=== PATIENT | female | born 1960 | race Hispanic/Latino ===

== ENCOUNTER 2017-11-16 10:13 | Inpatient (IN) | payer MEDICAID ==
[2017-11-16 10:30] VITALS: BMI 24.2
--- NOTE | 2017-11-16 11:30 | CT ---
PROCEDURE: CT HEAD WITHOUT CONTRAST. HISTORY: head injury COMPARISON: None available. TECHNIQUE: Axial computed tomography images were obtained through the head/brain without intravenous contrast. Radiation dose: Total exam DLP = 877.06 mGy-cm. This CT exam was performed using one or more of the following dose reduction techniques: Automated exposure control, adjustment of the mA and/or kV according to patient size, and/or use of iterative reconstruction technique. FINDINGS: HEMORRHAGE: No intracranial hemorrhage. BRAIN: There is minimal expansion of the ventricular sulcal sternal spaces compatible diffuse cerebral atrophy. Further, trace subcortical white matter lucency is seen occasionally involving the cerebrum including minimal segment of the right external capsule likely reflecting chronic microangiopathy. Posterior fossa contents appear unremarkable the brainstem. There is no mass effect or suspicious extra-axial fluid collection demonstrated. Midline brain and appears unremarkable diffusely. VENTRICLES: Unremarkable. No hydrocephalus. CALVARIUM: No destructive bony lesion or displaced fracture identified including through the skullbase. PARANASAL SINUSES: Unremarkable as visualized. No significant inflammatory changes. MASTOID AIR CELLS: Left mastoid effusions identified. OTHER FINDINGS: None. IMPRESSION: Limited diffuse cerebral atrophy chronic microangiopathy are identified. No intracranial hemorrhage or fracture of the calvarium/ skull base demonstrated. Left mastoid effusions are identified.
--- NOTE | 2017-11-16 12:27 | RAD ---
PROCEDURE: Radiographs of the pelvis and bilateral hips HISTORY: Right hip pain COMPARISON: None. FINDINGS: BONES: There is an acute impacted nondisplaced right femoral subcapital fracture. The pelvic ring is intact. There is diffuse bone demineralization. There is no bone destruction. JOINTS: The hip joint spaces are preserved. There is mild degenerative osteoarthrosis in the sacroiliac joints. SOFT TISSUES: Normal. OTHER FINDINGS: There are multiple phleboliths in the pelvis. IMPRESSION: Acute impacted nondisplaced right femoral subcapital fracture. No dislocation.
--- NOTE | 2017-11-16 12:35 | ED PDOC ---
Arrival/HPI - General Chief Complaint: Trauma Time Seen by Provider: 11/16/17 11:00 Historian: Patient - History of Present Illness Narrative History of Present Illness (Text): 11/16/17 12:36 57yo female with PMh of RA and hypertension bib BLS for right hip pain s/p trauma earlier this morning. Patient states she started having diarrhea, after eating a left over diarrhea last night. States while running to use her bathroom , she didn't use her walker and she fell, injuring her hip and hitting her head on the floor. States she wasn't able to stand s/p the fal land her brother found her on the floor this morning. she denies LOC, focal weakness, nausea, vomiting, dizziness, any other complaint. Past Medical History - Provider Review Nursing Documentation Reviewed: Yes - Infectious Disease Hx of Infectious Diseases: None - Cardiac Hx Cardiac Disorders: Yes Hx Hypertension: Yes - Pulmonary Hx Respiratory Disorders: Yes Hx Chronic Obstructive Pulmonary Disease (COPD): Yes - Neurological Hx Neurological Disorder: No Hx Alzheimer's Disease: No - HEENT Hx HEENT Disorder: No - Renal Hx Renal Disorder: No - Endocrine/Metabolic Hx Endocrine Disorders: No - Hematological/Oncological Hx Blood Disorders: No - Integumentary Hx Dermatological Disorder: No - Musculoskeletal/Rheumatological Hx Musculoskeletal Disorders: Yes - Gastrointestinal Hx Gastrointestinal Disorders: No - Genitourinary/Gynecological Hx Genitourinary Disorders: No - Psychiatric Hx Psychophysiologic Disorder: Yes Hx Anxiety: Yes Hx Depression: Yes Hx Emotional Abuse: No Hx Physical Abuse: No Hx Substance Use: No - Surgical History Hx Orthopedic Surgery: Yes (foot) - Anesthesia Hx Anesthesia Reactions: No - Suicidal Assessment Feels Threatened In Home Enviroment: No Family/Social History - Physician Review Nursing Documentation Reviewed: Yes Family/Social History: Unknown Family HX Smoking Status: Heavy Smoker > 10 Cigarettes Daily Hx Alcohol Use: No Hx Substance Use: No Hx Substance Use Treatment: No Allergies/Home Meds Allergies/Adverse Reactions: Allergies ibuprofen [From Motrin] Allergy (Verified 11/16/17 15:44) ANAPHYLAXIS NSAIDS (Non-Steroidal Anti-Inflamma Allergy (Verified 11/16/17 15:44) SWELLING Home Medications: Home Meds Medication Instructions Recorded Confirmed Quetiapine Fumarate [Seroquel] 200 mg PO HS 05/21/12 11/16/17 Adalimumab [Humira] 40 mg SC Q2W 06/11/15 11/16/17 Benztropine [Benztropine Mesylate] 1 mg PO DAILY 06/11/15 11/16/17 Aspirin [Ecotrin] 1 tab PO DAILY 05/13/16 11/16/17 Clonazepam [Klonopin] 0.5 mg PO TID PRN 05/13/16 11/16/17 Folic Acid [Folic Acid] 1 mg PO DAILY 05/13/16 11/16/17 [place] Carbonate [[place] 300 mg PO BID 05/13/16 11/16/17 Carbonate 300MG] Methotrexate [Methotrexate] 6 tab PO .WEEKLY 05/13/16 11/16/17 Metoprolol Succinate [Toprol XL] 25 mg PO DAILY 05/13/16 11/16/17 Prednisone [Prednisone] 4 mg PO DAILY 05/13/16 11/16/17 Sertraline [Zoloft] 50 mg PO DAILY 05/13/16 11/16/17 Review of Systems - Physician Review All systems were reviewed & negative as marked: Yes - Review of Systems Constitutional: Normal Eyes: Normal ENT: Normal Respiratory: Normal Cardiovascular: Normal Gastrointestinal: Normal Genitourinary Female: Normal Musculoskeletal: Arthralgias (right hip pain) Skin: Normal Neurological: Normal Endocrine: Normal Hemo/Lymphatic: Normal Psychiatric: Normal Physical Exam Vital Signs Reviewed: Yes Vital Signs Temp Pulse Resp BP Pulse Ox 11/16/17 14:20 79 16 140/75 98 11/16/17 12:23 75 18 112/75 100 11/16/17 11:21 79 18 108/71 100 11/16/17 10:30 98.4 F 84 16 110/79 100 Temperature: Afebrile Blood Pressure: Normal Pulse: Regular Respiratory Rate: Normal Appearance: Positive for: Well-Appearing, Non-Toxic, Comfortable Pain Distress: None Mental Status: Positive for: Alert and Oriented X 3 - Systems Exam Head: Present: Atraumatic, Normocephalic Pupils: Present: PERRL Extroacular Muscles: Present: EOMI Conjunctiva: Present: Normal Mouth: Present: Moist Mucous Membranes Neck: Present: Normal Range of Motion Respiratory/Chest: Present: Clear to Auscultation, Good Air Exchange. No: Respiratory Distress, Accessory Muscle Use Cardiovascular: Present: Regular Rate and Rhythm, Normal S1, S2. No: Murmurs Abdomen: Present: Normal Bowel Sounds. No: Tenderness, Distention, Peritoneal Signs Back: Present: Normal Inspection Upper Extremity: Present: Normal Inspection. No: Cyanosis, Edema Lower Extremity: Present: NORMAL PULSES, Tenderness (LAteral and anterior right hip), Neurovascularly Intact. No: Edema, Normal ROM (Limited on external/ internal abduction/aducction), Swelling Neurological: Present: GCS=15, CN II-XII Intact, Speech Normal Skin: Present: Warm, Dry, Normal Color. No: Rashes Psychiatric: Present: Alert, Oriented x 3, Normal Insight, Normal Concentration Medical Decision Making ED Course and Treatment: 11/16/17 19:30 PT in ED for stated history. She was seen as soon as she came to the ED and analgesic ordered Hip xray IMPRESSION: Acute impacted nondisplaced right femoral subcapital fracture. No dislocation. Case was RONEN Sy who pt by the bedside and took pt to the OR CAse was RONEN Alba and pt was admitted EKG NSR @ 85bpm CXR NAD Lab was reviewed with leukocytosis which could be secondary to the fracture or viral infection. - RAD Interpretation Radiology Orders: 11/16/17 11:00 HEAD W/O CONTRAST [CT] Stat Hip Bilateral [HIP MIN 3V W/ PELVIS SUKHDEV] [RAD] Stat 11/16/17 12:34 CHEST PORTABLE [RAD] Stat - Medication Orders Current Medication Orders: Acetaminophen (Tylenol 325mg Tab) 650 mg PO Q4 PRN PRN Reason: Fever >100.4 F Aspirin (Ecotrin) 325 mg PO DAILY [facility] Benztropine Mesylate (Cogentin) 1 mg PO DAILY VU Clonazepam (Klonopin) 0.5 mg PO TID PRN; Protocol PRN Reason: Anxiety Enoxaparin Sodium (Lovenox) 30 mg SC DAILY VU PRN Reason: Protocol Fentanyl (Fentanyl) 25 mcg IV Q5M PRN PRN Reason: Pain, moderate (4-7) Folic Acid (Folic Acid) 1 mg PO DAILY [facility] Dextrose/Sodium Chloride (Dextrose 5%/0.45% Ns 1000 Ml) 1,000 mls @ 75 mls/hr IV .[id number] VU Last Admin: 11/16/17 18:30 Dose: 75 mls/hr eMAR Start Stop Document 11/16/17 18:30 MJO (Rec: 11/16/17 18:31 [facility] [id number]) Intravenous Solution Start Date 11/16/17 Start Time 18:31 Cefazolin Sodium (Ancef 1gm In Ns) 1 gm in 100 mls @ 100 mls/hr IVPB Q8 VU PRN Reason: Protocol [place] Carbonate ([place] Carbonate 300mg) 300 mg PO BID VU Last Admin: 11/16/17 18:39 Dose: Not Given Non-Admin Reason: Patient Lethargic Behavioural Document 11/16/17 18:39 [facility] (Rec: 11/16/17 18:39 [facility] [id number]) Maintenance Maintenance Dose Yes Methotrexate (Methotrexate) 15 mg PO .WEEKLY VU Metoclopramide HCl (Reglan) 10 mg IV ONCE PRN PRN Reason: Nausea/Vomiting Metoprolol Succinate (Toprol Xl) 25 mg PO DAILY VU Morphine Sulfate (Morphine) 2 mg IVP Q4H PRN PRN Reason: Pain, moderate (4-7) Adalimumab [Humira] (40 Mg) 40 mg SC Q2W VU Ondansetron HCl (Zofran Inj) 4 mg IVP ONCE PRN PRN Reason: Nausea/Vomiting Prednisone (Prednisone Tab) 5 mg PO DAILY VU Quetiapine Fumarate (Seroquel) 200 mg PO HS VU Discontinued Medications Hydromorphone HCl (Dilaudid) 0.5 mg SC Q4H PRN PRN Reason: Pain, severe (8-10) Sodium Chloride (Sodium Chloride 0.9%) 1,000 mls @ 999 mls/hr IV .Q1H1M STA Stop: 11/16/17 14:11 Last Admin: 11/16/17 13:22 Dose: 999 mls/hr eMAR Start Stop Document 11/16/17 13:22 [place] (Rec: 11/16/17 13:22 [place] [id number]) Intravenous Solution Start Date 11/16/17 Start Time 13:22 Morphine Sulfate (Morphine) 2 mg IVP STAT STA Stop: 11/16/17 12:37 Last Admin: 11/16/17 13:21 Dose: 2 mg MAR Pain Assessment Document 11/16/17 13:21 HI (Rec: 11/16/17 13:21 [place] [id number]) Pain Reassessment Is this a pain reassessment? No Location Left, Right or Bilateral Right Pain Location Body Site Hip Description Description Constant Intensity of Pain at present 10 Pain Behavior Moaning Withdrawal from Touch Facial Grimacing IVP Administration Document 11/16/17 13:21 HI (Rec: 11/16/17 13:21 [id number] Charges for Administration # of IVP Administrations 1 Tramadol HCl (Ultram) 50 mg PO STAT STA Stop: 11/16/17 11:02 Last Admin: 11/16/17 11:56 Dose: 50 mg MAR Pain Assessment Document 11/16/17 11:56 HI (Rec: 11/16/17 11:59 [id number][facility] Pain Reassessment Is this a pain reassessment? No Disposition/Present on Arrival - Present on Arrival Any Indicators Present on Arrival: No History of DVT/PE: No History of Uncontrolled Diabetes: No Urinary Catheter: No History of Decub. Ulcer: No History Surgical Site Infection Following: None - Disposition Have Diagnosis and Disposition been Completed?: Yes Diagnosis: Femoral fracture, Hip fracture Disposition: HOSPITALIZED Disposition Time: 12:40 Patient Plan: Admission Patient Problems: Current Active Problems Problem Status Onset Femoral fracture Acute Condition: FAIR
[2017-11-16] MEDS ORDERED: Morphine 2 mg/ml ISec IVP STA (12:36)
[2017-11-16] MEDS ORDERED: Sodium Chloride 0.9% 1,000 ML IV STA (13:11)
[2017-11-16 13:42] LABS: BASO # 0.02 K/mm3 (0.0-2.0); BASO % 0.1 % (0.0-3.0); GRAN # 11.51 (1.4-6.5); GRAN % 80.5 % (50.0-68.0); HEMOGLOBIN 11.8 g/dL (12.0-16.0); LYMPH # 1.6 (1.2-3.4); LYMPH % 11.3 % (22.0-35.0); MEAN CELL VOLUME 89.3 fl (80.0-105.0); MEAN CORPUSCULAR HEMOGLOBIN 28.8 pg (25.0-35.0); MEAN CORPUSCULAR HGB CONC 32.2 g/dl (31.0-37.0); MEAN PLATELET VOLUME 10.3 fl (7.0-11.0); MONO # 1.2 (0.1-0.6); MONO % 8.1 % (1.0-6.0); RBC 4.1 10^6/uL (3.5-6.1); RED CELL DISTRIBUTION WIDTH 17.7 % (11.5-14.5); WHITE BLOOD COUNT 14.3 10^3/ul (4.5-11.0)
--- NOTE | 2017-11-16 13:46 | RAD ---
HISTORY: admission COMPARISON: 05/13/2016. FINDINGS: LUNGS: The lungs are clear. There is minimal bibasilar atelectasis. No focal consolidation. PLEURA: No significant pleural effusion identified, no pneumothorax apparent. CARDIOVASCULAR: Normal. OSSEOUS STRUCTURES: There is an S-shaped scoliosis in the thoracolumbar spine. VISUALIZED UPPER ABDOMEN: Normal. OTHER FINDINGS: None. IMPRESSION: No active pulmonary disease.
[2017-11-16 13:52] LABS: ALB/GLOB RATIO 1.2 (1.1-1.8); ALBUMIN 3.5 g/dL (3.0-4.8); ALT/SGPT 45 U/L (7-56); AST/SGOT 46 U/L (14-36); BLOOD UREA NITROGEN 14 mg/dL (7-21); CALCIUM 9.9 mg/dL (8.4-10.5); GFR AFRICAN-AMERICAN > 60; GFR NON-AFRICAN AMERICAN > 60
[2017-11-16 14:05] LABS: INR 1.26 (0.93-1.08); PARTIAL THROMBOPLASTIN TIME 33.3 Seconds (25.1-36.5); PROTHROMBIN TIME 14.5 SECONDS (9.4-12.5)
[2017-11-16 14:23] LABS: URINE BILIRUBIN NEGATIVE (NEGATIVE); URINE BLOOD TRACE-INTACT (NEGATIVE); URINE GLUCOSE (UA) NEGATIVE (NEGATIVE); URINE LEUKOCYTE ESTERASE NEGATIVE Leu/uL (NEGATIVE); URINE NITRATE NEGATIVE (NEGATIVE); URINE PROTEIN NEGATIVE mg/dL (<30 mg/dL); URINE UROBILINOGEN 0.2 E.U./dL (<1 E.U./dL)
[2017-11-16 14:24] LABS: URINE APPEARANCE CLEAR (CLEAR); URINE COLOR YELLOW (YELLOW)
[2017-11-16] MEDS ORDERED: Bupivacaine 0.5% Inj(30mL) ONE (14:27)
[2017-11-16 14:33] LABS: URINE EPITHELIAL CELLS 0 - 2 /hpf (0-5); URINE WBC 0 - 2 /hpf (0-6)
[2017-11-16 14:34] LABS: URINE AMORPHOUS SEDIMENT FEW; URINE BACTERIA MOD (NEG)
[2017-11-16] MEDS ORDERED: Midazolam 2 MG/2 ML VIAL ONE (14:59)
[2017-11-16] MEDS ORDERED: Propofol 10 mg/ml Inj (20 ML) ONE (15:00)
[2017-11-16] MEDS ORDERED: Succinylcholine 200 mg/10 ml Inj IV ONE (15:00)
[2017-11-16] MEDS ORDERED: Rocuronium 10 mg/ml (5 ml) ONE (15:00)
[2017-11-16] MEDS ORDERED: Metoprolol 1 mg/ml Inj IVP ONE (16:12)
[2017-11-16] MEDS ORDERED: Neostigmine Methylsulfate 3mg/3ml Syringe IV ONE (16:26)
[2017-11-16] MEDS ORDERED: HYDROmorphone 0.5 mg/0.5 ml ISec SC PRN (16:58)
[2017-11-16] MEDS: Dextrose 5%/0.45% NS 1,000 ML IV SCH (18:30)
[2017-11-16] MEDS: Morphine 2 mg/ml ISec IVP PRN (20:50)
[2017-11-16] MEDS: ceFAZolin 1 gm in NS 1 GM/100 ML BAG IVPB SCH (21:40)
[2017-11-16] MEDS ORDERED: QUETIAPINE FUMARATE 200 MG PO SCH (22:00)
--- NOTE | 2017-11-16 23:15 | CON ---
DATE: 11/16/2017 CARDIOLOGY CONSULTATION HISTORY OF PRESENT ILLNESS: The patient is a 57-year-old woman who presented with a hip fracture after a fall. The patient suffers from rheumatoid arthritis and uses a cane at home. The patient has no previous cardiac history. No diabetes mellitus. She does suffer from hypertension. There is evidence for COPD in the past, although the patient denies shortness of breath. She denies chest pain. SOCIAL HISTORY: The patient is an active smoker. REVIEW OF SYSTEMS: A 14-point review of systems is reviewed in detail. No cardiac symptomatology noted. No syncope noted. PHYSICAL EXAMINATION VITAL SIGNS: Stable, heart rate is in the 80s. NECK: Negative JVD. LUNGS: Without rales. HEART: Reveals S1 and S2. EXTREMITIES: Without edema. LABORATORY DATA: Laboratories were reviewed without issues. EKG is normal sinus rhythm and is unremarkable. IMPRESSION: 1. Status post hip fracture secondary to a fall. 2. No syncope. 3. History of hypertension. 4. Chronic obstructive pulmonary disease. 5. Rheumatoid arthritis. PLAN: Given these findings, there is no active cardiac issues at this time. The patient is for orthopedic surgery today. Luigi Delgado MD
[2017-11-16] MEDS ORDERED: Pneumococcal 23-Valent Vaccine IM ONE (23:30)
[2017-11-16] MEDS ORDERED: Influenza Vaccine 60 mcg/0.5 mL SYR (4YR UP) IM ONE (23:30)
--- NOTE | 2017-11-17 00:35 | CON ---
DATE: 11/16/2017 ORTHOPEDIC CONSULTATION HISTORY OF PRESENT ILLNESS: The patient slipped and fell yesterday at home and sustained an injury to her right hip. When she came to the ER this morning, she had an impacted subcapital fracture of right hip, amiable to percutaneous pinning or open reduction internal fixation with cannulated screws. She is going to be cleared medically by Dr. Alba and Dr. Luigi Delgado. Blood work looked satisfactory as far as electrolytes and H and H and ProTime and PTT. Chest x-ray was fine. EKG was fine. So, we are going to do a pinning of right hip with 3 cannulated screws. This will help avoid a total hip at this state. Because if she heals with this pins, then she does not need a total hip; but if the pins do not work, she will get avascular necrosis or arthritis, and then she would need a total hip on an elective basis, not an urgent state as she is now. FINAL DIAGNOSES: Impacted subcapital fracture of right hip, for pinning in the OR of right hip - either open or percutaneous. Calvin Sy DO
--- NOTE | 2017-11-17 04:24 | OP ---
PROCEDURE DATE: 11/16/2017 PREOPERATIVE DIAGNOSIS: Impacted subcapital fracture, right hip. POSTOPERATIVE DIAGNOSIS: Impacted subcapital fracture, right hip. PROCEDURE: Open reduction and internal fixation utilizing three cannulated screws, 90, 90, and 85 mm long screws. ANESTHESIA: General endotracheal tube. DESCRIPTION OF PROCEDURE: The patient was taken to the OR, right hips prepped and draped in sterile fashion. With the help of the C-arm, we were able to reduce the fracture with gentle traction and internal rotation. After thorough prepping and draping, antibiotics were given IV, we made a stone setter metal optical frames incision at the hip to template of the hip to tell us which direction to put our guidewire, which was just below the greater trochanteric area and made an inch incision right in line with the femoral head and neck. Deep dissection done to release the fascia, then put it in the first guidewire along the calcar region of the right hip. This looked good on both AP and lateral projections and we replaced that guidewire with a 90-mm long short-threaded screw, 7.3 mm, with 60 mm of screw purchase and with a washer to help improve the size of it. This was done to hold it on the calcar to help it go into valgus and we put two more screws proximal to this, one anterior and one posterior, with the help of the C-arm and the guidewire. All three screws were in good position, just subchondral and we moved the hip under fluoroscopy to see and make sure there is no motion of the fracture, which there was not and to make sure the screws did not penetrate the femoral head, which they did not. The wound was irrigated with normal saline and Kantrex, closed in layers. The other two screws put in were 90 mm long, also one with a washer and one without. Then the wound was closed with 0 Vicryl at deep layer, 2-0 Vicryl for the subcutaneous tissue, and skin with stainless steel vanessa. Patient was taken to recovery room in good condition. Calvin Sy DO
[2017-11-17] MEDS: ceFAZolin 1 gm in NS 1 GM/100 ML BAG IVPB SCH ×3 (05:08→22:16)
[2017-11-17] MEDS: Morphine 2 mg/ml ISec IVP PRN ×2 (05:08→20:47)
--- NOTE | 2017-11-17 06:12 | HP ---
HISTORY OF PRESENT ILLNESS: I was called by the ER to come, take a look at her. She had a trauma and she hurt her right hip, turns out there was a fracture and she is scheduled to go for surgery with Dr. Sy. Discussed the plans with Dr. Sy her situation, went over meds and plans. This is a 57-year-old female who was brought in by ambulance with right hip pain status post trauma earlier that morning. She is also having diarrhea. She was eating leftovers and while running to the bathroom, did not use her walker, she fell injuring her hip, hitting her head in the floor, could not stand up from the fall. Her brother found her on the floor and ended up here in the hospital. PAST MEDICAL HISTORY: She has a past medical history of severe rheumatoid arthritis, hypertension, COPD, musculoskeletal disorders. She has anxiety, depression. She had orthopedic surgery on her foot. FAMILY HISTORY: Unknown family history. SOCIAL HISTORY: She is still smoking cigarettes. No alcohol. No drugs. ALLERGIES: SHE HAS IBUPROFEN, MOTRIN ALLERGY. MEDICATIONS: She is on Seroquel, Humira, benztropine, Ecotrin, Klonopin, folic acid, lithium, methotrexate, Toprol, prednisone and Zoloft. REVIEW OF SYSTEMS: No acute vision or hearing changes. No sore throat. No neck pain. No chest pain or palpitations. No shortness of breath or cough. No abdominal pain, nausea, vomiting, but there is diarrhea. We will check infection also. She has arthralgias, lots of pain in the right hip status post fall. Skin for the most part intact. No apparent rashes or ulcers. Neurologically, she is fairly intact. No anxiety, depression at this time. No sweating. No tremors. PHYSICAL EXAMINATION: VITAL SIGNS: She has 98.4 temperature, 84 pulse, 16 respiratory rate, 110/79 blood pressure, 100% O2 sat on room air. HEENT: Head is traumatic, but no apparent bumps or bruises. She hit her head, but do not see any problems with it. She is well appearing, nontoxic, comfortable, with right hip pain. Alert and oriented x3. Extraocular muscles are intact. Pupils are equal and react to light. Throat is moist. NECK: Supple. HEART: Regular rate. Normal S1, S2. LUNGS: Clear to auscultation bilaterally. No wheezes or rhonchi or rales. ABDOMEN: Soft, nontender. Positive bowel sounds. No guarding, no rebound or CVA tenderness. EXTREMITIES: She has pain on the right hip area, no edema. NEUROLOGIC: GCS is 15. Cranial nerves II through XII grossly intact. Speech is normal. Alert and oriented x3. SKIN: Warm and dry. No apparent rashes or ulcers. Thyroid midline. VASCULAR: No apparent palpable lymphadenopathy at this time. LABORATORY DATA: She had multiple tests done. She had urine, which showed moderate bacteria. She has 136 sodium, potassium 3.6, BUN 14, creatinine 0.7, GFR is greater than 60, sugar is 103, calcium 9.9, total bili is 0.4, AST is 46, ALT is 45, alk phos 54, total protein 6.3. 1.26 INR. She has 14.3 white count, 11.8 hemoglobin, 36.6 hematocrit with a 308 platelets. She has a head CT when she hit her head, which showed limited diffuse cerebral atrophy, no intracranial hemorrhage, some left mastoid effusions are identified. She had a hip and pelvis x-ray, which showed acute impacted nondisplaced right femur. Chest x-ray with no active pulmonary disease. After discussion with Orthopedics, we decided that she was going for open surgery tonight for pinning. We will check her labs tomorrow. She will probably end up going to [facility] on Sunday. Discussed with the patient at length who felt she could be discharged tonight, but she cannot. She is on Zofran, Ultram, Tylenol, metoprolol, IV fluids, Seroquel, Reglan, prednisone, morphine, methotrexate, Lovenox, lithium, Klonopin, folic acid, fentanyl, aspirin, benztropine, cefazolin and Humira. We will check her labs tomorrow. Continue with aggressive treatment and care, antibiotics for the elevated white count and urinary tract infection and she is status post fall with a fractured right hip. We will see how she Marisabel Alba DO [facility] # [id number] MTDEliel
[2017-11-17 07:07] LABS: EOS % 0.1 % (1.5-5.0); GRAN # 7.09 (1.4-6.5); HEMOGLOBIN 9.9 g/dL (12.0-16.0); LYMPH # 1.4 (1.2-3.4); LYMPH % 15.8 % (22.0-35.0); MEAN CELL VOLUME 89.2 fl (80.0-105.0); MEAN CORPUSCULAR HEMOGLOBIN 28.9 pg (25.0-35.0); MEAN CORPUSCULAR HGB CONC 32.4 g/dl (31.0-37.0); MEAN PLATELET VOLUME 10.1 fl (7.0-11.0); MONO # 0.6 (0.1-0.6); MONO % 6.1 % (1.0-6.0); RBC 3.43 10^6/uL (3.5-6.1); RED CELL DISTRIBUTION WIDTH 17.8 % (11.5-14.5); WHITE BLOOD COUNT 9.1 10^3/ul (4.5-11.0)
[2017-11-17 07:28] LABS: ALB/GLOB RATIO 1.1 (1.1-1.8); ALBUMIN 2.6 g/dL (3.0-4.8); ALT/SGPT 37 U/L (7-56); AST/SGOT 32 U/L (14-36); BLOOD UREA NITROGEN 10 mg/dL (7-21); GFR AFRICAN-AMERICAN > 60; GFR NON-AFRICAN AMERICAN > 60
--- NOTE | 2017-11-17 09:57 | CARD ---
APPROVED REPORT EKG Measurement Heart [id number] <Conclusion> Normal sinus rhythm Normal ECG No change
--- NOTE | 2017-11-17 11:13 | CP.PCM.CON ---
History of Present Illness - History of Present Illness History of Present Illness: Podiatry Consult Note - Dr. Alcantara 57 year old female patient PMHx severe rheumatoid arthritis, HTN, COPD, anxiety , depression seen and evaluated at bedside at the request for rheumatoid foot care. Patient hemodynamically stable, NAD. Patient s/p right hip fracture ORIF yesterday afternoon. Patient was admitted yesterday after sustaining a right hip fracture secondary to falling at home. Patient is complaining of right foot pain which began after her injury. Patient states she has a walker and other assistive devices at home, but does not use them and believes she is able to ambulate freely with no assistance. Patient states she was in the bathroom when she hit her right foot on her shower chair and fell. Patient also endorses pain at her surgical site, well-controlled. No other pedal complaints. Denies N/V/F/D /C/SOB. Review of Systems - Review of Systems All systems: reviewed and no additional remarkable complaints except (as per HPI ) Past Patient History - Infectious Disease Hx of Infectious Diseases: None - Past Social History Smoking Status: Former Smoker - CARDIAC Hx Cardiac Disorders: Yes Hx Hypertension: Yes - PULMONARY Hx Respiratory Disorders: Yes Hx Chronic Obstructive Pulmonary Disease (COPD): Yes - NEUROLOGICAL Hx Neurological Disorder: No Hx Alzheimer's Disease: No - HEENT Hx HEENT Problems: No - RENAL Hx Chronic Kidney Disease: No - ENDOCRINE/METABOLIC Hx Endocrine Disorders: No - HEMATOLOGICAL/ONCOLOGICAL Hx Blood Disorders: No - INTEGUMENTARY Hx Dermatological Problems: No - MUSCULOSKELETAL/RHEUMATOLOGICAL Hx Musculoskeletal Disorders: Yes ([place]) Hx Arthritis: Yes Hx Falls: Yes (11-16-17) Other/Comment: BUNIONECTOMY - GASTROINTESTINAL Hx Gastrointestinal Disorders: No - GENITOURINARY/GYNECOLOGICAL Hx Genitourinary Disorders: No - PSYCHIATRIC Hx Psychophysiologic Disorder: Yes Hx Anxiety: Yes Hx Bipolar Disorder: Yes Hx Depression: Yes Hx Emotional Abuse: No Hx Physical Abuse: No Hx Substance Use: No - SURGICAL HISTORY Hx Surgeries: Yes (RIGHT LEG SX -DX OSTEOCHODROMA,BUNIONECTOMY,REMOVED R BREAST CYST.ORAL SX.) Hx Orthopedic Surgery: Yes (foot) - ANESTHESIA Hx Anesthesia Reactions: No Meds Allergies/Adverse Reactions: Allergies Allergy/AdvReac Type Severity Reaction Status Date / Time ibuprofen [From Motrin] Allergy ANAPHYLAXIS Verified 11/16/17 15:44 NSAIDS (Non-Steroidal Allergy SWELLING Verified 11/16/17 15:44 Anti-Inflamma - Medications Medications: Current Medications Acetaminophen (Tylenol 325mg Tab) 650 mg PO Q4 PRN PRN Reason: Fever >100.4 F Aspirin (Ecotrin) 325 mg PO DAILY [facility] Benztropine Mesylate (Cogentin) 1 mg PO DAILY [facility] Clonazepam (Klonopin) 0.5 mg PO TID PRN; Protocol PRN Reason: Anxiety Last Admin: 11/16/17 21:40 Dose: 0.5 mg Enoxaparin Sodium (Lovenox) 30 mg SC DAILY [facility] PRN Reason: Protocol Fentanyl (Fentanyl) 25 mcg IV Q5M PRN PRN Reason: Pain, moderate (4-7) Folic Acid (Folic Acid) 1 mg PO DAILY [facility] Dextrose/Sodium Chloride (Dextrose 5%/0.45% Ns 1000 Ml) 1,000 mls @ 75 mls/hr IV .[id number] [facility] Last Admin: 11/16/17 18:30 Dose: 75 mls/hr Cefazolin Sodium (Ancef 1gm In Ns) 1 gm in 100 mls @ 100 mls/hr IVPB Q8 VU PRN Reason: Protocol Last Admin: 11/17/17 05:08 Dose: 100 mls/hr [place] Carbonate ([place] Carbonate 300mg) 300 mg PO BID [facility] Last Admin: 11/16/17 18:39 Dose: Not Given Methotrexate (Methotrexate) 15 mg PO .WEEKLY [facility] Metoclopramide HCl (Reglan) 10 mg IV ONCE PRN PRN Reason: Nausea/Vomiting Metoprolol Succinate (Toprol Xl) 25 mg PO DAILY [facility] Morphine Sulfate (Morphine) 2 mg IVP Q4H PRN PRN Reason: Pain, moderate (4-7) Last Admin: 11/17/17 05:08 Dose: 2 mg Adalimumab [Humira] (40 Mg) 40 mg SC Q2W [facility] Ondansetron HCl (Zofran Inj) 4 mg IVP ONCE PRN PRN Reason: Nausea/Vomiting Prednisone (Prednisone Tab) 5 mg PO DAILY [facility] Quetiapine Fumarate (Seroquel) 200 mg PO HS [facility] Last Admin: 11/16/17 21:40 Dose: 200 mg Physical Exam - Constitutional Appears: Well, Non-toxic, No Acute Distress - Extremities Exam Additional comments: VASC: DP pulses palpable 2/4 b/l. PT pulses weakly palpable 1/4 b/l. CFT <3 seconds to all digits x10. Temperature gradient warm to warm b/l. No pedal edema noted. No increase in warmth noted. NEURO: Gross sensation intact. DERM: Diffuse xerosis noted. Fissuring noted to plantar heel b/l. Hyperkeratotic lesions sub 1 and 2 left foot. No open lesions noted. ORTHO: Fibular deviation of digits 1-5 b/l. No pain on palpation noted to foot b /l. Muscle strength 5/5 for all dorsiflexors, plantarflexors, inverters, and everters b/l. - Neurological Exam Neurological exam: Alert, Oriented x3 - Psychiatric Exam Psychiatric exam: Normal Affect, Normal Mood Results - Vital Signs Recent Vital Signs: Last Vital Signs Temp 100.2 F H 11/17/17 07:30 Pulse 72 11/17/17 07:30 Resp 18 11/17/17 07:30 BP 121/74 11/17/17 07:30 Pulse Ox 91 L 11/17/17 07:30 - Labs Result Diagrams: 11/17/17 06:30 11/17/17 06:30 Labs: Laboratory Results - last 24 hr 11/16/17 11/16/17 11/16/17 13:20 13:20 13:20 WBC 14.3 H RBC 4.10 Hgb 11.8 L Hct 36.6 MCV 89.3 MCH 28.8 MCHC 32.2 RDW 17.7 H Plt Count 308 MPV 10.3 Gran % 80.5 H Lymph % (Auto) 11.3 L [place] % (Auto) 8.1 H Eos % (Auto) 0.0 L Baso % (Auto) 0.1 Gran # 11.51 H Lymph # (Auto) 1.6 [place] # (Auto) 1.2 H Eos # (Auto) 0.0 Baso # (Auto) 0.02 PT 14.5 H INR 1.26 H APTT 33.3 Sodium 136 Potassium 3.6 Chloride 105 Carbon Dioxide 19 L Anion Gap 16 BUN 14 Creatinine 0.7 Est GFR ( Amer) > 60 Est GFR (Non-Af Amer) > 60 Random Glucose 103 Calcium 9.9 Total Bilirubin 0.4 AST 46 H ALT 45 Alkaline Phosphatase 64 Total Protein 6.3 Albumin 3.5 Globulin 2.9 Albumin/Globulin Ratio 1.2 Urine Color Urine Appearance Urine pH Ur Specific [place] Urine Protein Urine Glucose (UA) Urine Ketones Urine Blood Urine Nitrate Urine Bilirubin Urine Urobilinogen Ur Leukocyte Esterase Urine RBC Urine WBC Ur Epithelial Cells Amorphous Sediment Urine Bacteria Blood Type Antibody Screen BBK History Checked 11/16/17 11/16/17 11/17/17 13:20 14:17 06:30 WBC 9.1 D RBC 3.43 L Hgb 9.9 L Hct 30.6 L MCV 89.2 MCH 28.9 MCHC 32.4 RDW 17.8 H Plt Count 246 MPV 10.1 Gran % 78.0 H Lymph % (Auto) 15.8 L [place] % (Auto) 6.1 H Eos % (Auto) 0.1 L Baso % (Auto) 0.0 Gran # 7.09 H Lymph # (Auto) 1.4 [place] # (Auto) 0.6 Eos # (Auto) 0.0 Baso # (Auto) 0.00 PT INR APTT Sodium Potassium Chloride Carbon Dioxide Anion Gap BUN Creatinine Est GFR ( Amer) Est GFR (Non-Af Amer) Random Glucose Calcium Total Bilirubin AST ALT Alkaline Phosphatase Total Protein Albumin Globulin Albumin/Globulin Ratio Urine Color Yellow Urine Appearance Clear Urine pH 6.0 Ur Specific [place] 1.010 Urine Protein Negative Urine Glucose (UA) Negative Urine Ketones Negative Urine Blood Trace-intact H Urine Nitrate Negative Urine Bilirubin Negative Urine Urobilinogen 0.2 Ur Leukocyte Esterase Negative Urine RBC 1 - 3 Urine WBC 0 - 2 Ur Epithelial Cells 0 - 2 Amorphous Sediment Few Urine Bacteria Mod Blood Type A POSITIVE Antibody Screen Negative BBK History Checked No verified bt 11/17/17 06:30 WBC RBC Hgb Hct MCV MCH MCHC RDW Plt Count MPV Gran % Lymph % (Auto) [place] % (Auto) Eos % (Auto) Baso % (Auto) Gran # Lymph # (Auto) [place] # (Auto) Eos # (Auto) Baso # (Auto) PT INR APTT Sodium 139 Potassium 3.3 L Chloride 111 H Carbon Dioxide 21 Anion Gap 10 BUN 10 Creatinine 0.6 L Est GFR ( Amer) > 60 Est GFR (Non-Af Amer) > 60 Random Glucose 99 Calcium 9.0 Total Bilirubin 0.2 AST 32 ALT 37 Alkaline Phosphatase 45 Total Protein 5.0 L Albumin 2.6 L Globulin 2.4 Albumin/Globulin Ratio 1.1 Urine Color Urine Appearance Urine pH Ur Specific [place] Urine Protein Urine Glucose (UA) Urine Ketones Urine Blood Urine Nitrate Urine Bilirubin Urine Urobilinogen Ur Leukocyte Esterase Urine RBC Urine WBC Ur Epithelial Cells Amorphous Sediment Urine Bacteria Blood Type Antibody Screen BBK History Checked Assessment & Plan - Assessment and Plan (Free Text) Assessment: 57 year old female patient PMHx severe rheumatoid arthritis, HTN, COPD, anxiety , depression with right foot pain, likely sciatic nerve pain vs. RA inflammation Plan: Patient seen and evaluated Discussed with attending, Dr. Alcantara Mildly febrile this AM 100.2, WBC 9.1 Bilateral foot XR ordered, f/u report LacHydrin ordered - BID application to feet Pain control per medicine Podiatry will continue to follow while in house
[2017-11-17] MEDS: Enoxaparin 30 mg Syringe SC SCH (12:23)
[2017-11-17] MEDS: Aspirin 325 mg EC Tablets PO SCH (12:23)
[2017-11-17] MEDS: Metoprolol Succinate 25 mg XL Tab PO SCH (12:23)
[2017-11-17] MEDS: Dextrose 5%/0.45% NS 1,000 ML IV SCH (12:36)
[2017-11-17] MEDS ORDERED: Potassium Chloride 20 mEq ER Tab PO ONE ×3 (13:14→16:52)
--- NOTE | 2017-11-17 14:00 | RAD ---
HISTORY: cough COMPARISON: 11/16/2017 FINDINGS: LUNGS: No active pulmonary disease. PLEURA: No significant pleural effusion identified, no pneumothorax apparent. CARDIOVASCULAR: Normal. OSSEOUS STRUCTURES: No significant abnormalities. VISUALIZED UPPER ABDOMEN: Normal. OTHER FINDINGS: None. IMPRESSION: No active disease.
--- NOTE | 2017-11-17 17:19 | RAD ---
PROCEDURE: Left Foot Radiographs. HISTORY: RA foot pain COMPARISON: 05/17/2012 FINDINGS: BONES: No acute fracture. JOINTS: Severe subluxation PIP 5. Subluxation at MTP 2. Hallux valgus. SOFT TISSUES: Normal. OTHER FINDINGS: None. IMPRESSION: Subluxation at PIP 5 and MTP 2. Hallux valgus.
--- NOTE | 2017-11-17 17:25 | RAD ---
PROCEDURE: Right Foot Radiographs. HISTORY: RA foot pain COMPARISON: 05/17/2012 FINDINGS: BONES: Technically limited examination. No acute fracture. Status post bunionectomy. JOINTS: Hallux valgus. Lateral subluxation at MTP 3 and MTP 4. No articular erosions. SOFT TISSUES: Normal. OTHER FINDINGS: None. IMPRESSION: Lateral subluxation at MTP 3 and 4. Status post bunionectomy. Hallux valgus.
[2017-11-17] MEDS: Ammonium Lactate 12% Lotion (225 g) EXT SCH (18:51)
--- NOTE | 2017-11-17 21:18 | PN ---
DATE: 11/17/2017 LOCATION: Patient is in room 566, bed 1. This progress note is being dictated on behalf of Dr. Delgado whom I am covering. REASON FOR FOLLOWUP: Hypertension, hip fracture, status post surgery, chronic obstructive pulmonary disease. SUBJECTIVE: Patient is lying comfortably in bed without chest pain, shortness of breath, or palpitation. PHYSICAL EXAMINATION: VITAL SIGNS: Blood pressure 121/74, respiration 18, pulse 72, temperature 100.2. HEENT: Head: Normocephalic. Eyes: Pupils normal. Conjunctivae slightly pale. NECK: JVP low. Carotids equal. THORAX: AP diameter normal. LUNGS: No significant rales. CARDIOVASCULAR: S1 and S2. ABDOMEN: Soft. No tenderness. No organomegaly. EXTREMITIES: No clubbing. No cyanosis. LABORATORY DATA: WBC 9.1, hemoglobin 9.9, hematocrit 30.6, platelet 246. Sodium 139, potassium 3.3, BUN 10, creatinine 0.6, total protein 5.0, albumin 2.6. DIAGNOSES: Status post hip fracture, surgery, hip fracture was due to fall, hypertension, chronic obstructive pulmonary disease, rheumatoid arthritis, anemia, hypokalemia. PLAN: Patient received potassium chloride 20 mEq one dose. We will give another 20 mEq today and we will repeat labs in the morning. Patient is getting aspirin 325 mg daily, getting IV fluid D5 and half 75 mL an hour, cefazolin 1 g IV q. 8 hours, Cogentin 1 mg daily, lithium carbonate 300 mg p.o. b.i.d., Lovenox 30 mg subcu daily, prednisone 5 mg daily, Seroquel 200 mg p.o. at bedtime, metoprolol, Toprol-XL 25 mg p.o. daily. We will continue present medication. We will follow. Osmel Garrison MD
[2017-11-18] MEDS: Morphine 2 mg/ml ISec IVP PRN ×3 (03:03→21:23)
[2017-11-18] MEDS: Dextrose 5%/0.45% NS 1,000 ML IV SCH ×2 (04:50→21:25)
[2017-11-18] MEDS: ceFAZolin 1 gm in NS 1 GM/100 ML BAG IVPB SCH ×3 (05:32→21:57)
[2017-11-18 07:44] LABS: EOS % 0.2 % (1.5-5.0); GRAN # 4.25 (1.4-6.5); GRAN % 77.4 % (50.0-68.0); HEMOGLOBIN 9.2 g/dL (12.0-16.0); LYMPH # 0.8 (1.2-3.4); LYMPH % 14.6 % (22.0-35.0); MEAN CELL VOLUME 89.8 fl (80.0-105.0); MEAN CORPUSCULAR HEMOGLOBIN 28.5 pg (25.0-35.0); MEAN CORPUSCULAR HGB CONC 31.7 g/dl (31.0-37.0); MEAN PLATELET VOLUME 10.4 fl (7.0-11.0); MONO # 0.4 (0.1-0.6); MONO % 7.8 % (1.0-6.0); RBC 3.23 10^6/uL (3.5-6.1); RED CELL DISTRIBUTION WIDTH 17.6 % (11.5-14.5); WHITE BLOOD COUNT 5.5 10^3/ul (4.5-11.0)
[2017-11-18 08:24] LABS: ALBUMIN 2.5 g/dL (3.0-4.8); ALT/SGPT 33 U/L (7-56); AST/SGOT 27 U/L (14-36); BLOOD UREA NITROGEN 5 mg/dL (7-21); CALCIUM 9.1 mg/dL (8.4-10.5); GFR AFRICAN-AMERICAN > 60; GFR NON-AFRICAN AMERICAN > 60
--- NOTE | 2017-11-18 09:44 | RAD ---
PROCEDURE: Intraoperative Fluoroscopy. HISTORY: O.R.I.F. RIGHT HIP FX. FINDINGS: Fluoroscopic assistance was provided. 71.0 seconds fluoroscopy time utilized during this procedure. Radiation dose = 8.96 mGy Please refer to the operative report from LELA Rebolledo.
[2017-11-18] MEDS: Aspirin 325 mg EC Tablets PO SCH (10:01)
[2017-11-18] MEDS: Metoprolol Succinate 25 mg XL Tab PO SCH (10:01)
[2017-11-18] MEDS: Enoxaparin 30 mg Syringe SC SCH (10:03)
[2017-11-18] MEDS: Ammonium Lactate 12% Lotion (225 g) EXT SCH ×2 (10:10→18:51)
--- NOTE | 2017-11-18 11:12 | CP.PCM.PN ---
Subjective - Date & Time of Evaluation Date of Evaluation: 11/18/17 Time of Evaluation: 11:12 - Subjective Subjective: Podiatry Progress Note - Dr. Alcantara 57 year old female patient PMHx servere RA, HTN, COPD, anxiety, depression seen and evaluated at bedside regarding right foot pain. Patient hemodynamically stable and NAD. Patient reports minimal pain to right foot today, only endorses increased pain to right hip 2 days s/p right hip fracture ORIF. No other pedal complaints. Denies N/V/F/D/C/SOB. Objective - Vital Signs/Intake and Output Vital Signs (last 24 hours): Temp Pulse Resp BP Pulse Ox 99.5 F 81 20 116/67 94 L 11/18/17 07:30 11/18/17 07:30 11/18/17 07:30 11/18/17 07:30 11/18/17 07:30 Intake and Output: 11/18/17 11/18/17 06:59 18:59 Intake Total 360 Output Total 1700 Balance -1340 - Medications Medications: Current Medications Acetaminophen (Tylenol 325mg Tab) 650 mg PO Q4 PRN PRN Reason: Fever >100.4 F Last Admin: 11/17/17 17:03 Dose: 650 mg Aspirin (Ecotrin) 325 mg PO DAILY [facility] Last Admin: 11/18/17 10:01 Dose: 325 mg Benztropine Mesylate (Cogentin) 1 mg PO DAILY [facility] Last Admin: 11/18/17 10:01 Dose: 1 mg Clonazepam (Klonopin) 0.5 mg PO TID PRN; Protocol PRN Reason: Anxiety Last Admin: 11/18/17 10:01 Dose: 0.5 mg Enoxaparin Sodium (Lovenox) 30 mg SC DAILY [facility] PRN Reason: Protocol Last Admin: 11/18/17 10:03 Dose: 30 mg Fentanyl (Fentanyl) 25 mcg IV Q5M PRN PRN Reason: Pain, moderate (4-7) Folic Acid (Folic Acid) 1 mg PO DAILY [facility] Last Admin: 11/18/17 10:01 Dose: 1 mg Dextrose/Sodium Chloride (Dextrose 5%/0.45% Ns 1000 Ml) 1,000 mls @ 75 mls/hr IV .[id number] [facility] Last Admin: 11/18/17 04:50 Dose: 75 mls/hr Cefazolin Sodium (Ancef 1gm In Ns) 1 gm in 100 mls @ 100 mls/hr IVPB Q8 VU PRN Reason: Protocol Last Admin: 11/18/17 05:32 Dose: 100 mls/hr Potassium Chloride (Potassium Chloride 10 Meq/100 Ml) 10 meq in 100 mls @ 50 mls/hr IVPB ONCE ONE Stop: 11/18/17 12:12 Lactic Acid (Lac-Hydrin 12% Lotion (225 G)) 0 gm EXT BID VU Last Admin: 11/17/17 18:51 Dose: 1 applic [place] Carbonate ([place] Carbonate 300mg) 300 mg PO BID [facility] Last Admin: 11/18/17 10:01 Dose: 300 mg Methotrexate (Methotrexate) 15 mg PO .WEEKLY [facility] Metoclopramide HCl (Reglan) 10 mg IV ONCE PRN PRN Reason: Nausea/Vomiting Metoprolol Succinate (Toprol Xl) 25 mg PO DAILY [facility] Last Admin: 11/18/17 10:01 Dose: 25 mg Morphine Sulfate (Morphine) 2 mg IVP Q4H PRN PRN Reason: Pain, moderate (4-7) Last Admin: 11/18/17 10:03 Dose: 2 mg Adalimumab [Humira] (40 Mg) 40 mg SC Q2W [facility] Ondansetron HCl (Zofran Inj) 4 mg IVP ONCE PRN PRN Reason: Nausea/Vomiting Prednisone (Prednisone Tab) 5 mg PO DAILY [facility] Last Admin: 11/18/17 10:01 Dose: 5 mg Quetiapine Fumarate (Seroquel) 200 mg PO HS [facility] Last Admin: 11/17/17 22:21 Dose: 200 mg - Labs Labs: 11/18/17 05:00 11/18/17 05:00 PT 14.5 SECONDS (9.4-12.5) H 11/16/17 13:20 INR 1.26 (0.93-1.08) H 11/16/17 13:20 APTT 33.3 Seconds (25.1-36.5) 11/16/17 13:20 - Constitutional Appears: Well, Non-toxic, No Acute Distress - Extremities Exam Additional comments: VASC: DP pulses palpable 2/4 b/l. PT pulses weakly palpable 1/4 b/l. CFT <3 seconds to all digits x10. Temperature gradient warm to warm b/l. No pedal edema noted. No increase in warmth noted. NEURO: Gross sensation intact. DERM: Diffuse xerosis noted. Fissuring noted to plantar heel b/l. Hyperkeratotic lesions sub 1st and 2nd metatarsal heads b/l. No open lesions noted. ORTHO: Fibular deviation of digits 1-5 b/l. Mild pain upon ROM right foot, likely secondary to right hip surgical site. Muscle strength 5/5 for all dorsiflexors, plantarflexors, inverters, and everters b/l. - Neurological Exam Neurological Exam: Alert, Awake, Oriented x3 - Psychiatric Exam Psychiatric exam: Depressed Assessment and Plan - Assessment and Plan (Free Text) Assessment: 57 year old female patient PMHx severe rheumatoid arthritis, HTN, COPD, anxiety , depression with right foot pain Plan: Patient seen and evaluated Discussed with attending, Dr. Alcantara Afebrile, WBC WNL 5.5 Left and right foot XR: Negative for acute trauma LacHydrin ordered - BID application to feet Pain control per medicine Podiatry will continue to follow while in house
[2017-11-18] MEDS ORDERED: Potassium Chloride 20 mEq ER Tab PO ONE (13:55)
--- NOTE | 2017-11-18 14:20 | PN ---
DATE: SUBJECTIVE: I saw her resting comfortably in bed. She does not want to get out of bed. I told her she has to get out of bed so she will do well with the physical therapy. Hopefully, she will get out of bed today. She is on Humira, Ancef, Cogentin, dextrose, Ecotrin, fentanyl, folic acid, potassium, Klonopin, ammonium lactate, lithium, Lovenox, methotrexate, morphine, prednisone, Reglan, Seroquel, Toprol, Tylenol and Zofran. She is eating better. She is status post right hip fracture and repair. She has UTI. She has fallen. Leukocytosis and rheumatoid arthritis and she is on steroids. PHYSICAL EXAMINATION: VITAL SIGNS: She has a 99.5 temp, 81 pulse, 116/67 blood pressure, 20 respiratory rate and 94% O2 sat on room air. HEENT: Head is atraumatic, normocephalic. Throat is moist. NECK: Supple. HEART: Regular rate. LUNGS: Decreased breath sounds. No wheezes. No rhonchi. No rales. ABDOMEN: Soft. EXTREMITIES: No edema. Status post hip fracture. LABORATORY DATA: She has a 5.5 white count , 9.2 hemoglobin, 29 hematocrit, 231 platelets. If the hemoglobin goes below 8, I will transfuse her. She has a 137 sodium, potassium 3.2. I will replace the potassium. She has a BUN 5, creatinine 0.5, GFR is greater than 60, sugar is 84, calcium is 9.1, AST is 27, ALT is 33, alk phos 45. ASSESSMENT AND PLAN: She is being seen by Cardiology, Podiatry, Orthopedics, Cardiology. We will get her out of bed to chair and make sure she is eating. I am hoping tomorrow to get her to subacute rehab. Discussed with the nurses. Patrice Alba DO [email or web address]
--- NOTE | 2017-11-18 19:05 | PN ---
DATE: 11/18/2017 LOCATION: Patient in room 566, bed 1. This progress note is being dictated on behalf of Dr. Delgado whom I am covering. REASON FOR CONSULTATION AND FOLLOWUP: Hypertension, hip fracture, status post surgery, chronic obstructive pulmonary disease. SUBJECTIVE: The patient lying comfortably in bed without chest pain, shortness of breath, palpitation. PHYSICAL EXAMINATION: VITAL SIGNS: Blood pressure 116/57, respirations 20, pulse 81, temperature 99.5. HEENT: Head is normocephalic. Eyes: Pupils normal. Conjunctivae slightly pale. NECK: JVP low. Carotids equal. THORAX: AP diameter normal. LUNGS: No significant rales. CARDIOVASCULAR: S1, S2. ABDOMEN: Soft. No tenderness, no organomegaly. Bowel sounds normal. EXTREMITIES: No clubbing, no cyanosis. LABORATORY DATA: WBC 5.5, hemoglobin 9.2, hematocrit 29.0, platelets 231. Sodium 137, potassium 3.2, BUN 5, creatinine 0.5, total protein 4.8, albumin 2.5. DIAGNOSES: Status post hip fracture, status post surgery for hip fracture, status post fall causing hip fracture, hypertension, chronic obstructive pulmonary disease, rheumatoid arthritis, anemia, hypokalemia. PLAN: We will give K-Dur 40 mEq p.o. today, we will also give two 10 mEq and we will repeat labs in the morning. Patient is already getting cefazolin 1 g IV q. 8 hour, getting IV fluids 75 mL an hour, aspirin 325 daily, lithium carbonate 300 mg p.o. b.i.d., Lovenox 30 mg subcu daily, methotrexate 50 mg p.o. every week. Patient already received one potassium chloride [address] Alba. We will give another 10 mEq IV and we will give 40 p.o. and repeat SMA-[address] Delgado will follow the patient starting tomorrow. Osmel Garrison MD
[2017-11-19] MEDS: ceFAZolin 1 gm in NS 1 GM/100 ML BAG IVPB SCH ×3 (06:27→21:59)
[2017-11-19 07:17] LABS: HEMOGLOBIN 8.5 g/dL (12.0-16.0); MEAN CELL VOLUME 89.3 fl (80.0-105.0); MEAN CORPUSCULAR HEMOGLOBIN 28.4 pg (25.0-35.0); MEAN CORPUSCULAR HGB CONC 31.8 g/dl (31.0-37.0); MEAN PLATELET VOLUME 10.7 fl (7.0-11.0); RBC 2.99 10^6/uL (3.5-6.1); RED CELL DISTRIBUTION WIDTH 17.6 % (11.5-14.5); WHITE BLOOD COUNT 3.7 10^3/ul (4.5-11.0)
[2017-11-19 07:47] LABS: ALBUMIN 2.5 g/dL (3.0-4.8); ALT/SGPT 30 U/L (7-56); AST/SGOT 32 U/L (14-36); BLOOD UREA NITROGEN 4 mg/dL (7-21); GFR AFRICAN-AMERICAN > 60; GFR NON-AFRICAN AMERICAN > 60
[2017-11-19 08:51] VITALS: RESP 20
--- NOTE | 2017-11-19 09:06 | PN ---
DATE: 11/17/2017 LOCATION: A 57-year-old female in room 566, bed 1. SUBJECTIVE: The patient is experiencing less pain in the right hip. Wound is dry and clean. We will get the patient up out of bed today. I told her she could only walk with help of the therapist and a walker and to put partial weight on the right hip and this kind of fracture does not do good with stairs so she should minimize the stairs and no squatting and no sitting on low chairs. I will follow while she is in the hospital and then, follow her when she goes to subacute rehab. Calvin yS DO
--- NOTE | 2017-11-19 09:24 | PN ---
DATE: 11/17/2017 SUBJECTIVE: She is doing quite well this morning. I see her resting comfortably in bed. Yesterday, she had a right hip pinning with Dr. Sy from a fall and a fracture; she also has UTI. She had leukocytosis, but she is comfortable. She is getting a very little pain, in good spirits. She came in to the hospital. The plan will be probably go on Sunday to subacute rehab, she wants [facility]. She is on Humira, Ancef, Cogentin, dextrose, Ecotrin, fentanyl, folic acid, Klonopin, lithium, Lovenox, methotrexate, morphine, prednisone, Reglan, Seroquel, Toprol, Tylenol and Zofran. PHYSICAL EXAMINATION VITAL SIGNS: Temperature 100.2, 72 pulse, 121/74 blood pressure, 18 respiratory rate, 91% O2 saturation on room air. HEENT: Head is atraumatic, normocephalic. HEART: Regular rate. LUNGS: Decreased breath sounds, but clear. Occasional cough, in the phlegm goes away, but no rhonchi or wheezing. ABDOMEN: Soft. EXTREMITIES: No edema, status post surgery. DATA: She has a 9.1 white count, it was 14, now it is down to 9.1, 9.9 hemoglobin, 30.6 hematocrit with 246,000 platelets. She has a 139 sodium, potassium 3.3 and I am going to give her some potassium. She has a BUN of 10, creatinine 0.6, GFR is greater than 60, sugar is 99. Calcium is 95, total bilirubin is 0.2, AST is 32, ALT is 37, alkaline phosphatase 45. She is being seen by Cardiology, Orthopedics, Podiatry. Check her labs tomorrow. Physical therapy as per Orthopedics and we will keep an eye on is improving. Status post fall, fracture repair Patrice Alba DO MTDEliel
[2017-11-19] MEDS: Enoxaparin 30 mg Syringe SC SCH (09:51)
[2017-11-19] MEDS: Metoprolol Succinate 25 mg XL Tab PO SCH (09:52)
[2017-11-19] MEDS: Aspirin 325 mg EC Tablets PO SCH (09:52)
--- NOTE | 2017-11-19 10:14 | PN ---
DATE: 11/19/2017 LOCATION: Room #566, bed 1. A 57-year-old female. The patient underwent open reduction and internal fixation of the right hip fracture on 11/16/2017. She is doing well. The original dressing is relatively dry on the right hip. I explained that she should get out of bed and put partial weight on the hip with a walker. When I asked if she get out of bed, she does not remember if she got out of bed yesterday, but the aide said she was out of bed, but we have to go slow because she could fall again with her underlying arthritis and instability and weakness, so she needs to go with a walker, touch-toe pressure, partial weight bearing, and minimized stairs and low chairs and hopefully, we will get her a good subacute rehab facility to go to on discharge and I will follow her in the facility if it is in the [facility]. Calvin Sy DO
--- NOTE | 2017-11-19 10:16 | PN ---
DATE: 11/18/2017 SUBJECTIVE: This patient who underwent surgery on her right subcapital hip fracture on 11/16/2017. She is doing well. The wound is dry on the right hip. She still does not want to get out of bed. Hopefully, we will get her out of bed today with therapy. It is 8 o'clock in the morning; so, we have time to get her up out of bed; so, she could put some weight on that right hip with a walker so as to minimize her chance of falling again and hopefully we will send her to subacute rehab soon; so, I could follow her there. It is going to take at least 2 or 3 months for the fracture to heal and there is still always a chance of avascular necrosis or nonunion of that right hip fracture because of all the medicine she is on and the nature of the fracture. I will follow her closely and hopefully we could avoid a total hip replacement. Calvin Sy DO
[2017-11-19] MEDS ORDERED: Potassium Chloride 20 mEq/15 ml LIQ UD PO STA (14:12)
--- NOTE | 2017-11-19 16:31 | PN ---
DATE: 11/19/2017 SUBJECTIVE: The patient is comfortable without distress. OBJECTIVE: VITAL SIGNS: Blood pressure is 125/72, the heart rate in the 70s. NECK: Negative JVD. LUNGS: Without rales. HEART: S1, S2. EXTREMITIES: Without edema. LABORATORY DATA: Includes hemoglobin of 8.5. Chemistries: BUN and creatinine are normal. Potassium remains at 3.0. IMPRESSION: 1. Status post hip fracture. 2. Status post surgery. 3. Hypokalemia. 4. Hypertension. 5. History of rheumatoid arthritis. 6. Chronic obstructive pulmonary disease. Given these findings, we will order potassium replacement. In addition, we will check her magnesium. Luigi Delgado MD
--- NOTE | 2017-11-19 16:36 | CP.PCM.PN ---
Subjective - Date & Time of Evaluation Date of Evaluation: 11/19/17 Time of Evaluation: 16:33 - Subjective Subjective: Podiatry Progress Note - Dr. Alcantara 57 year old female patient PMHx servere RA, HTN, COPD, anxiety, depression seen and evaluated at bedside regarding right foot pain. Patient hemodynamically stable and NAD. No acute events overnight. No new changes with right foot pain. Denies N/V/F/D/C/SOB. Objective - Vital Signs/Intake and Output Vital Signs (last 24 hours): Temp Pulse Resp BP Pulse Ox 98.6 F 78 20 125/72 94 L 11/19/17 07:30 11/19/17 07:30 11/19/17 07:30 11/19/17 07:30 11/19/17 07:30 Intake and Output: 11/19/17 11/19/17 06:59 18:59 Intake Total 120 1480 Output Total 900 375 Balance -780 1105 - Medications Medications: Current Medications Acetaminophen (Tylenol 325mg Tab) 650 mg PO Q4 PRN PRN Reason: Fever >100.4 F Last Admin: 11/19/17 09:52 Dose: 650 mg Aspirin (Ecotrin) 325 mg PO DAILY [facility] Last Admin: 11/19/17 09:52 Dose: 325 mg Benztropine Mesylate (Cogentin) 1 mg PO DAILY [facility] Last Admin: 11/19/17 09:52 Dose: 1 mg Clonazepam (Klonopin) 0.5 mg PO TID PRN; Protocol PRN Reason: Anxiety Last Admin: 11/18/17 10:01 Dose: 0.5 mg Enoxaparin Sodium (Lovenox) 30 mg SC DAILY [facility] PRN Reason: Protocol Last Admin: 11/19/17 09:51 Dose: 30 mg Ferrous Sulfate (Feosol) 324 mg PO TID [facility] Last Admin: 11/19/17 09:52 Dose: 324 mg Folic Acid (Folic Acid) 1 mg PO DAILY [facility] Last Admin: 11/19/17 09:52 Dose: 1 mg Dextrose/Sodium Chloride (Dextrose 5%/0.45% Ns 1000 Ml) 1,000 mls @ 75 mls/hr IV .[id number] [facility] Last Admin: 11/18/17 21:25 Dose: 75 mls/hr Cefazolin Sodium (Ancef 1gm In Ns) 1 gm in 100 mls @ 100 mls/hr IVPB Q8 VU PRN Reason: Protocol Last Admin: 11/19/17 14:35 Dose: 100 mls/hr Lactic Acid (Lac-Hydrin 12% Lotion (225 G)) 0 gm EXT BID [facility] Last Admin: 11/18/17 18:51 Dose: 1 applic [place] Carbonate ([place] Carbonate 300mg) 300 mg PO BID [facility] Last Admin: 11/19/17 09:52 Dose: 300 mg Methotrexate (Methotrexate) 15 mg PO .WEEKLY [facility] Metoclopramide HCl (Reglan) 10 mg IV ONCE PRN PRN Reason: Nausea/Vomiting Metoprolol Succinate (Toprol Xl) 25 mg PO DAILY [facility] Last Admin: 11/19/17 09:52 Dose: 25 mg Morphine Sulfate (Morphine) 2 mg IVP Q4H PRN PRN Reason: Pain, moderate (4-7) Last Admin: 11/18/17 21:23 Dose: 2 mg Adalimumab [Humira] (40 Mg) 40 mg SC Q2W [facility] Ondansetron HCl (Zofran Inj) 4 mg IVP ONCE PRN PRN Reason: Nausea/Vomiting Prednisone (Prednisone Tab) 5 mg PO DAILY [facility] Last Admin: 11/19/17 09:52 Dose: 5 mg Quetiapine Fumarate (Seroquel) 200 mg PO HS [facility] Last Admin: 11/18/17 21:23 Dose: 200 mg - Labs Labs: 11/19/17 06:30 11/19/17 06:30 PT 14.5 SECONDS (9.4-12.5) H 11/16/17 13:20 INR 1.26 (0.93-1.08) H 11/16/17 13:20 APTT 33.3 Seconds (25.1-36.5) 11/16/17 13:20 - Constitutional Appears: Well, Non-toxic, No Acute Distress - Extremities Exam Additional comments: VASC: DP pulses palpable 2/4 b/l. PT pulses weakly palpable 1/4 b/l. CFT <3 seconds to all digits x10. Temperature gradient warm to warm b/l. No pedal edema noted. No increase in warmth noted. NEURO: Gross sensation intact. DERM: Diffuse xerosis noted. Fissuring noted to plantar heel b/l. Hyperkeratotic lesions sub 1st and 2nd metatarsal heads b/l. No open lesions noted. ORTHO: Fibular deviation of digits 1-5 b/l. Mild pain upon ROM right foot, likely secondary to right hip surgical site. Muscle strength 5/5 for all dorsiflexors, plantarflexors, inverters, and everters b/l. - Neurological Exam Neurological Exam: Alert, Awake, Oriented x3 - Psychiatric Exam Psychiatric exam: Normal Affect, Normal Mood Assessment and Plan - Assessment and Plan (Free Text) Assessment: 57 year old female patient PMHx severe rheumatoid arthritis, HTN, COPD, anxiety , depression with right foot pain Plan: Patient seen and evaluated with attending, Dr. Alcantara Afebrile, WBC 3.7 Left and right foot XR: Negative for acute trauma Continue LacHydrin BID Surgical shoes ordered b/l Pain control per medicine Stable from podiatry standpoint Will sign off at this time; please reconsult if new issues arise
[2017-11-19] MEDS: Ammonium Lactate 12% Lotion (225 g) EXT SCH (18:13)
[2017-11-20] MEDS: ceFAZolin 1 gm in NS 1 GM/100 ML BAG IVPB SCH ×3 (00:25→13:06)
--- NOTE | 2017-11-20 00:29 | DS ---
HISTORY OF PRESENT ILLNESS: She was here for a right hip fracture ORIF, UTI, fall, leukocytosis and rheumatoid arthritis. She is comfortable in bed. She wants to go home. I think she is going to subacute rehab. She cannot walk well. I do not want her to fall again. MEDICATIONS: She is on Humira, Ancef, Cogentin, dextrose, Ecotrin, fentanyl, folic acid, potassium, Klonopin, Lac-Hydrin, lithium, Lovenox, methotrexate, morphine, potassium replacement, prednisone, Reglan, Seroquel, metoprolol, Tylenol and Zofran. PHYSICAL EXAMINATION: VITAL SIGNS: She has a 98.8 temp, 85 pulse, 139/82 blood pressure, 18 respiratory rate, 96% O2 sat on room air. HEENT: Head is atraumatic, normocephalic. Throat is moist. NECK: Supple. HEART: Regular rate. LUNGS: Decreased breath sounds, but clear. ABDOMEN: Soft. EXTREMITIES: No edema. LABORATORY DATA: She has a urine which is moderate on 11/16/2017 which has been treated. She has 137 sodium; potassium 3.2 yesterday, she was replaced, waiting for this morning's; BUN 5; creatinine 0.5; GFR is greater than 60; sugar is 84; calcium is 9.1; AST is 27; ALT is 33; alk phos is 45. She has a 3.7 white count, much better than when she came in; hemoglobin is 8.5, lower than when she came in, status post surgery, I put her on some iron; 26.7 hematocrit with 215 platelets. ASSESSMENT AND PLAN: She is here being seen by Cardiology and Orthopedics. Hopefully, she will do very well. I am hoping to get her to [facility] for subacute rehab before she goes home. Patrice Alba DO
--- NOTE | 2017-11-20 06:56 | DS ---
To [facility] for subacute rehab as the first choice versus [facility]. She just has a right hip fracture with ORIF, she has UTI, she has fallen, she has leukocytosis and rheumatoid arthritis. She is doing better today. She does want to leave. She does not want to go to subacute rehab and she wants to go home. She is all over the place this morning. She is on Humira, cefazolin, Cogentin, IV fluids, Ecotrin, fentanyl, folic acid, potassium, Klonopin, Lac-Hydrin, lithium, Lovenox, methotrexate, morphine, potassium replacement, prednisone, Seroquel, metoprolol, Tylenol and Zofran. PHYSICAL EXAMINATION VITAL SIGNS: She has a 98.8 temp, 85 pulse, 139/82 blood pressure, 18 respiratory rate, 96% O2 sat on room air. HEENT: Head is atraumatic, normocephalic. HEART: Regular rate. LUNGS: Decreased breath sounds, but clear. ABDOMEN: Soft. EXTREMITIES: No edema. She has physical therapy, she has subacute rehab, so she wants to go home before she is well. LABORATORY DATA: She has a 3.7 white count, 8.5 hemoglobin, 26.7 hematocrit with a 215,000 platelets. I am currently concerned about the 8.5 hemoglobin because it was 11.8 before surgery. Sodium 137; potassium is 3.2, we had to replace the potassium; BUN 5; creatinine 0.5; GFR is greater than 60; sugar is 84; calcium is 9.1; total bilirubin is 0.1, AST is 27, ALT is 33, alkaline phosphatase is 45. Total protein is 4.8. ASSESSMENT AND PLAN: She has a urinary tract infection. I am hoping we could sent her to [facility] today for physical therapy, I am going to add some iron to her list of medications because she is a little bit anemic. This patient could be seen by Orthopedics, Dr. Alba so that she is stable before she goes home. Marisabel Alba DO
[2017-11-20 08:06] VITALS: TEMP 97.8; O2SAT 95
[2017-11-20 09:36] LABS: MEAN CELL VOLUME 88.7 fl (80.0-105.0); MEAN CORPUSCULAR HEMOGLOBIN 28.3 pg (25.0-35.0); MEAN CORPUSCULAR HGB CONC 31.9 g/dl (31.0-37.0); MEAN PLATELET VOLUME 10.3 fl (7.0-11.0); RBC 3.18 10^6/uL (3.5-6.1); RED CELL DISTRIBUTION WIDTH 17.4 % (11.5-14.5); WHITE BLOOD COUNT 4.5 10^3/ul (4.5-11.0)
[2017-11-20 09:45] LABS: ALB/GLOB RATIO 1.1 (1.1-1.8); ALBUMIN 2.9 g/dL (3.0-4.8); ALT/SGPT 30 U/L (7-56); AST/SGOT 42 U/L (14-36); BLOOD UREA NITROGEN 3 mg/dL (7-21); CALCIUM 9.6 mg/dL (8.4-10.5); GFR AFRICAN-AMERICAN > 60; GFR NON-AFRICAN AMERICAN > 60
[2017-11-20] MEDS: Ammonium Lactate 12% Lotion (225 g) EXT SCH ×2 (10:31→19:06)
[2017-11-20] MEDS: Dextrose 5%/0.45% NS 1,000 ML IV SCH (10:31)
[2017-11-20] MEDS: Aspirin 325 mg EC Tablets PO SCH (10:31)
[2017-11-20] MEDS: Metoprolol Succinate 25 mg XL Tab PO SCH (10:32)
[2017-11-20] MEDS: Enoxaparin 30 mg Syringe SC SCH (10:32)
[2017-11-20 10:36] VITALS: BP 145/90; PULSE 86
--- NOTE | 2017-11-20 15:30 | PCM.FALL ---
Post Fall Progress Note - Post Fall Fall Date: 11/20/17 Fall Time: 14:59 Description of Fall: 57yo female with PMh of RA and hypertension bib BLS for right hip pain s/p trauma earlier this morning. Patient states she started having diarrhea, after eating a left over diarrhea last night. States while running to use her bathroom , she didn't use her walker and she fell, injuring her hip and hitting her head on the floor. States she wasn't able to stand s/p the fal land her brother found her on the floor this morning. Patient was evaluated by orthopedic surgery and underwent open reductionand internal fixation of the right hip fracture on 11/16/2017. Patient was to be discharged to rehabilitation facility in [facility]. Patient was on fall precautions when code star was called. As per patient, she was getting up to use the restroom then lost her balance and fell. Patient denies injury to the head or any part of the body. Patient also denies lightheadedness, dizziness, loss of consciousness, shortness of breath, chest pain. - Post Fall Exam Vital Sign: Temp Pulse Resp BP Pulse Ox 97.8 F 86 20 145/90 95 11/20/17 07:30 11/20/17 10:32 11/20/17 07:30 11/20/17 10:32 11/20/17 07:30 Skull Exam: Negative for: Scalp wound, Scalp hematoma, Scalp depression, Ridge in skull Eye Exam: Positive for: Pupils equal, Pupils reactive Ear Exam: Negative for: Discharge, Bleeding Nose Exam: Negative for: Discharge, Bleeding Skin Exam: Negative for: Colour, Lacerations, Grazes, Bruising Mouth Exam: Negative for: Tongue bitten, Teeth dislodge Neck Exam: Negative for: Tenderness, Tingling, Weakness Spinal Exam: Negative for: Tenderness, Tingling, Weakness Chest Exam: Negative for: Difficulty breathing, Tenderness in collar bones, Tenderness in ribs Abdomen Exam: Negative for: Tenderness Arm Exam: Negative for: Deformity, Alteration in range of movement Leg Exam: Negative for: Deformity, Alteration in range of movement Impression/Plan: Mechanical Fall -CT head; results pending.
--- NOTE | 2017-11-20 16:43 | CT ---
PROCEDURE: CT HEAD WITHOUT CONTRAST. HISTORY: unwitnessed fall COMPARISON: 11/16/2017 TECHNIQUE: Axial computed tomography images were obtained through the head/brain without intravenous contrast. Radiation dose: Total exam DLP = 983 mGy-cm. This CT exam was performed using one or more of the following dose reduction techniques: Automated exposure control, adjustment of the mA and/or kV according to patient size, and/or use of iterative reconstruction technique. FINDINGS: HEMORRHAGE: No intracranial hemorrhage. BRAIN: No mass effect or edema. No atrophy or chronic microvascular ischemic changes. VENTRICLES: Unremarkable. No hydrocephalus. CALVARIUM: Unremarkable. PARANASAL SINUSES: There is mucosal thickening in the ethmoid sinuses and a small amount of fluid in the maxillary sinuses MASTOID AIR CELLS: Unremarkable as visualized. No inflammatory changes. OTHER FINDINGS: None. IMPRESSION: No acute intracranial findings
--- NOTE | 2017-11-21 05:22 | DS ---
HISTORY OF PRESENT ILLNESS: She is in her bed. She did not go to rehab yesterday, I am not sure why. I will find that from case management this morning. She is comfortably in bed. She is eating. She does not want to go anywhere. She wants to go home. But she needs therapy. She had a hip fracture with ORIF. PHYSICAL EXAMINATION: VITAL SIGNS: She has a 98.4 temperature, 68 pulse, 123/77 blood pressure, 20 respiratory rate, 97% O2 sat on room air. GENERAL: She did not eat the foods, she is not eating that well. HEENT: Head is atraumatic, normocephalic. HEART: Regular rate. LUNGS: Decreased breath sounds, but clear. ABDOMEN: Soft. EXTREMITIES: Have no edema. MEDICATIONS: She is on Humira, cefazolin, Cogentin, dextrose, Ecotrin, Feosol, folic acid, Klonopin, Lac-Hydrin, lithium, Lovenox, methotrexate, morphine, prednisone, Reglan, Seroquel, Toprol, Tylenol and Zofran. LABORATORY DATA: She has a 3.7 white count, 8.5 hemoglobin that was yesterday, 26.7 hematocrit, with 215 platelets. PLAN: Right now, if she was staying, I would have ordered labs for today. I am going to order a stat lab actually and see where she is at. I am still hoping for a discharge to a rehab today. I will discuss with watch case polisher. DISCHARGE DIAGNOSES: Fall, right hip fracture, urinary tract infection, leukocytosis, rheumatoid arthritis. Patrice Alba DO
[2017-11-30] MEDS ORDERED: Adalimumab [Humira] 40 MG SC SCH (10:00)
== END 2017-11-20 21:38 | DRG 210 ==
LOC: ED 10:13 → ERH 12:40 → 5RNO 18:06
PROVIDERS: ADMIT Family Medicine; ATTEND Family Medicine
PROC: 0QS604Z Reposition Right Upper Femur with Internal Fixation Device, Open Approach (ICD-10-PCS; principal; 2017-11-16 14:30)
DX: S72.011A Unspecified intracapsular fracture of right femur, initial encounter for closed fracture (principal); E87.6 Hypokalemia; D64.9 Anemia, unspecified; J44.9 Chronic obstructive pulmonary disease, unspecified; N39.0 Urinary tract infection, site not specified; W01.0XXA Fall on same level from slipping, tripping and stumbling without subsequent striking against object, initial encounter; Y92.009 Unspecified place in unspecified non-institutional (private) residence as the place of occurrence of the external cause; Y93.02 Activity, running; F17.210 Nicotine dependence, cigarettes, uncomplicated; F31.9 Bipolar disorder, unspecified; I10 Essential (primary) hypertension; M06.9 Rheumatoid arthritis, unspecified; M19.90 Unspecified osteoarthritis, unspecified site; Z79.82 Long term (current) use of aspirin; Z88.6 Allergy status to analgesic agent; Z87.892 Personal history of anaphylaxis; R40.2412 Glasgow coma scale score 13-15, at arrival to emergency department

== ENCOUNTER 2018-04-20 20:32 | Inpatient (IN) | payer MEDICAID ==
[2018-04-20 20:43] VITALS: BMI 15.7
--- NOTE | 2018-04-20 20:58 | ED PDOC ---
Arrival/HPI - General Chief Complaint: Rib Injury Time Seen by Provider: 04/20/18 20:40 Historian: Patient - History of Present Illness Narrative History of Present Illness (Text): 04/20/18 21:00 A 57 year old female, whose past medical history includes hypertension, presents to the emergency department complaining of not wanting to be home alone. Patient reports she had a right hip fracture repair [address] weeks [address] Sy. Notes she was admitted into rehab until 2 days ago. Patient was suppose to have home health aide setup at her home, however this was not done for her. Patient has been very concerned about being home alone. States she would like to be admitted into hospital for this reason. She states patient had a friend coming over to clean her house tonight and when her friend arrived the door would not open downstairs. Patient assumed the door was locked and for her to get down the three flights of stairs she would have to go down stair by stair sitting down. This caused her to have a panic attach and thought she was cut off from the outside world so she called 911 due to her panic attack. Also, patient mentions she went to the bathroom yesterday to vomit and resulted instead injuring her left rib from twisting abdomen and currently experiences pain. Patient denies any other complaints at this time. PMD: Dr. Alba Ortho: Dr. Sy Past Medical History - Provider Review Nursing Documentation Reviewed: Yes - Infectious Disease Hx of Infectious Diseases: None - Cardiac Hx Cardiac Disorders: Yes Hx Hypertension: Yes - Pulmonary Hx Chronic Obstructive Pulmonary Disease (COPD): Yes - Neurological Hx Neurological Disorder: No Hx Alzheimer's Disease: No - HEENT Hx HEENT Disorder: No - Renal Hx Renal Disorder: No - Endocrine/Metabolic Hx Endocrine Disorders: No - Hematological/Oncological Hx Blood Disorders: No - Integumentary Hx Dermatological Disorder: No - Musculoskeletal/Rheumatological Hx Rheumatoid Arthritis: Yes - Gastrointestinal Hx Gastrointestinal Disorders: No - Genitourinary/Gynecological Hx Genitourinary Disorders: No - Psychiatric Hx Psychophysiologic Disorder: Yes Hx Anxiety: Yes Hx Bipolar Disorder: Yes Hx Depression: Yes Hx Emotional Abuse: No Hx Physical Abuse: No Hx Substance Use: No - Surgical History Hx Orthopedic Surgery: Yes (foot) - Anesthesia Hx Anesthesia Reactions: No - Suicidal Assessment Feels Threatened In Home Enviroment: No Family/Social History - Physician Review Nursing Documentation Reviewed: Yes Family/Social History: No Known Family HX Smoking Status: Former Smoker Hx Alcohol Use: No Hx Substance Use: No Hx Substance Use Treatment: No Allergies/Home Meds Allergies/Adverse Reactions: Allergies ibuprofen [From Motrin] Allergy (Verified 04/20/18 20:43) ANAPHYLAXIS NSAIDS (Non-Steroidal Anti-Inflamma Allergy (Verified 04/20/18 20:43) SWELLING risperidone [From Risperdal] Adverse Reaction (Verified 04/20/18 20:43) DIZZINESS Home Medications: Home Meds Medication Instructions Recorded Confirmed Quetiapine Fumarate [Seroquel] 200 mg PO HS 05/21/12 04/20/18 Aspirin [Ecotrin] 1 tab PO DAILY 05/13/16 04/20/18 Folic Acid 1 mg PO DAILY 05/13/16 04/20/18 [place] Carbonate [[place] 300 mg PO BID 05/13/16 04/20/18 Carbonate 300MG] Methotrexate 6 tab PO .WEEKLY 05/13/16 04/20/18 Metoprolol Succinate XL [Toprol XL] 25 mg PO DAILY 05/13/16 04/20/18 Review of Systems - Physician Review All systems were reviewed & negative as marked: Yes - Review of Systems Constitutional: absent: Fevers, Night Sweats Respiratory: absent: SOB, Cough Cardiovascular: absent: Chest Pain Gastrointestinal: absent: Abdominal Pain, Nausea, Vomiting Musculoskeletal: Other (left rib pain) Physical Exam Vital Signs Reviewed: Yes Vital Signs Temp Pulse Resp BP Pulse Ox 04/21/18 02:11 97.8 F 91 H 18 118/76 96 04/20/18 23:27 98.6 F 92 H 16 118/76 99 04/20/18 20:43 98.2 F 105 H 19 142/67 100 Temperature: Afebrile Blood Pressure: Normal Pulse: Regular Respiratory Rate: Normal Appearance: Positive for: Well-Appearing, Non-Toxic, Comfortable Pain Distress: None Mental Status: Positive for: Alert and Oriented X 3 - Systems Exam Head: Present: Atraumatic, Normocephalic Pupils: Present: PERRL Extroacular Muscles: Present: EOMI Conjunctiva: Present: Normal Mouth: Present: Moist Mucous Membranes Neck: Present: Normal Range of Motion Respiratory/Chest: Present: Clear to Auscultation, Good Air Exchange. No: Respiratory Distress, Accessory Muscle Use Cardiovascular: Present: Regular Rate and Rhythm, Normal S1, S2. No: Murmurs Abdomen: No: Tenderness, Distention, Peritoneal Signs Back: Present: Normal Inspection Upper Extremity: Present: Normal Inspection. No: Cyanosis, Edema Lower Extremity: Present: Normal Inspection. No: Edema Neurological: Present: GCS=15, CN II-XII Intact, Speech Normal Skin: Present: Warm, Dry, Normal Color. No: Rashes Psychiatric: Present: Alert, Oriented x 3, Normal Insight, Normal Concentration Medical Decision Making ED Course and Treatment: 04/20/18 21:04 Impression: 57 year old female asking to be admitted because she is afraid to be home alone. Plan: -- Chest X-ray -- Ribs X-Ray -- Labs -- Urinalysis -- Reassess and disposition Prior Visits: Notes and results from previous visits were reviewed. Patient was last seen in the emergency department on 11/16/2017 for right hip pain s/p trauma. Patient was admitted. Progress Notes: CXR and Rib X-ray Impression: As read by me, no acute pathology or rib fracture. 04/21/18 00:[address] Alba who is aware and agrees with the plan. Explained how panic patient was. Accepts patient into his service for panic attach with consult Dr. Roberts for Psych. - Lab Interpretations Microbiology Results: Microbiology Results 04/20/18 21:20 Urine,Clean Catch Urine Culture - Final No Growth (<1,000 CFU/ML) Lab Results: 04/22/18 06:20 04/22/18 06:20 Lab Results 04/22/18 06:20: Sodium 138, Potassium 3.7, Chloride 106, Carbon Dioxide 23, Anion Gap 12, BUN 9, Creatinine 0.5 L, Est GFR ( Amer) > 60, Est GFR (Non -Af Amer) > 60, Random Glucose 91, Calcium 10.3, Total Bilirubin 0.4, AST 36 D , ALT 30, Alkaline Phosphatase 78, Total Protein 6.7, Albumin 3.2, Globulin 3.5 , Albumin/Globulin Ratio 0.9 L 04/22/18 06:20: WBC 10.8, RBC 3.37 L, Hgb 8.3 L, Hct 26.1 L, MCV 77.4 L, MCH 24.6 L, MCHC 31.8, RDW 18.2 H, Plt Count 537 H, MPV 9.7 04/20/18 21:45: Sodium 138, Potassium 4.4, Chloride 105, Carbon Dioxide 20 L, Anion Gap 17, BUN 11, Creatinine 0.6 L, Est GFR ( Amer) > 60, Est GFR ( Non-Af Amer) > 60, Random Glucose 104, Calcium 11.3 H, Total Bilirubin 0.6, AST 27, ALT 17, Alkaline Phosphatase 88, Total Protein 7.8, Albumin 3.9, Globulin 4.0, Albumin/Globulin Ratio 1.0 L 04/20/18 21:45: Urine Color Yellow, Urine Appearance Slight-cloudy, Urine pH 6.5 , Ur Specific [place] <= 1.005, Urine Protein Negative, Urine Glucose (UA) Negative, Urine Ketones Negative, Urine Blood Negative, Urine Nitrate Negative, Urine Bilirubin Negative, Urine Urobilinogen 0.2, Ur Leukocyte Esterase Trace H , Urine RBC 0 - 2, Urine WBC 1 - 3, Ur Epithelial Cells 1 - 3 04/20/18 21:45: PT 13.2 H, INR 1.15 H 04/20/18 21:45: WBC 13.1 H D, RBC 3.60, Hgb 8.9 L, Hct 27.6 L, MCV 76.7 L D, MCH 24.7 L, MCHC 32.2, RDW 17.8 H, Plt Count 698 H, MPV 9.6, Gran % 76.8 H, Lymph % (Auto) 15.5 L, [place] % (Auto) 7.1 H, Eos % (Auto) 0.4 L, Baso % (Auto) 0.2, Gran # 10.03 H, Lymph # (Auto) 2.0, [place] # (Auto) 0.9 H, Eos # (Auto) 0.1, Baso # (Auto) 0.03 - RAD Interpretation Radiology Orders: 04/20/18 20:52 CHEST TWO VIEWS (PA/LAT) [RAD] Stat RIBS LEFT [RAD] Stat 04/22/18 23:07 CHEST,ABDOMEN, PELVIS W/O CONT [CT] Routine - Medication Orders Current Medication Orders: Acetaminophen (Tylenol 325mg Tab) 650 mg PO Q4H PRN PRN Reason: Pain, Mild (1-3) Last Admin: 04/21/18 21:29 Dose: 650 mg MAR Pain/Vitals Document 04/21/18 21:29 BN (Rec: 04/21/18 21:29 BN [id number]) Pain Reassessment Is This A Pain ReAssessment? No Presence of Pain Presence of Pain Yes Pain Scale Used Pain Scale Used Numeric Location Pain Location Body Site Hip Description Constant Intensity 8 Pain Behavior Restlessness Re-Assess: [facility] Pain/Vitals Document 04/21/18 22:29 BN (Rec: 04/21/18 22:54 BN [id number]) Pain Reassessment Is This A Pain ReAssessment? Yes Sleep Is patient sleeping during reassessment? Yes Aspirin (Ecotrin) 325 mg PO DAILY [facility] Last Admin: 04/22/18 09:31 Dose: 325 mg Benztropine Mesylate (Cogentin) 1 mg PO DAILY [facility] Last Admin: 04/22/18 10:48 Dose: Not Given Non-Admin Reason: Patient Refused Clonazepam (Klonopin) 0.5 mg PO TID VU PRN Reason: Protocol Last Admin: 04/22/18 09:31 Dose: 0.5 mg Behavioural Document 04/22/18 09:31 MCV (Rec: 04/22/18 09:31 MCV [id number]) Behavior Behavior for Medication: Anxiety Folic Acid (Folic Acid) 1 mg PO DAILY [facility] Last Admin: 04/22/18 09:30 Dose: 1 mg Sodium Chloride (Sodium Chloride 0.45%) 1,000 mls @ 40 mls/hr IV .Q24H [facility] Last Admin: 04/21/18 22:52 Dose: 40 mls/hr Comments: The fluids was started by AM RN eMAR Start Stop Document 04/21/18 22:52 BN (Rec: 04/21/18 22:53 BN [id number]) Intravenous Solution Start Date 04/21/18 Start Time 19:00 Cefepime HCl (Maxipime 1gm) 1 gm in 100 mls @ 100 mls/hr IVPB Q8 VU PRN Reason: Protocol Stop: 04/30/18 22:01 Last Admin: 04/22/18 05:27 Dose: 100 mls/hr eMAR Start Stop Document 04/22/18 05:27 BN (Rec: 04/22/18 05:27 BN [id number]) Intravenous Solution Start Date 04/22/18 Start Time 05:27 [place] Carbonate ([place] Carbonate 300mg) 300 mg PO BID [facility] Last Admin: 04/22/18 09:30 Dose: 300 mg Behavioural Document 04/22/18 09:30 MCV (Rec: 04/22/18 09:30 [employer] [id number]) Behavior Behavior for Medication: Anxiety Methotrexate (Methotrexate) 5 mg PO .WEEKLY [facility] Metoprolol Succinate (Toprol Xl) 25 mg PO DAILY [facility] Last Admin: 04/22/18 09:30 Dose: 25 mg MAR Pulse and Blood Pressure Document 04/22/18 09:30 MCV (Rec: 04/22/18 09:30 [id number]) Pulse Pulse Rate (60-90) 109 Blood Pressure Blood Pressure (100/60-150/90) 125/87 Morphine Sulfate (Morphine) 1 mg IVP Q3H PRN PRN Reason: Pain, moderate (4-7) Last Admin: 04/22/18 09:31 Dose: 1 mg MAR Pain Assessment Document 04/22/18 09:31 [facility] [place] (Rec: 04/22/18 09:31 [id number]) Pain Reassessment Is this a pain reassessment? No Presence of Pain Presence of Pain Yes Pain Scale Used Pain Scale Used Numeric Location Pain Location Body Site Abdomen Description Description Pressure Intensity of Pain at present 7 Pain Behavior Crying Restlessness Facial Grimacing Aggravating Factors Changing Position Alleviating Factors/Management Medication Techniques IVP Administration Document 04/22/18 09:31 [facility] [place] (Rec: 04/22/18 09:31 [id number]) Charges for Administration # of IVP Administrations 1 Polyethylene Glycol (Miralax) 17 gm PO DAILY [facility] Quetiapine Fumarate (Seroquel) 200 mg PO HS [facility] Last Admin: 04/21/18 21:29 Dose: 200 mg Behavioural Document 04/21/18 21:29 BN (Rec: 04/21/18 21:29 [id number]) Maintenance Maintenance Dose Yes Re-Assess: Reassess Psych Meds Document 04/21/18 22:29 BN (Rec: 04/21/18 22:52 [id number]) Reassess Psych Med Effective Sertraline HCl (Zoloft) 100 mg PO DAILY [facility] Last Admin: 04/22/18 10:47 Dose: 100 mg Discontinued Medications Acetaminophen (Tylenol 325mg Tab) 650 mg PO STAT STA Stop: 04/21/18 03:06 Acetaminophen (Tylenol 325mg Tab) 650 mg PO STAT STA Stop: 04/21/18 08:34 Last Admin: 04/21/18 08:41 Dose: 650 mg MAR Pain/Vitals Document 04/21/18 08:41 MCV (Rec: 04/21/18 08:42 MCV [id number]) Presence of Pain Presence of Pain Yes Pain Scale Used Pain Scale Used Numeric Location Left, Right or Bilateral Bilateral Pain Location Body Site Generalized Description Intermittent Intensity 6 Scale Used Numeric Pain Behavior Restlessness Aggravating Factors Changing Position Alleviating Factors Medication Clonazepam (Klonopin) 0.5 mg PO STAT STA PRN Reason: Protocol Stop: 04/22/18 05:12 Last Admin: 04/22/18 05:21 Dose: 0.5 mg Behavioural Document 04/22/18 05:21 BN (Rec: 04/22/18 05:21 BN [id number]) Maintenance Maintenance Dose Yes Behavior Behavior for Medication: Anxiety Re-Assess: Reassess Psych Meds Document 04/22/18 06:21 BN (Rec: 04/22/18 06:32 BN [id number]) Reassess Psych Med Effective Ceftriaxone Sodium (Rocephin 1 Gram Ivpb) 1 gm in 100 mls @ 100 mls/hr IVPB DAILY VU PRN Reason: Protocol Last Admin: 04/21/18 14:31 Dose: 100 mls/hr eMAR Start Stop Document 04/21/18 14:31 MCV (Rec: 04/21/18 14:31 [facility] [facility] [id number][place] Intravenous Solution Start Date 04/21/18 Start Time 12:45 End Date 04/21/18 Methotrexate (Methotrexate) 6 mg PO .WEEKLY VU Non-Formulary Medication (Quetiapine Fumarate [Seroquel]) 200 mg PO HS VU - Scribe Statement The provider has reviewed the documentation as recorded by the Kelly Bojorquez Provider Scribe Attestation: All medical record entries made by the Scribe were at my direction and personally dictated by me. I have reviewed the chart and agree that the record accurately reflects my personal performance of the history, physical exam, medical decision making, and the department course for this patient. I have also personally directed, reviewed, and agree with the discharge instructions and disposition. Disposition/Present on Arrival - Present on Arrival Any Indicators Present on Arrival: No History of DVT/PE: No History of Uncontrolled Diabetes: No Urinary Catheter: No History of Decub. Ulcer: No History Surgical Site Infection Following: None - Disposition Have Diagnosis and Disposition been Completed?: Yes Diagnosis: Weakness generalized, Hip pain, Anxiety Disposition: HOSPITALIZED Disposition Time: 12:39 Condition: GOOD
[2018-04-20 21:56] LABS: PH,URINE 6.5 (4.7-8.0); URINE BILIRUBIN NEGATIVE (NEGATIVE); URINE BLOOD NEGATIVE (NEGATIVE); URINE GLUCOSE (UA) NEGATIVE (NEGATIVE); URINE LEUKOCYTE ESTERASE TRACE Leu/uL (NEGATIVE); URINE PROTEIN NEGATIVE mg/dL (<30 mg/dL); URINE UROBILINOGEN 0.2 E.U./dL (<1 E.U./dL)
[2018-04-20 21:57] LABS: BASO # 0.03 K/mm3 (0.0-2.0); BASO % 0.2 % (0.0-3.0); EOS # 0.1 (0.0-0.7); EOS % 0.4 % (1.5-5.0); GRAN # 10.03 (1.4-6.5); GRAN % 76.8 % (50.0-68.0); HEMOGLOBIN 8.9 g/dL (12.0-16.0); LYMPH % 15.5 % (22.0-35.0); MEAN CELL VOLUME 76.7 fl (80.0-105.0); MEAN CORPUSCULAR HEMOGLOBIN 24.7 pg (25.0-35.0); MEAN CORPUSCULAR HGB CONC 32.2 g/dl (31.0-37.0); MEAN PLATELET VOLUME 9.6 fl (7.0-11.0); MONO # 0.9 (0.1-0.6); MONO % 7.1 % (1.0-6.0); RBC 3.6 10^6/uL (3.5-6.1); RED CELL DISTRIBUTION WIDTH 17.8 % (11.5-14.5); WHITE BLOOD COUNT 13.1 10^3/ul (4.5-11.0)
[2018-04-20 22:02] LABS: URINE APPEARANCE SLIGHT-CLOUDY (CLEAR); URINE COLOR YELLOW (YELLOW)
[2018-04-20 22:06] LABS: ALBUMIN 3.9 g/dL (3.0-4.8); CALCIUM 11.3 mg/dL (8.4-10.5); GFR AFRICAN-AMERICAN > 60; GFR NON-AFRICAN AMERICAN > 60; URINE RBC 0 - 2 /hpf (0-2)
[2018-04-20 22:12] LABS: ALT/SGPT 17 U/L (7-56); AST/SGOT 27 U/L (14-36); BLOOD UREA NITROGEN 11 mg/dL (7-21)
[2018-04-20 22:13] LABS: INR 1.15 (0.93-1.08); PROTHROMBIN TIME 13.2 SECONDS (9.4-12.5)
--- NOTE | 2018-04-21 09:31 | RAD ---
HISTORY: COMPARISON: No prior. TECHNIQUE: Chest PA and lateral FINDINGS: LINES AND TUBES: None. LUNG AND PLEURA: The lungs are well inflated and clear. No pleural effusion or pneumothorax. HEART AND MEDIASTINUM: The heart is not enlarged. The hilar and mediastinal contours are within normal limits. SKELETAL STRUCTURES: There is an S-shaped scoliosis in the thoracolumbar spine. VISUALIZED UPPER ABDOMEN: Normal. OTHER FINDINGS: None. IMPRESSION: No acute findings.
--- NOTE | 2018-04-21 10:29 | RAD ---
Date of service: 04/20/2018 PROCEDURE: Radiographs of the Chest and Left Ribs. HISTORY: Twisted Yesterday and heard pop, ?Broken Rib COMPARISON: None available. TECHNIQUE: Frontal radiograph of the chest and multiple oblique radiographs of the left ribs were obtained. FINDINGS: LEFT RIBS: No acute fracture or focal lesion visualized. There is diffuse bone demineralization. LUNGS: The left lung is clear. PLEURA: No pneumothorax or pleural fluid. CARDIOVASCULAR: Normal sized heart. No pulmonary vascular congestion. OTHER FINDINGS: None. IMPRESSION: No acute rib fracture. Clear lung.
[2018-04-21] MEDS ORDERED: Sodium Chloride 0.45% 1,000 ML IV SCH (11:45)
[2018-04-21] MEDS ORDERED: cefTRIAXone 1 gm 1 GM/100 ML BAG IVPB SCH (11:45)
--- NOTE | 2018-04-21 12:23 | CARD ---
APPROVED REPORT Date of service: 04/21/2018 EKG Measurement Heart [id number] <Conclusion> Normal sinus rhythm Normal ECG
[2018-04-21] MEDS: Cefepime 1gm in NS 100ml 1 GM/100 ML BAG IVPB SCH (21:28)
[2018-04-21] MEDS ORDERED: QUETIAPINE FUMARATE 200 MG PO SCH (22:00)
--- NOTE | 2018-04-21 23:21 | HP ---
DATE: 04/21/2018 HISTORY OF PRESENT ILLNESS: She comes in to the emergency room, not doing well. She had a right hip fracture [address] Sy[address] She went to rehab. She was supposed to have a home health aide set up at home. She was concerned about being home alone, came to the hospital with a panic attack, very anxious, and stressed. There are three flights of stairs she has to walk down and walk up. She feels like she is cut off from the outside world. She also threw up yesterday. She strained her ribs from twisting her abdomen. PAST MEDICAL HISTORY: Hypertension, anxiety, COPD, rheumatoid arthritis, anxiety, depression. PAST SURGICAL HISTORY: She had foot surgery and hip surgery. FAMILY HISTORY: No known family history. SOCIAL HISTORY: Former smoker. No alcohol. No drugs. ALLERGIES: IBUPROFEN, NSAIDS, AND RISPERDAL. MEDICATIONS: She is on Seroquel, Ecotrin, folic acid, lithium, methotrexate, Toprol. REVIEW OF SYSTEMS: Very anxious. No fevers. No sweats. No shortness of breath. No cough. No chest pain. No abdominal pain. No nausea or vomiting. There is left-sided rib pain. She is very nervous. PHYSICAL EXAMINATION: VITAL SIGNS: She has a 98.6 temperature, 92 pulse, 16 respiratory rate, 118/76 blood pressure, 99% O2 sat on room air. GENERAL: She is well-appearing, comfortable in bed. She does not want to be left alone. Alert and oriented x3. HEENT: Head is atraumatic, normocephalic. Extraocular muscles are intact. Pupils are equal and reactive to light and accommodation. Throat is moist. NECK: Supple. HEART: Regular rate. Normal S1, S2. LUNGS: Decreased breath sounds. Clear to auscultation bilaterally. ABDOMEN: Soft, nontender. Positive bowel sounds. No guarding. No rebound. No CVA tenderness. EXTREMITIES: No edema. NEUROLOGIC: GCS is 15. Cranial nerves II through XII are grossly intact. Speech is normal. Alert and oriented x3. SKIN: Warm and dry. No apparent rashes or ulcers. LYMPHS: Thyroid midline. No palpable appreciable lymphadenopathy. LABORATORY DATA: She does have a 13.1 white count, 8.9 hemoglobin, 27.6 hematocrit, with 698 platelets. Concerned about the 13 white count could be stress. She has a 138 sodium, potassium of 4.4, chloride 105, CO2 is 20. Anion gap is 17. BUN 11, creatinine 0.6. GFR is greater than 60. Sugar is 104. Calcium is 11.3. Total bili is 0.6, AST is 27, ALT is 17, alk phos 88, total protein is 7.8. Urine is slightly cloudy. She also had rib x-ray and chest x-ray that were okay. PLAN: She is going to have a consult with Infectious Disease and Psychiatry. She will be on IV fluids, Ecotrin, folic acid, Klonopin for anxiety, lithium, methotrexate, Seroquel, Toprol, Tylenol. Physical therapy. We will put her on a diet. She might need IV antibiotics. Check her labs tomorrow after physical therapy. I will put her on some Rocephin until Infectious Disease could come in and we will watch her closely and she should be in any physical therapy or other care. Urszula Dietz is an extremely nervous, anxious, panic attack, status post hip repair recently. Patrice Alba DO
--- NOTE | 2018-04-22 02:47 | CON ---
DATE: 04/21/2018 LOCATION: The patient is in bed in room 572, bed 2. CHIEF COMPLAINT: Weakness times several days. HISTORY OF PRESENT ILLNESS: This is a 57-year-old female who is chronically ill, cachectic with a BMI of only 15, history of rheumatoid arthritis, history of chronic obstructive lung disease, anxiety, hypertension, continues to smoke two packs per day, who had a right hip surgery 6 weeks ago and was in a rehab, she was supposed to go home. She states that she has been complained of weakness, had low grade fevers, had complained of going home and concerned about being by herself. No abdominal pain. She just has a rib pain. No headaches, no blurred vision. No abdominal pain, diarrhea or constipation. She is complaining of constipation, but no diarrhea. No bright red blood per rectum. No dysuria or frequency. PAST MEDICAL HISTORY: Significant for rheumatoid arthritis, anxiety, hypertension, chronic obstructive lung disease. PAST SURGICAL HISTORY: Significant for right breast cyst surgery and a recent hip surgery 6 weeks ago in the right hip. ALLERGIES: THE PATIENT HAS ALLERGIES TO IBUPROFEN AND NONSTEROIDAL AND RISPERIDONE. SOCIAL HISTORY: She lives by herself. She has six cats. She used to have 13 cats. No travel history. She continues to smoke two packs a day. She used to be an ex alcohol abuser, stopped many years ago. PHYSICAL EXAMINATION: GENERAL: The patient is in bed, appearing chronically ill, cachectic, wasting syndrome. VITAL SIGNS: Temperature of 99, with heart rate of 91, respiratory rate of 20, blood pressure is 130/80 with 94% saturation with a BMI of only 15.8. HEENT: Temporal wasting. NECK: Supple. LUNGS: Have decreased breath sounds. HEART: Normal S1, S2. ABDOMEN: Soft, nontender. No organomegaly. No rebound or guarding. EXTREMITIES: The hip site is clean. No evidence of infection. LABORATORY EXAMINATION: Reveals white count of 13,000, hemoglobin of 8, platelets of 698 and 76% granulocytosis. Coagulation is noted. The chemistries reveals a BUN of 11, creatinine of 0.6 and the urinalysis is noted. Microbiology is pending. The patient had a chest x-ray, which reveals to be clear and rib x-rays are noted to be no acute rib fractures. The lungs are clear. ASSESSMENT AND PLAN: This is a 57-year-old female with chronic obstructive lung disease, rheumatoid arthritis, anxiety, hypertension, long-time smoker, who was admitted with weakness, has anemia with platelets of 698 with MCV of 76, and the patient also with leukocytosis of 13,100 and complaining of constipation. 1. Systemic inflammatory response syndrome, must rule out gastrointestinal pathology. We will order a CT scan of the abdomen and pelvis in a patient who is chronically ill, cachectic, wasting syndrome. Should have a gastrointestinal workup. We will check on the blood cultures, urine cultures. Empirically start the patient on cefepime. Pending panculture results. Discontinue the ceftriaxone. We will also order an human immunodeficiency virus on her because of her age. The cefepime will be given 1 g every 8. We will follow closely with you, make further recommendations upon availability of initial cultures. We will also order blood cultures x2 in addition to the urine culture for this patient who is chronically ill, cachectic and with wasting syndrome. Anton Solo MD
[2018-04-22] MEDS: Cefepime 1gm in NS 100ml 1 GM/100 ML BAG IVPB SCH ×2 (05:27→13:32)
[2018-04-22 06:54] LABS: HEMOGLOBIN 8.3 g/dL (12.0-16.0); MEAN CELL VOLUME 77.4 fl (80.0-105.0); MEAN CORPUSCULAR HEMOGLOBIN 24.6 pg (25.0-35.0); MEAN CORPUSCULAR HGB CONC 31.8 g/dl (31.0-37.0); MEAN PLATELET VOLUME 9.7 fl (7.0-11.0); RBC 3.37 10^6/uL (3.5-6.1); RED CELL DISTRIBUTION WIDTH 18.2 % (11.5-14.5); WHITE BLOOD COUNT 10.8 10^3/ul (4.5-11.0)
[2018-04-22] MEDS ORDERED: Barium Sulfate Susp 2.1% w/v, 2.0% w/w 450 mL Bottle PO ONE (07:04)
[2018-04-22 07:27] LABS: ALB/GLOB RATIO 0.9 (1.1-1.8); ALBUMIN 3.2 g/dL (3.0-4.8); ALT/SGPT 30 U/L (7-56); AST/SGOT 36 U/L (14-36); BLOOD UREA NITROGEN 9 mg/dL (7-21); CALCIUM 10.3 mg/dL (8.4-10.5); GFR AFRICAN-AMERICAN > 60; GFR NON-AFRICAN AMERICAN > 60
[2018-04-22] MEDS ORDERED: Morphine 2 mg/ml ISec IVP PRN (08:26)
[2018-04-22] MEDS: Metoprolol Succinate 25 mg XL Tab PO SCH (09:30)
[2018-04-22] MEDS: Aspirin 325 mg EC Tablets PO SCH (09:31)
[2018-04-22] MEDS ORDERED: Aspirin 325 mg EC Tablets PO SCH (10:00)
--- NOTE | 2018-04-22 11:17 | CP.PCM.CON ---
<Jono Mast - Last Filed: 04/22/18 11:25> History of Present Illness - History of Present Illness History of Present Illness: PGY-4 GI Fellow Consult Note Mrs. Dietz is a 57 yo WF with h/o anxiety, depression, HTN, RA (on Mtx) who was admitted for reported panic attack. She recently had hip fracture surgery with subsequent stay in rehab facility but shortly after release home patient suffered panic attack after fear of mobility while being alone. After presentation, w/u revealed WBC 13.1, Hgb 8.3 (bl 8.5-9, MCV 76). Given her low BMI and report of constipation, GI was consulted for further evaluation. Pt states that she has not moved her bowels in over week. States BMs are usually formed brown, but does have smaller loose BMs as well at times. She denies any abd pain, N/V, fevers, chills. She has not been very ambulatory as of late; furthermore, she is requiring some opioid administration for pain control. She states that she hasn't had a colonoscopy before because it makes her nervous. 12 point ROS negative other than stated above MHx Anxiety, Depression Rheumatoid Arthritis (on methotrexate) HTN, COPD SurgHx Hip and Foot surgeries Meds Seroquel, ASA, Folic Acid, Fillmore, Methotrexate, Metoprolol FamHx: Unknown family history SocHx: Denies EtOH, Ill. Former tob abuser All: Risperidone, Ibuprofen, NSAIDs Past Patient History - Infectious Disease Hx of Infectious Diseases: None - Past Social History Smoking Status: Heavy Smoker > 10 Cigarettes Daily - CARDIAC Hx Cardiac Disorders: Yes Hx Hypertension: Yes - PULMONARY Hx Chronic Obstructive Pulmonary Disease (COPD): Yes - NEUROLOGICAL Hx Neurological Disorder: No Hx Alzheimer's Disease: No - HEENT Hx HEENT Problems: No - RENAL Hx Chronic Kidney Disease: No - ENDOCRINE/METABOLIC Hx Endocrine Disorders: No - HEMATOLOGICAL/ONCOLOGICAL Hx Blood Disorders: No - INTEGUMENTARY Hx Dermatological Problems: No - MUSCULOSKELETAL/RHEUMATOLOGICAL Hx Musculoskeletal Disorders: Yes (PAUL) Hx Arthritis: Yes Hx Falls: Yes Other/Comment: BUNIONECTOMY - GASTROINTESTINAL Hx Gastrointestinal Disorders: No - GENITOURINARY/GYNECOLOGICAL Hx Genitourinary Disorders: No - PSYCHIATRIC Hx Psychophysiologic Disorder: Yes Hx Anxiety: Yes Hx Bipolar Disorder: Yes Hx Depression: Yes Hx Emotional Abuse: No Hx Physical Abuse: No - SURGICAL HISTORY Hx Orthopedic Surgery: Yes (foot) - ANESTHESIA Hx Anesthesia Reactions: No Meds Allergies/Adverse Reactions: Allergies Allergy/AdvReac Type Severity Reaction Status Date / Time ibuprofen [From Motrin] Allergy ANAPHYLAXIS Verified 04/20/18 20:43 NSAIDS (Non-Steroidal Allergy SWELLING Verified 04/20/18 20:43 Anti-Inflamma risperidone [From Risperdal] AdvReac DIZZINESS Verified 04/20/18 20:43 - Medications Medications: Current Medications Acetaminophen (Tylenol 325mg Tab) 650 mg PO Q4H PRN PRN Reason: Pain, Mild (1-3) Last Admin: 04/21/18 21:29 Dose: 650 mg Aspirin (Ecotrin) 325 mg PO DAILY [facility] Last Admin: 04/22/18 09:31 Dose: 325 mg Benztropine Mesylate (Cogentin) 1 mg PO DAILY [facility] Last Admin: 04/22/18 10:48 Dose: Not Given Clonazepam (Klonopin) 0.5 mg PO TID [facility] PRN Reason: Protocol Last Admin: 04/22/18 09:31 Dose: 0.5 mg Folic Acid (Folic Acid) 1 mg PO DAILY [facility] Last Admin: 04/22/18 09:30 Dose: 1 mg Sodium Chloride (Sodium Chloride 0.45%) 1,000 mls @ 40 mls/hr IV .Q24H [facility] Last Admin: 04/21/18 22:52 Dose: 40 mls/hr Cefepime HCl (Maxipime 1gm) 1 gm in 100 mls @ 100 mls/hr IVPB Q8 [facility] PRN Reason: Protocol Stop: 04/30/18 22:01 Last Admin: 04/22/18 05:27 Dose: 100 mls/hr [place]more Carbonate (Fillmore Carbonate 300mg) 300 mg PO BID [facility] Last Admin: 04/22/18 09:30 Dose: 300 mg Methotrexate (Methotrexate) 5 mg PO .WEEKLY [facility] Metoprolol Succinate (Toprol Xl) 25 mg PO DAILY [facility] Last Admin: 04/22/18 09:30 Dose: 25 mg Morphine Sulfate (Morphine) 1 mg IVP Q3H PRN PRN Reason: Pain, moderate (4-7) Last Admin: 04/22/18 09:31 Dose: 1 mg Quetiapine Fumarate (Seroquel) 200 mg PO HS [facility] Last Admin: 04/21/18 21:29 Dose: 200 mg Sertraline HCl (Zoloft) 100 mg PO DAILY [facility] Last Admin: 04/22/18 10:47 Dose: 100 mg Physical Exam - Constitutional Appears: Non-toxic, No Acute Distress, Older Than Stated Age, Chronically Ill - Head Exam Head Exam: ATRAUMATIC, NORMAL INSPECTION - Eye Exam Eye Exam: EOMI. absent: Conjunctival injection, Scleral icterus - ENT Exam ENT Exam: Mucous Membranes Dry, Normal External Ear Exam - Respiratory Exam Respiratory Exam: Clear to Auscultation Bilateral, NORMAL BREATHING PATTERN. absent: Accessory Muscle Use - Cardiovascular Exam Cardiovascular Exam: REGULAR RHYTHM, RRR. absent: JVD - GI/Abdominal Exam GI & Abdominal Exam: Distended (mildly), Normal Bowel Sounds, Soft. absent: Bruit, Diminished Bowel Sounds, Firm, Guarding, Hernia, Hyperactive Bowel Sounds , Hypoactive Bowel Sounds, Pulsatile Mass, Rigid, Tenderness - Neurological Exam Neurological exam: Alert, CN II-XII Intact, Oriented x3 - Psychiatric Exam Psychiatric exam: Anxious, Normal Affect - Skin Skin Exam: Normal Color, Warm Results - Vital Signs Recent Vital Signs: Last Vital Signs Temp 98.3 F 04/22/18 06:00 Pulse 109 H 04/22/18 09:30 Resp 22 04/22/18 06:00 BP 125/87 04/22/18 09:30 Pulse Ox 96 04/22/18 06:00 - Labs Result Diagrams: 04/22/18 06:20 04/22/18 06:20 Assessment & Plan - Assessment and Plan (Free Text) Assessment: 57 yo WF with recent hip surgery, presenting from home with panic attack found to have constipation and microcytic anemia. # Constipation: Intermittently chronic issue for patient with recent worsening exacerbated by decreased mobility and narcotic use. Contrast for CT scan will assist with bowel movement, but will also place on Miralax to assist with BMs. Can hold if loose stools. # Acute on Chronic Microcytic Anemia: Hgb 8.3 from baseline ~ 8.5-9. No signs of GI Bleeding at this time. Suspect some component of blood loss related to recent hip surgery. Nonetheless, patient would benefit from outpatient screening colonoscopy given age. Plan: - Starting Miralax daily while on narcotics - F/u Abd/Pelvis CT - Checking Iron studies - Recommend outpatient Colonoscopy - Trend Hgb - Limit Narcotics as able Thank you for the consult, will cont to follow. Pt seen and examined with Dr. Luna <Roney Luna - Last Filed: 04/22/18 12:33> Meds - Medications Medications: Current Medications Acetaminophen (Tylenol 325mg Tab) 650 mg PO Q4H PRN PRN Reason: Pain, Mild (1-3) Last Admin: 04/21/18 21:29 Dose: 650 mg Aspirin (Ecotrin) 325 mg PO DAILY [facility] Last Admin: 04/22/18 09:31 Dose: 325 mg Benztropine Mesylate (Cogentin) 1 mg PO DAILY [facility] Last Admin: 04/22/18 10:48 Dose: Not Given Clonazepam (Klonopin) 0.5 mg PO TID [facility] PRN Reason: Protocol Last Admin: 04/22/18 09:31 Dose: 0.5 mg Folic Acid (Folic Acid) 1 mg PO DAILY [facility] Last Admin: 04/22/18 09:30 Dose: 1 mg Sodium Chloride (Sodium Chloride 0.45%) 1,000 mls @ 40 mls/hr IV .Q24H [facility] Last Admin: 04/21/18 22:52 Dose: 40 mls/hr Cefepime HCl (Maxipime 1gm) 1 gm in 100 mls @ 100 mls/hr IVPB Q8 [facility] PRN Reason: Protocol Stop: 04/30/18 22:01 Last Admin: 04/22/18 05:27 Dose: 100 mls/hr Fillmore Carbonate (Fillmore Carbonate 300mg) 300 mg PO BID [facility] Last Admin: 04/22/18 09:30 Dose: 300 mg Methotrexate (Methotrexate) 5 mg PO .WEEKLY [facility] Metoprolol Succinate (Toprol Xl) 25 mg PO DAILY [facility] Last Admin: 04/22/18 09:30 Dose: 25 mg Morphine Sulfate (Morphine) 1 mg IVP Q3H PRN PRN Reason: Pain, moderate (4-7) Last Admin: 04/22/18 09:31 Dose: 1 mg Polyethylene Glycol (Miralax) 17 gm PO DAILY [facility] Quetiapine Fumarate (Seroquel) 200 mg PO HS [facility] Last Admin: 04/21/18 21:29 Dose: 200 mg Sertraline HCl (Zoloft) 100 mg PO DAILY [facility] Last Admin: 04/22/18 10:47 Dose: 100 mg Results - Vital Signs Recent Vital Signs: Last Vital Signs Temp 98.3 F 04/22/18 06:00 Pulse 109 H 04/22/18 09:30 Resp 22 04/22/18 06:00 BP 125/87 04/22/18 09:30 Pulse Ox 96 04/22/18 06:00 - Labs Result Diagrams: 04/22/18 06:20 04/22/18 06:20 Attending/Attestation - Attestation I have personally seen and examined this patient.: Yes I have fully participated in the care of the patient.: Yes I have reviewed all pertinent clinical information: Yes Notes (Text): 04/22/18 12:31 Patient seen at bedside with GI fellow. This is a 57 yo WF with recent hip surgery, presenting from home with panic attack found to have constipation and microcytic anemia. Chronic constipation for which she was offered outpatient colonoscopy which she refused. Acute on chronic anemia with no overt s/s of bleeding. May have been a recent surgical / francture contribution. Start laxatives/ stool softeners for chronci constipation. Check iron studies. Outpatient colonoscopy after francture heals. Will follow as outpatient. Thank you for letting us participate in the care of your patient
--- NOTE | 2018-04-22 12:17 | CT ---
Date of service: 04/22/2018 PROCEDURE: CT Chest, Abdomen and Pelvis without intravenous contrast HISTORY: r/o lung cancer COMPARISON: None. TECHNIQUE: Radiation dose: Total exam DLP = mGy-cm. This CT exam was performed using one or more of the following dose reduction techniques: Automated exposure control, adjustment of the mA and/or kV according to patient size, and/or use of iterative reconstruction technique. FINDINGS: CT CHEST WITHOUT CONTRAST: LUNGS: Bibasilar infiltrates compatible with discoid atelectasis. 7 millimeter nodule in the right lower lobe. MEDIASTINUM: Unremarkable. Normal caliber aorta and pulmonary arterial trunk. Normal size heart. LYMPH NODES: Unremarkable. PLEURA: 3.5 centimeter pleural-based mass along the left major fissure posteriorly and medially. BONES: Unremarkable. OTHER FINDINGS: 2 centimeter nonspecific nodule in the right lobe. CT ABDOMEN AND PELVIS: LIVER: Unremarkable. No gross lesion or ductal dilatation. GALLBLADDER AND BILE DUCTS: Unremarkable. PANCREAS: Unremarkable. No gross lesion or ductal dilatation. SPLEEN: Unremarkable. ADRENALS: Unremarkable. No mass. KIDNEYS AND URETERS: Unremarkable. No hydronephrosis. No solid mass. VASCULATURE: Unremarkable. No aortic aneurysm. BOWEL: Unremarkable. No obstruction. No gross mural thickening. APPENDIX: Normal appendix. PERITONEUM: Unremarkable. No free fluid. No free air. LYMPH NODES: Unremarkable. No enlarged lymph nodes. BLADDER: Unremarkable. REPRODUCTIVE: 4.7 centimeter right ovarian cyst. . BONES: No acute fracture. OTHER FINDINGS: None. IMPRESSION: Bibasilar infiltrates compatible with discoid atelectasis. 7 millimeter nonspecific nodule in the right lower lobe. 3.5 centimeter nonspecific pleural-based mass along the left major fissure posteriorly and medially.
[2018-04-22] MEDS: POLYETHYLENE GLYCOL 3350 17 GM/Dose PACKET PO SCH (12:35)
--- NOTE | 2018-04-22 12:38 | CP.PCM.PCO ---
Addendum Addendum: Attempted to see patient but she was out of room for testing (SV/MV). Confirmed patients medications with pharmacy, [facility], (last filled in late March) and resumed. Sertraline 100 mg daily Benztropine 1 mg daily [place] 300 mg bid Seroquel 200 mg qhs Klonopin 0.5 mg tid 04/22/18 12:36
--- NOTE | 2018-04-22 13:04 | CP.PCM.CON ---
History of Present Illness - History of Present Illness History of Present Illness: 57 yo female with right hip, left rib pain, neck, and hand joint pain. PMH includes rheumatoid arthritis, anxiety, depression, HTN, COPD, and recent surgery for right hip fracture 6 weeks ago. Patient come into the hospital yesterday after twisting her abdomen in the the bathroom resulting in muscle strain around her left ribs. She did not fall or break any ribs. Patient states that her pain is improved after receiving morphine 1 mg IVP several hours ago. Her pain is currently 3-4/10 at rest, and she is able to comfortably eat her lunch. However, when she tries sitting up or moving more, her pain increases to 8.5/10. She says that she has an allergy to NSAIDs, which cause shortness of breath. Review of Systems - Review of Systems All systems: reviewed and no additional remarkable complaints except - Respiratory Respiratory: absent: Dyspnea - Gastrointestinal Gastrointestinal: Constipation Past Patient History - Infectious Disease Hx of Infectious Diseases: None - Past Social History Smoking Status: Former Smoker - CARDIAC Hx Cardiac Disorders: Yes Hx Hypertension: Yes - PULMONARY Hx Chronic Obstructive Pulmonary Disease (COPD): Yes - NEUROLOGICAL Hx Neurological Disorder: No Hx Alzheimer's Disease: No - HEENT Hx HEENT Problems: No - RENAL Hx Chronic Kidney Disease: No - ENDOCRINE/METABOLIC Hx Endocrine Disorders: No - HEMATOLOGICAL/ONCOLOGICAL Hx Blood Disorders: No - INTEGUMENTARY Hx Dermatological Problems: No - MUSCULOSKELETAL/RHEUMATOLOGICAL Hx Rheumatoid Arthritis: Yes - GASTROINTESTINAL Hx Gastrointestinal Disorders: No - GENITOURINARY/GYNECOLOGICAL Hx Genitourinary Disorders: No - PSYCHIATRIC Hx Psychophysiologic Disorder: Yes Hx Anxiety: Yes Hx Bipolar Disorder: Yes Hx Depression: Yes Hx Emotional Abuse: No Hx Physical Abuse: No Hx Substance Use: No - SURGICAL HISTORY Hx Orthopedic Surgery: Yes (foot) - ANESTHESIA Hx Anesthesia Reactions: No Meds Allergies/Adverse Reactions: Allergies Allergy/AdvReac Type Severity Reaction Status Date / Time ibuprofen [From Motrin] Allergy ANAPHYLAXIS Verified 04/20/18 20:43 NSAIDS (Non-Steroidal Allergy SWELLING Verified 04/20/18 20:43 Anti-Inflamma risperidone [From Risperdal] AdvReac DIZZINESS Verified 04/20/18 20:43 - Medications Medications: Current Medications Acetaminophen (Tylenol 325mg Tab) 650 mg PO Q4H PRN PRN Reason: Pain, Mild (1-3) Last Admin: 04/21/18 21:29 Dose: 650 mg Aspirin (Ecotrin) 325 mg PO DAILY [facility] Last Admin: 04/22/18 09:31 Dose: 325 mg Benztropine Mesylate (Cogentin) 1 mg PO DAILY [facility] Last Admin: 04/22/18 10:48 Dose: Not Given Clonazepam (Klonopin) 0.5 mg PO TID [facility] PRN Reason: Protocol Last Admin: 04/22/18 09:31 Dose: 0.5 mg Folic Acid (Folic Acid) 1 mg PO DAILY [facility] Last Admin: 04/22/18 09:30 Dose: 1 mg Sodium Chloride (Sodium Chloride 0.45%) 1,000 mls @ 40 mls/hr IV .Q24H [facility] Last Admin: 04/21/18 22:52 Dose: 40 mls/hr Cefepime HCl (Maxipime 1gm) 1 gm in 100 mls @ 100 mls/hr IVPB Q8 [facility] PRN Reason: Protocol Stop: 04/30/18 22:01 Last Admin: 04/22/18 05:27 Dose: 100 mls/hr [place] Carbonate ([place] Carbonate 300mg) 300 mg PO BID [facility] Last Admin: 04/22/18 09:30 Dose: 300 mg Methotrexate (Methotrexate) 5 mg PO .WEEKLY [facility] Metoprolol Succinate (Toprol Xl) 25 mg PO DAILY [facility] Last Admin: 04/22/18 09:30 Dose: 25 mg Morphine Sulfate (Morphine) 1 mg IVP Q3H PRN PRN Reason: Pain, moderate (4-7) Last Admin: 04/22/18 09:31 Dose: 1 mg Polyethylene Glycol (Miralax) 17 gm PO DAILY [facility] Last Admin: 04/22/18 12:35 Dose: 17 gm Quetiapine Fumarate (Seroquel) 200 mg PO HS [facility] Last Admin: 04/21/18 21:29 Dose: 200 mg Sertraline HCl (Zoloft) 100 mg PO DAILY [facility] Last Admin: 04/22/18 10:47 Dose: 100 mg Physical Exam - Constitutional Appears: No Acute Distress - Head Exam Head Exam: ATRAUMATIC, NORMOCEPHALIC - Respiratory Exam Respiratory Exam: NORMAL BREATHING PATTERN - Cardiovascular Exam Cardiovascular Exam: +S1, +S2 Results - Vital Signs Recent Vital Signs: Last Vital Signs Temp 98.3 F 04/22/18 06:00 Pulse 109 H 04/22/18 09:30 Resp 22 04/22/18 06:00 BP 125/87 04/22/18 09:30 Pulse Ox 96 04/22/18 06:00 - Labs Result Diagrams: 04/22/18 06:20 04/22/18 06:20 Assessment & Plan - Assessment and Plan (Free Text) Assessment: 57 yo female with right hip, left rib, neck, and hand joint pain. - add robaxin 500 mg PO q.i.d. for muscle spasm - continue tylenol 650 mg PO q4h - continue morphine 1 mg IVP q3h, can change to oxycodone as patient tolerating PO - follow-up with reimbursement coordinator as outpatient for long-standing neck and hand joint pain
[2018-04-22] MEDS: Methocarbamol 500 MG Tab PO SCH ×3 (13:32→22:14)
--- NOTE | 2018-04-22 14:10 | PN ---
DATE: 04/22/2018 SUBJECTIVE: She is in tremendous amount of pain this morning. She has got methotrexate. We have added morphine to her pain, the Tylenol is not covering it. She has severe rheumatoid arthritis, also she cannot walk, waiting for Physical Therapy to give me their opinion. I think she is going to need to have [facility]. I am making her inpatient for 3 overnights. She came in with a high white count and anemia. She has also very little appetite. PHYSICAL EXAMINATION: VITAL SIGNS: She has 98.3 temperature, 100 pulse, 136/93 blood pressure, 22 respiratory rate, 96% O2 sat on room air. HEENT: Head is atraumatic, normocephalic. HEART: Regular rate. LUNGS: Decreased breath sounds, but clear. ABDOMEN: Soft, nontender. Positive bowel sounds. EXTREMITIES: Tenderness to palpitation with rheumatoid arthritis. No edema. At this time, she tells me she cannot walk. MEDICATIONS: Ecotrin, folic acid, Klonopin, lithium, Maxipime by Infectious Disease, methotrexate, morphine, Seroquel, IV fluids, Toprol, and Tylenol. LABORATORY DATA: She has a white count, which came down to 10.8; hemoglobin 8.3; hematocrit 26.1; platelets of 537. Sodium 138, potassium 3.7, BUN 9, creatinine 0.5, GFR is greater than 60, sugar is 91, calcium is 10.3. Total bilirubin is 0.4, AST is 36, ALT is 30, alkaline phosphatase 78, total protein 6.7. Urine is trace. She is being seen by Infectious Disease. I consulted Pain Management, Psychiatry for anxiety, and Infectious Disease as per GI workup. We will continue with IV antibiotics. Make her an inpatient for 3 overnights. I think she will need to have [facility] versus TCU before she can go home and see what recommendations are from Physical Therapy, I will continue with aggressive treatment and care. Patrice Alba DO
--- NOTE | 2018-04-22 14:42 | CP.PCM.PN ---
Subjective - Date & Time of Evaluation Date of Evaluation: 04/22/18 Time of Evaluation: 13:05 - Subjective Subjective: Afebrile, not in distress. Objective - Vital Signs/Intake and Output Vital Signs (last 24 hours): Temp Pulse Resp BP Pulse Ox 98.4 F 89 20 120/86 95 04/21/18 21:49 04/21/18 21:49 04/21/18 21:49 04/21/18 21:49 04/21/18 21:49 Intake and Output: 04/21/18 04/22/18 18:59 06:59 Intake Total 900 720 Output Total 0 Balance 900 720 - Medications Medications: Current Medications Acetaminophen (Tylenol 325mg Tab) 650 mg PO Q4H PRN PRN Reason: Pain, Mild (1-3) Last Admin: 04/21/18 21:29 Dose: 650 mg Aspirin (Ecotrin) 325 mg PO DAILY [facility] Clonazepam (Klonopin) 0.5 mg PO TID [facility] PRN Reason: Protocol Last Admin: 04/21/18 22:52 Dose: Not Given Folic Acid (Folic Acid) 1 mg PO DAILY [facility] Sodium Chloride (Sodium Chloride 0.45%) 1,000 mls @ 40 mls/hr IV .Q24H [facility] Last Admin: 04/21/18 22:52 Dose: 40 mls/hr Cefepime HCl (Maxipime 1gm) 1 gm in 100 mls @ 100 mls/hr IVPB Q8 [facility] PRN Reason: Protocol Stop: 04/30/18 22:01 Last Admin: 04/22/18 05:27 Dose: 100 mls/hr [place] Carbonate ([place] Carbonate 300mg) 300 mg PO BID [facility] Last Admin: 04/21/18 17:12 Dose: 300 mg Methotrexate (Methotrexate) 5 mg PO .WEEKLY [facility] Metoprolol Succinate (Toprol Xl) 25 mg PO DAILY [facility] Quetiapine Fumarate (Seroquel) 200 mg PO HS [facility] Last Admin: 04/21/18 21:29 Dose: 200 mg - Labs Labs: PT 13.2 SECONDS (9.4-12.5) H 04/20/18 21:45 INR 1.15 (0.93-1.08) H 04/20/18 21:45 - Constitutional Appears: Chronically Ill - Head Exam Head Exam: NORMAL INSPECTION - Respiratory Exam Respiratory Exam: Decreased Breath Sounds - Cardiovascular Exam Cardiovascular Exam: +S1, +S2 - GI/Abdominal Exam GI & Abdominal Exam: Soft. absent: Tenderness Assessment and Plan - Assessment and Plan (Free Text) Plan: Assessment Systemic Inflammatory Response syndrome, with no evidence of GI tract pathology on CT C/A/P, but note of left sided pleural based mass R/O malignancy COPD rheumatoid arthritis anxiety HTN S/P right breast cyst surgery S/P right hip surgery Plan will d/c Cefepime; cultures are negative will recommend Pulmonary and Heme/Onc evaluation will monitor clinically
[2018-04-23 07:21] LABS: HEMOGLOBIN 8.2 g/dL (12.0-16.0); MEAN CELL VOLUME 77.6 fl (80.0-105.0); MEAN CORPUSCULAR HEMOGLOBIN 23.8 pg (25.0-35.0); MEAN CORPUSCULAR HGB CONC 30.7 g/dl (31.0-37.0); MEAN PLATELET VOLUME 9.2 fl (7.0-11.0); RBC 3.44 10^6/uL (3.5-6.1); RED CELL DISTRIBUTION WIDTH 18.3 % (11.5-14.5); WHITE BLOOD COUNT 5.7 10^3/ul (4.5-11.0)
[2018-04-23 07:35] LABS: ALB/GLOB RATIO 0.9 (1.1-1.8); ALBUMIN 3.3 g/dL (3.0-4.8); ALT/SGPT 25 U/L (7-56); AST/SGOT 25 U/L (14-36); BLOOD UREA NITROGEN 7 mg/dL (7-21); CALCIUM 10.8 mg/dL (8.4-10.5); GFR AFRICAN-AMERICAN > 60; GFR NON-AFRICAN AMERICAN > 60
--- NOTE | 2018-04-23 07:54 | CON ---
DATE: 04/23/2018 PULMONARY CONSULTATION REASON FOR CONSULTATION: Abnormal CAT scan. REFERRING PHYSICIAN: Dr. Patrice Alba. HISTORY OF PRESENT ILLNESS: The patient is a 57-year-old female, with past medical history significant for chronic obstructive pulmonary disease, rheumatoid arthritis, hypertension, anxiety, depression who presents to [facility] with probable panic attack. Apparently, the patient felt nauseous at home and was retching in the bathroom. While she was retching, she twisted her torso and felt pain in her left rib area. She then became very anxious, feeling that she did not want to be alone. She then called [facility] and was transferred to [facility] for additional evaluation and treatment. The patient denies shortness of breath at rest, dyspnea on exertion, cough and/or sputum production. The patient also denies chest pain,coughing up of blood or chest pain - made worse with deep respirations. There is no history of temperatures, chills or infectious exposure. There is no history of night sweats, weight loss or appetite change prior to the above events. No history of calf pains. No history of syncope or diaphoresis. No history of recent travel or trauma. REVIEW OF SYSTEMS: As above, the patient did feel nauseated and was retching yesterday. She denies abdominal pain or diarrhea. There are no urinary symptoms. There are no new neurologic complaints. Rest of the review of systems is negative. ALLERGIES: NONSTEROIDALS AND RISPERIDONE. SOCIAL HISTORY: Positive for extensive tobacco usage - still smokes, no alcohol. FAMILY HISTORY: No inheritable diseases. HOME MEDICATIONS: Include Seroquel, Toprol, methotrexate, lithium, folate and Ecotrin. PHYSICAL EXAMINATION: GENERAL: The patient appears comfortable this morning. She is not short of breath at rest. VITAL SIGNS: Temperature is 99, pulse 84, respirations 18, blood pressure 133/86. Oxygen saturation on room air is 98%. HEENT: Normocephalic, atraumatic. No JVD. CARDIOVASCULAR: Positive S1, S2. No S3 gallop. LUNGS: Clear bilaterally. EXTREMITIES: No clubbing, cyanosis or edema. Calves are nontender to palpation. GI: Abdomen is soft, nontender and nondistended. Bowel sounds are positive. SKIN: No acute rash. NEUROLOGIC: Exam limited at the present time. PERTINENT LABORATORY DATA: CAT scan of the chest was done and reviewed. There are multiple band-like (scar-like) opacities noted at both lower lobes. The most prominent opacity is adjacent to the left fissure.. There is also a small 7-mm nodule noted in the right lower lobe. There is no lymphadenopathy. CBC: White count 10.8K, hemoglobin 8.3, hematocrit 26.1, platelets of 537,000K. Complete metabolic profile: Creatinine 0.5. Rest of the metabolic profile is within normal limits. IMPRESSION: 1. Probable chronic obstructive pulmonary disease. 2. Abnormal CAT scan. 3. Rheumatoid arthritis. 4. Anemia. 5. Anxiety, depression. PLAN: The patient presents to [facility] with probable panic attack. Again, as above, the patient was nauseated and retching last night. When she twisted her trunk to vomit in the toilet, she felt a pain in her left rib area. At that point, she became very,very anxious and did not want to be alone. She then called 911 for transfer to [facility]. I did review the CAT scan of the chest - noted above. The CAT scan does reveal multiple band-like (scar-like) opacities at both lower lobes. Again, the most prominent opacity is next to the left fissure. As above, there is also a small right lower lobe nodule present. Significant to note, there is no lymphadenopathy. Given the CAT scan appearance noted above, I would certainly proceed with PET scanning - to rule out underlying malignancy. Again, the CAT scan is most consistent with bilateral lower lobe scarring. However, in an active smoker, scarring sometimes will undergo transformation into a malignancy ("scar carcinoma"). On physical exam, the patient's lungs are clear. In addition, the oxygen saturation on room air is 98%. The patient should also receive a pulmonary function test in the near future. Inputs by Infectious Disease, Psychiatry and Internal Medicine are noted. Additional pulmonary intervention would be based on the clinical status of the patient, as well as the above results(PET SCAN). I will discuss the above with Dr. Alba this morning. Thank you very much for this pulmonary consultation. Brayan Beck MD JESUS
[2018-04-23] MEDS: POLYETHYLENE GLYCOL 3350 17 GM/Dose PACKET PO SCH (09:17)
[2018-04-23] MEDS: Aspirin 325 mg EC Tablets PO SCH (09:22)
[2018-04-23] MEDS: Metoprolol Succinate 25 mg XL Tab PO SCH ×2 (09:22→09:27)
[2018-04-23 09:55] LABS: IRON 23 ug/dL (45-180)
[2018-04-23 10:03] LABS: % IRON SATURATION 8 % (20-55); TOTAL IRON BINDING CAPACITY 298 ug/dL (265-497)
--- NOTE | 2018-04-23 10:30 | CON ---
DATE: 04/23/2018 REASON FOR CONSULTATION: Lung mass. REQUESTED BY: Patrice Alba DO. HISTORY OF PRESENT ILLNESS: Ms. Dietz is a 57-year-old female, admitted to the hospital because of the right hip pain. She had right hip fracture and repair 6 weeks ago. She was admitted to the rehab and was discharged home. She has been heavy smoker in the past. History of bipolar disorder. History of COPD. CT chest, abdomen and pelvis showed 3.5 cm left pleural base mass. A 2 cm nonspecific nodule in the right lobe. A 4.7 cm right ovarian cyst. Denies any chest pain. No shortness of breath. PAST MEDICAL HISTORY: Bipolar, COPD, right hip fracture, status post fall, rheumatoid arthritis. PAST SURGICAL HISTORY: Foot surgery, right hip surgery. PERSONAL HISTORY: Former smoker. No history of alcohol abuse. FAMILY HISTORY: Noncontributory. ALLERGIES: IBUPROFEN CAUSES ANAPHYLAXIS, NSAIDS, RISPERDAL CAUSES DIZZINESS. HOME MEDICATIONS: Seroquel, Ecotrin, folic acid, lithium, methotrexate, metoprolol XL 25 daily. REVIEW OF SYSTEMS: As per HPI. Rest of 12-point review of systems reviewed negative. PHYSICAL EXAMINATION: GENERAL: Comfortable in bed, in no acute distress. VITAL SIGNS: Temperature 98.5, heart rate is 91 per minute, respiratory rate 18 per minute, blood pressure 118/76, pulse ox is 96% on oxygen by nasal cannula. HEENT: Pallor positive. NECK: No lymphadenopathy. CHEST: Air entry present and equal bilateral, decreased in the bases. ABDOMEN: Soft, nontender. No hepatosplenomegaly. EXTREMITIES: No edema. SPINE: Nontender. SKIN: No petechiae. No rash. LABORATORY DATA: White count 5.7, hemoglobin 8.2, hematocrit 26.7, platelet 541. Sodium 141, potassium 3.8, creatinine 0.6, iron 23, iron saturation 8%. UA: Leukocyte esterase trace, coags. INR 1.15. ASSESSMENT: 1. Left pleural base mass, 3.5 cm, suspicious for lung malignancy. 2. Bipolar disorder. 3. Severe iron-deficiency anemia. 4. History of right hip fracture, recent. PLAN: Discussed with Dr. Luigi Vides for CT-guided lung biopsy. Discussed with the patient. She agreed for lung biopsy. She has severe iron-deficiency anemia. We will give 1 dose of IV iron, today 200 mg. We will also do CEA with a.m. labs. B12, folate levels are pending. Renal functions are stable with normal creatinine. Electrolytes are normal. LFTs, no abnormalities. CT of the abdomen did not show any suspicious metastatic lesion. CT PET scan will be scheduled as an outpatient upon discharge from the hospital if left lung mass's pathology is positive for malignancy. She might have pathological fracture on the right side related to metastatic disease. Thank you, Dr. Alba for allowing us to participate in Ms. Dietz's care. I discussed with the staff nurse. Annie Mckee MD 3pm . Dr. Vides informed that patient refused lung biopsy. She communicated to staff Nurse also that 'she want to be left alone ". MTDD
--- NOTE | 2018-04-23 10:43 | PN ---
DATE: 04/23/2018 SUBJECTIVE: She is finally getting some relief from her pain with the morphine. She is also on IV fluids, Cogentin, Ecotrin, folic acid, Klonopin, lithium, methotrexate, MiraLax, Robaxin, Seroquel, Toprol, Tylenol and Zoloft. PHYSICAL EXAMINATION: VITAL SIGNS: She has a 97.9 temperature, 88 pulse, 114/68 blood pressure, 20 respiratory rate, 97% O2 sat on room air. HEENT: Head is atraumatic, normocephalic. HEART: Regular rate. LUNGS: Decreased breath sounds, but clear. ABDOMEN: Soft, nontender. Positive bowel sounds. EXTREMITIES: No edema. She is thin and frail. LABORATORY DATA: She has a 5.7 white count, 8.2 hemoglobin, 26.7 hematocrit with 541 platelets. Sodium 141, potassium 3.8, BUN 7, creatinine 0.6, GFR is greater than 60, sugar is 95, calcium is 10.8, total bili is 0.2, AST is 25, ALT is 25, alk phos 75, total protein 6.7. She is being seen by Pulmonary, Infectious Disease, Psychiatry. She had a CAT scan of the chest, abdomen and pelvis, bibasilar infiltrates compatible with discoid atelectasis, 3.5-cm pleural-based mass. I am not sure I believe it. She was seen by Infectious Disease. We will continue with aggressive treatment and care. We are hoping to get her to physical therapy at [facility] in the next 2 days, that was recommended by physical therapy. She has intractable pain, panic attacks, high white count, anemia, lung mass. We will check her labs tomorrow. Patrice Alba DO
[2018-04-23] MEDS: Methocarbamol 500 MG Tab PO SCH ×5 (10:55→21:11)
[2018-04-23] MEDS: Morphine 2 mg/2 mL syringe IVP PRN ×2 (11:07→21:45)
--- NOTE | 2018-04-23 14:14 | CP.PCM.PCO ---
Addendum Addendum: 04/23/18 14:11 Attempted to see patient today but had already been discharged. Agree with SUHAS dispo. Patient did not exhibit agitation or confusion during this hospitalization. Confirmed patients medications with her pharmacy and resumed. Recommend patient see psychiatrist within 48-72 hours of discharge for management of anxiety symptoms. 04/23/18 14:14
[2018-04-23 17:09] LABS: FERRITIN 45.7 ng/mL
[2018-04-23 17:39] LABS: FOLATE > 20.0 ng/mL
[2018-04-24 07:25] LABS: HEMOGLOBIN 8.4 g/dL (12.0-16.0); MEAN CELL VOLUME 78.6 fl (80.0-105.0); MEAN CORPUSCULAR HEMOGLOBIN 24.3 pg (25.0-35.0); MEAN CORPUSCULAR HGB CONC 30.9 g/dl (31.0-37.0); MEAN PLATELET VOLUME 9.5 fl (7.0-11.0); RBC 3.46 10^6/uL (3.5-6.1); RED CELL DISTRIBUTION WIDTH 18.1 % (11.5-14.5); WHITE BLOOD COUNT 5.8 10^3/ul (4.5-11.0)
[2018-04-24] MEDS: Morphine 2 mg/2 mL syringe IVP PRN ×2 (07:27→15:49)
[2018-04-24 07:32] LABS: ALB/GLOB RATIO 0.9 (1.1-1.8); ALBUMIN 3.3 g/dL (3.0-4.8); ALT/SGPT 23 U/L (7-56); AST/SGOT 24 U/L (14-36); BLOOD UREA NITROGEN 9 mg/dL (7-21); CALCIUM 10.5 mg/dL (8.4-10.5); GFR AFRICAN-AMERICAN > 60; GFR NON-AFRICAN AMERICAN > 60
--- NOTE | 2018-04-24 07:35 | PN ---
DATE: 04/24/2018 PULMONARY NOTE SUBJECTIVE: The patient appears comfortable this morning. She is not short of breath at rest. PHYSICAL EXAMINATION VITAL SIGNS: (Last noted in the computer): Temperature is 98.3, pulse 81, respirations 18, blood pressure 120/70. Oxygen saturation on room air is 94%-98%. HEENT: Normocephalic, atraumatic. No JVD. CARDIOVASCULAR: Positive S1, S2. No S3 gallop. LUNGS: Clear bilaterally. EXTREMITIES: No clubbing, cyanosis or edema. Calves are nontender to palpation. GI: Abdomen is soft, nontender and nondistended. Bowel sounds are positive. SKIN: No acute rash. NEUROLOGIC: Limited at the present time. IMPRESSION: 1. Probable chronic obstructive pulmonary disease. 2. Abnormal CAT scan. 3. Rheumatoid arthritis. 4. Anemia. 5. Anxiety, depression. PLAN: The patient appears comfortable this morning. She is not short of breath at rest. She does state to feeling much better overall. On physical exam, her lungs remain clear. In addition, there is no significant alveolar-arterial gradient. I will order pulmonary function testing to be done. I did discuss the case with Dr. Alba at length yesterday. I have also reviewed the note by Dr. Mckee (Oncology) at length. The patient is tentatively scheduled for lung biopsy later today. In addition, I agree that the patient should also have a PET scan (soon after discharge). The clinical status of this patient is certainly improved - compared to the initial presentation. However, it does appear that the future status/prognosis for this patient does remain guarded. I will re-discuss the case with Dr. Alba this morning. Brayan Beck MD MTDD
--- NOTE | 2018-04-24 09:38 | DS ---
HISTORY OF PRESENT ILLNESS: She came in not feeling well with a panic attack, high white count, anemia and a questionable lung mass, which was read on CAT scan, although the ward clerk disagrees and thinks it is scarring. There is a questionable biopsy which is done, but the patient refused it, so I agree with the outpatient PET scan, but she also needs physical therapy as per Physical Therapy, so she is going to go to [facility] once we get the authorization from her insurance company. So the plan is to rest her. I am hoping we could discharge her today. She had a panic attack with a high white count with anemia. PHYSICAL EXAMINATION: VITAL SIGNS: 98.7 temp, 78 pulse, 129/79 blood pressure, 20 respiratory rate. HEENT: Head is atraumatic, normocephalic. She has a 93 O2 sat and 94 O2 sat on room air. HEART: Regular rate. LUNGS: Clear to auscultation with decreased breath sounds. ABDOMEN: Soft. EXTREMITIES: No edema. She only weighs about 104 pounds, very thin and frail. LABORATORY DATA: She has a 141 sodium, potassium 3.8, BUN is 9, creatinine 0.5, GFR is greater than 60, sugar is 92, calcium is 10.5, total bili is 0.3, AST is 24, ALT is 23, alk phos 73, total protein 6.8, folate was greater than 20, vitamin B12 is 300. White count is 5.8, hemoglobin 8.4, hematocrit 27.2, platelets of 488. I will put her on some iron. Micro was negative. ASSESSMENT AND PLAN: My plan is to get her to subacute rehabilitation at [facility] or [facility] and for physical therapy before she goes home and an outpatient PET scan to make sure the stuff in her lungs is clean. Patrice Alba DO
[2018-04-24] MEDS: Metoprolol Succinate 25 mg XL Tab PO SCH (10:10)
[2018-04-24] MEDS: POLYETHYLENE GLYCOL 3350 17 GM/Dose PACKET PO SCH (10:10)
[2018-04-24] MEDS: Aspirin 325 mg EC Tablets PO SCH (10:11)
[2018-04-24] MEDS: Methocarbamol 500 MG Tab PO SCH ×3 (10:11→17:03)
--- NOTE | 2018-04-24 14:00 | PN ---
DATE: 04/24/2018 SUBJECTIVE: The patient is in bed, in no acute distress, was seen early this morning. PHYSICAL EXAMINATION: VITAL SIGNS: Temperature is 98, blood pressure is 129/70, and respiratory rate of 20. HEENT: Unremarkable. NECK: Supple. LUNGS: Decreased breath sounds. HEART: Normal S1 and S2. ABDOMEN: Soft. LABORATORY EXAMINATION: Reveals the patient's white count is down to 5.8, hemoglobin of 8, platelets of 488. Coagulation is noted. Chemistries noted. Urinalysis is noted. Serology of the HIV is negative. Microbiology reveals the blood cultures are negative. Urine cultures are negative. ASSESSMENT AND PLAN: This is a 57-year-old female with systemic inflammatory response syndrome, rheumatoid arthritis, chronic obstructive lung disease, long time smoker. Concerned about gastrointestinal malignancy. Should have a colonoscopy and gastrointestinal workup in addition to malignancy workup as per Dr. Mckee. Anton Solo MD
[2018-04-24 14:57] VITALS: BP 121/82; PULSE 71; RESP 18; TEMP 99.4; O2SAT 99
--- NOTE | 2018-04-25 00:47 | PN ---
DATE: 04/23/2018 This is a progress note from yesterday which was lost. SUBJECTIVE: The patient was seen yesterday. No fevers and no chills. PHYSICAL EXAMINATION: VITAL SIGNS: Temperature 98, blood pressure is 120/70, respiratory rate 16. HEENT: Unremarkable. NECK: Supple. LUNGS: Decreased breath sounds. HEART: Normal S1, S2. ABDOMEN: Soft, nontender. LABORATORY DATA: Laboratory examination is noted. ASSESSMENT AND PLAN: This is a 57-year-old female with systemic inflammatory response syndrome, rheumatic arthritis, chronic obstructive lung disease, long-time smoker, concerned about gastrointestinal malignancy and colonoscopy. Anton Solo MD
== END 2018-04-24 21:55 | DRG 425 ==
LOC: ED 20:32 → ERH 04-21 00:24 → 5RSO 04-21 02:33 → OBSVTOIN 04-22 08:24 → 5RSO 04-23 08:07
PROVIDERS: ADMIT Family Medicine; ATTEND Family Medicine
DX: F41.0 Panic disorder [episodic paroxysmal anxiety] (principal); J44.9 Chronic obstructive pulmonary disease, unspecified; R64 Cachexia; D50.9 Iron deficiency anemia, unspecified; M06.9 Rheumatoid arthritis, unspecified; D72.829 Elevated white blood cell count, unspecified; I10 Essential (primary) hypertension; F31.9 Bipolar disorder, unspecified; K59.09 Other constipation; R91.8 Other nonspecific abnormal finding of lung field; F17.200 Nicotine dependence, unspecified, uncomplicated; Z68.1 Body mass index [BMI] 19.9 or less, adult; S72.001D Fracture of unspecified part of neck of right femur, subsequent encounter for closed fracture with routine healing; Z79.899 Other long term (current) drug therapy; Z79.82 Long term (current) use of aspirin

== ENCOUNTER 2018-05-17 19:02 | Inpatient (IN) | payer MEDICAID ==
--- NOTE | 2018-05-17 19:58 | ED PDOC ---
Arrival/HPI - General Chief Complaint: Abnormal Labs Time Seen by Provider: 05/17/18 19:19 Historian: Patient - History of Present Illness Narrative History of Present Illness (Text): 57 y/o F w/ h/o anxiety and lung mass presents to the ED for abnormal labs. She reports being told by staff at [facility] of her abnormal lab results after being told by her PCP multiple times to present to the hospital. The patient reports intermittent dyspnea, but denies any fevers, chills, headache, nausea, emesis, back pain, weakness, numbness or tingling, chest pain or syncopal episodes. She reports chronic generalized abdominal pain and constipation, but denies taking any medications at this time. Of note, patient was recently admitted on for similar presentation where a lung mass was discovered on imaging, biopsied and she was treated for PNA. PCP: Dr. Alba 05/19/18 14:43 Time/Duration: > week Symptom Course: Unchanged Quality: Unable to Describe Severity Level: Moderate Activities at Onset: Rest Past Medical History - Provider Review Nursing Documentation Reviewed: Yes - Travel History Have you recently traveled outside [place] w/in the past 3 mons?: No - Infectious Disease Hx of Infectious Diseases: None - Cardiac Hx Cardiac Disorders: Yes Hx Hypertension: Yes - Pulmonary Hx Chronic Obstructive Pulmonary Disease (COPD): Yes - Neurological Hx Neurological Disorder: No Hx Alzheimer's Disease: No - HEENT Hx HEENT Disorder: No - Renal Hx Renal Disorder: No - Endocrine/Metabolic Hx Endocrine Disorders: No - Hematological/Oncological Hx Blood Disorders: No - Integumentary Hx Dermatological Disorder: No - Musculoskeletal/Rheumatological Hx Fractures: Yes Hx Rheumatoid Arthritis: Yes Other/Comment: R hip fx ; hip replacement - Gastrointestinal Hx Gastrointestinal Disorders: No - Genitourinary/Gynecological Hx Genitourinary Disorders: No - Psychiatric Hx Psychophysiologic Disorder: Yes Hx Anxiety: Yes Hx Bipolar Disorder: Yes Hx Depression: Yes Hx Emotional Abuse: No Hx Physical Abuse: No Hx Substance Use: No - Surgical History Hx Orthopedic Surgery: Yes (foot) Other/Comment: R HIP THR - Anesthesia Hx Anesthesia: Yes Hx Anesthesia Reactions: No - Suicidal Assessment Feels Threatened In Home Enviroment: No Family/Social History - Physician Review Nursing Documentation Reviewed: Yes Family/Social History: No Known Family HX Smoking Status: Former Smoker Hx Alcohol Use: No Hx Substance Use: No Hx Substance Use Treatment: No Allergies/Home Meds Allergies/Adverse Reactions: Allergies ibuprofen [From Motrin] Allergy (Verified 04/20/18 20:43) ANAPHYLAXIS NSAIDS (Non-Steroidal Anti-Inflamma Allergy (Verified 04/20/18 20:43) SWELLING risperidone [From Risperdal] Adverse Reaction (Verified 04/20/18 20:43) DIZZINESS Home Medications: Home Meds Medication Instructions Recorded Confirmed Acetaminophen [Non-Aspirin Pain 650 mg PO Q4H PRN 05/17/18 05/17/18 Relief] Acetaminophen [Tylenol 325mg tab] 650 mg PO Q4H PRN 05/17/18 05/17/18 Albuterol/Ipratropium [Duoneb 3 1 vial IH Q6H 05/17/18 05/17/18 mg/0.5 mg (3 ml) UD] Azithromycin [Zithromax] 1 tab PO DAILY 05/17/18 05/17/18 Ferrous Sulfate [Feosol] 1 tab PO BID 05/17/18 05/17/18 Folic Acid [Folic Acid] 1 tab PO DAILY 05/17/18 05/17/18 Linezolid [Zyvox] 1 tab PO Q12H 05/17/18 05/17/18 Mayo Carbonate [Mayo 1 tab PO BID 05/17/18 05/17/18 Carbonate 300MG] Methocarbamol [Robaxin] 1 tab PO QID 05/17/18 05/17/18 Methotrexate Sodium [Trexall] 1 tab PO Q7D 05/17/18 05/17/18 Metoprolol Succinate XL [Toprol XL] 1 tab PO DAILY 05/17/18 05/17/18 Oxandrolone [Oxandrin] 2 tab PO DAILY 05/17/18 05/17/18 Polyethylene Glycol 3350 [Miralax] 1 packet PO DAILY 05/17/18 05/17/18 Potassium Chloride [K-Dur 20 mEq 1 tab PO DAILY 05/17/18 05/17/18 ER Tab] QUEtiapine [SEROquel] 1 tab PO HS 05/17/18 05/17/18 amLODIPine [Norvasc] 1 tab PO DAILY 05/17/18 05/17/18 cefTRIAXone 1 gm [Rocephin 1 gram 1 g IV DAILY 05/17/18 05/17/18 IVPB] clonazePAM [Klonopin] 1 tab PO TID 05/17/18 05/17/18 Review of Systems - Physician Review All systems were reviewed & negative as marked: Yes - Review of Systems Constitutional: Weight Change. absent: Fevers, Night Sweats Respiratory: SOB. absent: Cough, Sputum Cardiovascular: absent: Chest Pain, Palpitations, Edema, LUCERO Gastrointestinal: Abdominal Pain, Constipation. absent: Vomiting, Food Intolerance Genitourinary Female: absent: Dysuria, Frequency, Hematuria Musculoskeletal: absent: Back Pain, Myalgias Skin: absent: Rash, Skin Lesions Neurological: absent: Headache, Dizziness, Focal Weakness Physical Exam Vital Signs Reviewed: Yes Vital Signs Temp Pulse Resp BP Pulse Ox 05/17/18 23:53 98.5 F 86 16 122/62 98 05/17/18 22:54 82 16 125/70 100 05/17/18 19:06 98.5 F 69 18 119/65 97 Temperature: Afebrile Blood Pressure: Normal Pulse: Regular Respiratory Rate: Normal Appearance: Positive for: Non-Toxic, Comfortable, Cachectic Mental Status: Positive for: Alert and Oriented X 3 - Systems Exam Head: Present: Atraumatic, Normocephalic Pupils: Present: PERRL Extroacular Muscles: Present: EOMI Conjunctiva: Present: Normal Mouth: Present: Dry Neck: Present: Normal Range of Motion. No: Meningeal Signs, MIDLINE TENDERNESS Respiratory/Chest: Present: Decreased Breath Sounds. No: Respiratory Distress, Wheezes Cardiovascular: Present: Regular Rate and Rhythm, Normal S1, S2 Abdomen: Present: Tenderness, Normal Bowel Sounds. No: Distention, Peritoneal Signs Back: No: CVA Tenderness Lower Extremity: Present: Normal Inspection. No: Edema Neurological: Present: GCS=15, CN II-XII Intact, Speech Normal Skin: Present: Warm, Dry, Normal Color. No: Rashes Psychiatric: Present: Alert, Oriented x 3, Normal Insight, Normal Concentration Medical Decision Making ED Course and Treatment: 05/17/18 19:20 Impression: 57 year old female [facility] for abnormal labs (elevated WBC's) Differential Diagnosis included but are not limited to: PNA Leukemia Myelodysplastic Syndrome Sepsis Plan: -- Labs -- EKG -- X-Ray of chest -- Blood culture -- Urine culture -- Urinalysis -- Reassess and disposition Prior Visits: Notes and results from previous visits were reviewed. Patient was last seen in the emergency department on 04/20/18 for complaining of not wanting to be home alone s/p right hip fracture repair 6 weeks prior to arrival to the Emergency department. Patient was very concerned about being home alone. Patient was hospitalized for generalized weakness, hip pain, anxiety. Progress Notes: EKG: Ordered, reviewed, and independently interpreted the EKG. Interpretation : Sinus tachycardia at [address] elevations. CXR Ordered, reviewed, and independently interpreted the CXR. Interpretation: Pulmonary congestion noted. No infiltrates seen. 05/18/182049 Leukocytosis of 31.8 noted w/ no definitive infiltrates noted on CXR. Zosyn ordered. Call placed to Dr. Alba. [id number] Patient's clinical condition discussed with Dr. Alba who agrees with plan to admit. Requests consults to pulmonary and infectious disease. Patient updated on plan for admission and agrees. - Lab Interpretations Microbiology Results: Microbiology Results 05/17/18 21:17 Blood Blood Culture - Preliminary NO GROWTH AFTER 24 HOURS 05/17/18 20:50 Blood Blood Culture - Preliminary NO GROWTH AFTER 24 HOURS Lab Results: 05/17/18 20:50 05/17/18 20:50 Lab Results 05/17/18 20:50: pO2 37, VBG pH 7.37, VBG pCO2 41.0, VBG HCO3 23.7, VBG O2 Sat ( Calc) 59.8, VBG Base Excess -1.5 L 05/17/18 20:50: PT 13.4 H, INR 1.17, APTT 23.2 L 05/17/18 20:50: WBC 31.8 H* D, RBC 2.98 L, Hgb 7.4 L, Hct 23.6 L, MCV 79.2 L, MCH 24.8 L, MCHC 31.4, RDW 18.8 H, Plt Count 669 H, MPV 9.9, Gran % 85.7 H, Lymph % (Auto) 9.3 L, [place] % (Auto) 4.2, Eos % (Auto) 0.7 L, Baso % (Auto) 0.1, Gran # 27.26 H, Lymph # (Auto) 3.0, [place] # (Auto) 1.3 H, Eos # (Auto) 0.2, Baso # (Auto) 0.03, Neutrophils % (Manual) 82 H, Band Neutrophils % 4 H, Lymphocytes % (Manual) 5 L, Monocytes % (Manual) 5, Eosinophils % (Manual) 4 H, Platelet Evaluation High, Hypochromasia 2+, Poikilocytosis (manual Slight, Anisocytosis ( manual) 1+, Target Cells 1+, Tear Drop Cells Slight, Rouleaux 1+, Schistocytes Slight 05/17/18 20:50: Sodium 136, Potassium 3.8, Chloride 106, Carbon Dioxide 22, Anion Gap 13, BUN 10, Creatinine 0.6 L, Est GFR ( Amer) > 60, Est GFR ( Non-Af Amer) > 60, Random Glucose 96, Calcium 10.7 H, Phosphorus 2.9, Magnesium 2.2, Total Bilirubin 0.3, AST 72 H D, ALT 53, Alkaline Phosphatase 372 H D, Troponin I < 0.01, NT-Pro-B Natriuret Pep 486 H, Total Protein 6.7, Albumin 3.1 , Globulin 3.6, Albumin/Globulin Ratio 0.9 L - RAD Interpretation Radiology Orders: 05/17/18 19:50 CHEST TWO VIEWS (PA/LAT) [RAD] Stat - EKG Interpretation Interpreted by ED Physician: Yes Type: 12 lead EKG - Medication Orders Current Medication Orders: Acetaminophen (Tylenol 325mg Tab) 650 mg PO Q4H PRN PRN Reason: Pain, Mild (1-3) Albuterol/Ipratropium (Duoneb 3 Mg/0.5 Mg (3 Ml) Ud) 3 ml IH [id number] [facility] Last Admin: 05/19/18 13:29 Dose: Not Given Non-Admin Reason: Patient Refused Clonazepam (Klonopin) 0.5 mg PO TID VU PRN Reason: Protocol Last Admin: 05/19/18 14:07 Dose: 0.5 mg Behavioural Document 05/19/18 14:07 LM (Rec: 05/19/18 14:07 LM [id number]) Maintenance Maintenance Dose Yes Folic Acid (Folic Acid) 1 mg PO DAILY [facility] Last Admin: 05/19/18 10:53 Dose: 1 mg Cefepime HCl (Maxipime 1gm) 1 gm in 100 mls @ 100 mls/hr IVPB Q8 VU PRN Reason: Protocol Stop: 05/27/18 14:01 Last Admin: 05/19/18 14:07 Dose: 100 mls/hr eMAR Start Stop Document 05/19/18 14:07 LM (Rec: 05/19/18 14:08 LM [id number]) Intravenous Solution Start Date 05/19/18 Start Time 14:08 Mayo Carbonate (Mayo Carbonate 300mg) 300 mg PO BID [facility] Last Admin: 05/19/18 10:53 Dose: 300 mg Behavioural Document 05/19/18 10:53 SUDOJ (Rec: 05/19/18 10:54 SUDOJ [id number]) Maintenance Maintenance Dose Yes Re-Assess: Reassess Psych Meds Document 05/19/18 11:53 LM (Rec: 05/19/18 13:55 [id number] Reassess Psych Med Effective Metoprolol Succinate (Toprol Xl) 25 mg PO BRK [facility] Last Admin: 05/19/18 08:35 Dose: 25 mg MAR Pulse and Blood Pressure Document 05/19/18 08:35 SUDOJ (Rec: 05/19/18 08:35 SUDOJ [id number]) Pulse Pulse Rate (60-90) 85 Blood Pressure Blood Pressure (100/60-150/90) 120/77 Metronidazole (Flagyl) 500 mg PO Q8 [facility] PRN Reason: Protocol Last Admin: 05/19/18 14:07 Dose: 500 mg Oxycodone/Acetaminophen (Percocet 5/325 Mg Tab) 1 tab PO BID PRN PRN Reason: Pain, moderate (4-7) Stop: 05/21/18 12:22 Last Admin: 05/19/18 14:18 Dose: 1 tab MAR Pain Assessment Document 05/19/18 14:18 LM (Rec: 05/19/18 14:19 LM [id number]) Pain Reassessment Is this a pain reassessment? No Presence of Pain Presence of Pain Yes Location Left, Right or Bilateral Bilateral Pain Location Body Site Hip Foot Description Description Chronic Pain Behavior Moaning Facial Grimacing Polyethylene Glycol (Miralax) 17 gm PO DAILY [facility] Last Admin: 05/19/18 10:53 Dose: 17 gm Potassium Chloride (K-Dur 20 Meq Er Tab) 20 meq PO BRK [facility] Last Admin: 05/19/18 08:35 Dose: 20 meq Quetiapine Fumarate (Seroquel) 200 mg PO HS VU PRN Reason: Protocol Last Admin: 05/18/18 22:08 Dose: 200 mg Re-Assess: Reassess Psych Meds Document 05/18/18 23:08 ST (Rec: 05/18/18 23:14 ST [id number]) Reassess Psych Med Effective Discontinued Medications Albuterol Sulfate (Albuterol 0.083% Inhal Parvin (2.5 Mg/3 Ml) Ud) 2.5 mg INH STAT STA Stop: 05/17/18 22:09 Last Admin: 05/17/18 22:53 Dose: Not Given Non-Admin Reason: Patient Refused Furosemide (Lasix) 40 mg IVP ONCE ONE Stop: 05/18/18 00:48 Last Admin: 05/18/18 06:33 Dose: 40 mg MAR Blood Pressure Document 05/18/18 06:33 SBO (Rec: 05/18/18 06:33 SBO [id number]) Blood Pressure Blood Pressure (100/60-150/90) 128/78 IVP Administration Document 05/18/18 06:33 SBO (Rec: 05/18/18 06:33 SBO [id number]) Charges for Administration # of IVP Administrations 1 Piperacillin Sod/Tazobactam Sod (Zosyn 4.5 Gm In Ns 100ml) 4.5 gm in 100 mls @ 200 mls/hr IVPB STAT STA PRN Reason: Protocol Stop: 05/17/18 22:37 Last Admin: 05/17/18 22:54 Dose: 200 mls/hr eMAR Start Stop Document 05/17/18 22:54 IT (Rec: 05/17/18 22:54 IT [id number]) Intravenous Solution Start Date 05/17/18 Start Time 22:54 Piperacillin Sod/Tazobactam Sod (Zosyn 3.375 In Ns 100ml) 100 mls @ 200 mls/hr IVPB Q8 VU PRN Reason: Protocol Stop: 05/18/18 14:29 Last Admin: 05/18/18 06:32 Dose: 200 mls/hr eMAR Start Stop Document 05/18/18 06:32 SBO (Rec: 05/18/18 06:32 SBO [id number]) Intravenous Solution Start Date 05/18/18 Start Time 06:32 End Date 05/18/18 End time 07:00 Total Infusion Time 28 Ipratropium [place] (Atrovent) 0.5 mg IH STAT STA Stop: 05/17/18 22:09 Last Admin: 05/17/18 22:54 Dose: Not Given Non-Admin Reason: Patient Refused - Scribe Statement The provider has reviewed the documentation as recorded by the Scribe Taylor Hahn All medical record entries made by the Jesicaibleeanne were at my direction and personally dictated by me. I have reviewed the chart and agree that the record accurately reflects my personal performance of the history, physical exam, medical decision making, and the department course for this patient. I have also personally directed, reviewed, and agree with the discharge instructions and disposition. Disposition/Present on Arrival - Present on Arrival Any Indicators Present on Arrival: No History of DVT/PE: No History of Uncontrolled Diabetes: No Urinary Catheter: No History of Decub. Ulcer: No History Surgical Site Infection Following: None - Disposition Have Diagnosis and Disposition been Completed?: Yes Diagnosis: Leukocytosis Disposition: HOSPITALIZED Disposition Time: 21:45 Patient Plan: Admission Condition: STABLE
[2018-05-17 21:03] LABS: VENOUS BLOOD GAS BASE EXCESS -1.5 mmol/L (0.0-2.0); VENOUS BLOOD GAS PO2 37 mm/Hg (30-55); VENOUS BLOOD PH 7.37 (7.32-7.43)
[2018-05-17 21:14] LABS: ALB/GLOB RATIO 0.9 (1.1-1.8); ALBUMIN 3.1 g/dL (3.0-4.8); ALT/SGPT 53 U/L (7-56); AST/SGOT 72 U/L (14-36); BLOOD UREA NITROGEN 10 mg/dL (7-21); CALCIUM 10.7 mg/dL (8.4-10.5); GFR AFRICAN-AMERICAN > 60; GFR NON-AFRICAN AMERICAN > 60
[2018-05-17 21:20] LABS: INR 1.17; PARTIAL THROMBOPLASTIN TIME 23.2 Seconds (25.1-36.5); PROTHROMBIN TIME 13.4 SECONDS (9.4-12.5)
[2018-05-17 21:23] LABS: B-TYPE NATRIURETIC PEPTIDE 486 pg/mL (0-450); BASO # 0.03 K/mm3 (0.0-2.0); BASO % 0.1 % (0.0-3.0); EOS # 0.2 (0.0-0.7); EOS % 0.7 % (1.5-5.0); GRAN # 27.26 (1.4-6.5); GRAN % 85.7 % (50.0-68.0); HEMOGLOBIN 7.4 g/dL (12.0-16.0); LYMPH % 9.3 % (22.0-35.0); MEAN CELL VOLUME 79.2 fl (80.0-105.0); MEAN CORPUSCULAR HEMOGLOBIN 24.8 pg (25.0-35.0); MEAN CORPUSCULAR HGB CONC 31.4 g/dl (31.0-37.0); MEAN PLATELET VOLUME 9.9 fl (7.0-11.0); MONO # 1.3 (0.1-0.6); MONO % 4.2 % (1.0-6.0); PLATELET COUNT 669 10^3/uL (120.0-450.0); RBC 2.98 10^6/uL (3.5-6.1); RED CELL DISTRIBUTION WIDTH 18.8 % (11.5-14.5); TROPONIN I < 0.01 ng/mL
[2018-05-17 21:27] LABS: WHITE BLOOD COUNT 31.8 10^3/ul (4.5-11.0)
[2018-05-17] MEDS ORDERED: Piperacill/Tazo 4.5gm in NS 4.5 GM/100 ML BAG IVPB STA (22:08)
[2018-05-17] MEDS ORDERED: Albuterol 0.083% Inhal Sol (2.5 mg/3 mL) UD INH STA (22:08)
[2018-05-17] MEDS ORDERED: Ipratropium 0.02% Inhal Soln (0.5 mg/2.5 ml) UD IH STA (22:08)
[2018-05-17 22:17] LABS: BAND 4 % (0-2); EOSINOPHIL 4 % (0.0-3.0); LYMPHOCYTE 5 % (22.0-35.0); MONOCYTE 5 % (1.0-6.0); NEUTROPHIL 82 % (50.0-70.0)
[2018-05-17 22:19] LABS: ANISOCYTOSIS 1+; HYPOCHROMIA 2+; PLATELET ESTIMATE HIGH (NORMAL); POIKILOCYTOSIS SLIGHT; SCHISTOCYTES SLIGHT; TARGET CELLS 1+
[2018-05-17 22:20] LABS: ROULEAU 1+; TEAR DROP CELLS SLIGHT
[2018-05-18] MEDS ORDERED: Piperacill/Tazo 4.5gm in NS 4.5 GM/100 ML BAG IVPB SCH
[2018-05-18 01:27] VITALS: BMI 13.6
[2018-05-18] MEDS: Albuterol-Ipratrop 3 mg / 0.5 (3 ml) UD IH SCH ×4 (02:22→19:50)
[2018-05-18] MEDS ORDERED: Piperacillin/Tazobact 3.375 gm 100 ML IVPB SCH (06:00)
[2018-05-18 09:03] LABS: HEMOGLOBIN 11.2 g/dL (12.0-16.0); MEAN CELL VOLUME 80.6 fl (80.0-105.0); MEAN CORPUSCULAR HEMOGLOBIN 26.2 pg (25.0-35.0); MEAN CORPUSCULAR HGB CONC 32.6 g/dl (31.0-37.0); MEAN PLATELET VOLUME 9.1 fl (7.0-11.0); RBC 4.27 10^6/uL (3.5-6.1); RED CELL DISTRIBUTION WIDTH 17.7 % (11.5-14.5)
[2018-05-18 09:15] LABS: WHITE BLOOD COUNT 30.3 10^3/ul (4.5-11.0)
[2018-05-18 09:28] LABS: ALB/GLOB RATIO 0.9 (1.1-1.8); ALBUMIN 3.4 g/dL (3.0-4.8); ALT/SGPT 45 U/L (7-56); AST/SGOT 36 U/L (14-36); BLOOD UREA NITROGEN 8 mg/dL (7-21); CALCIUM 10.9 mg/dL (8.4-10.5); GFR AFRICAN-AMERICAN > 60; GFR NON-AFRICAN AMERICAN > 60
[2018-05-18 10:14] LABS: PH,URINE 6.5 (4.7-8.0); URINE BILIRUBIN NEGATIVE (NEGATIVE); URINE BLOOD TRACE-INTACT (NEGATIVE); URINE GLUCOSE (UA) NEGATIVE (NEGATIVE); URINE LEUKOCYTE ESTERASE SMALL Leu/uL (NEGATIVE); URINE PROTEIN NEGATIVE mg/dL (<30 mg/dL); URINE UROBILINOGEN 0.2 E.U./dL (<1 E.U./dL)
[2018-05-18 10:15] LABS: URINE APPEARANCE CLEAR (CLEAR); URINE COLOR YELLOW (YELLOW)
--- NOTE | 2018-05-18 10:31 | CARD ---
APPROVED REPORT Date of service: 05/17/2018 EKG Measurement Heart [id number] <Conclusion> Normal sinus rhythm Normal ECG
[2018-05-18] MEDS: Potassium Chloride 20 mEq ER Tab PO SCH (10:33)
[2018-05-18] MEDS: Metoprolol Succinate 25 mg XL Tab PO SCH (10:34)
[2018-05-18] MEDS: POLYETHYLENE GLYCOL 3350 17 GM/Dose PACKET PO SCH (10:34)
[2018-05-18 10:35] LABS: URINE BACTERIA MOD (NEG)
--- NOTE | 2018-05-18 12:48 | CON ---
Copied To: Ramesh Marcum MD Attending MD: Ramesh Marcum MD DATE: 05/18/2018 PULMONARY CONSULTATION HISTORY OF PRESENT ILLNESS: The patient was seen and examined at bedside. She is a poor historian, so part of the history was obtained from medical records and emergency room recommendation. The patient was transferred from [facility] for abnormal laboratory values and shortness of breath. She has a history of chronic obstructive pulmonary disease, history of rheumatoid arthritis, history of hip replacement and history of psychiatric disorder. HABITS: She is a former smoker, nondrinker. Does not use illicit drugs. FAMILY HISTORY: No history of inherited diseases. ALLERGIES: SHE IS ALLERGIC TO NONSTEROIDAL ANTIINFLAMMATORIES AND RISPERDAL. HOME MEDICATIONS: Included DuoNeb inhalations, Tylenol, Azithromycin, lithium, methotrexate, Toprol. REVIEW OF SYSTEMS: Minimal shortness of breath. No cough, sputum. No chest pains, hemoptysis or pleurisy. All other systems negative. PHYSICAL EXAMINATION: VITAL SIGNS: Her temperature is 98.5, pulse 86, respirations 18, blood pressure is 122/62, pulse oximetry is 98 on room air. HEENT: Examination of head, ears, nose and throat is within normal limits. NECK: Supple with no jugular vein distentions. CARDIOVASCULAR: S1, S2. No S3. Regular. PULMONARY: The lungs are essentially clear with no rhonchi, rales or wheezing. GASTROINTESTINAL: Soft, nontender. No organomegaly. EXTREMITIES: No pedal edema. No cyanosis. SKIN: No acute skin rash. NEUROLOGIC: Limited at the present time. LABORATORY DATA: Reviewed. Her WBC is markedly elevated 31,000, hemoglobin is reduced to 7.4 and platelet count is elevated 669,000. Her venous blood gas shows pH of 7.37, pCO2 of 41 and venous pO2 of 37, which is adequate blood gas. The differential on the CBC shows 85% granulocytes and 9% lymphocytes. Her chemistries are relatively unremarkable. BNP is normal. I reviewed the patient's chest x-ray, which does not show any acute infiltrates. No cardiomegaly. No signs of congestive heart failure and no infiltrates. ASSESSMENT: 1. Chronic obstructive pulmonary disease that does not seem to be exacerbated. 2. Abnormal laboratory values with high WBC count. 3. History of rheumatoid arthritis. 4. History of psychiatric disorder. PLAN: We will initiate nebulizer treatment for her baseline chronic obstructive pulmonary disease. There does not seem to be a pulmonary infection that would be responsible for this elevated white count. The infectious disease consultation and workup are in progress. We will follow closely. Ramesh Marcum MD MTDEliel
[2018-05-18] MEDS: Oxycodone/Acetaminophen 5/325 mg Tab PO PRN ×2 (13:24→18:50)
[2018-05-18] MEDS: Cefepime 1gm in NS 100ml 1 GM/100 ML BAG IVPB SCH ×2 (14:16→22:08)
--- NOTE | 2018-05-18 16:13 | HP ---
Copied To: Patrice Alba DO Attending MD: Patrice Alba DO HISTORY OF PRESENT ILLNESS: I have been seeing her at [facility]. We have been dealing with bilateral pneumonia. White count has been between 20,000 and 25,000. She has been on Levaquin, Rocephin, Zithromax. She has refused to go to the hospital until the other day when the white count at 25 and I said I cannot do any more in the prison, she has to come to the hospital. She is a 57-year-old female, who is noncompliant, history of anxiety, lung mass, pneumonia, hypertension, COPD. She has had hip fractures, right hip fracture with hip replacement, arthritis, anxiety, depression, chronic pain, right hip total hip replacement, surgery in the foot. FAMILY HISTORY: She has hypertension in the family. SOCIAL HISTORY: She is still smoking. She has not quit smoking and she smokes a lot. No alcohol. No drugs. ALLERGIES: SHE IS ALLERGIC TO IBUPROFEN, NSAIDS AND RISPERDAL. MEDICATIONS: She is on Tylenol, DuoNeb, Zithromax, Feosol, folic acid, Zyvox, lithium, Robaxin, Trexall, Toprol, Oxandrin, MiraLax, potassium, Seroquel, Norvasc, Rocephin, Klonopin, all at the prison. She is also taking Vicodin at the prison from the pain management doctor. I will put her on Percocet here. We do not carry Vicodin. REVIEW OF SYSTEMS: No acute vision or hearing changes. No chest pain. There was a shortness of breath. There is a cough. No chest pain or palpitations. No nausea, vomiting, constipation, diarrhea. She is in a lot of pain. She is very thin and frail. She is more alert today than the other day. PHYSICAL EXAMINATION: VITAL SIGNS: She has a 98.5 temp, 86 pulse, 16 respiratory rate, 122/62 blood pressure, 98% O2 sat on oxygen. GENERAL: She is thin and frail. Alert and oriented x3, very alert today more than the other day, maybe because she has been off the pain meds for a day. HEENT: Extraocular muscles intact. Throat is moist. Head is atraumatic, normocephalic. NECK: Supple. HEART: Regular rate. Normal S1 and S2. LUNGS: Decreased breath sounds bilaterally, poor inspiration, definitely COPD, smoker. Some congestion, changes with cough. ABDOMEN: Soft, nontender. Positive bowel sounds, scaphoid. No guarding. No rebound. No CVA tenderness. EXTREMITIES: Have no edema. She is thin and frail. She is 92 pounds. LABORATORY DATA: She has a urine, which showed a moderate bacteria. She has 141 sodium, potassium 3.8, BUN 8, creatinine 0.6, GFR is greater than 60, sugar is 134, calcium is 10.9, total bili is 1.1, AST is 36, ALT is 45, alk phos 359. BNP is 46. Troponin I is less than 0.01. Total protein 7. She has a 1.17 INR. A white count when she came in of 31.8, it is down to 30.3; 11.2 hemoglobin after transfusion; 34.4 hematocrit with 779 platelets. IMPRESSION: I called in pulmonary evaluation for the lungs. Chest x-ray is pending. pneumonia in the prison. She also has a consult with Infectious Disease and I called in Hematology for the elevated platelets. We will put her on albuterol/Atrovent nebulizers, Flagyl p.o., folic acid, potassium, Klonopin, lithium, Maxipime IV, MiraLax, Percocet, Seroquel, Toprol, Tylenol, Zosyn and Percocet. We will follow. She is here for sepsis, pneumonia, urinary tract infection, thrombocytosis, weak and frail. Patrice Alba DO MTDEliel
--- NOTE | 2018-05-18 17:17 | CON ---
Copied To: Anton Solo MD Attending MD: Anton Solo MD DATE: 05/18/2018 CHIEF COMPLAINT: Weakness times several days. HISTORY OF PRESENT ILLNESS: This is a 57-year-old female known to me from previous admission with past medical history significant for rheumatoid arthritis, chronic obstructive lung disease, anxiety, hypertension, continues to be a smoker. She was chronically ill, cachectic with wasting syndrome. Continues to lose weight. The patient was recently hospitalized in 03/2018, had a CT scan of the abdomen and pelvis and chest, which revealed a bibasilar infiltrate with discoid atelectasis. CAT scan of the abdomen was unremarkable though no contrast was given. 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 The patient had been scheduled for a CAT scan guided biopsy of the mass, but was not done. As per the patient, in the Emergency Room the patient was admitted with weakness. No fevers, no chills. She continues to have weight loss and she is from now [facility] where she was and was found to have an elevated white count. She continues to deteriorate. PAST MEDICAL HISTORY: Significant for hypertension, rheumatoid arthritis, chronic obstructive lung disease, anxiety, chronically ill, debilitated. PAST SURGICAL HISTORY: Significant for right breast cyst and a right hip surgery. ALLERGIES: THE PATIENT IS ALLERGIC TO IBUPROFEN, NONSTEROIDALS, AND RISPERIDONE. MEDICATIONS AT HOME: Included , methotrexate, [place], Seroquel. PHYSICAL EXAMINATION: GENERAL: She is in bed, appearing chronically ill, debilitated, cachectic, wasting syndrome. VITAL SIGNS: Temperature of 98, blood pressure is 120/80, respiratory rate 20, heart rate of 74. The patient's BMI is 14. HEENT: Examination reveals temporal wasting. NECK: Supple. LUNGS: Have decreased breath sounds. HEART: Normal S1, S2. ABDOMEN: Soft, nontender. No rebound, no guarding, no masses. DATA: Laboratory examination reveals a white count of 31,000, hemoglobin of 7, platelets of 669, and the patient has 85% granulocytosis and coagulation is noted. Blood gases are reviewed. Chemistries reveals a BUN of 8, creatinine of 0.6, alk phos is 372 and calcium is 10.9. Microbiology is pending. Microbiology from 03/2018, no growth in the blood, no growth in the urine and the patient had a chest x-ray and an EKG, the results are pending, only information available is the Emergency Room chart. ASSESSMENT AND PLAN: This is a 57-year-old female with rheumatoid arthritis, chronic obstructive pulmonary disease, anxiety, hypertension, chronically ill, cachectic with wasting syndrome, hypercalcemia, leukocytosis, must rule out underlying malignancy, GI versus lung. Recommend a colonoscopy and GI evaluation and pulmonary evaluation, Dr. Luigi Vides for possible lung biopsy from the pleural base mass. We will empirically start Maxipime and Flagyl. Pending blood cultures, urinalysis, urine culture and GI and pulmonary input and x-ray findings and imaging. We will make further recommendations. Overall prognosis is quite poor for this patient who continues to smoke and continues to lose weight. We will check on a blood and urine cultures, urinalysis and chest x-ray. The patient did have an HIV test in 03/2018, which was negative. Long-term prognosis is quite poor. Anton Solo MD
[2018-05-19] MEDS: Albuterol-Ipratrop 3 mg / 0.5 (3 ml) UD IH SCH ×4 (01:12→19:38)
[2018-05-19] MEDS: Oxycodone/Acetaminophen 5/325 mg Tab PO PRN ×2 (05:06→14:18)
[2018-05-19] MEDS: Cefepime 1gm in NS 100ml 1 GM/100 ML BAG IVPB SCH ×3 (05:07→21:13)
[2018-05-19 07:33] LABS: HEMOGLOBIN 9.1 g/dL (12.0-16.0); MEAN CELL VOLUME 79.5 fl (80.0-105.0); MEAN CORPUSCULAR HEMOGLOBIN 25.2 pg (25.0-35.0); MEAN CORPUSCULAR HGB CONC 31.7 g/dl (31.0-37.0); MEAN PLATELET VOLUME 9.2 fl (7.0-11.0); RBC 3.61 10^6/uL (3.5-6.1); RED CELL DISTRIBUTION WIDTH 17.8 % (11.5-14.5); WHITE BLOOD COUNT 18.1 10^3/ul (4.5-11.0)
[2018-05-19 08:32] LABS: ALB/GLOB RATIO 0.9 (1.1-1.8); ALBUMIN 2.7 g/dL (3.0-4.8); ALT/SGPT 38 U/L (7-56); AST/SGOT 22 U/L (14-36); BLOOD UREA NITROGEN 12 mg/dL (7-21); GFR AFRICAN-AMERICAN > 60; GFR NON-AFRICAN AMERICAN > 60
[2018-05-19] MEDS: Potassium Chloride 20 mEq ER Tab PO SCH (08:35)
[2018-05-19] MEDS: Metoprolol Succinate 25 mg XL Tab PO SCH (08:35)
--- NOTE | 2018-05-19 09:30 | PN ---
Copied To: Anton Solo MD Attending MD: Anton Solo MD DATE: 05/19/2018 SUBJECTIVE: The patient is in bed, in no acute distress, nontoxic; however, chronically ill and debilitated. PHYSICAL EXAMINATION: VITAL SIGNS: On exam, temperature is 98, blood pressure is 104/60, respiratory rate of 20, heart rate of 81. HEENT: Examination of HEENT is unremarkable. NECK: Supple. LUNGS: Have decreased breath sounds. HEART: Normal S1, S2. ABDOMEN: Soft, nontender. LABORATORY DATA: Laboratory examination reveals a white count of 18,000, hemoglobin of 9, platelets of 569. Coagulation is noted. Chemistries reveals a BUN of 12, creatinine of 0.5. Urinalysis is noted. Microbiology reveals the blood cultures are negative. The patient's calcium has normalized. Review of orders reveals the patient to be on cefepime. Dr. Patrice Alba's progress note is reviewed. History and physical examination is reviewed. ASSESSMENT AND PLAN: A 57-year-old female, known to me from previous admission with past medical history is significant for rheumatoid arthritis, chronic obstructive lung disease, anxiety, hypertension, continues to be a smoker, chronically ill, cachectic with wasting syndrome, hypercalcemia, leukocytosis. Rule out underlying malignancy, GI versus lung. Currently, on day #2 of cefepime and Flagyl. Must rule out GI malignancy versus lung malignancy in this patient who is chronically ill, cachectic, end-stage. Dr. Ramesh Marcum's consultation is reviewed. He states that the chest x-ray is negative and feels the patient has chronic obstructive exacerbation. The patient did have a CAT scan of the chest in March. We will follow closely with you. Anton Solo MD
[2018-05-19] MEDS: POLYETHYLENE GLYCOL 3350 17 GM/Dose PACKET PO SCH (10:53)
--- NOTE | 2018-05-19 12:19 | PN ---
Copied To: Patrice Alba DO Attending MD: Patrice Alba DO DATE: 05/19/2018 SUBJECTIVE: I saw Urszula sitting up in bed. She slept well. She is breathing a bit better. Overall, better spirits. Her face looks good. She is comfortable. MEDICATIONS: She is on DuoNebs, Flagyl p.o., folic acid, potassium, Klonopin, lithium, Maxipime IV, MiraLax, Percocet, Seroquel, Toprol, and Tylenol. PHYSICAL EXAMINATION: VITAL SIGNS: 98.3 temp, 82 pulse, 104/66 blood pressure, 20 respiratory rate, and 98% O2 sat on room air. HEENT: Head is atraumatic, normocephalic. HEART: Regular rate. LUNGS: Decreased breath sounds, but clear. ABDOMEN: Soft. EXTREMITIES: No edema. LABORATORY DATA: She has an 18.1 white count, it is down from 31.8, so finally the antibiotics are working; her hemoglobin is 9.1, if it drops again, I will transfuse her. She has a 28.7 hematocrit with a 569 platelets, it is coming down. INR is 1.17. She has a 140 sodium, potassium 3.8, BUN 12, creatinine 0.5, GFR is greater than 60, sugar is 92, calcium is 10, total bili is 0.3, AST is 22, ALT is 38, alk phos 255, coming down; total protein is 5.7. Urine had a moderate ASSESSMENT AND PLAN: I do think she is improving. She was seen by the Infectious Disease doctor and the Disc Ruler Operator. I am hoping that by tomorrow or the next day, the white count will be under 10 and we could transfer her back to [facility] for further physical therapy. Physical therapy should be seeing her here, which is important. She is here for pneumonia, sepsis, urinary tract infection, thrombocytosis. I will continue aggressive treatment and care on Urszula Dietz. Check her labs tomorrow. Physical therapy. Watching her white count. Patrice Alba DO [facility] # [id number] MTDEliel
--- NOTE | 2018-05-19 13:28 | PN ---
Copied To: Ramesh Marcum MD Attending MD: Ramesh Marcum MD DATE: 05/19/2018 PULMONARY PROGRESS NOTE SUBJECTIVE: The patient was seen and examined at bedside. She reports no shortness of breath and she is on empiric therapy with Levaquin, Rocephin, and Zithromax in the past. PHYSICAL EXAMINATION: VITAL SIGNS: Her temperature is 98.5, pulse 88, respirations 18, blood pressure is 110/70, and oxygen saturation is 98% on nasal cannula. HEENT: Head normocephalic and atraumatic. NECK: Supple with no jugular vein distention. CARDIOVASCULAR: S1, S2. No S3. Regular. PULMONARY: Diminished breath sounds bilaterally, but no rhonchi, rales, or wheezing. GI: Soft and nontender. No organomegaly. EXTREMITIES: No pedal edema. SKIN: No cyanosis, no skin rashes. NEUROLOGIC: Limited at the present time. ASSESSMENT AND PLAN: The patient with history of chronic obstructive pulmonary disease, clear chest x-ray on admission. No evidence of pneumonia. The white count should not be related to her pulmonary condition. We will continue with administration of nebulizer treatment and antibiotics per Infectious Disease and Dr. Alba. Ramesh Marcum MD
[2018-05-20] MEDS: Albuterol-Ipratrop 3 mg / 0.5 (3 ml) UD IH SCH ×4 (02:00→20:13)
[2018-05-20] MEDS: Oxycodone/Acetaminophen 5/325 mg Tab PO PRN ×2 (05:11→17:14)
[2018-05-20] MEDS: Cefepime 1gm in NS 100ml 1 GM/100 ML BAG IVPB SCH ×2 (05:11→13:53)
[2018-05-20 06:24] LABS: HEMOGLOBIN 8.9 g/dL (12.0-16.0); MEAN CELL VOLUME 80.5 fl (80.0-105.0); MEAN CORPUSCULAR HEMOGLOBIN 25.6 pg (25.0-35.0); MEAN CORPUSCULAR HGB CONC 31.8 g/dl (31.0-37.0); MEAN PLATELET VOLUME 9.2 fl (7.0-11.0); RBC 3.48 10^6/uL (3.5-6.1); RED CELL DISTRIBUTION WIDTH 18.4 % (11.5-14.5); WHITE BLOOD COUNT 17.9 10^3/ul (4.5-11.0)
[2018-05-20 06:39] LABS: ALB/GLOB RATIO 0.9 (1.1-1.8); ALBUMIN 2.8 g/dL (3.0-4.8); ALT/SGPT 26 U/L (7-56); AST/SGOT 27 U/L (14-36); BLOOD UREA NITROGEN 11 mg/dL (7-21); CALCIUM 10.2 mg/dL (8.4-10.5); GFR AFRICAN-AMERICAN > 60; GFR NON-AFRICAN AMERICAN > 60
--- NOTE | 2018-05-20 08:11 | PN ---
Copied To: Patrice Alba DO Attending MD: Patrice Alba DO DATE: 05/20/2018 SUBJECTIVE: I saw Urszula resting comfortably in bed. She slept fairly well. She tells me she is feeling better each day. She is on DuoNebs, Flagyl, folic acid, potassium, Klonopin, lithium, Maxipime, MiraLax, Percocet, Seroquel, Toprol and Tylenol. She has pneumonia, sepsis, UTI, thrombocytosis. OBJECTIVE: VITAL SIGNS: She has a 98.5 temperature, 76 pulse, 105/63 blood pressure, 20 respiratory rate, 97% O2 saturation on room air. HEENT: Head is atraumatic, normocephalic. She is eating better. Throat is moist. NECK: Supple. HEART: Regular rate. LUNGS: Decreased breath sounds, but clear. Less congestion, less wheeze, less rhonchi overall. ABDOMEN: Soft, nontender. Positive bowel sounds. EXTREMITIES: No edema. She is thin and frail and just under 90 pounds. DATA: She had blood tests done. She has a 17.9 white count, still elevated, it was as high as 31, it was 18 yesterday, now it is 17.9, still improving. Hemoglobin is 8.9, hematocrit 28, platelets of 555, all getting better. Sodium 140, potassium 3.9, BUN 11, creatinine 0.5. GFR is greater than 60. Sugar is 101, calcium is 10.2, total bili is 0.2, AST is 27, ALT is 26, alk phos 181 and improving. Total protein is 5.7. She is being seen by Pulmonary, Infectious Disease. When I can, I will discharge her back to [facility], possibly tomorrow. There is some worry about cancer with her. We will continue with aggressive treatment and care. I am glad that she has not been smoking. She has been in the hospital, that is a good start. We will check her labs tomorrow. Continue with IV antibiotics, physical therapy, out of bed to chair, but she tells me she is improving which is great. white count down. Patrice Alba DO [facility] # [id number] MTDD
--- NOTE | 2018-05-20 08:51 | PN ---
Copied To: Paul Blanton MD Attending MD: Paul Blanton MD DATE: 05/20/2018 PULMONARY PROGRESS NOTE SUBJECTIVE: The patient remains comfortable with no acute respiratory distress. She is being treated with multiple antibiotics. She states that she is comfortable at this time. She offers no complaints. She has a past history of chronic obstructive pulmonary disease with acute bronchitis. PHYSICAL EXAMINATION: GENERAL: She is resting comfortably without complaints. VITAL SIGNS: Stable, afebrile. Blood pressure is 110/70, O2 sat 98% on nasal cannula. HEENT: Normocephalic, atraumatic. NECK: Supple. No JVD. CARDIOVASCULAR: Regular rhythm. S1, S2 without murmur, gallop or rub. CHEST: Decreased breath sounds throughout, but no rales, rhonchi or wheezes are appreciated. ABDOMEN: Soft. Bowel sounds normoactive without mass, guarding, rebound or organomegaly. EXTREMITIES: Reveal no clubbing, cyanosis or edema. NEUROLOGIC: Reveals no focal findings. SKIN: Warm and moist. LYMPHATICS: Lymph nodes are not present in the supraclavicular notch nor in the cervical, inguinal or axillary areas. ASSESSMENT: 1. Chronic obstructive pulmonary disease. 2. Acute bronchitis. 3. Status post respiratory insufficiency. PLAN: Continue antibiotic therapy. Change to p.o. as appropriate. Continue inhalation therapy. We will need to discuss the patient's outpatient medical therapy and decide on the need for further intervention at this time. From the chart, it is being gleaned that the patient takes DuoNeb if only such additional medications will be required. We will discuss at length with Dr. Alba. Dr. Alba's progress note today states that the patient remains comfortable, feeling better each day, on DuoNeb. She will go back to [facility] in the morning where continued medication can be administered without problems. We will discuss with Dr. Alba and decide on further intervention at that time. Current orders show that the patient continues to get an DuoNeb around the clock. This seems to be stable at this time and there is probably no reason to add an inhaled corticosteroid. Pulmonary functions are not possible at this time to look for signs of air trapping. We will discuss at length with Dr. Alba in the morning. Paul Blanton MD [facility] # [id number]
[2018-05-20] MEDS: Potassium Chloride 20 mEq ER Tab PO SCH (09:10)
[2018-05-20] MEDS: POLYETHYLENE GLYCOL 3350 17 GM/Dose PACKET PO SCH ×2 (09:10→09:15)
[2018-05-20] MEDS: Metoprolol Succinate 25 mg XL Tab PO SCH (09:10)
--- NOTE | 2018-05-20 18:28 | CP.PCM.PN ---
Subjective - Date & Time of Evaluation Date of Evaluation: 05/20/18 Time of Evaluation: 10:30 - Subjective Subjective: No fevers, abdominal pain is not worsened, no nausea, no diarrhea, cough and breathing is improving/ Objective - Vital Signs/Intake and Output Vital Signs (last 24 hours): Temp Pulse Resp BP Pulse Ox 98.5 F 93 H 20 127/76 97 05/20/18 06:00 05/20/18 09:10 05/20/18 06:00 05/20/18 09:10 05/20/18 06:00 Intake and Output: 05/20/18 05/20/18 06:59 18:59 Intake Total 660 Output Total 0 Balance 660 - Medications Medications: Current Medications Acetaminophen (Tylenol 325mg Tab) 650 mg PO Q4H PRN PRN Reason: Pain, Mild (1-3) Last Admin: 05/20/18 09:11 Dose: 650 mg Albuterol/Ipratropium (Duoneb 3 Mg/0.5 Mg (3 Ml) Ud) 3 ml [facility] [id number] Last Admin: 05/20/18 07:24 Dose: Not Given Clonazepam (Klonopin) 0.5 mg PO TID VU PRN Reason: Protocol Last Admin: 05/20/18 09:10 Dose: 0.5 mg Folic Acid (Folic Acid) 1 mg PO DAILY [facility] Last Admin: 05/20/18 09:10 Dose: 1 mg Cefepime HCl (Maxipime 1gm) 1 gm in 100 mls @ 100 mls/hr IVPB Q8 VU PRN Reason: Protocol Stop: 05/27/18 14:01 Last Admin: 05/20/18 05:11 Dose: 100 mls/hr [place] Carbonate ([place] Carbonate 300mg) 300 mg PO BID [facility] Last Admin: 05/20/18 09:10 Dose: 300 mg Metoprolol Succinate (Toprol Xl) 25 mg PO BRK [facility] Last Admin: 05/20/18 09:10 Dose: 25 mg Metronidazole (Flagyl) 500 mg PO Q8 VU PRN Reason: Protocol Last Admin: 05/20/18 05:11 Dose: 500 mg Oxycodone/Acetaminophen (Percocet 5/325 Mg Tab) 1 tab PO BID PRN PRN Reason: Pain, moderate (4-7) Stop: 05/21/18 12:22 Last Admin: 05/20/18 05:11 Dose: 1 tab Polyethylene Glycol (Miralax) 17 gm PO DAILY VU Last Admin: 05/20/18 09:15 Dose: Not Given Potassium Chloride (K-Dur 20 Meq Er Tab) 20 meq PO BRK VU Last Admin: 05/20/18 09:10 Dose: 20 meq Quetiapine Fumarate (Seroquel) 200 mg PO HS VU PRN Reason: Protocol Last Admin: 05/19/18 21:12 Dose: 200 mg - Labs Labs: 05/20/18 05:40 05/20/18 05:40 PT 13.4 SECONDS (9.4-12.5) H 05/17/18 20:50 INR 1.17 05/17/18 20:50 APTT 23.2 Seconds (25.1-36.5) L 05/17/18 20:50 - Constitutional Appears: Cachectic, Chronically Ill - Head Exam Head Exam: NORMAL INSPECTION - Neck Exam Neck Exam: absent: Meningismus - Respiratory Exam Respiratory Exam: Decreased Breath Sounds - Cardiovascular Exam Cardiovascular Exam: +S1, +S2 - GI/Abdominal Exam GI & Abdominal Exam: Soft. absent: Tenderness Assessment and Plan - Assessment and Plan (Free Text) Plan: Assessment leukocytosis, R/O due to possible malignancy in this patient with left sided pleural based mass as seen on CT in March 2018, less likely abdominal infection COPD with currently acute bronchitis rheumatoid arthritis anxiety HTN S/P right breast cyst surgery S/P right hip surgery Plan on Cefepime and Flagyl (Day 3) - will d/c and observe will start PO Doxycycline for acute bronchitis patient may need biopsy of the pleural based mass but will defer to Pulmonary for this cultures have been negative will continue to monitor clinically will trend WBC count overall prognosis is poor
[2018-05-21] MEDS: Albuterol-Ipratrop 3 mg / 0.5 (3 ml) UD IH SCH ×3 (02:08→13:47)
[2018-05-21 06:07] VITALS: RESP 18; O2SAT 93
[2018-05-21 06:36] LABS: IRON 17 ug/dL (45-180)
[2018-05-21 06:38] LABS: HEMOGLOBIN 8.9 g/dL (12.0-16.0); MEAN CORPUSCULAR HEMOGLOBIN 25.2 pg (25.0-35.0); MEAN CORPUSCULAR HGB CONC 31.1 g/dl (31.0-37.0); MEAN PLATELET VOLUME 9.2 fl (7.0-11.0); RBC 3.53 10^6/uL (3.5-6.1); RED CELL DISTRIBUTION WIDTH 18.7 % (11.5-14.5)
[2018-05-21 06:47] LABS: ALB/GLOB RATIO 0.9 (1.1-1.8); ALBUMIN 2.8 g/dL (3.0-4.8); ALT/SGPT 21 U/L (7-56); AST/SGOT 21 U/L (14-36); BLOOD UREA NITROGEN 12 mg/dL (7-21); CALCIUM 10.3 mg/dL (8.4-10.5); GFR AFRICAN-AMERICAN > 60; GFR NON-AFRICAN AMERICAN > 60
[2018-05-21 06:50] LABS: % IRON SATURATION 7 % (20-55); TOTAL IRON BINDING CAPACITY 257 ug/dL (265-497)
--- NOTE | 2018-05-21 08:12 | CON ---
Copied To: Raf Manjarrez MD Attending MD: Raf Manjarrez MD PROCEDURE DATE: 05/20/2018 ONCOLOGY EVALUATION She was admitted for elevated white count, elevated platelet count, and bilateral infiltrates with a lung mass. On the antibiotics, she seems to be improving. She did have a CAT scan done 3 to 4 weeks ago. CAT scan showed a 3.5 cm pleural based mass with a left major fissure and a 2 cm non-specific nodule on the right lobe. Liver was clean. Adrenals were clean. Lymph nodes were basically negative and so the issue here was a possible tumor in the left lung. This was not biopsied. In the meantime, the patient was admitted for the pneumonia. Her white count went from 31,000 out to 18,000. Hemoglobin has been stable at 9 with a platelet count of 780 going down to 555. There is a possibility that she could have an iron deficiency causing elevated platelet count and so I will order the iron levels. If they are low, she will need iron supplement and that may have beneficial effect of lowering the platelet count. In terms of the possible tumor, that is being worked up by the pulmonary people, so at this point I will just recheck the iron levels. Raf Manjarrez MD
--- NOTE | 2018-05-21 08:51 | PN ---
Copied To: Patrice Alba DO Attending MD: Patrice Alba DO DATE: 05/21/2018 PROGRESS NOTE SUBJECTIVE: She is resting comfortably in bed. She is telling me she is going to leave the hospital she has to do. She is on Doryx, DuoNebs, folic acid, potassium, Klonopin, lithium, MiraLax, Percocet, Seroquel, Toprol and Tylenol. OBJECTIVE: VITAL SIGNS: Temperature 99.4, 83 pulse, 104/60 blood pressure, 18 respiratory rate, 93% O2 sat on room air. HEENT: Head is atraumatic, normocephalic. HEART: Regular rate. LUNGS: Decreased breath sounds, but clear. ABDOMEN: Soft. EXTREMITIES: No edema. DATA: She has 18,000 white count, it is still elevated; 8.9 hemoglobin;, 28.6 hematocrit with 617 platelets. She has 142 sodium, potassium is 4, BUN is 12, creatinine 0.5. GFR is greater than 60. Sugar is 114, calcium is 10.3. Total bili is 0.2, AST is 21, ALT is 21, alk phos 157, total protein 6.1. She is being seen by Pulmonary and by Infectious Disease. Infectious Disease stopped the cefepime and the Flagyl and wants to watch. She is on doxycycline for the bronchitis, very possibly it is malignancy going on in the left base pleural mass. She wants to go back to [facility]. Pulmonary is on the case and I called it COPD, acute bronchitis, status post respiratory insufficiency. They did not comment on the left base mass. I will have him come back and comment. Also, repeated CT scan of the chest and I am hoping to get her back to [facility]. Patrice Alba DO MTDD
[2018-05-21] MEDS: POLYETHYLENE GLYCOL 3350 17 GM/Dose PACKET PO SCH (09:57)
--- NOTE | 2018-05-21 09:57 | PN ---
Copied To: Paul Blanton MD Attending MD: Paul Blanton MD DATE: 05/21/2018 PULMONARY PROGRESS NOTE SUBJECTIVE: The patient is doing remarkably well, remains on antibiotics, feels stronger and is anxious to continue with current medical therapy. However, she has a window of 24 hours to go to get a housing and she is asking permission to leave the hospital on a temporary pass. I have suggested that she discuss this with health and social care teacher as well as with her primary medical physician, Dr. Alba. OBJECTIVE: GENERAL: On physical exam, she is comfortable sitting on bed, in no respiratory distress. VITAL SIGNS: Stable. She is afebrile. Blood pressure 112/72, O2 sat 98% on nasal cannula. HEENT: Normocephalic, atraumatic. NECK: Supple. No JVD. No bruit. CARDIOVASCULAR: Regular rhythm. S1, S2 without murmur, gallop or rub. CHEST: Global decrease in breath sounds, but no rales, rhonchi or wheezes appreciated. ABDOMEN: Soft. Bowel sounds normoactive without mass, guarding, rebound or organomegaly. LYMPHADENOPATHY: No lymph nodes are found on examination. EXTREMITIES: Reveal no clubbing, cyanosis or edema. There is no Homans' sign. NEUROLOGIC: No focal findings. SKIN: Warm and moist. ASSESSMENT: 1. Chronic obstructive pulmonary disease, stable. 2. Acute bronchitis. 3. Status post respiratory insufficiency. PLAN: Continue antibiotic therapy. Continue inhaled bronchodilators. Discuss outpatient therapy with the patient for the future. She is on DuoNeb now and seems to be doing well on this alone. There is probably no need for any change in medication if she has a hand nebulizer at home. She is going back to [facility] unless she gets additional housing which she is trying to do today. We will discuss with social work and Dr. Alba and see if we can help her to get the appropriate housing for herself. She will need outpatient followup with us. We will follow closely. Paul Blanton MD
[2018-05-21] MEDS: Oxycodone/Acetaminophen 5/325 mg Tab PO PRN (09:58)
[2018-05-21] MEDS: Metoprolol Succinate 25 mg XL Tab PO SCH (09:59)
[2018-05-21] MEDS: Potassium Chloride 20 mEq ER Tab PO SCH (10:00)
--- NOTE | 2018-05-21 12:04 | CP.PCM.PN ---
Subjective - Date & Time of Evaluation Date of Evaluation: 05/21/18 Time of Evaluation: 09:45 - Subjective Subjective: Patient is breathing better, cough improved, abdominal pain is unchanged, not worsening, no diarrhea, no vomiting. Objective - Vital Signs/Intake and Output Vital Signs (last 24 hours): Temp Pulse Resp BP Pulse Ox 99.4 F 89 18 104/60 93 L 05/21/18 06:00 05/21/18 06:00 05/21/18 06:00 05/21/18 06:00 05/21/18 06:00 Intake and Output: 05/21/18 05/21/18 06:59 18:59 Intake Total 820 Output Total 2500 Balance -1680 - Medications Medications: Current Medications Acetaminophen (Tylenol 325mg Tab) 650 mg PO Q4H PRN PRN Reason: Pain, Mild (1-3) Last Admin: 05/20/18 09:11 Dose: 650 mg Albuterol/Ipratropium (Duoneb 3 Mg/0.5 Mg (3 Ml) Ud) 3 ml IH [id number] [facility] Last Admin: 05/21/18 02:08 Dose: Not Given Clonazepam (Klonopin) 0.5 mg PO TID VU PRN Reason: Protocol Last Admin: 05/20/18 17:14 Dose: 0.5 mg Doxycycline Hyclate (Doryx) 100 mg PO Q12 VU PRN Reason: Protocol Last Admin: 05/20/18 21:36 Dose: 100 mg Folic Acid (Folic Acid) 1 mg PO DAILY [facility] Last Admin: 05/20/18 09:10 Dose: 1 mg [place] Carbonate ([place] Carbonate 300mg) 300 mg PO BID [facility] Last Admin: 05/20/18 17:15 Dose: 300 mg Metoprolol Succinate (Toprol Xl) 25 mg PO BRK [facility] Last Admin: 05/20/18 09:10 Dose: 25 mg Oxycodone/Acetaminophen (Percocet 5/325 Mg Tab) 1 tab PO BID PRN PRN Reason: Pain, moderate (4-7) Stop: 05/21/18 12:22 Last Admin: 05/20/18 17:14 Dose: 1 tab Polyethylene Glycol (Miralax) 17 gm PO DAILY [facility] Last Admin: 05/20/18 09:15 Dose: Not Given Potassium Chloride (K-Dur 20 Meq Er Tab) 20 meq PO BRK [facility] Last Admin: 05/20/18 09:10 Dose: 20 meq Quetiapine Fumarate (Seroquel) 200 mg PO HS UV PRN Reason: Protocol Last Admin: 05/20/18 21:36 Dose: 200 mg - Labs Labs: 05/21/18 05:50 05/21/18 05:50 PT 13.4 SECONDS (9.4-12.5) H 05/17/18 20:50 INR 1.17 05/17/18 20:50 APTT 23.2 Seconds (25.1-36.5) L 05/17/18 20:50 - Constitutional Appears: Cachectic, Chronically Ill - Head Exam Head Exam: NORMAL INSPECTION - Neck Exam Neck Exam: absent: Meningismus - Respiratory Exam Respiratory Exam: Decreased Breath Sounds - Cardiovascular Exam Cardiovascular Exam: +S1, +S2 - GI/Abdominal Exam GI & Abdominal Exam: Soft. absent: Tenderness Assessment and Plan - Assessment and Plan (Free Text) Plan: Assessment leukocytosis, R/O due to possible malignancy in this patient with left sided pleural based mass as seen on CT in March 2018, less likely abdominal infection COPD with currently acute bronchitis rheumatoid arthritis anxiety HTN S/P right breast cyst surgery S/P right hip surgery Plan continue PO Doxycycline for acute bronchitis (Day 2) patient may need biopsy of the pleural based mass but will defer to Pulmonary for this cultures have been negative will continue to monitor clinically will continue to trend WBC count overall prognosis is poor
[2018-05-21 12:05] VITALS: BP 103/63; TEMP 98
[2018-05-21 13:03] LABS: FERRITIN 85.7 ng/mL
[2018-05-21 15:22] VITALS: PULSE 84
== END 2018-05-21 17:15 | disposition home health service (06) | DRG 584 ==
LOC: ED 19:02 → ERH 22:05 → 2RNO 23:46
PROVIDERS: ADMIT Family Medicine; ATTEND Family Medicine
PROC: 30233N1 Transfusion of Nonautologous Red Blood Cells into Peripheral Vein, Percutaneous Approach (ICD-10-PCS; principal; 2018-05-18)
DX: A41.9 Sepsis, unspecified organism (principal); J18.9 Pneumonia, unspecified organism; J44.0 Chronic obstructive pulmonary disease with (acute) lower respiratory infection; N39.0 Urinary tract infection, site not specified; R64 Cachexia; J20.9 Acute bronchitis, unspecified; I10 Essential (primary) hypertension; M06.9 Rheumatoid arthritis, unspecified; E83.52 Hypercalcemia; D47.3 Essential (hemorrhagic) thrombocythemia; F31.9 Bipolar disorder, unspecified; F41.9 Anxiety disorder, unspecified; K59.00 Constipation, unspecified; F17.200 Nicotine dependence, unspecified, uncomplicated; G89.29 Other chronic pain; R54 Age-related physical debility; R91.8 Other nonspecific abnormal finding of lung field; Z96.641 Presence of right artificial hip joint; Z91.19 Patient's noncompliance with other medical treatment and regimen; Z68.1 Body mass index [BMI] 19.9 or less, adult; Z88.6 Allergy status to analgesic agent; Z82.49 Family history of ischemic heart disease and other diseases of the circulatory system

== ENCOUNTER 2018-05-22 09:24 | Observation (INO) | payer MEDICAID ==
--- NOTE | 2018-05-22 10:21 | ED PDOC ---
Arrival/HPI - General Chief Complaint: Weakness/Neurological Deficit Time Seen by Provider: 05/22/18 10:10 Historian: Patient - History of Present Illness Narrative History of Present Illness (Text): 05/22/18 10:21 57 year old female, whose past medical history includes anxiety, depression, Lung mass, COPD, RA, hypertension, anemia, and right hip fracture s/p hip replacement, presents to the emergency department complaining of weakness and dizziness. Patient was recently discharged yesterday after being diagnosed and treated for pneumonia. She is currently taking Doxycycline 100 mg PO twice a day for one day. Patient states she is not able to walk even with her walker. She reports she felt dizzy which caused her to bang her right hip on a counter. Patient denies any fever, chills, chest pain, shortness of breath, nausea, vomiting, diarrhea, urinary symptoms, back pain, neck pain, headache, or any other complaints. PMD: Dr. Patrice Alba Time/Duration: 24 hours Symptom Onset: Gradual Symptom Course: Unchanged Activities at Onset: Light Context: Walking, Home Past Medical History - Provider Review Nursing Documentation Reviewed: Yes - Infectious Disease Hx of Infectious Diseases: None - Cardiac Hx Cardiac Disorders: Yes Hx Hypertension: Yes - Pulmonary Hx Respiratory Disorders: Yes Hx Chronic Obstructive Pulmonary Disease (COPD): Yes Hx Pneumonia: Yes - Neurological Hx Neurological Disorder: No - HEENT Hx HEENT Disorder: No - Renal Hx Renal Disorder: No - Endocrine/Metabolic Hx Endocrine Disorders: No - Hematological/Oncological Hx Blood Disorders: No - Integumentary Hx Dermatological Disorder: No - Musculoskeletal/Rheumatological Hx Musculoskeletal Disorders: Yes Hx Arthritis: Yes Hx Fractures: Yes Hx Rheumatoid Arthritis: Yes Other/Comment: R hip fx ; hip replacement - Gastrointestinal Hx Gastrointestinal Disorders: No - Genitourinary/Gynecological Hx Genitourinary Disorders: No - Psychiatric Hx Psychophysiologic Disorder: Yes Hx Anxiety: Yes Hx Bipolar Disorder: Yes Hx Depression: Yes Hx Substance Use: No - Surgical History Hx Orthopedic Surgery: Yes Other/Comment: R HIP THR - Anesthesia Hx Anesthesia: Yes Hx Anesthesia Reactions: No - Suicidal Assessment Feels Threatened In Home Enviroment: No Family/Social History - Physician Review Nursing Documentation Reviewed: Yes Family/Social History: No Known Family HX Smoking Status: Former Smoker Hx Alcohol Use: No Hx Substance Use: No Hx Substance Use Treatment: No Allergies/Home Meds Allergies/Adverse Reactions: Allergies ibuprofen [From Motrin] Allergy (Verified 05/22/18 09:42) ANAPHYLAXIS NSAIDS (Non-Steroidal Anti-Inflamma Allergy (Verified 05/22/18 09:42) SWELLING risperidone [From Risperdal] Adverse Reaction (Verified 05/22/18 09:42) DIZZINESS Home Medications: Home Meds Medication Instructions Recorded Confirmed Acetaminophen [Tylenol 325mg tab] 650 mg PO Q4H PRN 05/17/18 05/22/18 Albuterol/Ipratropium [Duoneb 3 1 vial IH Q6H 05/17/18 05/22/18 mg/0.5 mg (3 ml) UD] Ferrous Sulfate [Feosol] 1 tab PO BID 05/17/18 05/22/18 Folic Acid [Folic Acid] 1 tab PO DAILY 05/17/18 05/22/18 Cricket Carbonate [Cricket 1 tab PO BID 05/17/18 05/22/18 Carbonate 300MG] Methocarbamol [Robaxin] 1 tab PO QID 05/17/18 05/22/18 Methotrexate Sodium [Trexall] 1 tab PO Q7D 05/17/18 05/22/18 Metoprolol Succinate XL [Toprol XL] 1 tab PO DAILY 05/17/18 05/22/18 Polyethylene Glycol 3350 [Miralax] 1 packet PO DAILY 05/17/18 05/22/18 Potassium Chloride [K-Dur 20 mEq 1 tab PO DAILY 05/17/18 05/22/18 ER Tab] QUEtiapine [SEROquel] 1 tab PO HS 05/17/18 05/22/18 amLODIPine [Norvasc] 1 tab PO DAILY 05/17/18 05/22/18 clonazePAM [Klonopin] 1 tab PO TID 05/17/18 05/22/18 Doxycycline Hyclate [Doryx] 100 mg PO Q12H 05/21/18 05/22/18 Review of Systems - Physician Review All systems were reviewed & negative as marked: Yes - Review of Systems Constitutional: absent: Fevers, Other (Chills) Respiratory: absent: SOB Cardiovascular: absent: Chest Pain Gastrointestinal: absent: Diarrhea, Nausea, Vomiting Genitourinary Female: absent: Dysuria, Frequency, Hematuria Musculoskeletal: Other (right hip pain). absent: Back Pain, Neck Pain Neurological: Dizziness, Other (Weakness). absent: Headache Physical Exam Vital Signs Reviewed: Yes Vital Signs Temp Pulse Resp BP Pulse Ox 05/22/18 11:06 93 H 18 132/75 100 05/22/18 09:53 98.9 F 101 H 17 111/76 100 Temperature: Afebrile Blood Pressure: Normal Pulse: Tachycardic Respiratory Rate: Normal Appearance: Positive for: Well-Appearing, Non-Toxic, Comfortable Pain Distress: None Mental Status: Positive for: Alert and Oriented X 3 - Systems Exam Head: Present: Atraumatic, Normocephalic Pupils: Present: PERRL Extroacular Muscles: Present: EOMI Conjunctiva: Present: Normal (Gilles[place]) Mouth: Present: Moist Mucous Membranes Neck: Present: Normal Range of Motion Respiratory/Chest: Present: Clear to Auscultation, Good Air Exchange. No: Respiratory Distress, Accessory Muscle Use Cardiovascular: Present: Regular Rate and Rhythm, Normal S1, S2. No: Murmurs Abdomen: Present: Tenderness (Epigastric tenderness). No: Distention, Peritoneal Signs, Guarding Back: Present: Normal Inspection Upper Extremity: Present: Normal Inspection. No: Cyanosis, Edema Lower Extremity: Present: Normal ROM, Other (Right hip tenderness). No: Edema Neurological: Present: GCS=15, CN II-XII Intact, Speech Normal, Motor Func Grossly Intact, Normal Sensory Function Skin: Present: Warm, Dry, Normal Color. No: Rashes Psychiatric: Present: Alert, Oriented x 3, Normal Insight, Normal Concentration Medical Decision Making ED Course and Treatment: 05/22/18 10:21 Impression: 57 year old female presents complaining of weakness and dizziness. Patient was recently discharged yesterday after being diagnosed and treated for pneumonia. Patient also reports right hip pain s/p injuring hip on counter. Differential Diagnosis included but are not limited to: Worsening pneumonia VS Dehydration VS Electrolytes abnormalities. Plan: -- VBG -- Labs -- EKG -- Chest X-ray 2V -- Tylenol, DOuneb, IV Fluids -- Blood Culture, Urine Culture -- Right Hip X-ray -- Urinalysis -- Reassess and disposition Prior Visits: Notes and results from previous visits were reviewed. Progress Notes: 05/22/18 11:17 EKG shows NSR at 93 BPM. Interpreted by me. PROCEDURE: Pelvis and right hip Dictator : Calvin Pan MD Report Date : 05/22/2018 11:48:44 IMPRESSION: No acute findings PROCEDURE: Chest X-ray Dictator : Calvin Pan MD Report Date : 05/22/2018 11:46:42 IMPRESSION: No active disease. 05/22/18 13:20 Patient's WBC stable since last visit, mild increase. No fever. Case discussed with Dr. Alba who came to evaluate patient and will place her on hospital observation for Weakness and fall and consult Dr. Solo. Already on doxycycline as per Dr. Alba. No additional abx at this time. - Lab Interpretations Lab Results: 05/22/18 11:15 05/22/18 11:15 Lab Results 05/22/18 11:15: Sodium 138, Chloride 104, Potassium 3.9, Carbon Dioxide 25, Anion Gap 13, BUN 11, Creatinine 0.4 L, Est GFR ( Amer) > 60, Est GFR ( Non-Af Amer) > 60, Random Glucose 97, Calcium 11.0 H, Phosphorus 3.1, Magnesium 2.0, Total Bilirubin 0.3, AST 30, ALT 19, Alkaline Phosphatase 169 H, Troponin I < 0.01, NT-Pro-B Natriuret Pep 361, Total Protein 7.0, Albumin 3.4, Globulin 3.6, Albumin/Globulin Ratio 0.9 L, Lipase 56 05/22/18 11:15: pO2 39, VBG pH 7.40, VBG pCO2 43.0, VBG HCO3 26.6, VBG Total CO2 27.9, VBG O2 Sat (Calc) 77.4 H, VBG Base Excess 1.5, VBG Potassium 3.8, Sodium 137.0, Chloride 105.0, Glucose 99, Lactate 1.1, FiO2 21.0, Venous Blood Potassium 3.8 05/22/18 11:15: WBC 20.0 H, RBC 3.46 L, Hgb 8.9 L, Hct 28.2 L, MCV 81.5, MCH 25.7, MCHC 31.6, RDW 19.1 H, Plt Count 642 H, MPV 9.1, Gran % 84.2 H, Lymph % ( Auto) 9.6 L, [place] % (Auto) 6.0, Eos % (Auto) 0.1 L, Baso % (Auto) 0.1, Gran # 16.86 H, Lymph # (Auto) 1.9, [place] # (Auto) 1.2 H, Eos # (Auto) 0.0, Baso # (Auto ) 0.03 I have reviewed the lab results: Yes - RAD Interpretation Radiology Orders: 05/22/18 10:22 CHEST TWO VIEWS (PA/LAT) [RAD] Stat Hip Right [HIP MIN 2V W/ PELVIS RT] [RAD] Stat - EKG Interpretation Interpreted by ED Physician: Yes Type: 12 lead EKG - Medication Orders Current Medication Orders: Acetaminophen (Tylenol 325mg Tab) 975 mg PO ONCE PRN PRN Reason: Fever >100.4 F Sodium Chloride (Sodium Chloride 0.9%) 1,000 mls @ 150 mls/hr IV .Q6H40M VU Last Admin: 05/22/18 10:59 Dose: 150 mls/hr eMAR Start Stop Document 05/22/18 10:59 ANNA (Rec: 05/22/18 10:59 ANNA [id number]) Intravenous Solution Start Date 05/22/18 Start Time 10:59 Discontinued Medications Albuterol/Ipratropium (Duoneb 3 Mg/0.5 Mg (3 Ml) Ud) 3 ml IH STAT STA Stop: 05/22/18 10:35 Last Admin: 05/22/18 11:05 Dose: Not Given Non-Admin Reason: Patient Refused - Scribe Statement The provider has reviewed the documentation as recorded by the Kelly Gomez Provider Scribe Attestation: All medical record entries made by the Kelly were at my direction and personally dictated by me. I have reviewed the chart and agree that the record accurately reflects my personal performance of the history, physical exam, medical decision making, and the department course for this patient. I have also personally directed, reviewed, and agree with the discharge instructions and disposition. Disposition/Present on Arrival - Present on Arrival Any Indicators Present on Arrival: No History of DVT/PE: No History of Uncontrolled Diabetes: No Urinary Catheter: No History of Decub. Ulcer: No History Surgical Site Infection Following: None - Disposition Have Diagnosis and Disposition been Completed?: Yes Diagnosis: Hip pain, Weakness generalized Disposition: HOSPITALIZED Disposition Time: 13:24 Patient Plan: Observation Condition: FAIR Discharge Instructions (ExitCare): Weakness (ED) Referrals: Patrice Alba DO [Primary Care Provider] - Follow up with primary Forms: [employer] (Jordanian)
[2018-05-22] MEDS ORDERED: Sodium Chloride 0.9% 1,000 ML IV SCH (10:30)
[2018-05-22] MEDS: Albuterol-Ipratrop 3 mg / 0.5 (3 ml) UD IH STA ×2 (11:01→11:05)
[2018-05-22 11:32] LABS: BASO # 0.03 K/mm3 (0.0-2.0); BASO % 0.1 % (0.0-3.0); EOS % 0.1 % (1.5-5.0); GRAN # 16.86 (1.4-6.5); GRAN % 84.2 % (50.0-68.0); HEMOGLOBIN 8.9 g/dL (12.0-16.0); LYMPH # 1.9 (1.2-3.4); LYMPH % 9.6 % (22.0-35.0); MEAN CELL VOLUME 81.5 fl (80.0-105.0); MEAN CORPUSCULAR HEMOGLOBIN 25.7 pg (25.0-35.0); MEAN CORPUSCULAR HGB CONC 31.6 g/dl (31.0-37.0); MEAN PLATELET VOLUME 9.1 fl (7.0-11.0); MONO # 1.2 (0.1-0.6); RBC 3.46 10^6/uL (3.5-6.1); RED CELL DISTRIBUTION WIDTH 19.1 % (11.5-14.5); VENOUS BLOOD GAS BASE EXCESS 1.5 mmol/L (0.0-2.0); VENOUS BLOOD GAS PO2 39 mm/Hg (30-55)
[2018-05-22 11:46] LABS: B-TYPE NATRIURETIC PEPTIDE 361 pg/mL (0-450); TROPONIN I < 0.01 ng/mL
[2018-05-22 11:48] LABS: ALB/GLOB RATIO 0.9 (1.1-1.8); ALBUMIN 3.4 g/dL (3.0-4.8); ALT/SGPT 19 U/L (7-56); AST/SGOT 30 U/L (14-36); BLOOD UREA NITROGEN 11 mg/dL (7-21); GFR NON-AFRICAN AMERICAN > 60; LIPASE 56 U/L (23-300)
--- NOTE | 2018-05-22 11:48 | RAD ---
Date of service: 05/22/2018 HISTORY: cough r/o pna COMPARISON: 05/17/2018 TECHNIQUE: Chest PA and lateral FINDINGS: LUNGS: There is linear atelectasis in the left lung. The lungs are otherwise clear PLEURA: No significant pleural effusion identified. No pneumothorax apparent. CARDIOVASCULAR: Normal. OSSEOUS STRUCTURES: No significant abnormalities. VISUALIZED UPPER ABDOMEN: Normal. OTHER FINDINGS: None. IMPRESSION: No active disease.
--- NOTE | 2018-05-22 11:51 | RAD ---
Date of service: 05/22/2018 PROCEDURE: Pelvis and right hip HISTORY: pain r/o fx COMPARISON: TECHNIQUE: Three views FINDINGS: Orthopedic screws are seen in the right hip. There are no acute fractures. No significant degenerative changes IMPRESSION: No acute findings
--- NOTE | 2018-05-22 14:47 | HP ---
Copied To: Patrice Alba DO Attending MD: Patrice Alba DO HISTORY OF PRESENT ILLNESS: I know her very well. She was discharged from [facility] after having a pneumonia. She also was very weak, but did not want to go back to [facility] at this time and she is now on the [facility] who fell. She is on doxycycline twice a day and she banged her right hip. PAST MEDICAL HISTORY: She has a past medical history of anxiety, depression, lung mass, COPD, rheumatoid arthritis, hypertension, anemia, right hip fracture, status post hip replacement. She is complaining of weakness and dizziness. She was discharged for pneumonia. She is very noncompliant, COPD, still smoking cigarettes. She has arthritis with fractures, right hip replacement, anxiety, depression. ALLERGIES: TO IBUPROFEN, NSAIDS AND RISPERDAL. MEDICATIONS: She takes Tylenol, DuoNeb, Feosol, folic acid, lithium, Robaxin, Flexeril, Toprol, MiraLax, potassium, Seroquel, Norvasc, Klonopin and Doryx. REVIEW OF SYSTEMS: No acute chills or fevers. No shortness of breath or cough. No chest pain or palpitations. No diarrhea, nausea, vomiting. No problems urinating. She had fallen. She got weak. She had right hip pain, little bit dizzy. PHYSICAL EXAMINATION VITAL SIGNS: She has 98.9 temperature, 101 pulse, 17 respiratory rate, 111/76 blood pressure, 100% O2 sat on room air. GENERAL: She is very weak, thin, frail, nontoxic, comfortable, resting in the gurney, alert and oriented x3. She needs more physical therapy. HEENT: Head is atraumatic, normocephalic. Extraocular muscles are intact. Pupils equal and reactive to light. Throat is moist. NECK: Supple. HEART: Regular rate. Normal S1, S2. LUNGS: Decreased breath sounds bilaterally, but clear. ABDOMEN: Soft, nontender. Positive bowel sounds. No guarding, no rebound, no CVA tenderness. EXTREMITIES: Have no edema. NEURO: GCS is 15. Cranial nerves II-XII grossly intact. Normal speech. SKIN: Warm and dry. No apparent rashes. Alert and oriented x3. She is weak, thin, frail, cannot walk. She was recently discharged from the hospital. LABORATORY DATA: She was discharged with 18,000 white count. She has 20,000 white count now, 8.9 hemoglobin, 28.2 hematocrit with 642 platelets. Lactate is 1.1. She has a 138 sodium, potassium 3.9, BUN 11, creatinine 0.4, GFR is greater than 60, sugar is 97. Calcium is 11. I believe she has cancer, phosphorous 3.1, magnesium 2, total bili is 0.3, AST is 30, ALT is 19, alkaline phosphatase 169. Troponin I is less than 0.01. BNP is 361, total protein 7, albumin is 3.4. Lipase is 56. There is a hip x-ray and chest x-ray negative. I think she needs to go to subacute rehab to receive physical therapy. Infectious Disease to evaluate her elevated white count. She has been on doxycycline and the white count went up from 18-20. She is here for debility, leukocytosis, recent pneumonia and she needs subacute rehab, Patrice Alba DO
[2018-05-22 16:41] LABS: PH,URINE 6.5 (4.7-8.0); URINE BILIRUBIN NEGATIVE (NEGATIVE); URINE BLOOD NEGATIVE (NEGATIVE); URINE GLUCOSE (UA) NEGATIVE (NEGATIVE); URINE LEUKOCYTE ESTERASE NEGATIVE Leu/uL (NEGATIVE); URINE PROTEIN NEGATIVE mg/dL (<30 mg/dL); URINE UROBILINOGEN 0.2 E.U./dL (<1 E.U./dL)
[2018-05-22 16:46] LABS: URINE APPEARANCE CLEAR (CLEAR); URINE COLOR YELLOW (YELLOW)
[2018-05-22] MEDS ORDERED: METHOTREXATE SODIUM PO SCH (19:00)
[2018-05-22] MEDS ORDERED: Sodium Chloride 0.45% 1,000 ML IV SCH (19:00)
[2018-05-22] MEDS: Albuterol-Ipratrop 3 mg / 0.5 (3 ml) UD IH SCH (19:32)
[2018-05-22 19:54] VITALS: BMI 14.4
[2018-05-22] MEDS ORDERED: Pneumococcal 23-Valent Vaccine IM ONE (19:54)
[2018-05-22] MEDS: Methocarbamol 500 MG Tab PO SCH (21:00)
[2018-05-22] MEDS ORDERED: QUETIAPINE PO SCH (22:00)
--- NOTE | 2018-05-22 23:24 | CARD ---
APPROVED REPORT Date of service: 05/22/2018 EKG Measurement Heart [id number] <Conclusion> Normal sinus rhythm Normal ECG
[2018-05-23] MEDS: Albuterol-Ipratrop 3 mg / 0.5 (3 ml) UD IH SCH ×4 (01:39→21:57)
[2018-05-23 06:44] LABS: HEMOGLOBIN 8.5 g/dL (12.0-16.0); MEAN CELL VOLUME 81.8 fl (80.0-105.0); MEAN CORPUSCULAR HEMOGLOBIN 25.8 pg (25.0-35.0); MEAN CORPUSCULAR HGB CONC 31.5 g/dl (31.0-37.0); MEAN PLATELET VOLUME 9.6 fl (7.0-11.0); RBC 3.3 10^6/uL (3.5-6.1); RED CELL DISTRIBUTION WIDTH 19.7 % (11.5-14.5); WHITE BLOOD COUNT 11.5 10^3/ul (4.5-11.0)
[2018-05-23 07:20] LABS: ALB/GLOB RATIO 0.9 (1.1-1.8); ALBUMIN 2.8 g/dL (3.0-4.8); ALT/SGPT 22 U/L (7-56); AST/SGOT 19 U/L (14-36); BLOOD UREA NITROGEN 9 mg/dL (7-21); CALCIUM 10.6 mg/dL (8.4-10.5); GFR NON-AFRICAN AMERICAN > 60
--- NOTE | 2018-05-23 08:09 | DS ---
Copied To: Patrice Alba DO Attending MD: Patrice Alba DO HOSPITAL COURSE: I saw her resting comfortably in her bed. She tells me she is very weak and that was right, she should have gone to subacute rehab. She is on doxycycline. She is on IV fluids, DuoNebs, Feosol, folic acid, potassium, Klonopin, lithium, Flexeril, MiraLax, Norvasc, Robaxin, Seroquel, Toprol and Tylenol. PHYSICAL EXAMINATION: VITAL SIGNS: Temperature 98.4, 88 pulse, 123/84 blood pressure, 18 respiratory rate, 100% O2 sat on room air. HEENT: Head is atraumatic, normocephalic. HEART: Regular rate. LUNGS: Clear to auscultation with decreased breath sounds. She is a smoker. She has got a lung mass. ABDOMEN: Soft. EXTREMITIES: No edema. Weak and frail and thin. DATA: She has a white count of 20, it was 18 when she was discharged from the hospital with Infectious Disease saying with just doxycycline p.o., she is back to 20,000 now, waiting for this morning's to come back. A 8.9 hemoglobin, 20.2 hematocrit with 642 platelets. She has a 138 sodium, potassium 3.9, BUN 11, creatinine 0.4, GFR is greater than 60, sugar is 97. Calcium is 11, phosphorus 3.1, magnesium 2, total bili is 0.3, AST is 30, ALT is 19, alk phos 169. Troponin I is less than 0.01. BNP is 361. Total protein is 7. Urine is clean. I am waiting for Infectious Disease to let me know if she on antibiotics tonight. X-rays were normal. I am hoping to get it to subacute rehab for [facility]. That will be great if we can do that today and we can continue the treatment at [facility]. She needs IV antibiotics, we can do it there also. She is weak and frail and she fell. Patrice Alba DO [facility]
[2018-05-23] MEDS ORDERED: Non Formulary Medication (Ferrous Sulfate [Feosol] 1 TAB) PO SCH (10:00)
[2018-05-23] MEDS: Metoprolol Succinate 25 mg XL Tab PO SCH (10:30)
[2018-05-23] MEDS: Potassium Chloride 20 mEq ER Tab PO SCH (10:31)
[2018-05-23] MEDS: Methocarbamol 500 MG Tab PO SCH ×4 (10:31→22:11)
[2018-05-23] MEDS: POLYETHYLENE GLYCOL 3350 17 GM/Dose PACKET PO SCH (10:32)
--- NOTE | 2018-05-23 16:33 | CP.PCM.CON ---
History of Present Illness - History of Present Illness History of Present Illness: 57 year old female with PMH of COPD, rheumatoid arthritis, anxiety, HTN, S/P right breast cyst surgery, S/P right hip surgery, history of lung mass was [place] [facility] of generalized weakness. She is back for still having generalized weakness, difficulty in ambulating because of the weakness. She denies cough, no rhinorrhea, no increase in her chronic abdominal pain, no fever or chills, no nausea or vomiting, no headache or dizziness, no dysuria, no diarrhea. Patient continues to have leukocytosis. Infectious Diseases consult is requested to further evaluate and manage. Review of Systems - Review of Systems All systems: reviewed and no additional remarkable complaints except (as per HPI ) Past Patient History - Infectious Disease Hx of Infectious Diseases: None - Past Social History Smoking Status: Current Some Days Smoker - CARDIAC Hx Cardiac Disorders: Yes Hx Hypertension: Yes - PULMONARY Hx Respiratory Disorders: Yes (5 CIG A DAY.USED TO SMOKE 2 PPD.) Hx Chronic Obstructive Pulmonary Disease (COPD): Yes Hx Pneumonia: Yes - NEUROLOGICAL Hx Neurological Disorder: Yes Hx Dizziness: Yes - HEENT Hx HEENT Problems: No - RENAL Hx Chronic Kidney Disease: No - ENDOCRINE/METABOLIC Hx Endocrine Disorders: No - HEMATOLOGICAL/ONCOLOGICAL Hx Blood Disorders: No - INTEGUMENTARY Hx Dermatological Problems: No - MUSCULOSKELETAL/RHEUMATOLOGICAL Hx Musculoskeletal Disorders: Yes Hx Arthritis: Yes Hx Falls: Yes (FELL THIS MORNING 05-22-18) Hx Fractures: Yes Other/Comment: R hip fx ; hip replacement - GASTROINTESTINAL Hx Gastrointestinal Disorders: No - GENITOURINARY/GYNECOLOGICAL Hx Genitourinary Disorders: No - PSYCHIATRIC Hx Psychophysiologic Disorder: Yes Hx Anxiety: Yes Hx Bipolar Disorder: Yes Hx Depression: Yes Hx Substance Use: No - SURGICAL HISTORY Hx Surgeries: Yes (HIP SX-HIP FX,FEMORAL FX RIGHT HIP FX) Hx Orthopedic Surgery: Yes Other/Comment: R HIP THR - ANESTHESIA Hx Anesthesia: Yes Hx Anesthesia Reactions: No Meds Allergies/Adverse Reactions: Allergies Allergy/AdvReac Type Severity Reaction Status Date / Time ibuprofen [From Motrin] Allergy ANAPHYLAXIS Verified 05/22/18 17:05 NSAIDS (Non-Steroidal Allergy SWELLING Verified 05/22/18 17:05 Anti-Inflamma risperidone [From Risperdal] AdvReac DIZZINESS Verified 05/22/18 17:05 - Medications Medications: Current Medications Acetaminophen (Tylenol 325mg Tab) 975 mg PO ONCE PRN PRN Reason: Fever >100.4 F Acetaminophen (Tylenol 325mg Tab) 650 mg PO Q4H PRN PRN Reason: Pain, Mild (1-3) Albuterol/Ipratropium (Duoneb 3 Mg/0.5 Mg (3 Ml) Ud) 3 ml IH Q6H REPLACED BY [facility] Last Admin: 05/23/18 01:39 Dose: Not Given Amlodipine Besylate (Norvasc) 2.5 mg PO DAILY REPLACED BY [facility] Clonazepam (Klonopin) 0.5 mg PO TID REPLACED BY [facility] PRN Reason: Protocol Last Admin: 05/22/18 20:31 Dose: 0.5 mg Doxycycline Hyclate (Doryx) 100 mg PO Q12H REPLACED BY [facility] PRN Reason: Protocol Last Admin: 05/22/18 20:30 Dose: 100 mg Ferrous Sulfate (Feosol) 324 mg PO BID REPLACED BY [facility] Folic Acid (Folic Acid) 1 mg PO DAILY REPLACED BY [facility] Sodium Chloride (Sodium Chloride 0.45%) 1,000 mls @ 40 mls/hr IV .Q24H REPLACED BY [facility] Last Admin: 05/22/18 19:15 Dose: 40 mls/hr [place] Carbonate ([place] Carbonate 300mg) 300 mg PO BID REPLACED BY [facility] Methocarbamol (Robaxin) 500 mg PO QID REPLACED BY [facility] Last Admin: 05/22/18 21:00 Dose: 500 mg Metoprolol Succinate (Toprol Xl) 25 mg PO DAILY REPLACED BY [facility] Non-Formulary Medication (Methotrexate Sodium [Trexall]) 1 tab PO Q7D REPLACED BY [facility] Polyethylene Glycol (Miralax) 17 gm PO DAILY REPLACED BY [facility] Potassium Chloride (K-Dur 20 Meq Er Tab) 20 meq PO DAILY REPLACED BY [facility] Quetiapine Fumarate (Seroquel) 200 mg PO HS REPLACED BY [facility] Last Admin: 05/22/18 21:00 Dose: 200 mg Physical Exam - Constitutional Appears: Cachectic, Chronically Ill - Head Exam Head Exam: NORMAL INSPECTION - ENT Exam ENT Exam: Mucous Membranes Moist - Neck Exam Neck exam: Negative for: Meningismus - Respiratory Exam Respiratory Exam: Decreased Breath Sounds - Cardiovascular Exam Cardiovascular Exam: +S1, +S2 - GI/Abdominal Exam GI & Abdominal Exam: Soft. absent: Tenderness Results - Vital Signs Recent Vital Signs: Last Vital Signs Temp 98.4 F 05/22/18 22:51 Pulse 88 05/22/18 22:51 Resp 18 05/22/18 22:51 BP 123/84 05/22/18 22:51 Pulse Ox 100 05/22/18 22:51 - Labs Result Diagrams: 05/23/18 06:00 05/23/18 06:00 Labs: Laboratory Results - last 24 hr 05/22/18 05/23/18 16:25 06:00 WBC 11.5 H D RBC 3.30 L Hgb 8.5 L Hct 27.0 L MCV 81.8 MCH 25.8 MCHC 31.5 RDW 19.7 H Plt Count 583 H MPV 9.6 Urine Color Yellow Urine Appearance Clear Urine pH 6.5 Ur Specific [place] <= 1.005 Urine Protein Negative Urine Glucose (UA) Negative Urine Ketones Negative Urine Blood Negative Urine Nitrate Negative Urine Bilirubin Negative Urine Urobilinogen 0.2 Ur Leukocyte Esterase Negative Assessment & Plan - Assessment and Plan (Free Text) Plan: Assessment leukocytosis, consider due to possible malignancy in this patient with left sided pleural based mass as seen on CT in March 2018 COPD with acute bronchitis rheumatoid arthritis anxiety HTN S/P right breast cyst surgery S/P right hip surgery Plan on PO Doxycycline for acute bronchitis (Day 5) - will d/c in the next 1-2 days patient may need biopsy of the pleural based mass but will defer to Pulmonary for this will repeat blood and urine cultures will monitor clinically will trend WBC count overall prognosis is poor
[2018-05-24] MEDS: Albuterol-Ipratrop 3 mg / 0.5 (3 ml) UD IH SCH ×3 (02:03→13:27)
[2018-05-24 07:32] VITALS: RESP 20
[2018-05-24] MEDS: Metoprolol Succinate 25 mg XL Tab PO SCH (09:06)
[2018-05-24] MEDS: Methocarbamol 500 MG Tab PO SCH (09:07)
[2018-05-24] MEDS: Potassium Chloride 20 mEq ER Tab PO SCH (09:07)
[2018-05-24] MEDS: POLYETHYLENE GLYCOL 3350 17 GM/Dose PACKET PO SCH (09:07)
--- NOTE | 2018-05-24 12:33 | PN ---
Copied To: Luigi Vides MD Attending MD: Luigi Vides MD DATE: 05/24/2018 TIME: 11:41 a.m. SUBJECTIVE: I reviewed the patient's chest CT and a prior study in March. There is a well circumscribed low-attenuation pleural/extrapleural oblong mass measuring 1.4 x 3.6 cm in the left upper ches posterior and medially. It has a benign appearance. Differential includes pleural-based pathology or possibly neurogenic masses. Further evaluation with an MRI maybe useful. I do not think biopsy is necessary at this point and it can be followed. Luigi Vides MD MTDD
--- NOTE | 2018-05-24 13:23 | DS ---
Copied To: Patrice Alba DO Attending MD: Patrice Alba DO I am hoping she can get to [facility] for subacute rehab, which is recommended by Physical Therapy. She went home and did not want to go to subacute last time and now she is very weak and now she is recommend to go to subacute. She also has this lung mass which she is refusing to have a biopsy of. I discussed with her that it could be cancer. She understands that, she does not want it. She wants to live alone. She is still smoking. She also refuses to quit smoking. She is now quite debilitated and needs physical therapy. She is on IV fluids, doxycycline, DuoNebs, Feosol, folic acid, potassium, Klonopin, lithium, methotrexate, MiraLax, Norvasc, Robaxin, Seroquel, Toprol, Tylenol. OBJECTIVE: VITAL SIGNS: Temperature 98.4, 89 pulse, 113/75 blood pressure, 20 respiratory rate, 96% O2 sat on room air. HEENT: Head is atraumatic, normocephalic. GENERAL: She is much more alert today than yesterday. HEART: Regular rate. LUNGS: Decreased breath sounds bilaterally, occasional wheeze and she coughs. ABDOMEN: Soft, scaphoid, nontender. Positive bowel sounds. She has a little bit of an appetite today. EXTREMITIES: Have no edema. DATA: She has a 11.5 white count, came down from 20; 8.5 hemoglobin, 27 hematocrit with a 583 platelets. She has 141 sodium, potassium is 4, BUN 9, creatinine 0.4. GFR is greater than 60. Sugar is 90, calcium is 10.6, total bili is 0.2, AST is 19, ALT is 22, alkaline phosphatase 129. Troponin I is less than 0.01. BNP is 361. Total protein is 6, I am trying to get her to [facility] for subacute rehab. She was there before. Waiting for authorization from her insurance company as per [employer] and discharge her today there. I will be following her there at [facility]. Patrice Alba DO MTDD
[2018-05-24 14:40] VITALS: BP 116/79; PULSE 94; TEMP 98.7; O2SAT 100
--- NOTE | 2018-05-24 17:31 | CP.PCM.PN ---
Subjective - Date & Time of Evaluation Date of Evaluation: 05/24/18 Time of Evaluation: 12:10 - Subjective Subjective: No fevers, not in distress, no abdominal pain, eating her lunch well, no fevers. Objective - Vital Signs/Intake and Output Vital Signs (last 24 hours): Temp Pulse Resp BP Pulse Ox 98.2 F 95 H 18 112/76 99 05/23/18 14:00 05/23/18 14:00 05/23/18 14:00 05/23/18 14:00 05/23/18 14:00 Intake and Output: 05/23/18 05/23/18 06:59 18:59 Intake Total 720 Output Total 350 Balance 370 - Medications Medications: Current Medications Acetaminophen (Tylenol 325mg Tab) 975 mg PO ONCE PRN PRN Reason: Fever >100.4 F Acetaminophen (Tylenol 325mg Tab) 650 mg PO Q4H PRN PRN Reason: Pain, Mild (1-3) Albuterol/Ipratropium (Duoneb 3 Mg/0.5 Mg (3 Ml) Ud) 3 ml IH Q6H [facility] Last Admin: 05/23/18 13:07 Dose: Not Given Amlodipine Besylate (Norvasc) 2.5 mg PO DAILY [facility] Last Admin: 05/23/18 10:31 Dose: 2.5 mg Clonazepam (Klonopin) 0.5 mg PO TID [facility] PRN Reason: Protocol Last Admin: 05/23/18 14:32 Dose: 0.5 mg Doxycycline Hyclate (Doryx) 100 mg PO Q12H VU PRN Reason: Protocol Last Admin: 05/23/18 07:30 Dose: 100 mg Ferrous Sulfate (Feosol) 324 mg PO BID [facility] Last Admin: 05/23/18 10:32 Dose: 324 mg Folic Acid (Folic Acid) 1 mg PO DAILY [facility] Last Admin: 05/23/18 10:31 Dose: 1 mg Sodium Chloride (Sodium Chloride 0.45%) 1,000 mls @ 40 mls/hr IV .Q24H [facility] Last Admin: 05/22/18 19:15 Dose: 40 mls/hr [place] Carbonate ([place] Carbonate 300mg) 300 mg PO BID [facility] Last Admin: 05/23/18 10:32 Dose: 300 mg Methocarbamol (Robaxin) 500 mg PO QID [facility] Last Admin: 05/23/18 14:33 Dose: 500 mg Metoprolol Succinate (Toprol Xl) 25 mg PO DAILY [facility] Last Admin: 05/23/18 10:30 Dose: 25 mg Non-Formulary Medication (Methotrexate Sodium [Trexall]) 1 tab PO Q7D [facility] Polyethylene Glycol (Miralax) 17 gm PO DAILY [facility] Last Admin: 05/23/18 10:32 Dose: Not Given Potassium Chloride (K-Dur 20 Meq Er Tab) 20 meq PO DAILY [facility] Last Admin: 05/23/18 10:31 Dose: 20 meq Quetiapine Fumarate (Seroquel) 200 mg PO HS [facility] Last Admin: 05/22/18 21:00 Dose: 200 mg - Labs Labs: 05/23/18 06:00 05/23/18 06:00 - Constitutional Appears: Cachectic, Chronically Ill - Head Exam Head Exam: NORMAL INSPECTION - Respiratory Exam Respiratory Exam: Decreased Breath Sounds - Cardiovascular Exam Cardiovascular Exam: +S1, +S2 - GI/Abdominal Exam GI & Abdominal Exam: Soft. absent: Tenderness Assessment and Plan - Assessment and Plan (Free Text) Plan: Assessment leukocytosis, consider due to possible malignancy in this patient with left sided pleural based mass as seen on CT in March 2018, no evidence of infection COPD with acute bronchitis rheumatoid arthritis anxiety HTN S/P right breast cyst surgery S/P right hip surgery Plan on PO Doxycycline for acute bronchitis (Day 6) - can d/c today patient may need biopsy of the pleural based mass but will defer to Pulmonary for this repeat blood and urine cultures are negative overall prognosis is poor
[2018-05-28] MEDS ORDERED: METHOTREXATE SODIUM PO SCH (09:00)
== END 2018-05-24 15:35 ==
LOC: ED 09:24 → ERH 13:16 → 5RNO 15:30
PROVIDERS: ADMIT Family Medicine; ATTEND Family Medicine
DX: R53.1 Weakness (principal); J20.9 Acute bronchitis, unspecified; J44.0 Chronic obstructive pulmonary disease with (acute) lower respiratory infection; R91.8 Other nonspecific abnormal finding of lung field; R42 Dizziness and giddiness; I10 Essential (primary) hypertension; M06.9 Rheumatoid arthritis, unspecified; F17.210 Nicotine dependence, cigarettes, uncomplicated; F41.9 Anxiety disorder, unspecified; F31.9 Bipolar disorder, unspecified; Z87.01 Personal history of pneumonia (recurrent); Z96.641 Presence of right artificial hip joint; Z91.19 Patient's noncompliance with other medical treatment and regimen
CPT/HCPCS: 36415; 71046; 73502; 80053; 81003; 82803; 83690; 83735; 83880; 84100; 84145; 84484; 85025; 85027; 87040; 87086; 93005; 94640; 97116; 97162; 97530; 99285; G0378; G8978; G8979; J7030

== ENCOUNTER 2018-06-06 19:50 | Inpatient (IN) | payer MEDICAID ==
[2018-06-06 19:51] VITALS: BMI 14.4
[2018-06-06] MEDS ORDERED: Sodium Chloride 0.9% 1,000 ML IV STA (20:24)
[2018-06-06] MEDS ORDERED: Iohexol 240 (50 ml) ONE (20:43)
[2018-06-06 20:54] LABS: VENOUS BLOOD GAS BASE EXCESS 0.3 mmol/L (0.0-2.0); VENOUS BLOOD GAS PO2 47 mm/Hg (30-55); VENOUS BLOOD PH 7.47 (7.32-7.43)
[2018-06-06 20:59] LABS: BASO # 0.02 K/mm3 (0.0-2.0); BASO % 0.1 % (0.0-3.0); EOS # 0.1 (0.0-0.7); EOS % 0.7 % (1.5-5.0); GRAN # 13.48 (1.4-6.5); GRAN % 78.1 % (50.0-68.0); HEMOGLOBIN 8.8 g/dL (12.0-16.0); LYMPH # 2.4 (1.2-3.4); LYMPH % 14.1 % (22.0-35.0); MEAN CORPUSCULAR HEMOGLOBIN 25.9 pg (25.0-35.0); MEAN CORPUSCULAR HGB CONC 32.4 g/dl (31.0-37.0); MONO # 1.2 (0.1-0.6); RBC 3.4 10^6/uL (3.5-6.1); RED CELL DISTRIBUTION WIDTH 17.6 % (11.5-14.5); WHITE BLOOD COUNT 17.3 10^3/ul (4.5-11.0)
[2018-06-06 21:07] LABS: ALB/GLOB RATIO 0.9 (1.1-1.8); ALBUMIN 3.1 g/dL (3.0-4.8); ALT/SGPT 17 U/L (7-56); AST/SGOT 25 U/L (14-36); BLOOD UREA NITROGEN 9 mg/dL (7-21); GFR NON-AFRICAN AMERICAN > 60; LIPASE 46 U/L (23-300)
[2018-06-06] MEDS ORDERED: Potassium Chloride 20 mEq ER Tab PO STA (21:08)
[2018-06-06 22:50] LABS: URINE BILIRUBIN NEGATIVE (NEGATIVE); URINE BLOOD MODERATE (NEGATIVE); URINE GLUCOSE (UA) NEGATIVE (NEGATIVE); URINE LEUKOCYTE ESTERASE LARGE Leu/uL (NEGATIVE); URINE PROTEIN TRACE mg/dL (<30 mg/dL); URINE UROBILINOGEN 0.2 E.U./dL (<1 E.U./dL)
[2018-06-06 22:54] LABS: URINE APPEARANCE SL CLOUDY (CLEAR); URINE COLOR LIGHT YELLOW (YELLOW)
[2018-06-06 22:57] LABS: URINE BACTERIA MOD (NEG)
[2018-06-06] MEDS ORDERED: Iohexol 350 MG/100 ML VIAL ONE (23:06)
[2018-06-06] MEDS ORDERED: cefTRIAXone 1 gm 1 GM/100 ML BAG IVPB STA (23:54)
[2018-06-07] MEDS ORDERED: Morphine 2 mg/ml ISec IVP STA (00:57)
--- NOTE | 2018-06-07 01:21 | ED PDOC ---
Arrival/HPI - General Chief Complaint: Abdominal Pain Time Seen by Provider: 06/06/18 20:00 Historian: Patient - History of Present Illness Narrative History of Present Illness (Text): 06/07/18 20:24 57 year old female, whose past medical history includes anxiety, depression, Lung mass, COPD, RA, hypertension, and anemia, presents to the emergency department with abdominal pain. Patient informs of diffuse abdominal pain since several days, with associated nausea. Patient also informs of decreased PO intake. Patient states she has had similar symptoms for several months but no follow as per patient. Patient denies any fever, chills, headache, dizziness , chest pain, shortness of breath, cough, vomiting, diarrhea, dysuria, hematuria , hematochezia, back pain, neck pain, urinary/bowel changes, or any other complaint. Time/Duration: < week Symptom Onset: Gradual Symptom Course: Unchanged Past Medical History - Provider Review Nursing Documentation Reviewed: Yes - Infectious Disease Hx of Infectious Diseases: None - Cardiac Hx Cardiac Disorders: Yes Hx Hypertension: Yes - Pulmonary Hx Respiratory Disorders: Yes (5 CIG A DAY.USED TO SMOKE 2 PPD.) Hx Chronic Obstructive Pulmonary Disease (COPD): Yes Hx Pneumonia: Yes - Neurological Hx Neurological Disorder: Yes Hx Dizziness: Yes - HEENT Hx HEENT Disorder: No - Renal Hx Renal Disorder: No - Endocrine/Metabolic Hx Endocrine Disorders: No - Hematological/Oncological Hx Blood Disorders: No - Integumentary Hx Dermatological Disorder: No - Musculoskeletal/Rheumatological Hx Musculoskeletal Disorders: Yes (Rheumatoid arthritis) - Gastrointestinal Hx Gastrointestinal Disorders: No - Genitourinary/Gynecological Hx Genitourinary Disorders: No - Psychiatric Hx Psychophysiologic Disorder: Yes Hx Anxiety: Yes Hx Bipolar Disorder: Yes Hx Depression: Yes Hx Substance Use: No - Surgical History Hx Orthopedic Surgery: Yes Other/Comment: R HIP THR - Anesthesia Hx Anesthesia: Yes Hx Anesthesia Reactions: No - Suicidal Assessment Feels Threatened In Home Enviroment: No Family/Social History - Physician Review Nursing Documentation Reviewed: Yes Family/Social History: No Known Family HX Smoking Status: Current Some Days Smoker Hx Alcohol Use: Yes Hx Substance Use: No Hx Substance Use Treatment: No Allergies/Home Meds Allergies/Adverse Reactions: Allergies ibuprofen [From Motrin] Allergy (Verified 05/22/18 17:05) ANAPHYLAXIS NSAIDS (Non-Steroidal Anti-Inflamma Allergy (Verified 05/22/18 17:05) SWELLING risperidone [From Risperdal] Adverse Reaction (Verified 05/22/18 17:05) DIZZINESS Home Medications: Home Meds Medication Instructions Recorded Confirmed Acetaminophen [Tylenol 325mg tab] 650 mg PO Q4H PRN 05/17/18 06/07/18 Albuterol/Ipratropium [Duoneb 3 1 vial IH Q6H 05/17/18 06/07/18 mg/0.5 mg (3 ml) UD] Ferrous Sulfate [Feosol] 1 tab PO BID 05/17/18 06/07/18 Folic Acid [Folic Acid] 1 tab PO DAILY 05/17/18 06/07/18 [place] Carbonate [Reedy 1 tab PO BID 05/17/18 06/07/18 Carbonate 300MG] Methocarbamol [Robaxin] 1 tab PO QID 05/17/18 06/07/18 Methotrexate Sodium [Trexall] 1 tab PO Q7D 05/17/18 06/07/18 Metoprolol Succinate XL [Toprol XL] 1 tab PO DAILY 05/17/18 06/07/18 Polyethylene Glycol 3350 [Miralax] 1 packet PO DAILY 05/17/18 06/07/18 Potassium Chloride [K-Dur 20 mEq 1 tab PO DAILY 05/17/18 06/07/18 ER Tab] QUEtiapine [SEROquel] 1 tab PO HS 05/17/18 06/07/18 amLODIPine [Norvasc] 1 tab PO DAILY 05/17/18 06/07/18 clonazePAM [Klonopin] 1 tab PO TID 05/17/18 06/07/18 Doxycycline Hyclate [Doryx] 100 mg PO Q12H 05/21/18 06/07/18 Review of Systems - Physician Review All systems were reviewed & negative as marked: Yes - Review of Systems Constitutional: Normal. absent: Fevers, Night Sweats Eyes: Normal ENT: Normal Respiratory: Normal. absent: SOB, Cough Cardiovascular: Normal. absent: Chest Pain Gastrointestinal: Normal, Abdominal Pain, Nausea. absent: Diarrhea, Vomiting, Hematochezia Genitourinary Female: Normal. absent: Dysuria, Hematuria Musculoskeletal: Normal. absent: Back Pain, Neck Pain Skin: Normal Neurological: Normal. absent: Headache, Dizziness Endocrine: Normal Hemo/Lymphatic: Normal Psychiatric: Normal Physical Exam Vital Signs Reviewed: Yes Vital Signs Temp Pulse Resp BP Pulse Ox 06/07/18 01:00 81 18 126/86 98 06/06/18 20:52 100.6 F H 06/06/18 20:20 100.6 F H 06/06/18 19:50 106 H 18 125/88 97 Temperature: Afebrile Blood Pressure: Normal Pulse: Regular Respiratory Rate: Normal Appearance: Positive for: Well-Appearing, Non-Toxic, Comfortable Pain Distress: None Mental Status: Positive for: Alert and Oriented X 3 - Systems Exam Head: Present: Atraumatic, Normocephalic Pupils: Present: PERRL Extroacular Muscles: Present: EOMI Conjunctiva: Present: Normal Mouth: Present: Moist Mucous Membranes. No: Normal Teeth (poor dentition) Neck: Present: Normal Range of Motion Respiratory/Chest: Present: Clear to Auscultation, Good Air Exchange. No: Respiratory Distress, Accessory Muscle Use Cardiovascular: Present: Regular Rate and Rhythm, Normal S1, S2. No: Murmurs Abdomen: Present: Tenderness (diffusely tender and soft), Distention (mildly distended ), Normal Bowel Sounds Back: Present: Normal Inspection Upper Extremity: Present: Normal Inspection. No: Cyanosis, Edema Lower Extremity: Present: Normal Inspection. No: Edema Neurological: Present: GCS=15, CN II-XII Intact, Speech Normal Skin: Present: Warm, Dry, Normal Color. No: Rashes Psychiatric: Present: Alert, Oriented x 3, Normal Insight, Normal Concentration Medical Decision Making ED Course and Treatment: 06/07/18 20:30 Impression: 57 year old female presents with abdominal pain. Plan: -- Reassess and disposition Prior Visits: Notes and results from previous visits were reviewed. Progress Notes: 06/07/18 20:32 EKG Reviewed, shows: Normal sinus rhythm @ 86bpm Normal axis and intervals 06/07/18 01:29 As per nursing patient cannot be admitted to remote telemetry for hypokalemia. Patient needs to be admitted to telemetry unit. - Lab Interpretations Lab Results: 06/06/18 20:28 06/06/18 20:28 Lab Results 06/06/18 22:30: Urine Color Light yellow, Urine Appearance Sl cloudy, Urine pH 7.0, Ur Specific [place] <= 1.005, Urine Protein Trace H, Urine Glucose (UA) Negative, Urine Ketones Negative, Urine Blood Moderate H, Urine Nitrate Negative , Urine Bilirubin Negative, Urine Urobilinogen 0.2, Ur Leukocyte Esterase Large H, Urine RBC 1 - 3, Urine WBC 2 - 5, Ur Epithelial Cells 1 - 3, Urine Bacteria Mod 06/06/18 20:28: Sodium 139, Chloride 106, Potassium 2.4 L* D, Carbon Dioxide 23 , Anion Gap 12, BUN 9, Creatinine 0.5 L, Est GFR ( Amer) > 60, Est GFR ( Non-Af Amer) > 60, Random Glucose 116 H, Calcium 10.0, Magnesium 1.7, Total Bilirubin 0.1 L, AST 25, ALT 17, Alkaline Phosphatase 89, Total Protein 6.4, Albumin 3.1, Globulin 3.3, Albumin/Globulin Ratio 0.9 L, Lipase 46 06/06/18 20:28: pO2 47, VBG pH 7.47 H, VBG pCO2 32.0 L, VBG HCO3 23.3, VBG Total CO2 24.3, VBG O2 Sat (Calc) 88.5 H, VBG Base Excess 0.3, VBG Potassium 2.4 L*, Sodium 136.0, Chloride 107.0, Glucose 115 H, Lactate 0.9, FiO2 21.0, Venous Blood Potassium 2.4 L* 06/06/18 20:28: WBC 17.3 H D, RBC 3.40 L, Hgb 8.8 L, Hct 27.2 L, MCV 80.0, MCH 25.9, MCHC 32.4, RDW 17.6 H, Plt Count 820 H* D, MPV 10.0, Gran % 78.1 H, Lymph % (Auto) 14.1 L, [place] % (Auto) 7.0 H, Eos % (Auto) 0.7 L, Baso % (Auto) 0.1, Gran # 13.48 H, Lymph # (Auto) 2.4, Saunders # (Auto) 1.2 H, Eos # (Auto) 0.1, Baso # (Auto) 0.02 - RAD Interpretation Radiology Orders: 06/06/18 20:24 ABD PELVIS PO & IV CONTRAST [CT] Stat CHEST PORTABLE [RAD] Stat - Medication Orders Current Medication Orders: Sodium Chloride (Sodium Chloride 0.9%) 1,000 mls @ 100 mls/hr IV .Q10H STA Stop: 06/07/18 06:23 Last Admin: 06/06/18 20:52 Dose: 100 mls/hr eMAR Start Stop Document 06/06/18 20:52 SS (Rec: 06/06/18 20:52 SS [id number]) Intravenous Solution Start Date 06/06/18 Start Time 20:52 Discontinued Medications Acetaminophen (Tylenol 325mg Tab) 975 mg PO STAT STA Stop: 06/06/18 20:25 Last Admin: 06/06/18 20:52 Dose: 975 mg MAR Pain/Vitals Document 06/06/18 20:52 SS (Rec: 06/06/18 20:52 SS [id number]) Vitals Temperature (97.6 F-99.6 F) 100.6 F Temperature Source Rectal Potassium Chloride (Potassium Chloride 10 Meq/100 Ml) 10 meq in 100 mls @ 50 mls/hr IVPB Q2H VU Stop: 06/07/18 01:14 Last Admin: 06/07/18 00:09 Dose: 50 mls/hr eMAR Start Stop Document 06/07/18 00:09 SS (Rec: 06/07/18 00:09 SS [id number]) Intravenous Solution Start Date 06/07/18 Start Time 00:09 Ceftriaxone Sodium (Rocephin 1 Gram Ivpb) 1 gm in 100 mls @ 100 mls/hr IVPB STAT STA PRN Reason: Protocol Stop: 06/07/18 00:53 Last Admin: 06/07/18 01:26 Dose: 100 mls/hr eMAR Start Stop Document 06/07/18 01:26 SS (Rec: 06/07/18 01:26 SS [id number]) Intravenous Solution Start Date 06/07/18 Start Time 01:26 End Date 06/07/18 End time 02:26 Total Infusion Time 60 Morphine Sulfate (Morphine) 2 mg IVP STAT STA Stop: 06/07/18 00:58 Last Admin: 06/07/18 01:23 Dose: 2 mg MAR Pain Assessment Document 06/07/18 01:23 SS (Rec: 06/07/18 01:25 SS [id number]) Pain Reassessment Is this a pain reassessment? No Sleep Is patient sleeping during reassessment? No Presence of Pain Presence of Pain Yes Location Pain Location Body Site Abdomen Description Description Constant Pain Behavior Restlessness IVP Administration Document 06/07/18 01:23 SS (Rec: 06/07/18 01:25 SS [id number]) Charges for Administration # of IVP Administrations 1 Potassium Chloride (K-Dur 20 Meq Er Tab) 40 meq PO STAT STA Stop: 06/06/18 21:09 Last Admin: 06/06/18 21:21 Dose: 40 meq - Scribe Statement The provider has reviewed the documentation as recorded by the Kelly Jorgensen Provider Scribe Attestation: All medical record entries made by the Kelly were at my direction and personally dictated by me. I have reviewed the chart and agree that the record accurately reflects my personal performance of the history, physical exam, medical decision making, and the department course for this patient. I have also personally directed, reviewed, and agree with the discharge instructions and disposition. Disposition/Present on Arrival - Present on Arrival Any Indicators Present on Arrival: No History of DVT/PE: No History of Uncontrolled Diabetes: No Urinary Catheter: No History of Decub. Ulcer: No History Surgical Site Infection Following: None - Disposition Have Diagnosis and Disposition been Completed?: Yes Diagnosis: Weakness generalized, UTI (urinary tract infection), Hypokalemia Disposition: HOSPITALIZED Disposition Time: 23:30 Condition: FAIR
[2018-06-07] MEDS ORDERED: Simethicone 80 mg Chewtab PO PRN (06:23)
[2018-06-07] MEDS: Meropenem IV 1 gm in NS 50 ML IVPB SCH ×3 (06:44→22:12)
[2018-06-07 08:40] LABS: HEMOGLOBIN 9.5 g/dL (12.0-16.0); MEAN CORPUSCULAR HEMOGLOBIN 25.7 pg (25.0-35.0); MEAN CORPUSCULAR HGB CONC 31.8 g/dl (31.0-37.0); MEAN PLATELET VOLUME 9.4 fl (7.0-11.0); RBC 3.69 10^6/uL (3.5-6.1); RED CELL DISTRIBUTION WIDTH 17.6 % (11.5-14.5); WHITE BLOOD COUNT 22.6 10^3/ul (4.5-11.0)
[2018-06-07] MEDS ORDERED: METHOTREXATE SODIUM PO SCH (08:45)
[2018-06-07] MEDS ORDERED: Sodium Chloride 0.45% 1,000 ML IV SCH (08:45)
[2018-06-07 08:51] LABS: ALB/GLOB RATIO 0.9 (1.1-1.8); ALBUMIN 2.8 g/dL (3.0-4.8); ALT/SGPT 18 U/L (7-56); AST/SGOT 10 U/L (14-36); BLOOD UREA NITROGEN 5 mg/dL (7-21); CALCIUM 10.1 mg/dL (8.4-10.5); GFR NON-AFRICAN AMERICAN > 60
[2018-06-07] MEDS: Metoprolol Succinate 25 mg XL Tab PO SCH (09:36)
[2018-06-07] MEDS ORDERED: Mineral Oil Enema 135 ml RC ONE (09:51)
--- NOTE | 2018-06-07 09:51 | CP.PCM.CON ---
<EfrenrajilazaraChad - Last Filed: 06/07/18 11:50> History of Present Illness - History of Present Illness History of Present Illness: Urszula Dietz is a 57yo F with history of COPD, lung mass concerning for malignancy, constipation, chronic anemia, RA presenting with fever and abdominal pain. Patient has had progressive abdominal distension. She complains of severe pain in the suprapubic area. work up shows +UA for likely UTI. CT abd/pelv shows very large amount of stool with signs impaction. She has not had follow up for lung mass. She states she does not want biopsy until she gets pain medication. She is very frail and has significant weight loss in the last year. She did not follow up with GI for EGD, CSPY. PMHx - see above PSHx - ORIF FMHx - Unknown SocHx - Heavy smoker, currently 0.5 ppd. Denies Etoh. Lives in apartment. 12pt ROS neg except for above. Past Patient History - Infectious Disease Hx of Infectious Diseases: None - Past Social History Smoking Status: Current Some Days Smoker - CARDIAC Hx Cardiac Disorders: Yes Hx Hypertension: Yes - PULMONARY Hx Respiratory Disorders: Yes (5 CIG A DAY.USED TO SMOKE 2 PPD.) Hx Chronic Obstructive Pulmonary Disease (COPD): Yes Hx Pneumonia: Yes - NEUROLOGICAL Hx Neurological Disorder: Yes Hx Dizziness: Yes - HEENT Hx HEENT Problems: No - RENAL Hx Chronic Kidney Disease: No - ENDOCRINE/METABOLIC Hx Endocrine Disorders: No - HEMATOLOGICAL/ONCOLOGICAL Hx Blood Disorders: No - INTEGUMENTARY Hx Dermatological Problems: No - MUSCULOSKELETAL/RHEUMATOLOGICAL Hx Musculoskeletal Disorders: Yes (Rheumatoid arthritis) - GASTROINTESTINAL Hx Gastrointestinal Disorders: No - GENITOURINARY/GYNECOLOGICAL Hx Genitourinary Disorders: No - PSYCHIATRIC Hx Psychophysiologic Disorder: Yes Hx Anxiety: Yes Hx Bipolar Disorder: Yes Hx Depression: Yes Hx Substance Use: No - SURGICAL HISTORY Hx Orthopedic Surgery: Yes Other/Comment: R HIP THR - ANESTHESIA Hx Anesthesia: Yes Hx Anesthesia Reactions: No Meds Allergies/Adverse Reactions: Allergies Allergy/AdvReac Type Severity Reaction Status Date / Time ibuprofen [From Motrin] Allergy ANAPHYLAXIS Verified 05/22/18 17:05 NSAIDS (Non-Steroidal Allergy SWELLING Verified 05/22/18 17:05 Anti-Inflamma risperidone [From Risperdal] AdvReac DIZZINESS Verified 05/22/18 17:05 - Medications Medications: Current Medications Albuterol/Ipratropium (Duoneb 3 Mg/0.5 Mg (3 Ml) Ud) 3 ml [facility]H Q6H [facility] Amlodipine Besylate (Norvasc) 2.5 mg PO DAILY [facility] Last Admin: 06/07/18 09:36 Dose: 2.5 mg Clonazepam (Klonopin) 1 mg PO TID [facility] PRN Reason: Protocol Last Admin: 06/07/18 09:35 Dose: 1 mg Meropenem (Merrem Iv 1 Gm Premix) 50 mls @ 100 mls/hr IVPB Q8 [facility] PRN Reason: Protocol Last Admin: 06/07/18 06:44 Dose: 100 mls/hr Sodium Chloride (Sodium Chloride 0.45%) 1,000 mls @ 30 mls/hr IV .Q24H [facility] Last Admin: 06/07/18 09:25 Dose: 30 mls/hr [place] Carbonate ([place] Carbonate 300mg) 300 mg PO BID [facility] Last Admin: 06/07/18 09:36 Dose: 300 mg Metoprolol Succinate (Toprol Xl) 25 mg PO DAILY [facility] Last Admin: 06/07/18 09:36 Dose: 25 mg Non-Formulary Medication (Methotrexate Sodium [Trexall]) 1 tab PO Q7D [facility] Polyethylene Glycol (Miralax) 17 gm PO DAILY [facility] Last Admin: 06/07/18 09:35 Dose: 17 gm Quetiapine Fumarate (Seroquel) 200 mg PO HS [facility] Simethicone (Mylicon Chew Tab) [address] [facility] PRN PRN Reason: GI distress Last Admin: 06/07/18 06:32 Dose: 80 mg Physical Exam - Constitutional Appears: Non-toxic, No Acute Distress, Cachectic, Chronically Ill - Head Exam Head Exam: NORMAL INSPECTION - Eye Exam Eye Exam: Normal appearance - ENT Exam ENT Exam: Mucous Membranes Moist - Respiratory Exam Respiratory Exam: Clear to Auscultation Bilateral, Prolonged Expiratory Phase, NORMAL BREATHING PATTERN - Cardiovascular Exam Cardiovascular Exam: REGULAR RHYTHM, +S1, +S2 - GI/Abdominal Exam GI & Abdominal Exam: Distended, Normal Bowel Sounds, Soft, Tenderness. absent: Guarding, Organomegaly - Rectal Exam Additional comments: Anterior hard mass, obstruction, ulcerated, bleeding, blood clots. - Extremities Exam Extremities exam: Positive for: pedal edema - Neurological Exam Neurological exam: Alert, CN II-XII Intact, Oriented x3 - Psychiatric Exam Psychiatric exam: Normal Affect, Normal Mood - Skin Skin Exam: Dry, Normal Color Results - Vital Signs Recent Vital Signs: Last Vital Signs Temp 99.1 F 06/07/18 05:55 Pulse 88 06/07/18 09:36 Resp 16 06/07/18 05:55 BP 144/95 H 06/07/18 09:36 Pulse Ox 94 L 06/07/18 05:55 - Labs Result Diagrams: 06/07/18 08:30 06/07/18 08:30 Labs: Laboratory Results - last 24 hr 06/07/18 06/07/18 08:30 08:30 WBC 22.6 H D RBC 3.69 Hgb 9.5 L Hct 29.9 L MCV 81.0 MCH 25.7 MCHC 31.8 RDW 17.6 H Plt Count 781 H* MPV 9.4 Sodium 139 Potassium 3.1 L Chloride 110 H Carbon Dioxide 20 L Anion Gap 12 BUN 5 L Creatinine 0.4 L Est GFR ( Amer) > 60 Est GFR (Non-Af Amer) > 60 Random Glucose 101 Calcium 10.1 Phosphorus 2.8 Magnesium 1.8 Total Bilirubin 0.2 AST 10 L D ALT 18 Alkaline Phosphatase 90 Total Protein 5.9 Albumin 2.8 L Globulin 3.1 Albumin/Globulin Ratio 0.9 L Assessment & Plan - Assessment and Plan (Free Text) Assessment: 57F with chronic constipation presenting with abdominal pain, distension, fever and evidence of fecal impaction and UTI. #Fecal impaction #Rectal mass #Liver mass #Chronic constipation #UTI #COPD #Lung mass concerning for malignancy #Thrombocytosis #Hypokalemia #Chronic iron def anemia #Depression #HTN #RA PLAN: -CT reviewed, liver mass, colonic stool impaction. I discussed my findings with radiologist, he does see thickening of the rectal wall, anteriorly. -Rectal exam with mass, bleeding, blood clots. -Order CEA, AFP -Dedicated liver CT -Rectal mass, obstruction -Recommend surgical evaluation -NPO -I discussed findings with Dr. Alba, and requesting surgical evaluation, Dr. Valadez. -Plan for Flex/Sig for further evaluation and biopsy - Date & Time Date: 06/07/18 Time: 10:52 <Haresh Norman Y - Last Filed: 06/07/18 13:13> Meds - Medications Medications: Current Medications Albuterol/Ipratropium (Duoneb 3 Mg/0.5 Mg (3 Ml) Ud) 3 ml IH Q6H [facility] Last Admin: 06/07/18 09:56 Dose: Not Given Amlodipine Besylate (Norvasc) 2.5 mg PO DAILY [facility] Last Admin: 06/07/18 09:36 Dose: 2.5 mg Clonazepam (Klonopin) 1 mg PO TID VU PRN Reason: Protocol Last Admin: 06/07/18 09:35 Dose: 1 mg Docusate Sodium (Colace) 100 mg PO BID [facility] Last Admin: 06/07/18 10:33 Dose: 100 mg Meropenem (Merrem Iv 1 Gm Premix) 50 mls @ 100 mls/hr IVPB Q8 VU PRN Reason: Protocol Last Admin: 06/07/18 06:44 Dose: 100 mls/hr Sodium Chloride (Sodium Chloride 0.45%) 1,000 mls @ 30 mls/hr IV .Q24H [facility] Last Admin: 06/07/18 09:25 Dose: 30 mls/hr Potassium Chloride (Potassium Chloride 10 Meq/100 Ml) 10 meq in 100 mls @ 50 mls/hr IVPB Q2H VU Stop: 06/07/18 15:[address] [place] Carbonate ([place] Carbonate 300mg) 300 mg PO BID [facility] Last Admin: 06/07/18 09:36 Dose: 300 mg Metoprolol Succinate (Toprol Xl) 25 mg PO DAILY [facility] Last Admin: 06/07/18 09:36 Dose: 25 mg Non-Formulary Medication (Methotrexate Sodium [Trexall]) 1 tab PO Q7D [facility] Quetiapine Fumarate (Seroquel) 200 mg PO HS [facility] Simethicone (Mylicon Chew Tab) 80 mg PO [facility] PRN PRN Reason: GI distress Last Admin: 06/07/18 06:32 Dose: 80 mg Results - Vital Signs Recent Vital Signs: Last Vital Signs Temp 97.9 F 06/07/18 12:00 Pulse 75 06/07/18 12:00 Resp 18 06/07/18 12:00 BP 134/74 06/07/18 12:00 Pulse Ox 94 L 06/07/18 05:55 - Labs Result Diagrams: 06/07/18 08:30 06/07/18 08:30 Labs: Laboratory Results - last 24 hr 06/07/18 06/07/18 06/07/18 08:30 08:30 08:30 WBC 22.6 H D RBC 3.69 Hgb 9.5 L Hct 29.9 L MCV 81.0 MCH 25.7 MCHC 31.8 RDW 17.6 H Plt Count 781 H* MPV 9.4 Sodium 139 Potassium 3.1 L Chloride 110 H Carbon Dioxide 20 L Anion Gap 12 BUN 5 L Creatinine 0.4 L Est GFR ( Amer) > 60 Est GFR (Non-Af Amer) > 60 Random Glucose 101 Calcium 10.1 Phosphorus 2.8 Magnesium 1.8 Total Bilirubin 0.2 AST 10 L D ALT 18 Alkaline Phosphatase 90 Total Protein 5.9 Albumin 2.8 L Globulin 3.1 Albumin/Globulin Ratio 0.9 L Carcinoembryonic Ag 12.2 H Attending/Attestation - Attestation I have personally seen and examined this patient.: Yes I have fully participated in the care of the patient.: Yes I have reviewed all pertinent clinical information: Yes Notes (Text): 06/07/18 13:08 I have seen and examined patient with GI fellow. Agree with above documentation with the following additions. In brief, this is a 57 year old female with history of pulmonary lesion (patient refused workup previously), COPD, chronic constipation, anemia who presents to hospital with complaint of progressive abdominal pain for the past one week. She typically has a bowel movement every 2-3 days, however claims that recently has not had any bowel movement for the past 10 days. She describes sharp diffuse abdominal pain, 10/ 10 intensity, worse in bilateral lower quadrants. She also reports a significant weight loss over the past one year but is not able to quantify amount. Recently she also reports onset of rectal bleeding. No prior endoscopic evaluation. Family history: reviewed, patient denies history of GI malignancy Pulmonary lesion COPD Chronic constipation Weight loss Rectal bleeding Anemia Abdominal pain CT imaging reviewed by me showing hemorrhagic cystic lesion in liver, significant fecal retention in colon - Liquid diet as tolerated - H/H stable, continue to monitor - Given abnormality on digital rectal exam today, suggest sigmoidoscopy for further evaluation to rule out underlying neoplasm - Further management pending results of endoscopic examination
[2018-06-07] MEDS: Albuterol-Ipratrop 3 mg / 0.5 (3 ml) UD IH SCH ×3 (09:56→20:40)
[2018-06-07] MEDS ORDERED: POLYETHYLENE GLYCOL 3350 17 GM/Dose PACKET PO SCH ×2 (10:00→18:00)
--- NOTE | 2018-06-07 10:06 | CT ---
Date of service: 06/06/2018 PROCEDURE: CT Abdomen and Pelvis with contrast HISTORY: diffuse abdominal pain COMPARISON: None. TECHNIQUE: Contrast dose: 100 cc of Omni 350 Radiation dose: Total exam DLP = 212 mGy-cm. This CT exam was performed using one or more of the following dose reduction techniques: Automated exposure control, adjustment of the mA and/or kV according to patient size, and/or use of iterative reconstruction technique. FINDINGS: LOWER THORAX: Unremarkable. LIVER: Unremarkable. No gross lesion or ductal dilatation. There is a 26 mm hypodense lesion in the anterior segment of the right lobe of the liver which measures 60 Hounsfield units in density. There is no enhancement. There are no prior studies for comparison. Follow-up may be indicated GALLBLADDER AND BILE DUCTS: Unremarkable. PANCREAS: Unremarkable. No gross lesion or ductal dilatation. SPLEEN: Unremarkable. ADRENALS: Unremarkable. No mass. KIDNEYS AND URETERS: Unremarkable. No hydronephrosis. No solid mass. VASCULATURE: Unremarkable. No aortic aneurysm. BOWEL: Unremarkable. No obstruction. No gross mural thickening. There is severe constipation. There is large amount of fecal retention and distention of the colon. APPENDIX: Normal appendix. PERITONEUM: Unremarkable. No free fluid. No free air. LYMPH NODES: Unremarkable. No enlarged lymph nodes. BLADDER: Unremarkable. REPRODUCTIVE: There is a 38 x 23 mm right-sided adnexal cyst an a 56 x 41 mm septated left adnexal cyst. BONES: No acute fracture. OTHER FINDINGS: The report concurs with the preliminary [facility] report IMPRESSION: Bilateral adnexal cysts. Severe constipation Hypodense lesion in the liver
[2018-06-07] MEDS ORDERED: Iohexol 350 MG/100 ML VIAL ONE (10:26)
--- NOTE | 2018-06-07 11:48 | RAD ---
Date of service: 06/06/2018 HISTORY: r/o infiltrate COMPARISON: No prior. FINDINGS: LUNGS: No active pulmonary disease. PLEURA: No significant pleural effusion identified, no pneumothorax apparent. CARDIOVASCULAR: No radiographic findings to suggest acute or significant cardiovascular disease. OSSEOUS STRUCTURES: No significant abnormalities. VISUALIZED UPPER ABDOMEN: Normal. OTHER FINDINGS: None. IMPRESSION: No active disease.
[2018-06-07] MEDS ORDERED: Lidocaine 2% Jelly (30 ml) ONE (12:12)
--- NOTE | 2018-06-07 12:52 | CT ---
Date of service: 06/07/2018 PROCEDURE: CT Abdomen with and without intravenous contrast HISTORY: liver lesion COMPARISON: CT 06/06/2018 TECHNIQUE: Axial images of the abdomen from lung bases to iliac crest with and without intravenous contrast enhancement. Coronal and sagittal reformats generated. Oral contrast also administered. Intravenous contrast Dose: 100 cc of Omni 350 Radiation dose: Total exam DLP = 543 mGy-cm. This CT exam was performed using one or more of the following dose reduction techniques: Automated exposure control, adjustment of the mA and/or kV according to patient size, and/or use of iterative reconstruction technique. FINDINGS: LOWER THORAX: There is atelectasis at the left lung base LIVER: There is an 11 x 21 mm hypodense lesion in the anterior segment of the right lobe. This lesion measures between 65 and 70 Hounsfield units on the postcontrast images and 60 Hounsfield units precontrast. The lesion is isodense with the liver parenchyma precontrast. This most likely represents some type of hemorrhagic or proteinaceous cyst. There is no significant enhancement. There are no other lesions identified GALLBLADDER AND BILE DUCTS: Unremarkable. PANCREAS: Unremarkable. No gross lesion or ductal dilatation. SPLEEN: Unremarkable. ADRENALS: Unremarkable. No mass. KIDNEYS AND URETERS: Unremarkable. No hydronephrosis. No solid mass. VASCULATURE: Unremarkable. No aortic aneurysm. BOWEL: Dilated colon. PERITONEUM: Unremarkable. No free fluid. No free air. LYMPH NODES: Unremarkable. No enlarged lymph nodes. BONES: No acute fracture. OTHER FINDINGS: None. IMPRESSION: Probable hemorrhagic cyst in the anterior segment right lobe of the liver. No enhancement
--- NOTE | 2018-06-07 13:00 | CP.PCM.CON ---
History of Present Illness - History of Present Illness History of Present Illness: 57 year old female with PMH of COPD, rheumatoid arthritis, anxiety, HTN, S/P right breast cyst surgery, S/P right hip surgery, history of lung mass was recently admitted in [facility] for weakness and acute bronchitis. She has been complaining of chronic abdominal pain which has worsened in the past few days as well as some suprapubic pain. She has some nausea but no vomiting, has decreased appetite, no headache or dizziness, no chest pain, no SOB, no cough currently, no diarrhea. Infectious diseases consult is requested to further evaluate and manage. Review of Systems - Review of Systems All systems: reviewed and no additional remarkable complaints except (as per HPI ) Past Patient History - Infectious Disease Hx of Infectious Diseases: None - Past Social History Smoking Status: Current Some Days Smoker - CARDIAC Hx Cardiac Disorders: Yes Hx Hypertension: Yes - PULMONARY Hx Respiratory Disorders: Yes (5 CIG A DAY.USED TO SMOKE 2 PPD.) Hx Chronic Obstructive Pulmonary Disease (COPD): Yes Hx Pneumonia: Yes - NEUROLOGICAL Hx Neurological Disorder: Yes Hx Dizziness: Yes - HEENT Hx HEENT Problems: No - RENAL Hx Chronic Kidney Disease: No - ENDOCRINE/METABOLIC Hx Endocrine Disorders: No - HEMATOLOGICAL/ONCOLOGICAL Hx Blood Disorders: No - INTEGUMENTARY Hx Dermatological Problems: No - MUSCULOSKELETAL/RHEUMATOLOGICAL Hx Musculoskeletal Disorders: Yes (Rheumatoid arthritis) - GASTROINTESTINAL Hx Gastrointestinal Disorders: No - GENITOURINARY/GYNECOLOGICAL Hx Genitourinary Disorders: No - PSYCHIATRIC Hx Psychophysiologic Disorder: Yes Hx Anxiety: Yes Hx Bipolar Disorder: Yes Hx Depression: Yes Hx Substance Use: No - SURGICAL HISTORY Hx Orthopedic Surgery: Yes Other/Comment: R HIP THR - ANESTHESIA Hx Anesthesia: Yes Hx Anesthesia Reactions: No Meds Allergies/Adverse Reactions: Allergies Allergy/AdvReac Type Severity Reaction Status Date / Time ibuprofen [From Motrin] Allergy ANAPHYLAXIS Verified 05/22/18 17:05 NSAIDS (Non-Steroidal Allergy SWELLING Verified 05/22/18 17:05 Anti-Inflamma risperidone [From Risperdal] AdvReac DIZZINESS Verified 05/22/18 17:05 - Medications Medications: Current Medications Albuterol/Ipratropium (Duoneb 3 Mg/0.5 Mg (3 Ml) Ud) 3 ml IH Q6H [facility]U Last Admin: 06/07/18 09:56 Dose: Not Given Amlodipine Besylate (Norvasc) 2.5 mg PO DAILY [facility] Last Admin: 06/07/18 09:36 Dose: 2.5 mg Clonazepam (Klonopin) 1 mg PO TID [facility] PRN Reason: Protocol Last Admin: 06/07/18 09:35 Dose: 1 mg Docusate Sodium (Colace) 100 mg PO BID [facility] Meropenem (Merrem Iv 1 Gm Premix) 50 mls @ 100 mls/hr IVPB Q8 VU PRN Reason: Protocol Last Admin: 06/07/18 06:44 Dose: 100 mls/hr Sodium Chloride (Sodium Chloride 0.45%) 1,000 mls @ 30 mls/hr IV .Q24H [facility] Last Admin: 06/07/18 09:25 Dose: 30 mls/hr [place] Carbonate ([place]ara Carbonate 300mg) 300 mg PO BID [facility] Last Admin: 06/07/18 09:36 Dose: 300 mg Metoprolol Succinate (Toprol Xl) 25 mg PO DAILY [facility] Last Admin: 06/07/18 09:36 Dose: 25 mg Non-Formulary Medication (Methotrexate Sodium [Trexall]) 1 tab PO Q7D [facility] Polyethylene Glycol (Miralax) 17 gm PO BID [facility] Quetiapine Fumarate (Seroquel) 200 mg PO HS [facility] Simethicone (Mylicon Chew Tab) 80 mg PO [facility] PRN PRN Reason: GI distress Last Admin: 06/07/18 06:32 Dose: 80 mg Physical Exam - Constitutional Appears: Cachectic, Chronically Ill - Head Exam Head Exam: NORMAL INSPECTION - Neck Exam Neck exam: Negative for: Meningismus - Respiratory Exam Respiratory Exam: Decreased Breath Sounds - Cardiovascular Exam Cardiovascular Exam: +S1, +S2 - GI/Abdominal Exam GI & Abdominal Exam: Soft. absent: Tenderness Results - Vital Signs Recent Vital Signs: Last Vital Signs Temp 99.1 F 06/07/18 05:55 Pulse 88 06/07/18 09:36 Resp 16 06/07/18 05:55 BP 144/95 H 06/07/18 09:36 Pulse Ox 94 L 06/07/18 05:55 - Labs Result Diagrams: 06/07/18 08:30 06/07/18 08:30 Labs: Laboratory Results - last 24 hr 06/07/18 06/07/18 08:30 08:30 WBC 22.6 H D RBC 3.69 Hgb 9.5 L Hct 29.9 L MCV 81.0 MCH 25.7 MCHC 31.8 RDW 17.6 H Plt Count 781 H* MPV 9.4 Sodium 139 Potassium 3.1 L Chloride 110 H Carbon Dioxide 20 L Anion Gap 12 BUN 5 L Creatinine 0.4 L Est GFR ( Amer) > 60 Est GFR (Non-Af Amer) > 60 Random Glucose 101 Calcium 10.1 Phosphorus 2.8 Magnesium 1.8 Total Bilirubin 0.2 AST 10 L D ALT 18 Alkaline Phosphatase 90 Total Protein 5.9 Albumin 2.8 L Globulin 3.1 Albumin/Globulin Ratio 0.9 L Assessment & Plan - Assessment and Plan (Free Text) Plan: Assessment systemic inflammatory response syndrome, consider sepsis due to UTI on top of fecal impaction consider possible malignancy in this patient with left sided pleural based mass as seen on CT in March 2018 COPD with significant smoking history rheumatoid arthritis anxiety HTN S/P right breast cyst surgery S/P right hip surgery Plan started Merrem pending blood and urine cx overall prognosis is poor will monitor clinically reviewed CT A/P follow up plans for the pleural based mass
[2018-06-07] MEDS: Morphine 2 mg/ml ISec IVP PRN ×3 (13:35→23:45)
--- NOTE | 2018-06-07 13:36 | CP.PCM.CON ---
History of Present Illness - History of Present Illness History of Present Illness: Iván Gold DO, PGY-1 General Surgery Consult Note for Dr. Valadez Patient is a 57 year old female with PMH of newly diagnosed rectal mass, chronic constipation, COPD, lung mass (has previously refused biopsy), HTN, RA, and chronic anemia who presented to ED yesterday with worsening abdominal pain and distention. She states that the pain has been going on intermittently for the past 3 days and is worsening. She describes the pain as a sharp, stabbing type pain that is 10/10 in severity. She also states she has had worsening fevers over the past 3 days. She also admits to unintentional weight loss for the past two months. She states that the pain makes her feel short of breath but denies chills, night sweats, CP, cough, wheezing, nausea/vomiting/diarrhea, or peripheral swelling. PMD: Dr. Alba PMH: COPD, lung mass, HTN, chronic anemia, chronic constipation, recently diagnosed rectal mass PSH: ORIF R hip Fam Hx: denies any relevant family history Soc Hx: current everyday smoker > 50 pack year history. Denies alcohol or drug use. Allergies: ibuprofen and other NSAIDs, risperidone Review of Systems - Constitutional Constitutional: As Per HPI - EENT Eyes: absent: Blurred Vision, Change in Vision Ears: absent: Dizziness Nose/Mouth/Throat: absent: Nasal Congestion, Sore Throat - Cardiovascular Cardiovascular: absent: Chest Pain, Rapid Heart Rate - Respiratory Respiratory: absent: Cough, Hemoptysis, Wheezing - Gastrointestinal Gastrointestinal: Abdominal Pain, Constipation. absent: Diarrhea, Nausea - Genitourinary Genitourinary: absent: Difficulty Urinating, Dysuria, Urinary Frequency - Musculoskeletal Musculoskeletal: absent: Joint Swelling, Muscle Cramps - Neurological Neurological: absent: Headaches, Weakness - Psychiatric Psychiatric: Anxiety Past Patient History - Infectious Disease Hx of Infectious Diseases: None - Past Social History Smoking Status: Current Some Days Smoker - CARDIAC Hx Cardiac Disorders: Yes Hx Hypertension: Yes - PULMONARY Hx Respiratory Disorders: Yes (5 CIG A DAY.USED TO SMOKE 2 PPD.) Hx Chronic Obstructive Pulmonary Disease (COPD): Yes Hx Pneumonia: Yes - NEUROLOGICAL Hx Neurological Disorder: Yes Hx Dizziness: Yes - HEENT Hx HEENT Problems: No - RENAL Hx Chronic Kidney Disease: No - ENDOCRINE/METABOLIC Hx Endocrine Disorders: No - HEMATOLOGICAL/ONCOLOGICAL Hx Blood Disorders: No - INTEGUMENTARY Hx Dermatological Problems: No - MUSCULOSKELETAL/RHEUMATOLOGICAL Hx Musculoskeletal Disorders: Yes (Rheumatoid arthritis) - GASTROINTESTINAL Hx Gastrointestinal Disorders: No - GENITOURINARY/GYNECOLOGICAL Hx Genitourinary Disorders: No - PSYCHIATRIC Hx Psychophysiologic Disorder: Yes Hx Anxiety: Yes Hx Bipolar Disorder: Yes Hx Depression: Yes Hx Substance Use: No - SURGICAL HISTORY Hx Orthopedic Surgery: Yes Other/Comment: R HIP THR - ANESTHESIA Hx Anesthesia: Yes Hx Anesthesia Reactions: No Meds Allergies/Adverse Reactions: Allergies Allergy/AdvReac Type Severity Reaction Status Date / Time ibuprofen [From Motrin] Allergy ANAPHYLAXIS Verified 05/22/18 17:05 NSAIDS (Non-Steroidal Allergy SWELLING Verified 05/22/18 17:05 Anti-Inflamma risperidone [From Risperdal] AdvReac DIZZINESS Verified 05/22/18 17:05 - Medications Medications: Current Medications Albuterol/Ipratropium (Duoneb 3 Mg/0.5 Mg (3 Ml) Ud) 3 ml IH Q6H [facility] Last Admin: 06/07/18 09:56 Dose: Not Given Amlodipine Besylate (Norvasc) 2.5 mg PO DAILY [facility] Last Admin: 06/07/18 09:36 Dose: 2.5 mg Clonazepam (Klonopin) 1 mg PO TID [facility]U PRN Reason: Protocol Last Admin: 06/07/18 09:35 Dose: 1 mg Docusate Sodium (Colace) 100 mg PO BID [facility] Last Admin: 06/07/18 10:33 Dose: 100 mg Meropenem (Merrem Iv 1 Gm Premix) 50 mls @ 100 mls/hr IVPB Q8 VU PRN Reason: Protocol Last Admin: 06/07/18 06:44 Dose: 100 mls/hr Sodium Chloride (Sodium Chloride 0.45%) 1,000 mls @ 30 mls/hr IV .Q24H [facility] Last Admin: 06/07/18 09:25 Dose: 30 mls/hr Potassium Chloride (Potassium Chloride 10 Meq/100 Ml) 10 meq in 100 mls @ 50 mls/hr IVPB Q2H [facility]U Stop: 06/07/18 15:44 [place] Carbonate ([place]oco Carbonate 300mg) 300 mg PO BID [facility] Last Admin: 06/07/18 09:36 Dose: 300 mg Metoprolol Succinate (Toprol Xl) 25 mg PO DAILY [facility] Last Admin: 06/07/18 09:36 Dose: 25 mg Morphine Sulfate (Morphine) 2 mg IVP Q3H PRN PRN Reason: Pain, moderate (4-7) Non-Formulary Medication (Methotrexate Sodium [Trexall]) 1 tab PO Q7D [facility] Quetiapine Fumarate (Seroquel) 200 mg PO HS [facility] Simethicone (Mylicon Chew Tab) 80 mg PO PCHS PRN PRN Reason: GI distress Last Admin: 06/07/18 06:32 Dose: 80 mg Physical Exam - Constitutional Appears: Unkempt, Agitated - Head Exam Head Exam: ATRAUMATIC - Eye Exam Eye Exam: EOMI, Normal appearance, PERRL - ENT Exam ENT Exam: Mucous Membranes Dry Additional comments: many teeth missing - Neck Exam Neck exam: Positive for: Full Rom - Respiratory Exam Respiratory Exam: Wheezes (faint expiratory wheezes auscultated bilaterally), NORMAL BREATHING PATTERN. absent: Accessory Muscle Use, Chest Wall Tenderness, Rales, Rhonchi, Respiratory Distress, Stridor - Cardiovascular Exam Cardiovascular Exam: REGULAR RHYTHM, RRR, +S1, +S2. absent: Gallop, Rubs, Systolic Murmur - GI/Abdominal Exam GI & Abdominal Exam: Distended, Firm, Tenderness (tenderness to palpation diffusely but worst in mid-epigastric region). absent: Guarding, Rebound - Rectal Exam Additional comments: firm rectal mass palpated close to anal verge - Extremities Exam Extremities exam: Positive for: full ROM, pedal pulses present - Neurological Exam Neurological exam: Alert, Normal Gait, Oriented x3 - Psychiatric Exam Psychiatric exam: Anxious - Skin Skin Exam: Dry, Intact, Warm Results - Vital Signs Recent Vital Signs: Last Vital Signs Temp 98.4 F 06/07/18 12:20 Pulse 76 06/07/18 12:20 Resp 18 06/07/18 12:20 BP 123/70 06/07/18 12:20 Pulse Ox 100 06/07/18 12:20 - Labs Result Diagrams: 06/07/18 08:30 06/07/18 08:30 Labs: Laboratory Results - last 24 hr 06/07/18 06/07/18 06/07/18 08:30 08:30 08:30 WBC 22.6 H D RBC 3.69 Hgb 9.5 L Hct 29.9 L MCV 81.0 MCH 25.7 MCHC 31.8 RDW 17.6 H Plt Count 781 H* MPV 9.4 Sodium 139 Potassium 3.1 L Chloride 110 H Carbon Dioxide 20 L Anion Gap 12 BUN 5 L Creatinine 0.4 L Est GFR ( Amer) > 60 Est GFR (Non-Af Amer) > 60 Random Glucose 101 Calcium 10.1 Phosphorus 2.8 Magnesium 1.8 Total Bilirubin 0.2 AST 10 L D ALT 18 Alkaline Phosphatase 90 Total Protein 5.9 Albumin 2.8 L Globulin 3.1 Albumin/Globulin Ratio 0.9 L Carcinoembryonic Ag 12.2 H Assessment & Plan - Assessment and Plan (Free Text) Assessment: 57 year old female with abdominal pain, distention, and newly diagnosed rectal mass. Plan: -CT abdomen/pelvis with significant lower bowel obstruction -New rectal mass palpated on exam and subsequently biopsied on flexible sigmoidoscopy per GI -Surgical plan is for diverting loop colostomy -At this time, patient states that she would prefer not to have this surgery because "they always leave me in pain here" -Morphine 2 mg Q3h for pain control -Liquid diet only as patient is obstructed -Will follow up with patient regarding her preferences Case and plan discussed with Dr. Rory Gold, DO IM Resident PGY-1
--- NOTE | 2018-06-07 14:01 | CARD ---
APPROVED REPORT Date of service: 06/07/2018 EKG Measurement Heart [id number] <Conclusion> Normal sinus rhythm Normal ECG
[2018-06-07] MEDS: Dextrose 5%/0.45% NS 1,000 ML IV SCH (17:54)
--- NOTE | 2018-06-07 18:10 | HP ---
HISTORY OF PRESENT ILLNESS: Urszula came to the hospital with abdominal pain. She recently was in [facility] and she AMA'd. She is a 57-year-old female with very intensive medical history of anxiety, depression, a lung mass that she refuses to have a biopsy or treatment for and we think it is a cancer, COPD, rheumatoid arthritis, hypertension, anemia. Now, she presents with a diffuse abdominal pain, associated nauseousness, has not gone to the bathroom in a few days, very uncomfortable. She tells me she is taking the MiraLax, but is not working. She has hypertension. She still smokes cigarettes despite being told to quit over and over again. She has bad COPD, pneumonia, a lung mass which she refuses to get biopsy and we think it is a cancer. She has dizziness, rheumatoid arthritis, anxiety, and depression. She had a right hip total hip replacement in the past. FAMILY HISTORY: No known family history. SOCIAL HISTORY: She still smokes. She still drinks. No drugs. ALLERGIES: SHE IS ALLERGIC TO IBUPROFEN, NSAIDS, AND RISPERIDONE. MEDICATIONS: She takes Tylenol, DuoNeb, Feosol, folic acid, lithium, Robaxin, Flexeril, Toprol, MiraLax, potassium, Seroquel, Norvasc, and Klonopin. She was on Doryx for a period of time. REVIEW OF SYSTEMS: No acute vision or hearing changes. No sore throat. No shortness of breath. There is a little bit of a cough. No chest pain or palpitations. There is abdominal pain. There is nauseousness. No diarrhea. She feels very constipated, very bloated. No problems urinating. No neck pain, back pain. She does get dizzy from time to time. No headache. No skin issues, but she is very thin and frail with poor turgor. PHYSICAL EXAMINATION VITAL SIGNS: She has a temperature of 100.6, pulse 106, respiratory rate 18, blood pressure 125/88, 97% O2 sat. She will get some oxygen. GENERAL: She is uncomfortable in bed, well appearing, talking to me, understands the situation. Alert and oriented x3. HEENT: Head is atraumatic, normocephalic. Extraocular muscles are intact. Pupils are equal and reactive to light. Throat is dry. She has poor dentition in her teeth. NECK: Supple. Neck is okay range of motion. LUNGS: Decreased breath sounds bilaterally, poor inspiration. HEART: Regular rate. Normal S1 and S2. ABDOMEN: Diffusely tender, soft, mildly distended, decreased bowel sounds, no guarding, no rebound, but tender everywhere. EXTREMITIES: Have no edema. She is very thin and frail. NEUROLOGIC: GCS is 15. Cranial nerves II through XII grossly intact. Alert and oriented x3. Normal insight. SKIN: Warm and dry. Very poor turgor. LYMPHATICS: No palpable lymphadenopathy. Thyroid is midline. LABORATORY DATA: She had multiple tests done. She has a urine which has moderate blood, large leukocytes, and moderate bacteria. She has sodium 139, potassium is quite low at 2.4, it was replaced, will be rechecking the potassium, she might need more. BUN is 9, creatinine 0.5. GFR is greater than 60. Sugar is 116. Calcium is 10, magnesium 1.7. Total bilirubin is 0.1, AST is 25, ALT is 17, alkaline phosphatase is 89. Total protein 6.4, albumin is 3.1. Blood gas showed a 2.4 potassium, 7.47 pH. White count is high at 17.3, hemoglobin 8.8, hematocrit 27.2, and platelets very high at 820. There were some other tests done and we are awaiting for reports. She has a chest x-ray and abdominopelvic CAT scan which is pending. She will have a consult with Infectious Disease. We put her on Merrem IV for the infection and has also GI consult, they put her back on her MiraLax on regular meds. We will check her labs tomorrow. We will order physical therapy and out of bed to chair. Hopefully, she will improve. She had severe abdominal pain, constipation, elevated white count, possible sepsis, thrombocytosis, a very bad urine and minimal UTI versus urosepsis as per Infectious Disease. Patrice Alba DO
[2018-06-08] MEDS: Albuterol-Ipratrop 3 mg / 0.5 (3 ml) UD IH SCH ×4 (02:36→19:51)
[2018-06-08] MEDS: Dextrose 5%/0.45% NS 1,000 ML IV SCH ×2 (03:09→17:31)
[2018-06-08] MEDS: Morphine 2 mg/ml ISec IVP PRN ×5 (03:23→22:17)
[2018-06-08] MEDS: Meropenem IV 1 gm in NS 50 ML IVPB SCH ×3 (05:12→22:16)
[2018-06-08 07:57] LABS: HEMOGLOBIN 8.2 g/dL (12.0-16.0); MEAN CELL VOLUME 81.7 fl (80.0-105.0); MEAN CORPUSCULAR HEMOGLOBIN 25.5 pg (25.0-35.0); MEAN CORPUSCULAR HGB CONC 31.2 g/dl (31.0-37.0); RBC 3.22 10^6/uL (3.5-6.1); RED CELL DISTRIBUTION WIDTH 17.5 % (11.5-14.5); WHITE BLOOD COUNT 15.2 10^3/ul (4.5-11.0)
[2018-06-08 08:32] LABS: ALB/GLOB RATIO 0.9 (1.1-1.8); ALBUMIN 2.5 g/dL (3.0-4.8); ALT/SGPT 13 U/L (7-56); AST/SGOT 15 U/L (14-36); BLOOD UREA NITROGEN 4 mg/dL (7-21); CALCIUM 9.8 mg/dL (8.4-10.5); GFR NON-AFRICAN AMERICAN > 60
--- NOTE | 2018-06-08 09:03 | CP.PCM.PN ---
Subjective - Date & Time of Evaluation Date of Evaluation: 06/08/18 Time of Evaluation: 09:00 - Subjective Subjective: General Surgery - Dr. Valadez Pt Sebastian*Zainab EDWARDS. Pt is tolerating full liquid diet. She has persistent abdominal pain/distension unchanged. She denies any nausea/vomiting. She is passing flatus and small mucoid BMs. No Fevers/Chills, SOb/Chest pain. Objective - Vital Signs/Intake and Output Vital Signs (last 24 hours): Temp Pulse Resp BP Pulse Ox 98.5 F 83 18 130/80 98 06/08/18 06:00 06/08/18 06:00 06/08/18 06:00 06/08/18 06:00 06/08/18 06:00 Intake and Output: 06/08/18 06/08/18 06:59 18:59 Intake Total 1440 Output Total 900 Balance 540 - Medications Medications: Current Medications Albuterol/Ipratropium (Duoneb 3 Mg/0.5 Mg (3 Ml) Ud) 3 ml IH Q6H [facility] Last Admin: 06/08/18 02:36 Dose: Not Given Amlodipine Besylate (Norvasc) 2.5 mg PO DAILY [facility] Last Admin: 06/07/18 09:36 Dose: 2.5 mg Clonazepam (Klonopin) 1 mg PO TID [facility] PRN Reason: Protocol Last Admin: 06/07/18 17:08 Dose: 1 mg Docusate Sodium (Colace) 100 mg PO BID [facility] Last Admin: 06/07/18 17:07 Dose: 100 mg Meropenem (Merrem Iv 1 Gm Premix) 50 mls @ 100 mls/hr IVPB Q8 [facility]U PRN Reason: Protocol Last Admin: 06/08/18 05:12 Dose: 100 mls/hr Dextrose/Sodium Chloride (Dextrose 5%/0.45% Ns 1000 Ml) 1,000 mls @ 100 mls/hr IV .Q10H [facility] Last Admin: 06/08/18 03:09 Dose: 100 mls/hr [place] Carbonate ([place] Carbonate 300mg) 300 mg PO BID [facility] Last Admin: 06/07/18 17:06 Dose: 300 mg Metoprolol Succinate (Toprol Xl) 25 mg PO DAILY [facility] Last Admin: 06/07/18 09:36 Dose: 25 mg Morphine Sulfate (Morphine) 2 mg IVP Q3H PRN PRN Reason: Pain, moderate (4-7) Last Admin: 06/08/18 03:23 Dose: 2 mg Quetiapine Fumarate (Seroquel) 200 mg PO HS [facility] Last Admin: 06/07/18 22:10 Dose: 200 mg Simethicone (Mylicon Chew Tab) 80 mg PO PCHS PRN PRN Reason: GI distress Last Admin: 06/07/18 06:32 Dose: 80 mg - Labs Labs: 06/08/18 06:45 06/08/18 06:45 - Constitutional Appears: No Acute Distress - Head Exam Head Exam: ATRAUMATIC, NORMAL INSPECTION, NORMOCEPHALIC - Respiratory Exam Respiratory Exam: NORMAL BREATHING PATTERN. absent: Respiratory Distress - Cardiovascular Exam Cardiovascular Exam: REGULAR RHYTHM - GI/Abdominal Exam GI & Abdominal Exam: Distended, Soft, Tenderness. absent: Guarding, Rigid, Rebound - Neurological Exam Neurological Exam: Alert, Oriented x3 - Psychiatric Exam Psychiatric exam: Normal Affect, Normal Mood - Skin Skin Exam: Dry, Intact Assessment and Plan - Assessment and Plan (Free Text) Assessment: 57F w/ colonic obstruction d/t rectal mass Plan: -Surgical plan is for diverting loop colostomy, pt currently refusing surgery -Continue full liquid diet -Pain control PRN -Will continue to follow -Surgery tentatively planned for Sunday if pt. agreeable DW DR. Rory Lancaster PGY4
--- NOTE | 2018-06-08 09:20 | CP.PCM.PN ---
<Alejandro Wiseman - Last Filed: 06/08/18 09:24> Subjective - Date & Time of Evaluation Date of Evaluation: 06/08/18 Time of Evaluation: 09:17 - Subjective Subjective: PGY6 GI Fellow Progress Note Patient seen and examined bedside this morning. The patient states that she continues to feel weak and has been having chills. Little to no appetite and minimal bowel movement in last 24H. No nausea, vomiting. Generalized malaise, weakness. 12 system ROS performed and negative except were stated Objective - Vital Signs/Intake and Output Vital Signs (last 24 hours): Temp Pulse Resp BP Pulse Ox 98.5 F 83 18 130/80 98 06/08/18 06:00 06/08/18 06:00 06/08/18 06:00 06/08/18 06:00 06/08/18 06:00 Intake and Output: 06/08/18 06/08/18 06:59 18:59 Intake Total 1440 Output Total 900 Balance 540 - Medications Medications: Current Medications Albuterol/Ipratropium (Duoneb 3 Mg/0.5 Mg (3 Ml) Ud) 3 ml IH Q6H VU Last Admin: 06/08/18 02:36 Dose: Not Given Amlodipine Besylate (Norvasc) 2.5 mg PO DAILY VU Last Admin: 06/07/18 09:36 Dose: 2.5 mg Clonazepam (Klonopin) 1 mg PO TID VU PRN Reason: Protocol Last Admin: 06/07/18 17:08 Dose: 1 mg Docusate Sodium (Colace) 100 mg PO BID VU Last Admin: 06/07/18 17:07 Dose: 100 mg Meropenem (Merrem Iv 1 Gm Premix) 50 mls @ 100 mls/hr IVPB Q8 VU PRN Reason: Protocol Last Admin: 06/08/18 05:12 Dose: 100 mls/hr Dextrose/Sodium Chloride (Dextrose 5%/0.45% Ns 1000 Ml) 1,000 mls @ 100 mls/hr IV .Q10H VU Last Admin: 06/08/18 03:09 Dose: 100 mls/hr [place] Carbonate ([place] Carbonate 300mg) 300 mg PO BID VU Last Admin: 06/07/18 17:06 Dose: 300 mg Metoprolol Succinate (Toprol Xl) 25 mg PO DAILY VU Last Admin: 06/07/18 09:36 Dose: 25 mg Morphine Sulfate (Morphine) 2 mg IVP Q3H PRN PRN Reason: Pain, moderate (4-7) Last Admin: 06/08/18 03:23 Dose: 2 mg Quetiapine Fumarate (Seroquel) 200 mg PO HS [facility] Last Admin: 06/07/18 22:10 Dose: 200 mg Simethicone (Mylicon Chew Tab) 80 mg PO PCHS PRN PRN Reason: GI distress Last Admin: 06/07/18 06:32 Dose: 80 mg - Labs Labs: 06/08/18 06:45 06/08/18 06:45 - Constitutional Appears: No Acute Distress, Cachectic - Eye Exam Eye Exam: EOMI, PERRL - ENT Exam ENT Exam: Mucous Membranes Moist - Respiratory Exam Respiratory Exam: Clear to Ausculation Bilateral. absent: Rales, Rhonchi, Wheezes - Cardiovascular Exam Cardiovascular Exam: RRR, +S1, +S2 - GI/Abdominal Exam GI & Abdominal Exam: Distended, Firm, Tenderness, Diminished Bowel Sounds. absent: Rigid, Organomegaly - Extremities Exam Additional comments: 1+ LE pedal edema - Neurological Exam Neurological Exam: Alert, Awake, Oriented x3 - Psychiatric Exam Psychiatric exam: Depressed - Skin Skin Exam: Dry, Warm Assessment and Plan - Assessment and Plan (Free Text) Assessment: Patient is a 57yo female with PMHx signfiicant for pulmonary lesion (patient refused workup previously), COPD, chronic constipation, anemia who presented to the hospital with complaint of progressive abdominal pain for the past one week. -Rectal mass -Pulmonary lesion -COPD -Chronic constipation, concern for large bowel obstruction -Rectal bleeding 2/2 rectal lesion -Cystic lesion of liver Plan: -Patient in difficult socioeconomic situation as she states she cannot afford her apartment and has 20 days left in her apartment, no money for food -Concerned with having surgery because she does not feel she will be able to recover and deal with her ongoing social issues or afford medical supplies following discharge -Appears depressed with above issues, diagnosis, expressed hopelessness - consider psychiatric evaluation -Recommend social work evaluation for any potential assistance -Given findings and high suspicion for malignancy, agree and recommend surgical intervention - await biopsy -Triple phase CT liver appears to be hemorrhagic cyst -No prior work up for pulmonary lesion - pt refused -No further work up from GI standpoint Case discussed with Dr Norman <Haresh Norman Y - Last Filed: 06/08/18 09:31> Objective - Vital Signs/Intake and Output Vital Signs (last 24 hours): Temp Pulse Resp BP Pulse Ox 98.5 F 83 18 130/80 98 06/08/18 06:00 06/08/18 06:00 06/08/18 06:00 06/08/18 06:00 06/08/18 06:00 Intake and Output: 06/08/18 06/08/18 06:59 18:59 Intake Total 1440 Output Total 900 Balance 540 - Medications Medications: Current Medications Albuterol/Ipratropium (Duoneb 3 Mg/0.5 Mg (3 Ml) Ud) 3 ml IH Q6H [facility] Last Admin: 06/08/18 02:36 Dose: Not Given Amlodipine Besylate (Norvasc) 2.5 mg PO DAILY [facility] Last Admin: 06/07/18 09:36 Dose: 2.5 mg Clonazepam (Klonopin) 1 mg PO TID VU PRN Reason: Protocol Last Admin: 06/07/18 17:08 Dose: 1 mg Docusate Sodium (Colace) 100 mg PO BID VU Last Admin: 06/07/18 17:07 Dose: 100 mg Meropenem (Merrem Iv 1 Gm Premix) 50 mls @ 100 mls/hr IVPB Q8 VU PRN Reason: Protocol Last Admin: 06/08/18 05:12 Dose: 100 mls/hr Dextrose/Sodium Chloride (Dextrose 5%/0.45% Ns 1000 Ml) 1,000 mls @ 100 mls/hr IV .Q10H VU Last Admin: 06/08/18 03:09 Dose: 100 mls/hr [place] Carbonate ([place] Carbonate 300mg) 300 mg PO BID VU Last Admin: 06/07/18 17:06 Dose: 300 mg Metoprolol Succinate (Toprol Xl) 25 mg PO DAILY [facility] Last Admin: 06/07/18 09:36 Dose: 25 mg Morphine Sulfate (Morphine) 2 mg IVP Q3H PRN PRN Reason: Pain, moderate (4-7) Last Admin: 06/08/18 03:23 Dose: 2 mg Quetiapine Fumarate (Seroquel) 200 mg PO HS [facility] Last Admin: 06/07/18 22:10 Dose: 200 mg Simethicone (Mylicon Chew Tab) 80 mg PO HS PRN PRN Reason: GI distress Last Admin: 06/07/18 06:32 Dose: 80 mg - Labs Labs: 06/08/18 06:45 06/08/18 06:45 Attending/Attestation - Attestation I have fully participated in the care of the patient.: Yes I have reviewed all pertinent clinical information, including history, physical exam and plan: Yes Notes (Text): 06/08/18 09:29 Agree with above documentation. Patient s/p sigmoidoscopy yesterday showing completely obstructing rectal lesion 1 cm from anal verge. Surgical note reviewed, further management as per surgical team. Patient will require outpatient follow up post operatively. No further GI interventions, will sign off case. Please reconsult as necessary, thank you.
[2018-06-08] MEDS: Metoprolol Succinate 25 mg XL Tab PO SCH (10:14)
[2018-06-09] MEDS: Albuterol-Ipratrop 3 mg / 0.5 (3 ml) UD IH SCH ×4 (02:00→20:21)
[2018-06-09] MEDS: Dextrose 5%/0.45% NS 1,000 ML IV SCH ×2 (03:00→12:00)
[2018-06-09] MEDS: Meropenem IV 1 gm in NS 50 ML IVPB SCH ×3 (06:00→21:25)
[2018-06-09 08:01] LABS: HEMOGLOBIN 8.3 g/dL (12.0-16.0); MEAN CELL VOLUME 81.5 fl (80.0-105.0); MEAN CORPUSCULAR HEMOGLOBIN 25.5 pg (25.0-35.0); MEAN CORPUSCULAR HGB CONC 31.3 g/dl (31.0-37.0); MEAN PLATELET VOLUME 9.6 fl (7.0-11.0); RBC 3.25 10^6/uL (3.5-6.1); RED CELL DISTRIBUTION WIDTH 17.6 % (11.5-14.5); WHITE BLOOD COUNT 16.1 10^3/ul (4.5-11.0)
[2018-06-09 08:29] LABS: ALB/GLOB RATIO 0.8 (1.1-1.8); ALBUMIN 2.4 g/dL (3.0-4.8); ALT/SGPT 17 U/L (7-56); AST/SGOT 15 U/L (14-36); BLOOD UREA NITROGEN 3 mg/dL (7-21); CALCIUM 9.4 mg/dL (8.4-10.5); GFR NON-AFRICAN AMERICAN > 60
--- NOTE | 2018-06-09 08:52 | CP.PCM.PN ---
Subjective - Date & Time of Evaluation Date of Evaluation: 06/09/18 Time of Evaluation: 06:50 - Subjective Subjective: General Surgery consult note for Dr. Valadez Patient seen and examined this AM at bedside. Patient reports persistent abdominal pain but denies any nausea, vomiting, and reports tolerating diet and very small bowel movement yesterday. Spoke at length with patient regarding option of diverting colostomy and danger of delaying the procedure, including possible , but patient insists that her social responsibilities are unavoidable at this time and she refuses surgery, acknowledging serious risk of Objective - Vital Signs/Intake and Output Vital Signs (last 24 hours): Temp Pulse Resp BP Pulse Ox 99 F 83 19 108/66 98 06/09/18 06:00 06/09/18 06:00 06/09/18 06:00 06/09/18 06:00 06/09/18 06:00 Intake and Output: 06/09/18 06/09/18 06:59 18:59 Intake Total 1560 Balance 1560 - Medications Medications: Current Medications Albuterol/Ipratropium (Duoneb 3 Mg/0.5 Mg (3 Ml) Ud) 3 ml IH Q6H [facility] Last Admin: 06/09/18 07:46 Dose: Not Given Amlodipine Besylate (Norvasc) 2.5 mg PO DAILY [facility] Last Admin: 06/08/18 10:13 Dose: 2.5 mg Clonazepam (Klonopin) 1 mg PO TID VU PRN Reason: Protocol Last Admin: 06/08/18 17:31 Dose: 1 mg Docusate Sodium (Colace) 100 mg PO BID [facility] Last Admin: 06/08/18 17:31 Dose: 100 mg Meropenem (Merrem Iv 1 Gm Premix) 50 mls @ 100 mls/hr IVPB Q8 VU PRN Reason: Protocol Last Admin: 06/08/18 22:16 Dose: 100 mls/hr Dextrose/Sodium Chloride (Dextrose 5%/0.45% Ns 1000 Ml) 1,000 mls @ 100 mls/hr IV .Q10H [facility] Last Admin: 06/09/18 03:00 Dose: 100 mls/hr [place] Carbonate ([place] Carbonate 300mg) 300 mg PO BID [facility] Last Admin: 06/08/18 17:31 Dose: 300 mg Metoprolol Succinate (Toprol Xl) 25 mg PO DAILY [facility] Last Admin: 06/08/18 10:14 Dose: 25 mg Morphine Sulfate (Morphine) 2 mg IVP Q3H PRN PRN Reason: Pain, moderate (4-7) Last Admin: 06/08/18 22:17 Dose: 2 mg Quetiapine Fumarate (Seroquel) 200 mg PO HS [facility] Last Admin: 06/08/18 22:17 Dose: 200 mg Simethicone (Mylicon Chew Tab) 80 mg PO PCHS PRN PRN Reason: GI distress Last Admin: 06/07/18 06:32 Dose: 80 mg - Labs Labs: 06/09/18 07:15 06/09/18 07:15 - Constitutional Appears: Well, Non-toxic, No Acute Distress - Head Exam Head Exam: ATRAUMATIC, NORMOCEPHALIC - Eye Exam Eye Exam: Normal appearance. absent: Conjunctival injection, Scleral icterus - ENT Exam ENT Exam: Mucous Membranes Moist, Normal Oropharynx - Respiratory Exam Respiratory Exam: NORMAL BREATHING PATTERN. absent: Accessory Muscle Use, Respiratory Distress - Cardiovascular Exam Cardiovascular Exam: RRR - GI/Abdominal Exam GI & Abdominal Exam: Distended, Soft, Tenderness (LLQ, LUQ, epigastrium), Mass ( palpable mass on left abdomen) - Extremities Exam Extremities Exam: absent: Calf Tenderness, Pedal Edema, Tenderness - Neurological Exam Neurological Exam: Alert, Awake, Oriented x3 - Psychiatric Exam Psychiatric exam: Flat Affect, Normal Mood - Skin Skin Exam: Dry, Normal Color, Warm Assessment and Plan - Assessment and Plan (Free Text) Assessment: 57F with severe large bowel obstruction d/t mass in the rectum Plan: Patient refusing surgery at this time d/t complex social and financial issues. Will continue to discuss further with patient, but no surgical plan at this time --will have casemanagement/social work come speak with patient Continue FLD at this time, will make NPO if patient agrees to surgery Continue current medical management per primary Encourage ambulation Monitor bowel function Continue IVF and IV antibiotics per ID Discussed with Dr. Rory Duckworth, PGY2
[2018-06-09] MEDS: Metoprolol Succinate 25 mg XL Tab PO SCH (09:53)
[2018-06-09] MEDS: Morphine 2 mg/ml ISec IVP PRN ×4 (09:53→23:18)
--- NOTE | 2018-06-09 10:17 | CP.PCM.PN ---
Subjective - Date & Time of Evaluation Date of Evaluation: 06/08/18 Time of Evaluation: 09:50 - Subjective Subjective: Patient continues to have abdominal pain, no fevers, feels weak, no dysuria currently. Objective - Vital Signs/Intake and Output Vital Signs (last 24 hours): Temp Pulse Resp BP Pulse Ox 97.9 F 75 18 134/74 94 L 06/07/18 12:00 06/07/18 12:00 06/07/18 12:00 06/07/18 12:00 06/07/18 05:55 Intake and Output: 06/07/18 06/07/18 06:59 18:59 Intake Total 840 Output Total 900 Balance -60 - Medications Medications: Current Medications Albuterol/Ipratropium (Duoneb 3 Mg/0.5 Mg (3 Ml) Ud) 3 ml IH Q6H [facility] Last Admin: 06/07/18 09:56 Dose: Not Given Amlodipine Besylate (Norvasc) 2.5 mg PO DAILY [facility] Last Admin: 06/07/18 09:36 Dose: 2.5 mg Clonazepam (Klonopin) 1 mg PO TID [facility] PRN Reason: Protocol Last Admin: 06/07/18 09:35 Dose: 1 mg Docusate Sodium (Colace) 100 mg PO BID [facility] Last Admin: 06/07/18 10:33 Dose: 100 mg Meropenem (Merrem Iv 1 Gm Premix) 50 mls @ 100 mls/hr IVPB Q8 VU PRN Reason: Protocol Last Admin: 06/07/18 06:44 Dose: 100 mls/hr Sodium Chloride (Sodium Chloride 0.45%) 1,000 mls @ 30 mls/hr IV .Q24H [facility] Last Admin: 06/07/18 09:25 Dose: 30 mls/hr Potassium Chloride (Potassium Chloride 10 Meq/100 Ml) 10 meq in 100 mls @ 50 mls/hr IVPB Q2H [facility] Stop: 06/07/18 15:44 [place] Carbonate ([place] Carbonate 300mg) 300 mg PO BID [facility] Last Admin: 06/07/18 09:36 Dose: 300 mg Metoprolol Succinate (Toprol Xl) 25 mg PO DAILY [facility] Last Admin: 06/07/18 09:36 Dose: 25 mg Non-Formulary Medication (Methotrexate Sodium [Trexall]) 1 tab PO Q7D VU Quetiapine Fumarate (Seroquel) 200 mg PO HS VU Simethicone (Mylicon Chew Tab) 80 mg PO PCHS PRN PRN Reason: GI distress Last Admin: 06/07/18 06:32 Dose: 80 mg - Labs Labs: 06/07/18 08:30 06/07/18 08:30 - Constitutional Appears: Cachectic, Chronically Ill - Head Exam Head Exam: NORMAL INSPECTION - Respiratory Exam Respiratory Exam: Decreased Breath Sounds - Cardiovascular Exam Cardiovascular Exam: +S1, +S2 - GI/Abdominal Exam GI & Abdominal Exam: Soft. absent: Tenderness Assessment and Plan - Assessment and Plan (Free Text) Plan: Assessment systemic inflammatory response syndrome, R/O sepsis due to UTI on top of fecal impaction probably due to rectal mass suspicious for malignancy consider possible malignancy in this patient with left sided pleural based mass as seen on CT in March 2018 COPD with significant smoking history rheumatoid arthritis anxiety HTN S/P right breast cyst surgery S/P right hip surgery Plan continue Merrem day 3; blood cx are negative and urine cx are showing 2 organisms - will repeat urine cx overall prognosis is poor will monitor clinically reviewed CT A/P discussed with Dr. Alba - patient to undergo surgery for the rectal mass
--- NOTE | 2018-06-09 10:48 | PN ---
DATE: 06/09/2018 SUBJECTIVE: There were a couple of issues this morning. #1 she was smoking in the bathroom. I discussed it at length with her. Discussed with the nurse. We took away the cigarettes. She is not to smoke anymore. We discussed the oxygen and explosions. She understands this now. We also discussed at length hospice because she has this rectal mass and the lung cancer and probably a rectal cancer and she finally agrees the only thing that she can do is to have a diverting colostomy. I discussed that with Surgery, Dr. Valadez, who will set her up for tomorrow morning at 7:30. I consulted Cardiology for cardiac optimization, although she has no choice, she needs the surgery. PHYSICAL EXAMINATION: VITAL SIGNS: She has a 99 temp, 83 pulse, 108/66 blood pressure, 19 respiratory rate, 98% O2 sat on oxygen. HEENT: Head is atraumatic, normocephalic. HEART: Regular rate. LUNGS: Decreased breath sounds, but clear. ABDOMEN: Mildly tender. Decreased bowel sounds. EXTREMITIES: Have no edema. MEDICATIONS: She is currently on Colace, dextrose, DuoNebs, Klonopin, lithium, Merrem IV, morphine, Mylicon, Norvasc, Seroquel, Toprol. LABORATORY DATA: She has a 16.1 white count, 8.3 hemoglobin, 26.5 hematocrit with 666 platelets. She has a 139 sodium; potassium 3, I replaced the potassium; BUN 3; creatinine 0.4; GFR is greater than 60; sugar is 90; calcium is 9.4; total bili is 0.1; AST is 15; ALT is 17; alk phos 74; total protein is 5.4. ASSESSMENT AND PLAN: She is here also for urinary tract infection. She is being seen by Infectious Disease, Surgery, GI. I called in Cardiology. She has systemic inflammatory response syndrome due to urinary tract infection; fecal impaction due to rectal mass. Very suspicious for malignancy. She also has a mass in the lung, which is also suspicious for malignancy. She has hypertension, anxiety, rheumatoid arthritis, chronic obstructive pulmonary disease from smoking. She does not want to be on hospice at this time, so the only thing that she can do is a surgery and she agrees to it. She wants to have it done. We will check her labs tomorrow as per Surgery. I discussed with them and hopefully she will do well. Patrice Alba DO
[2018-06-09 10:59] LABS: INR 1.26; PARTIAL THROMBOPLASTIN TIME 27.9 Seconds (25.1-36.5); PROTHROMBIN TIME 14.5 SECONDS (9.4-12.5)
[2018-06-09] MEDS ORDERED: Potassium Chloride 40 mEq/30 ml LIQ UD PO ONE (16:42)
--- NOTE | 2018-06-09 21:57 | PN ---
DATE: 06/09/2018 SUBJECTIVE: Urszula Dietz was seen this morning and she refused an operation adamantly and completely. After discussion with Dr. Alba, she has changed her mind and would accept a colostomy, which will be performed tomorrow morning. The surgery today was delayed by having a diet this morning. PHYSICAL EXAMINATION: VITAL SIGNS: Stable. ABDOMEN: Distended, but soft. There is no pain per se. ASSESSMENT AND PLAN: Clearly, this is not a curative operation, it will be a quick transverse colostomy and she will go for definitive surgery. I spoke with her at length. completely limited. John Valadez MD
[2018-06-10] MEDS: Albuterol-Ipratrop 3 mg / 0.5 (3 ml) UD IH SCH ×4 (05:33→19:55)
[2018-06-10 06:24] LABS: HEMOGLOBIN 8.4 g/dL (12.0-16.0); MEAN CELL VOLUME 81.6 fl (80.0-105.0); MEAN CORPUSCULAR HEMOGLOBIN 25.3 pg (25.0-35.0); MEAN PLATELET VOLUME 10.5 fl (7.0-11.0); RBC 3.32 10^6/uL (3.5-6.1); RED CELL DISTRIBUTION WIDTH 17.5 % (11.5-14.5); WHITE BLOOD COUNT 15.2 10^3/ul (4.5-11.0)
[2018-06-10] MEDS: Dextrose 5%/0.45% NS 1,000 ML IV SCH (06:29)
[2018-06-10] MEDS: Meropenem IV 1 gm in NS 50 ML IVPB SCH ×3 (06:30→21:22)
[2018-06-10 06:41] LABS: ALB/GLOB RATIO 0.9 (1.1-1.8); ALBUMIN 2.5 g/dL (3.0-4.8); ALT/SGPT 18 U/L (7-56); AST/SGOT 15 U/L (14-36); BLOOD UREA NITROGEN 3 mg/dL (7-21); CALCIUM 9.8 mg/dL (8.4-10.5); GFR NON-AFRICAN AMERICAN > 60
[2018-06-10] MEDS: Morphine 2 mg/ml ISec IVP PRN (08:16)
--- NOTE | 2018-06-10 08:27 | PN ---
DATE: 06/08/2018 SUBJECTIVE: Urszula is in a lot of trouble, besides having a lung mass, which she refused to have any biopsies or evaluation, now she has a rectal mass and cannot move her bowels. We called in GI to do a colonoscopy or flex sig, and may get some biopsies, it is very much, most probably cancer that we feel about the lung also. I discussed with her at length about this. We called in Surgery and they want to do a diverting loop colostomy to help her, but she is refusing all these surgeries. It is very a sad situation, she does not want any surgery to be done, and I do not know how she is going to leave the hospital if she cannot move her bowels, and she is definitely not eating well. I want to call Sandhya Canas to see if she might help us a little bit. I do not know how she is going to continue with refusing all these things that need to be done. PHYSICAL EXAMINATION: VITAL SIGNS: She has a 98.5 temp, 83 pulse, 130/80 blood pressure, 18 respiratory rate, 98% O2 saturation on room air. HEENT: Head is atraumatic, normocephalic. HEART: Regular rate. LUNGS: Decreased breath sounds, but clear. ABDOMEN: Soft, distended. No bowel sounds. Mild discomfort. She needs pain medications. I ordered the pain medications, morphine sulfate 2 mg every hours [id number]. EXTREMITIES: No edema. She is in trouble. MEDICATIONS: She is on Colace, dextrose, DuoNeb, Klonopin, lithium, Merrem IV, morphine, Mylicon, Norvasc, Seroquel, Toprol. LABORATORY DATA: She has 15.5 white count, 8.2 hemoglobin, 26.3 hematocrit with 690 platelets. Sodium 139, potassium is 3, I will replace the potassium. BUN is 4, creatinine is 0.4, GFR is greater than 60, sugar is 87, calcium is 9.8. Total bili is less than 0.1. AST is 15, ALT is 13, alk phos 77, CEA is 12.2. ASSESSMENT AND PLAN: She has a urinary tract infection. She is being seen by GI, Surgery, and Infectious Disease. I will call Sandhya Canas for possible hospice since she is refusing all treatment for cancers and replace potassium, and I think she is too weak to leave the hospital at this time. She might need to be inpatient hospice. She has got lung cancer and rectal cancer, and an infection. Patrice Alba DO [email or web address]
--- NOTE | 2018-06-10 08:51 | PN ---
DATE: 06/09/2018 SUBJECTIVE: I thought she was going to go for surgery this morning and then she decided at the last minute this morning not to have the surgery. We are back at the point of where she might need to go to the hospice, but I do not know if she is going to do that either at home. Waiting for Sandhya Canas, the palliative care nurse to help us with that. She was called in a couple of days ago. On Colace, dextrose, DuoNebs, Klonopin as needed, lithium, Merrem, morphine, simethicone, Norvasc, potassium, Seroquel and metoprolol. PHYSICAL EXAMINATION: VITAL SIGNS: She has a 100.6 temp, 94 pulse, 110/73 blood pressure, 18 respiratory rate, 95% O2 sat on room air. HEENT: Head is atraumatic, normocephalic. HEART: Regular rate with decreased breath sounds. She was "smoking" the other day. She got yelled at cigarettes were taken away. ABDOMEN: Decreased bowel sounds. EXTREMITIES: No edema. She has to make up her mind and give us a plan. LABORATORY DATA: She has a 15.2 white count, she is on antibiotics; 8.4 hemoglobin; 27.1 hematocrit with 643 platelets. She has 137 sodium, potassium 3.7, BUN 3, creatinine 0.4, GFR is greater than 60, sugar is 93, calcium is 9.8, total bili is 0.2, AST is 15, ALT is 18, alk phos 81, albumin is 5.4. CEA was 12.2. ASSESSMENT AND PLAN: She is dealing with a colon cancer, lung cancer. She has a rectal tumor that is blocking her intestine. She has been refusing care for very long time now and here was the opportunity to get her to a situation where at least she could eat and have a colostomy and she refuses it. I will get Sandhya Canas in to see what she could do for at home with palliative care. Long discussion with Urszula. Patrice Alba DO
[2018-06-10] MEDS: Metoprolol Succinate 25 mg XL Tab PO SCH (10:33)
[2018-06-10] MEDS ORDERED: Dextrose 5%/0.45% NS 1,000 ML IV SCH (10:45)
[2018-06-10 11:46] LABS: PH,URINE 6.5 (4.7-8.0); URINE BILIRUBIN NEGATIVE (NEGATIVE); URINE BLOOD NEGATIVE (NEGATIVE); URINE GLUCOSE (UA) NEGATIVE (NEGATIVE); URINE LEUKOCYTE ESTERASE TRACE Leu/uL (NEGATIVE); URINE PROTEIN NEGATIVE mg/dL (<30 mg/dL); URINE UROBILINOGEN 0.2 E.U./dL (<1 E.U./dL)
[2018-06-10 11:47] LABS: URINE APPEARANCE CLEAR (CLEAR); URINE COLOR STRAW (YELLOW)
[2018-06-10 11:50] LABS: URINE BACTERIA FEW (NEG); URINE RBC 0 - 2 /hpf (0-2)
[2018-06-10] MEDS ORDERED: Lactated Ringer's 1,000 ML IV SCH (14:00)
[2018-06-10] MEDS ORDERED: Midazolam 2 MG/2 ML VIAL ONE (14:12)
[2018-06-10] MEDS ORDERED: Propofol 10 mg/ml Inj (20 ML) ONE (14:12)
[2018-06-10] MEDS ORDERED: Rocuronium 10 mg/ml (5 ml) ONE (14:24)
[2018-06-10] MEDS ORDERED: Glycopyrrolate 0.2 mg/ml (2ml vial) ONE (14:50)
--- NOTE | 2018-06-10 14:58 | RAD ---
Date of service: 06/10/2018 HISTORY: rule out pneumonia COMPARISON: 06/06/2018 FINDINGS: LUNGS: No active pulmonary disease. PLEURA: Small pleural effusions CARDIOVASCULAR: Normal. OSSEOUS STRUCTURES: No significant abnormalities. VISUALIZED UPPER ABDOMEN: Normal. OTHER FINDINGS: None. IMPRESSION: Small pleural effusions
[2018-06-10] MEDS ORDERED: HYDROmorphone 0.5 mg/0.5 ml ISec IVP PRN (15:00)
[2018-06-10] MEDS ORDERED: oxyCODONE 5 mg Immediate Release Tab PO PRN (15:27)
[2018-06-10] MEDS ORDERED: HYDROmorphone 0.5 mg/0.5 ml ISec IVP ONE ×3 (15:30→16:30)
--- NOTE | 2018-06-10 15:31 | PCM.SURG1 ---
Surgeon's Initial Post Op Note - Surgeon's Notes Surgeon: Dr. Valadez Commutator Inspector: Dr. Ladd PGY3 Type of Anesthesia: General Endo Pre-Operative Diagnosis: obstructing colon mass Operative Findings: see dictation Post-Operative Diagnosis: same Operation Performed: loop sigmoid colostomy Specimen/Specimens Removed: none Estimated Blood Loss: EBL {In ML}: 10 Blood Products Given: N/A Drains Used: Ostomy Device Post-Op Condition: Fair Date of Surgery/Procedure: 06/10/18 Time of Surgery/Procedure: 15:30
[2018-06-10] MEDS ORDERED: HYDROmorphone 0.5 mg/0.5 ml ISec ONE ×2 (16:00→16:28)
[2018-06-10] MEDS ORDERED: Vancomycin 1gm in NS 250ml 1 GM/250 ML BAG IVPB STA (17:04)
--- NOTE | 2018-06-10 17:07 | CP.PCM.PN ---
Subjective - Date & Time of Evaluation Date of Evaluation: 06/10/18 Time of Evaluation: 10:00 - Subjective Subjective: Developed low grade fevers overnight, for surgery today. Objective - Vital Signs/Intake and Output Vital Signs (last 24 hours): Temp Pulse Resp BP Pulse Ox 99 F 97 H 19 135/82 98 06/09/18 06:00 06/09/18 09:53 06/09/18 06:00 06/09/18 09:53 06/09/18 06:00 Intake and Output: 06/09/18 06/09/18 06:59 18:59 Intake Total 1560 Balance 1560 - Medications Medications: Current Medications Albuterol/Ipratropium (Duoneb 3 Mg/0.5 Mg (3 Ml) Ud) 3 ml IH Q6H [facility] Last Admin: 06/09/18 07:46 Dose: Not Given Amlodipine Besylate (Norvasc) 2.5 mg PO DAILY [facility] Last Admin: 06/09/18 09:53 Dose: 2.5 mg Clonazepam (Klonopin) 1 mg PO TID VU PRN Reason: Protocol Last Admin: 06/09/18 09:52 Dose: 1 mg Docusate Sodium (Colace) 100 mg PO BID [facility] Last Admin: 06/09/18 09:52 Dose: 100 mg Meropenem (Merrem Iv 1 Gm Premix) 50 mls @ 100 mls/hr IVPB Q8 VU PRN Reason: Protocol Last Admin: 06/08/18 22:16 Dose: 100 mls/hr Dextrose/Sodium Chloride (Dextrose 5%/0.45% Ns 1000 Ml) 1,000 mls @ 100 mls/hr IV .Q10H [facility] Last Admin: 06/09/18 03:00 Dose: 100 mls/hr [place] Carbonate ([place] Carbonate 300mg) 300 mg PO BID [facility] Last Admin: 06/09/18 09:52 Dose: 300 mg Metoprolol Succinate (Toprol Xl) 25 mg PO DAILY [facility] Last Admin: 06/09/18 09:53 Dose: 25 mg Morphine Sulfate (Morphine) 2 mg IVP Q3H PRN PRN Reason: Pain, moderate (4-7) Last Admin: 06/09/18 09:53 Dose: 2 mg Quetiapine Fumarate (Seroquel) 200 mg PO HS [facility] Last Admin: 06/08/18 22:17 Dose: 200 mg Simethicone (Mylicon Chew Tab) 80 mg PO [facility]S PRN PRN Reason: GI distress Last Admin: 06/07/18 06:32 Dose: 80 mg - Labs Labs: 06/09/18 07:15 06/09/18 07:15 - Constitutional Appears: Cachectic, Chronically Ill - Head Exam Head Exam: NORMAL INSPECTION - Respiratory Exam Respiratory Exam: Decreased Breath Sounds - Cardiovascular Exam Cardiovascular Exam: +S1, +S2 - GI/Abdominal Exam GI & Abdominal Exam: Soft. absent: Tenderness Assessment and Plan - Assessment and Plan (Free Text) Plan: Assessment systemic inflammatory response syndrome, R/O new onset sepsis on top of fecal impaction probably due to rectal mass suspicious for malignancy, for surgery today consider possible malignancy in this patient with left sided pleural based mass as seen on CT in March 2018 COPD with significant smoking history rheumatoid arthritis anxiety HTN S/P right breast cyst surgery S/P right hip surgery Plan will give a dose of IV Vancomycin and continue Merrem pending blood and urine cx , CXR, PCT for surgery today and follow up results overall prognosis is poor will continue to monitor clinically
[2018-06-10] MEDS: Lactated Ringer's 1,000 ML IV SCH (17:25)
[2018-06-10] MEDS: HYDROmorphone 1 mg/ml ISec IVP PRN ×2 (18:08→21:21)
[2018-06-11] MEDS: Albuterol-Ipratrop 3 mg / 0.5 (3 ml) UD IH SCH ×4 (02:00→19:55)
[2018-06-11] MEDS: Lactated Ringer's 1,000 ML IV SCH ×2 (03:30→06:41)
[2018-06-11] MEDS: HYDROmorphone 1 mg/ml ISec IVP PRN ×4 (03:38→20:10)
[2018-06-11] MEDS: Meropenem IV 1 gm in NS 50 ML IVPB SCH ×3 (05:58→21:17)
[2018-06-11 06:36] LABS: MEAN CELL VOLUME 81.7 fl (80.0-105.0); MEAN CORPUSCULAR HGB CONC 30.6 g/dl (31.0-37.0); MEAN PLATELET VOLUME 10.3 fl (7.0-11.0); RBC 3.6 10^6/uL (3.5-6.1); WHITE BLOOD COUNT 17.7 10^3/ul (4.5-11.0)
[2018-06-11 07:09] LABS: ALB/GLOB RATIO 0.8 (1.1-1.8); ALBUMIN 2.4 g/dL (3.0-4.8); ALT/SGPT 15 U/L (7-56); AST/SGOT 12 U/L (14-36); BLOOD UREA NITROGEN 6 mg/dL (7-21); CALCIUM 10.4 mg/dL (8.4-10.5); GFR NON-AFRICAN AMERICAN > 60
--- NOTE | 2018-06-11 09:03 | PN ---
DATE: 06/11/2018 SUBJECTIVE: She is feeling well in bed this morning. Not too much pain. She is getting medicated. She is being seen by Surgery and Infectious Disease. She did have fevers overnight, status post surgery for diverting colostomy. ID put her on vancomycin and Merrem. She is alert, feeling better overall she tells me. PHYSICAL EXAMINATION: VITAL SIGNS: She has a 98.4 temp, 90 pulse 136/82 blood pressure, 17 respiratory rate, 95% O2 sat on room air. The temperature I believe went up to about a 100.7. HEENT: Head is atraumatic, normocephalic. HEART: Regular rate. LUNGS: Decreased breath sounds. ABDOMEN: Decreased bowel sounds. Colostomy. EXTREMITIES: No edema. MEDICATIONS: She is currently on Colace, Dilaudid, DuoNebs, Klonopin, lactated Ringer's, lithium, Merrem IV, Mylicon, Norvasc, oxycodone, Seroquel, Toprol, Tylenol, Zofran. LABORATORY DATA: She has a 136 sodium, potassium 4.4, BUN is 6, creatinine 0.4, GFR is greater than 60, sugar is 94, calcium is 10.4, total bili is 0.3, AST is 12, ALT is 15, alk phos 84, total protein is 5.4. White count 17.7, she is on antibiotics; hemoglobin is 9; hematocrit of 29.4; platelets of 597. ASSESSMENT AND PLAN: We will continue with the aggressive treatment and care, IV antibiotics. She is probably need to go to a subacute rehabilitation like [facility]. I discussed that with the social work case manager already. Check her labs tomorrow. Physical therapy. Continue aggressive treatment and care on Urszula Dietz who has the colon and lung cancer, most probably. Patrice Alba DO
--- NOTE | 2018-06-11 10:06 | CP.PCM.PN ---
Subjective - Date & Time of Evaluation Date of Evaluation: 06/11/18 Time of Evaluation: 07:00 - Subjective Subjective: General Surgery Dr. Valadez Pt seen and examined @bedside. pt went to OR yesterday for loop sigmoid colostomy. Pt tolerated the procedure well w/ no complications. Pt febrile overnight, Tmax 101.9. Otherwise no issues overnight. Pt reports pain this AM, controlled w/ meds. Pt denies F/C, N/V. (+)stoma output. Objective - Vital Signs/Intake and Output Vital Signs (last 24 hours): Temp Pulse Resp BP Pulse Ox 100.7 F H 97 H 17 136/82 95 06/11/18 06:56 06/11/18 06:00 06/10/18 16:40 06/10/18 16:40 06/10/18 16:40 Intake and Output: 06/11/18 06/11/18 06:59 18:59 Intake Total 1630 600 Output Total 1200 700 Balance 430 -100 - Medications Medications: Current Medications Acetaminophen (Tylenol 325mg Tab) 650 mg PO Q4H PRN PRN Reason: Pain, Mild (1-3) Last Admin: 06/11/18 06:56 Dose: 650 mg Acetaminophen (Tylenol 325mg Tab) 650 mg PO Q4H PRN PRN Reason: Fever >100.4 F Albuterol/Ipratropium (Duoneb 3 Mg/0.5 Mg (3 Ml) Ud) 3 ml IH Q6H [facility] Last Admin: 06/11/18 08:12 Dose: Not Given Amlodipine Besylate (Norvasc) 2.5 mg PO DAILY [facility] Last Admin: 06/10/18 10:33 Dose: Not Given Clonazepam (Klonopin) 1 mg PO TID [facility] PRN Reason: Protocol Last Admin: 06/10/18 17:26 Dose: 1 mg Docusate Sodium (Colace) 100 mg PO BID [facility] Last Admin: 06/10/18 17:26 Dose: 100 mg Hydromorphone HCl (Dilaudid) 1 mg IVP Q3 PRN PRN Reason: Pain, severe (8-10) Last Admin: 06/11/18 07:03 Dose: 1 mg Hydromorphone HCl (Dilaudid) 0.5 mg IVP Q3 PRN PRN Reason: breakthrough pain Meropenem (Merrem Iv 1 Gm Premix) 50 mls @ 100 mls/hr IVPB Q8 [facility] PRN Reason: Protocol Last Admin: 06/11/18 05:58 Dose: 100 mls/hr Lactated Ringer's (Lactated Ringer's) 1,000 mls @ 83 mls/hr IV .Q12H3M [facility] Last Admin: 06/11/18 06:41 Dose: 83 mls/hr [place] Carbonate ([place] Carbonate 300mg) 300 mg PO BID [facility] Last Admin: 06/10/18 17:26 Dose: 300 mg Metoprolol Succinate (Toprol Xl) 25 mg PO DAILY [facility] Last Admin: 06/10/18 10:33 Dose: Not Given Ondansetron HCl (Zofran Inj) 4 mg IVP ONCE PRN PRN Reason: Nausea/Vomiting Oxycodone HCl (Oxycodone Immediate Release Tab) 5 mg PO Q4 PRN PRN Reason: Pain, moderate (4-7) Quetiapine Fumarate (Seroquel) 200 mg PO [facility] Last Admin: 06/10/18 21:23 Dose: 200 mg Simethicone (Mylicon Chew Tab) 80 mg PO [facility] PRN PRN Reason: GI distress Last Admin: 06/07/18 06:32 Dose: 80 mg - Labs Labs: 06/11/18 05:45 06/11/18 05:45 PT 14.5 SECONDS (9.4-12.5) H 06/09/18 10:30 INR 1.26 06/09/18 10:30 APTT 27.9 Seconds (25.1-36.5) 06/09/18 10:30 - Constitutional Appears: Non-toxic, Older Than Stated Age, Cachectic - Head Exam Head Exam: NORMAL INSPECTION - Eye Exam Eye Exam: Normal appearance - ENT Exam ENT Exam: Mucous Membranes Moist - Respiratory Exam Respiratory Exam: NORMAL BREATHING PATTERN. absent: Accessory Muscle Use, Respiratory Distress - Cardiovascular Exam Cardiovascular Exam: REGULAR RHYTHM. absent: Bradycardia, Tachycardia - GI/Abdominal Exam GI & Abdominal Exam: Soft, Tenderness (appropriate TTP). absent: Distended, Firm, Guarding, Rigid, Rebound Additional comments: ostomy appliance leaking (+) stool/flatus stoma pink, patent - Extremities Exam Extremities Exam: Normal Inspection - Neurological Exam Neurological Exam: Alert, Awake, Oriented x3 - Psychiatric Exam Psychiatric exam: Normal Affect, Normal Mood - Skin Skin Exam: Dry, Intact, Normal Color, Warm Assessment and Plan - Assessment and Plan (Free Text) Assessment: 57 y/o F POD#1 s/p loop sigmoid colostomy 2/2 obstructing rectal mass - ADAT - monitor ostomy output - cont pain management - encourage OOb to chair/Amb/IS use - cont medical management Pt discussed w/ Dr. Rory Ladd DO PGY3
[2018-06-11] MEDS: Metoprolol Succinate 25 mg XL Tab PO SCH (10:21)
--- NOTE | 2018-06-11 12:44 | PN ---
DATE: 06/11/2018 Urszula Dietz is seen on the floor, status post sigmoid colostomy. I placed the sigmoid colostomy in a hope that eventually she would be a candidate for abdominoperineal and can use this as the sigmoid colostomy. Notably, her white count is up to 17. Her abdomen is relatively soft. I do not think there was a cecal issue at this time although I did not surgically evaluate it. The ostomy is working. In general, she looks better. John Valadez MD
[2018-06-11] MEDS: HYDROmorphone 0.5 mg/0.5 ml ISec IVP PRN (15:37)
--- NOTE | 2018-06-11 19:54 | PN ---
DATE: 06/11/2018 SUBJECTIVE: The patient is in bed, in no acute distress. She was seen early this morning in 264, bed 2. She had low-grade fevers. PHYSICAL EXAMINATION: VITAL SIGNS: Temperature of 100.7, blood pressure is 128/70, respiratory rate of 18, heart rate of 92. HEENT: Unremarkable. NECK: Supple. LUNGS: Have decreased breath sounds. HEART: Normal S1, S2. ABDOMINAL: Soft, nontender. LABORATORY EXAMINATION: Reveals a white count of 17,700, hemoglobin 9, platelets of 597. Coagulation is noted. Chemistries reveals a BUN of 6, creatinine of 0.4, procalcitonin is 0.05. Urinalysis is noted. Microbiology reveals the blood cultures are no growth. Urine cultures are no growth. Repeat blood cultures are no growth. The patient's operative note from yesterday is reviewed. The patient had a GI laparotomy and diverting transverse loop colostomy was planned. PREOPERATIVE DIAGNOSIS: Large bowel obstruction. POSTOPERATIVE DIAGNOSIS: Large bowel obstruction. Dr. Patrice Alba's note is reviewed. ASSESSMENT AND PLAN: A 57-year-old with systemic inflammatory response syndrome with a rectal mass. Large bowel obstruction status post surgery. The patient with chronic obstructive lung disease, long-time smoker, rheumatoid arthritis, anxiety, hypertension, possible malignancy and the patient with a left-sided pleural base mass and CAT scan this past March on meropenem. She has been on vancomycin. We will follow with you. Dr. John Valadez's note from today is reviewed. Dr. Georgiana Ladd's note is also reviewed and the patient is status post sigmoid colostomy. Postop day #1, loop sigmoid colostomy secondary to obstructing rectal mass. The pathology report from the rectum shows adenocarcinoma moderately differentiated rectal mass biopsy. We will follow the white count, which is at 17,000 at this point. We will make further recommendations. Anton Solo MD
--- NOTE | 2018-06-11 23:11 | CON ---
DATE: 06/11/2018 CARDIOLOGY CONSULTATION HISTORY: The patient is a 57-year-old woman, who presents to the hospital with abdominal pain. She underwent abdominal surgery and is doing well. She is able to eat. The patient denies previous cardiac history. Her past medical history includes COPD secondary to longstanding smoking. She suffers from hypertension. She denies chest pain. Denies shortness of breath at rest. SOCIAL HISTORY: She is an active smoker including smoking in the hospital in the bathrooms. REVIEW OF SYSTEMS: Fourteen-point review of systems is reviewed in detail. No cardiac symptomatology noted. PHYSICAL EXAMINATION: VITAL SIGNS: Blood pressure is 115/76, the heart rate is in the 80s. NECK: Negative JVD. LUNGS: Without rales. HEART: Reveals S1, S2. EXTREMITIES: Without edema. LABORATORY DATA: Hemoglobin is 9. Chemistries: BUN and creatinine are unremarkable. EKG is unremarkable. IMPRESSION: 1. Status post abdominal surgery. 2. Severe chronic obstructive pulmonary disease. 3. Anemia. 4. History of hypertension. PLAN: Given these findings, the patient is currently hemodynamically stable. She is beginning to recover from her surgery and is able to take p.o. We will obtain an echocardiogram to evaluate her LV function. There appears to be no active cardiac issues at this time. Luigi Delgado MD
[2018-06-12] MEDS: Albuterol-Ipratrop 3 mg / 0.5 (3 ml) UD IH SCH ×4 (01:58→21:45)
[2018-06-12] MEDS: Meropenem IV 1 gm in NS 50 ML IVPB SCH ×3 (05:02→21:25)
[2018-06-12] MEDS: HYDROmorphone 0.5 mg/0.5 ml ISec IVP PRN ×3 (05:02→21:24)
[2018-06-12 07:16] LABS: MEAN CELL VOLUME 80.8 fl (80.0-105.0); MEAN CORPUSCULAR HEMOGLOBIN 25.1 pg (25.0-35.0); MEAN PLATELET VOLUME 10.7 fl (7.0-11.0); RBC 3.59 10^6/uL (3.5-6.1); RED CELL DISTRIBUTION WIDTH 17.1 % (11.5-14.5); WHITE BLOOD COUNT 16.6 10^3/ul (4.5-11.0)
[2018-06-12 07:37] LABS: ALB/GLOB RATIO 0.8 (1.1-1.8); ALBUMIN 2.5 g/dL (3.0-4.8); ALT/SGPT 16 U/L (7-56); AST/SGOT 12 U/L (14-36); BLOOD UREA NITROGEN 8 mg/dL (7-21); CALCIUM 10.8 mg/dL (8.4-10.5); GFR NON-AFRICAN AMERICAN > 60
[2018-06-12] MEDS: HYDROmorphone 1 mg/ml ISec IVP PRN ×3 (07:45→15:08)
--- NOTE | 2018-06-12 08:47 | PN ---
DATE: 06/12/2018 SUBJECTIVE: She is 25 hours postop of a diverting colostomy. She is concerned about how to change and how to use it and I said she will be taught this. She is in very little pain. She is comfortable. She is worried about her apartment. I discussed with Design Engineering Specialist that she will need to go to [facility] for physical therapy first before she can leave the hospital or this institution. She is trying to get that. She is on Colace, Dilaudid, DuoNebs, Klonopin, lithium, Merrem IV, Mylicon, Norvasc, oxycodone, Seroquel, Toprol, Tylenol, Zofran. She has rectal cancer, lung cancer. She little bit. PHYSICAL EXAMINATION: VITAL SIGNS: She has a 99.5 temp, 95 pulse, 127/84 blood pressure, 20 respiratory rate. She is also 95 O2 sat on room air. HEENT: Head is atraumatic, normocephalic. HEART: Regular rate. LUNGS: Decreased breath sounds, but clear. ABDOMEN: Has a colostomy. EXTREMITIES: No edema. She is weak. MEDICATIONS: She is currently taking the Colace, Dilaudid, DuoNebs, Klonopin, lithium, Merrem IV, Mylicon, Norvasc, oxycodone, Seroquel, Tylenol and Zofran. LABORATORY DATA: She has a 16.6 white count, 9 hemoglobin, 29 hematocrit with a 631 platelets. She has a 139 sodium, potassium 3.6, BUN 8, creatinine 0.4, GFR is greater than 60, sugar is 74, calcium is 10.8, total bili is 0.1, AST is 12, ALT is 16, alk phos 91, total protein is 5.5. ASSESSMENT AND PLAN: She is being seen by Infectious Disease, Cardiology, Surgery. My goal is to get her to [facility] for physical therapy, also colostomy teaching to be continued there. She had systemic inflammatory response syndrome, rectal mass, most probably cancer, adenocarcinoma. She has a large bowel obstruction. She also has a lung mass, which is most probably cancer from smoking, which she refused the biopsy. When we can, we will get her to [facility] for rehabilitation. Patrice Alba DO [facility] # [id number] JESUS
[2018-06-12] MEDS: Metoprolol Succinate 25 mg XL Tab PO SCH (10:34)
--- NOTE | 2018-06-12 12:47 | CP.PCM.PN ---
Subjective - Date & Time of Evaluation Date of Evaluation: 06/12/18 Time of Evaluation: 12:39 - Subjective Subjective: Surgery Note for Dr Valadez Pt seen and examined at bedside. Pt has no complaints of leakage today from the stoma. Pt has been well controlled with current IV pain control. When asked about possible PO options pt became distressed and preferred to remain on her current regimen, citing nausea as her reason for aversion. T max 98.8 overnight. Pt denies n/v, f/c, cp, sob. Objective - Vital Signs/Intake and Output Vital Signs (last 24 hours): Temp Pulse Resp BP Pulse Ox 98.8 F 81 18 114/71 95 06/12/18 12:16 06/12/18 12:16 06/12/18 12:16 06/12/18 12:16 06/10/18 16:40 Intake and Output: 06/12/18 06/12/18 06:59 18:59 Intake Total 700 Output Total 1300 Balance -600 - Medications Medications: Current Medications Acetaminophen (Tylenol 325mg Tab) 650 mg PO Q4H PRN PRN Reason: Pain, Mild (1-3) Last Admin: 06/11/18 06:56 Dose: 650 mg Acetaminophen (Tylenol 325mg Tab) 650 mg PO Q4H PRN PRN Reason: Fever >100.4 F Albuterol/Ipratropium (Duoneb 3 Mg/0.5 Mg (3 Ml) Ud) 3 ml IH Q6H [facility] Last Admin: 06/12/18 08:33 Dose: Not Given Amlodipine Besylate (Norvasc) 2.5 mg PO DAILY [facility] Last Admin: 06/12/18 10:34 Dose: 2.5 mg Clonazepam (Klonopin) 1 mg PO TID [facility] PRN Reason: Protocol Last Admin: 06/12/18 10:34 Dose: 1 mg Docusate Sodium (Colace) 100 mg PO BID [facility] Last Admin: 06/12/18 11:06 Dose: 100 mg Hydromorphone HCl (Dilaudid) 1 mg IVP Q3 PRN PRN Reason: Pain, severe (8-10) Last Admin: 06/12/18 11:15 Dose: 1 mg Hydromorphone HCl (Dilaudid) 0.5 mg IVP Q3 PRN PRN Reason: breakthrough pain Last Admin: 06/12/18 05:02 Dose: 0.5 mg Meropenem (Merrem Iv 1 Gm Premix) 50 mls @ 100 mls/hr IVPB Q8 [facility] PRN Reason: Protocol Last Admin: 06/12/18 05:02 Dose: 100 mls/hr [place] Carbonate ([place] Carbonate 300mg) 300 mg PO BID [facility] Last Admin: 06/12/18 10:35 Dose: 300 mg Metoprolol Succinate (Toprol Xl) 25 mg PO DAILY [facility] Last Admin: 06/12/18 10:34 Dose: 25 mg Ondansetron HCl (Zofran Inj) 4 mg IVP ONCE PRN PRN Reason: Nausea/Vomiting Oxycodone HCl (Oxycodone Immediate Release Tab) 5 mg PO Q4 PRN PRN Reason: Pain, moderate (4-7) Quetiapine Fumarate (Seroquel) 200 mg PO [facility] Last Admin: 06/11/18 21:17 Dose: 200 mg Simethicone (Mylicon Chew Tab) 80 mg PO [facility] PRN PRN Reason: GI distress Last Admin: 06/07/18 06:32 Dose: 80 mg - Labs Labs: 06/12/18 06:30 06/12/18 06:30 PT 14.5 SECONDS (9.4-12.5) H 06/09/18 10:30 INR 1.26 06/09/18 10:30 APTT 27.9 Seconds (25.1-36.5) 06/09/18 10:30 - Additional Findings Additional findings: - Constitutional Appears: Non-toxic, Older Than Stated Age, Cachectic - Head Exam Head Exam: NORMAL INSPECTION - Eye Exam Eye Exam: Normal appearance - ENT Exam ENT Exam: Mucous Membranes Moist - Respiratory Exam Respiratory Exam: NORMAL BREATHING PATTERN. absent: Accessory Muscle Use, Respiratory Distress - Cardiovascular Exam Cardiovascular Exam: REGULAR RHYTHM. absent: Bradycardia, Tachycardia - GI/Abdominal Exam GI & Abdominal Exam: Soft, Tenderness (appropriate TTP). absent: Distended, Firm, Guarding, Rigid, Rebound Additional comments: ostomy appliance no longer leaking (+) stool/flatus stoma pink, patent - Extremities Exam Extremities Exam: Normal Inspection - Neurological Exam Neurological Exam: Alert, Awake, Oriented x3 - Psychiatric Exam Psychiatric exam: Normal Affect, Normal Mood - Skin Skin Exam: Dry, Intact, Normal Color, Warm Assessment and Plan - Assessment and Plan (Free Text) Assessment: 57 y/o F POD#1 s/p loop sigmoid colostomy 2/2 obstructing rectal mass Plan: - Social work consulted for living situation - monitor ostomy output - cont pain management, consider appropriate PO options for optimized outpt control - encourage OOb to chair/Amb/IS use - cont medical management Pt discussed w/ Dr. Rory Patterson DO
--- NOTE | 2018-06-12 15:47 | CP.PCM.PN ---
Subjective - Date & Time of Evaluation Date of Evaluation: 06/12/18 Time of Evaluation: 10:05 - Subjective Subjective: Still feels weak, still with abdominal pain, no fevers, has colostomy. Objective - Vital Signs/Intake and Output Vital Signs (last 24 hours): Temp Pulse Resp BP Pulse Ox 99.5 F 103 H 20 127/84 95 06/11/18 17:50 06/12/18 06:00 06/11/18 17:50 06/11/18 17:50 06/10/18 16:40 Intake and Output: 06/12/18 06/12/18 06:59 18:59 Intake Total 700 Output Total 1300 Balance -600 - Medications Medications: Current Medications Acetaminophen (Tylenol 325mg Tab) 650 mg PO Q4H PRN PRN Reason: Pain, Mild (1-3) Last Admin: 06/11/18 06:56 Dose: 650 mg Acetaminophen (Tylenol 325mg Tab) 650 mg PO Q4H PRN PRN Reason: Fever >100.4 F Albuterol/Ipratropium (Duoneb 3 Mg/0.5 Mg (3 Ml) Ud) 3 ml IH Q6H [facility] Last Admin: 06/12/18 01:58 Dose: Not Given Amlodipine Besylate (Norvasc) 2.5 mg PO DAILY [facility] Last Admin: 06/11/18 10:28 Dose: 2.5 mg Clonazepam (Klonopin) 1 mg PO TID [facility] PRN Reason: Protocol Last Admin: 06/11/18 17:51 Dose: 1 mg Docusate Sodium (Colace) 100 mg PO BID [facility] Last Admin: 06/11/18 17:49 Dose: Not Given Hydromorphone HCl (Dilaudid) 1 mg IVP Q3 PRN PRN Reason: Pain, severe (8-10) Last Admin: 06/11/18 20:10 Dose: 1 mg Hydromorphone HCl (Dilaudid) 0.5 mg IVP Q3 PRN PRN Reason: breakthrough pain Last Admin: 06/12/18 05:02 Dose: 0.5 mg Meropenem (Merrem Iv 1 Gm Premix) 50 mls @ 100 mls/hr IVPB Q8 [facility] PRN Reason: Protocol Last Admin: 06/12/18 05:02 Dose: 100 mls/hr [place] Carbonate ([place] Carbonate 300mg) 300 mg PO BID [facility] Last Admin: 06/11/18 17:52 Dose: 300 mg Metoprolol Succinate (Toprol Xl) 25 mg PO DAILY [facility] Last Admin: 06/11/18 10:21 Dose: 25 mg Ondansetron HCl (Zofran Inj) 4 mg IVP ONCE PRN PRN Reason: Nausea/Vomiting Oxycodone HCl (Oxycodone Immediate Release Tab) 5 mg PO Q4 PRN PRN Reason: Pain, moderate (4-7) Quetiapine Fumarate (Seroquel) 200 mg PO [facility] Last Admin: 06/11/18 21:17 Dose: 200 mg Simethicone (Mylicon Chew Tab) 80 mg PO [facility] PRN PRN Reason: GI distress Last Admin: 06/07/18 06:32 Dose: 80 mg - Labs Labs: 06/12/18 06:30 06/11/18 05:45 PT 14.5 SECONDS (9.4-12.5) H 06/09/18 10:30 INR 1.26 06/09/18 10:30 APTT 27.9 Seconds (25.1-36.5) 06/09/18 10:30 - Constitutional Appears: Cachectic, Chronically Ill - Head Exam Head Exam: NORMAL INSPECTION - Neck Exam Neck Exam: absent: Meningismus - Respiratory Exam Respiratory Exam: Decreased Breath Sounds - Cardiovascular Exam Cardiovascular Exam: +S1, +S2 - GI/Abdominal Exam GI & Abdominal Exam: Soft. absent: Tenderness Additional comments: colostomy in place Assessment and Plan - Assessment and Plan (Free Text) Plan: Assessment systemic inflammatory response syndrome, R/O new onset sepsis on top of fecal impaction probably due to rectal mass suspicious for malignancy, S/P diverting colostomy consider possible malignancy in this patient with left sided pleural based mass as seen on CT in March 2018 COPD with significant smoking history rheumatoid arthritis anxiety HTN S/P right breast cyst surgery S/P right hip surgery Plan continue Merrem day 3 pending final culture results - if negative will d/c antibiotics overall prognosis is poor will continue to monitor clinically
--- NOTE | 2018-06-12 19:22 | PN ---
DATE: 06/12/2018 SUBJECTIVE: The patient is eating. No shortness of breath. No chest pain. PHYSICAL EXAMINATION: VITAL SIGNS: Stable. Blood pressure is 114/71, heart rate is in the 80s. NECK: Negative JVD. LUNGS: Without rales. HEART: S1, S2. EXTREMITIES: Without edema. LABORATORY DATA: BUN and creatinine are unremarkable. Hemoglobin is 9. IMPRESSION: 1. Status post abdominal surgery with good recovery. 2. Severe chronic obstructive pulmonary disease. 3. Anemia. 4. History of hypertension. PLAN: Given these findings, the patient is doing well from a cardiac perspective. We will DC telemetry today. No further cardiac workup is necessary. Luigi Delgado MD
[2018-06-13] MEDS: HYDROmorphone 0.5 mg/0.5 ml ISec IVP PRN ×6 (00:23→16:52)
[2018-06-13] MEDS: Albuterol-Ipratrop 3 mg / 0.5 (3 ml) UD IH SCH ×3 (02:30→13:52)
[2018-06-13] MEDS: Meropenem IV 1 gm in NS 50 ML IVPB SCH ×2 (05:29→14:54)
[2018-06-13 06:48] LABS: HEMOGLOBIN 8.1 g/dL (12.0-16.0); MEAN CELL VOLUME 80.9 fl (80.0-105.0); MEAN CORPUSCULAR HEMOGLOBIN 25.4 pg (25.0-35.0); MEAN CORPUSCULAR HGB CONC 31.4 g/dl (31.0-37.0); MEAN PLATELET VOLUME 10.4 fl (7.0-11.0); RBC 3.19 10^6/uL (3.5-6.1); RED CELL DISTRIBUTION WIDTH 17.1 % (11.5-14.5); WHITE BLOOD COUNT 12.8 10^3/ul (4.5-11.0)
[2018-06-13 07:15] LABS: ALB/GLOB RATIO 0.8 (1.1-1.8); ALBUMIN 2.5 g/dL (3.0-4.8); ALT/SGPT 19 U/L (7-56); AST/SGOT 16 U/L (14-36); BLOOD UREA NITROGEN 8 mg/dL (7-21); CALCIUM 10.2 mg/dL (8.4-10.5); GFR NON-AFRICAN AMERICAN > 60
[2018-06-13] MEDS ORDERED: Potassium Chloride 20 mEq ER Tab PO STA (08:13)
--- NOTE | 2018-06-13 08:30 | CP.PCM.PN ---
Subjective - Date & Time of Evaluation Date of Evaluation: 06/13/18 Time of Evaluation: 08:26 - Subjective Subjective: Surgery Note for Dr Valadez Pt seen and examined at bedside. Pt reports remaining pains at the stoma site but controlled well with her current analgesics. Pt denies and leakage from site or malodorous products. pt denies cp, sob, f/c, n/v. Objective - Vital Signs/Intake and Output Vital Signs (last 24 hours): Temp Pulse Resp BP Pulse Ox 98.2 F 77 97 H 98/60 L 95 06/13/18 06:00 06/13/18 06:00 06/13/18 06:00 06/13/18 06:00 06/10/18 16:40 Intake and Output: 06/13/18 06/13/18 06:59 18:59 Intake Total 480 Balance 480 - Medications Medications: Current Medications Acetaminophen (Tylenol 325mg Tab) 650 mg PO Q4H PRN PRN Reason: Pain, Mild (1-3) Last Admin: 06/11/18 06:56 Dose: 650 mg Acetaminophen (Tylenol 325mg Tab) 650 mg PO Q4H PRN PRN Reason: Fever >100.4 F Albuterol/Ipratropium (Duoneb 3 Mg/0.5 Mg (3 Ml) Ud) 3 ml IH Q6H [facility] Last Admin: 06/13/18 02:30 Dose: Not Given Amlodipine Besylate (Norvasc) 2.5 mg PO DAILY [facility] Last Admin: 06/12/18 10:34 Dose: 2.5 mg Clonazepam (Klonopin) 1 mg PO TID [facility] PRN Reason: Protocol Last Admin: 06/12/18 18:52 Dose: 1 mg Docusate Sodium (Colace) 100 mg PO BID [facility] Last Admin: 06/12/18 18:51 Dose: 100 mg Enoxaparin Sodium (Lovenox) 40 mg SC DAILY [facility] PRN Reason: Protocol Hydromorphone HCl (Dilaudid) 0.5 mg IVP Q3 PRN PRN Reason: Pain, severe (8-10) Last Admin: 06/13/18 06:26 Dose: 0.5 mg Meropenem (Merrem Iv 1 Gm Premix) 50 mls @ 100 mls/hr IVPB Q8 [facility] PRN Reason: Protocol Last Admin: 06/13/18 05:29 Dose: 100 mls/hr [place] Carbonate ([place] Carbonate 300mg) 300 mg PO BID [facility] Last Admin: 06/12/18 18:51 Dose: 300 mg Metoprolol Succinate (Toprol Xl) 25 mg PO DAILY [facility] Last Admin: 06/12/18 10:34 Dose: 25 mg Ondansetron HCl (Zofran Inj) 4 mg IVP ONCE PRN PRN Reason: Nausea/Vomiting Oxycodone HCl (Oxycodone Immediate Release Tab) 5 mg PO Q4 PRN PRN Reason: Pain, moderate (4-7) Quetiapine Fumarate (Seroquel) 200 mg PO HS [facility] Last Admin: 06/12/18 21:37 Dose: Not Given Simethicone (Mylicon Chew Tab) 80 mg PO [facility] PRN PRN Reason: GI distress Last Admin: 06/07/18 06:32 Dose: 80 mg - Labs Labs: 06/13/18 06:15 06/13/18 06:15 PT 14.5 SECONDS (9.4-12.5) H 06/09/18 10:30 INR 1.26 06/09/18 10:30 APTT 27.9 Seconds (25.1-36.5) 06/09/18 10:30 - Additional Findings Additional findings: - Constitutional Appears: Non-toxic, Older Than Stated Age, Cachectic - Head Exam Head Exam: NORMAL INSPECTION - Eye Exam Eye Exam: Normal appearance - ENT Exam ENT Exam: Mucous Membranes Moist - Respiratory Exam Respiratory Exam: NORMAL BREATHING PATTERN. absent: Accessory Muscle Use, Respiratory Distress - Cardiovascular Exam Cardiovascular Exam: REGULAR RHYTHM. absent: Bradycardia, Tachycardia - GI/Abdominal Exam GI & Abdominal Exam: Soft, Tenderness (appropriate TTP). absent: Distended, Firm, Guarding, Rigid, Rebound Additional comments: ostomy appliance no longer leaking (+) stool/flatus stoma pink, patent - Extremities Exam Extremities Exam: Normal Inspection - Neurological Exam Neurological Exam: Alert, Awake, Oriented x3 - Psychiatric Exam Psychiatric exam: Normal Affect, Normal Mood - Skin Skin Exam: Dry, Intact, Normal Color, Warm Assessment and Plan - Assessment and Plan (Free Text) Assessment: 57 y/o F POD#3 s/p loop sigmoid colostomy 2/2 obstructing rectal mass Plan: - Social work consulted for living situation - monitor ostomy output - recommending nursing use original seal for stoma site, not paper - cont pain management, consider appropriate PO options for optimized outpt control - encourage OOb to chair/Amb/IS use - cont medical management Pt discussed w/ Dr. Rory Patterson DO
[2018-06-13] MEDS: Metoprolol Succinate 25 mg XL Tab PO SCH (09:21)
[2018-06-13] MEDS ORDERED: Enoxaparin 40 mg Syringe SC SCH (10:00)
--- NOTE | 2018-06-13 11:40 | PN ---
DATE: 06/13/2018 SUBJECTIVE: I saw Urszula in bed. She is very upset. She is scared about going back to [facility], but she needs to go there for physical therapy, also more colostomy training and treatment and pain medications. She has lot of pain. I put on the fentanyl patch. I am hoping this will help her. She is very nervous. She is on Colace, Dilaudid, DuoNeb, I had the Duragesic patch, Klonopin, lithium, Lovenox, Merrem IV, Mylicon, Norvasc, oxycodone, Seroquel, Toprol, Tylenol and Zofran. She has rectal cancer with rectal obstruction, needed a diverting colostomy and also has lung cancer. PHYSICAL EXAMINATION: VITAL SIGNS: She has a 98.2 temp, 77 pulse, 100/60 blood pressure, 97% O2 sat. GENERAL: She is nervous in bed, I am trying to calm her down. She is alert. She is talking. She is eating okay. HEENT: Head is atraumatic, normocephalic. HEART: Regular rate. LUNGS: Decreased breath sounds but clear. ABDOMEN: Soft. Positive bowel sounds. Positive colostomy and is moving. She needs more colostomy training. EXTREMITIES: Have no edema. LABORATORY DATA: She has a 12.8 white count, much better; 8.1 hemoglobin; 25.8 hematocrit with 530 platelets. The hemoglobin drops a little bit most probably from the surgery. She has 137 sodium; potassium 3.2, I will replace potassium; BUN 8, creatinine 0.4, GFR is greater than 60, sugar is 89, calcium is 10.2, magnesium is 2, total bili is less than 0.1, AST is 16, ALT is 19, alk phos 86. Urine is clean. ASSESSMENT AND PLAN: I am going to put her on iron and potassium replacement. She is being seen by Surgery, Cardiology, Infectious Disease. She has got rectal cancer, lung cancer and she has got a colostomy and I am hoping to get her to [facility] for physical therapy and more teaching of her colostomy and hopefully that will work out well. She had systemic inflammatory response syndrome. We will continue aggressive treatment and care hopefully at [facility] today. Patrice Alba DO [facility] # [id number]
[2018-06-13 14:47] VITALS: BP 97/62; PULSE 88; RESP 20; TEMP 98.3; O2SAT 98
--- NOTE | 2018-06-13 22:34 | PN ---
DATE: 06/13/2018 SUBJECTIVE: The patient is in bed, in no acute distress, nontoxic; however, chronically ill, debilitated. PHYSICAL EXAMINATION: VITAL SIGNS: Temperature of 98, blood pressure is 100/60, respiratory rate of 20, heart rate of 88. HEENT: Unremarkable. NECK: Supple. LUNGS: Have decreased breath sounds. HEART: Normal S1, S2. ABDOMEN: Soft. LABORATORY EXAMINATION: Reveals a white count of 12,800, hemoglobin of 8, platelets of 530. Chemistries reveal a BUN of 8, creatinine of 0.4. Procalcitonin is noted. Microbiology is reviewed. ASSESSMENT AND PLAN: A 57-year-old female who was seen early this morning with systemic inflammatory response syndrome, fecal impaction - patient with a rectal mass suspicious for malignancy, the patient with rheumatoid arthritis, anxiety, hypertension. Currently on meropenem, day #4. Review of the pathology confirms the patient's rectal biopsy show adenocarcinoma, moderately differentiated, from the rectal biopsy mass. We will follow with you. Overall prognosis is quite poor for this unfortunate woman. Anton Solo MD
--- NOTE | 2018-06-17 18:29 | OP ---
PROCEDURE DATE: 06/10/2018 PREOPERATIVE DIAGNOSIS: Obstructing colon mass. POSTOPERATIVE DIAGNOSIS: Obstructing colon mass. OPERATION PERFORMED: Loop sigmoid colostomy. INDICATIONS: This is a 57-year-old female with an obstructing colorectal mass positive for adenocarcinoma. Mass is nonresectable at this time and so a palliative diverting loop colostomy was offered for relief of obstruction. DESCRIPTION OF PROCEDURE: Consent was obtained and patient was taken to the operating room, placed on the operating table in supine position, and general anesthesia was induced. A time-out was performed verifying correct patient, procedure, site, and positioning. A Saavedra catheter and NG tube were inserted, and the abdomen was prepped and draped in the usual sterile fashion. Patient was receiving IV antibiotics on the floor, thus no intraoperative antibiotics were given. A short vertical midline incision was made infra-umbilically. The incision was carried down through the subcutaneous tissues using electrocautery. The fascia was then divided and the peritoneal space was entered. The incision was extended using the electrocautery over the monotype operator's finger to prevent any injury to the small bowel. The sigmoid colon was immediately encountered and markedly distended. There are multiple fibrous adhesions between the sigmoid colon and the surrounding loops of small bowel. These were bluntly dissected and a loop of sigmoid was brought up through the incision. A mesenteric window was created under the colon by incising the mesentery adjacent to the colon wall and a plastic saroj was inserted under the colon through the mesenteric window in order to hold the exteriorized segments of sigmoid colon above the skin and fascia. The colon was then allowed to rest on the saroj and, at this point, the size of the fascial defect was assessed. Interrupted sutures of 0 Vicryl were placed superior to the colon to close the fascia until it was tight enough to allow only the loop of colon plus one index finger to pass. The skin was then closed around the colon with interrupted subcuticular absorbable suture using the same principal and then the skin was closed using vanessa. Towels were then placed around the incision to protect the field and the colon was incised and opened in line with the direction of the colon. The contents were suctioned out and the double barrel colostomy was matured with multiple interrupted sutures of 3-0 Vicryl circumferentially. After maturation, the colostomy was noted to be pink and viable, and the colostomy appliance was then placed over the sigmoid loop colostomy. The patient tolerated the procedure well, was extubated in the OR, and taken to PACU in stable condition. Georgiana Ladd DO John Valadez MD MTDEliel
== END 2018-06-13 17:22 | DRG 585 ==
LOC: ED 19:50 → ERH 23:54 → 2RNO 06-07 01:47 → 5RNO 06-12 19:35
PROVIDERS: ADMIT Family Medicine; ATTEND Family Medicine
PROC: 0DBP8ZX Excision of Rectum, Via Natural or Artificial Opening Endoscopic, Diagnostic (ICD-10-PCS; principal; 2018-06-07 12:00)
PROC: 0D1N0Z4 Bypass Sigmoid Colon to Cutaneous, Open Approach (ICD-10-PCS; 2018-06-10)
DX: C20 Malignant neoplasm of rectum (principal); R65.10 Systemic inflammatory response syndrome (SIRS) of non-infectious origin without acute organ dysfunction; J18.9 Pneumonia, unspecified organism; J44.0 Chronic obstructive pulmonary disease with (acute) lower respiratory infection; E87.6 Hypokalemia; N39.0 Urinary tract infection, site not specified; K56.41 Fecal impaction; C34.90 Malignant neoplasm of unspecified part of unspecified bronchus or lung; D50.9 Iron deficiency anemia, unspecified; F17.210 Nicotine dependence, cigarettes, uncomplicated; F31.9 Bipolar disorder, unspecified; F41.9 Anxiety disorder, unspecified; I10 Essential (primary) hypertension; M06.9 Rheumatoid arthritis, unspecified; Z96.641 Presence of right artificial hip joint; R63.4 Abnormal weight loss; Z68.1 Body mass index [BMI] 19.9 or less, adult

== ENCOUNTER 2018-07-16 14:00 | Inpatient (IN) | payer MEDICAID ==
--- NOTE | 2018-07-16 14:25 | ED PDOC ---
Arrival/HPI - General Time Seen by Provider: 07/16/18 14:10 Historian: Patient - History of Present Illness Narrative History of Present Illness (Text): 07/16/18 14:25 57 year old female, whose past medical history includes anxiety, depression, COPD, RA, HTN, chronic anemia, chronic constipation, hx of colon cancer presents to the emergency department complaining of suprapubic abdominal pain since yesterday. Patient informs non-radiating pain localized to her babar-umbilical stoma associated with bloody and mucus excretion from the site. Patient states her last bowel movement was last night, which mostly consisted of blood and mucus. Patient informs nausea but denies any other associated somatic complaints. Patient denies any fever, chills, vomiting, diarrhea, chest pain, shortness of breath, cough, headache, dizziness, neck pain, back pain, or any other complaints. PMD: Dr. Alba Time/Duration: 4-6 hours Symptom Onset: Gradual Symptom Course: Unchanged Quality: Aching Activities at Onset: Light Context: Home Past Medical History - Provider Review Nursing Documentation Reviewed: Yes - Infectious Disease Hx of Infectious Diseases: None - Cardiac Hx Cardiac Disorders: Yes Hx Hypertension: Yes - Pulmonary Hx Chronic Obstructive Pulmonary Disease (COPD): Yes - Neurological Hx Neurological Disorder: Yes Hx Dizziness: Yes - HEENT Hx HEENT Disorder: No - Renal Hx Renal Disorder: No - Endocrine/Metabolic Hx Endocrine Disorders: No - Hematological/Oncological Hx Blood Disorders: No - Integumentary Hx Dermatological Disorder: No - Musculoskeletal/Rheumatological Hx Arthritis: Yes - Gastrointestinal Hx Gastrointestinal Disorders: No - Genitourinary/Gynecological Hx Genitourinary Disorders: No - Psychiatric Hx Psychophysiologic Disorder: Yes Hx Anxiety: Yes Hx Bipolar Disorder: Yes Hx Depression: Yes Hx Substance Use: No - Surgical History Hx Orthopedic Surgery: Yes Other/Comment: R HIP THR - Anesthesia Hx Anesthesia: Yes Hx Anesthesia Reactions: No - Suicidal Assessment Feels Threatened In Home Enviroment: No Family/Social History - Physician Review Nursing Documentation Reviewed: Yes Family/Social History: No Known Family HX Smoking Status: Current Some Days Smoker Hx Alcohol Use: Yes Hx Substance Use: No Hx Substance Use Treatment: No Allergies/Home Meds Allergies/Adverse Reactions: Allergies ibuprofen [From Motrin] Allergy (Verified 07/16/18 14:14) ANAPHYLAXIS NSAIDS (Non-Steroidal Anti-Inflamma Allergy (Verified 07/16/18 14:14) SWELLING risperidone [From Risperdal] Adverse Reaction (Verified 07/16/18 14:14) DIZZINESS Home Medications: Home Meds Medication Instructions Recorded Confirmed Acetaminophen [Tylenol 325mg tab] 650 mg PO Q4H PRN 05/17/18 06/07/18 Albuterol/Ipratropium [Duoneb 3 1 vial IH Q6H 05/17/18 06/07/18 mg/0.5 mg (3 ml) UD] Ferrous Sulfate [Feosol] 1 tab PO BID 05/17/18 06/07/18 Folic Acid 1 tab PO DAILY 05/17/18 06/07/18 Ruthven Carbonate [Ruthven 1 tab PO BID 05/17/18 06/07/18 Carbonate 300MG] Methocarbamol [Robaxin] 1 tab PO QID 05/17/18 06/07/18 Methotrexate Sodium [Trexall] 1 tab PO Q7D 05/17/18 06/07/18 Metoprolol Succinate XL [Toprol XL] 1 tab PO DAILY 05/17/18 06/07/18 Polyethylene Glycol 3350 [Miralax] 1 packet PO DAILY 05/17/18 06/07/18 Potassium Chloride [K-Dur 20 mEq 1 tab PO DAILY 05/17/18 06/07/18 ER Tab] QUEtiapine [SEROquel] 1 tab PO HS 05/17/18 06/07/18 amLODIPine [Norvasc] 1 tab PO DAILY 05/17/18 06/07/18 clonazePAM [Klonopin] 1 tab PO TID 05/17/18 06/07/18 Doxycycline Hyclate [Doryx] 100 mg PO Q12H 05/21/18 06/07/18 Review of Systems - Physician Review All systems were reviewed & negative as marked: Yes - Review of Systems Constitutional: absent: Fevers Respiratory: absent: SOB, Cough Cardiovascular: absent: Chest Pain, LUCERO Gastrointestinal: Abdominal Pain, Nausea. absent: Diarrhea, Vomiting Genitourinary Female: absent: Dysuria, Urine Output Changes Musculoskeletal: absent: Back Pain, Neck Pain Neurological: absent: Headache, Dizziness Physical Exam Respiratory Rate: Normal Appearance: Positive for: Well-Appearing, Non-Toxic, Comfortable Pain Distress: None Mental Status: Positive for: Alert and Oriented X 3 - Systems Exam Head: Present: Atraumatic, Normocephalic Pupils: Present: PERRL Extroacular Muscles: Present: EOMI Conjunctiva: Present: Normal Mouth: Present: Moist Mucous Membranes Neck: Present: Normal Range of Motion Respiratory/Chest: Present: Clear to Auscultation, Good Air Exchange. No: Respiratory Distress, Accessory Muscle Use Cardiovascular: Present: Regular Rate and Rhythm, Normal S1, S2. No: Murmurs Abdomen: Present: Tenderness (tenderness around periumbilical stoma site. No erythema or crepitus). No: Distention, Peritoneal Signs Back: Present: Normal Inspection. No: CVA Tenderness Upper Extremity: Present: Normal Inspection. No: Cyanosis, Edema Lower Extremity: Present: Normal Inspection. No: Edema Neurological: Present: GCS=15, CN II-XII Intact, Speech Normal Skin: Present: Warm, Dry, Normal Color. No: Rashes Psychiatric: Present: Alert, Oriented x 3, Normal Insight, Normal Concentration Medical Decision Making ED Course and Treatment: 07/16/18 14:23 Impression: 57 year old female presents to the Emergency Department complaining of abdominal pain. Hx of rectal CA, and colostomy p/w abdominal pain, mucus and blood from colostomy site. No fever, chills or night sweats. No chest pain or sob. No neck stiffness or meningeal signs. No urinary complaints. Given hx of colostomy w/ Dr. Valadez will seek consult w/ surgical team. Plan: -- VBG -- CT of Abdomen/Pelvis -- Labs -- EKG -- IV Fluids -- Zofran -- Urinalysis -- Reassess and disposition Prior Visits: Notes and results from previous visits were reviewed. Progress Notes: 07/16/18 16:32 EKG: Ordered, reviewed, and independently interpreted the EKG. Rate : 92 BPM Rhythm : NSR Interpretation : No ST-segment elevations or depressions, no T-wave inversions, normal intervals. No STEMI. Surgical team consulted: to be seen. 07/16/18 20:10 Labs WBC 17k, Lactic 0.9, Pending CT abd pelvis. Pt well appearing. 07/16/18 20:47 Impression: Scarring at the lung bases. Small cyst measuring 1.5 x 1.5 cm within the right lobe of the liver anteriorly. Moderate amount of free fluid within the abdomen and pelvis. Large amount of stool mainly in the right side of the colon. Colostomy at the left lower pelvic region. Loculated fluid collections suspected within the pelvis and evaluation of the pelvis is limited due to poor contrast opacification of bowel. Scoliosis lumbar spine. Orth opedic fixation device right proximal femur. Clinical correlation advise Endorsed to resident assistant w/ Dr. Valadez who will see pt. We are to start zosyn and flagyl for loculations. Appreciate consult w/ Dr. Alba; to admit to his service- consults for ID to be ordered. Pt in NAD. - RAD Interpretation Narrative RAD Interpretations (Text): 07/16/18 18:30 Chest X-ray reviewed by radiologist, shows: FINDINGS: LUNGS: No active pulmonary disease. PLEURA: No significant pleural effusion identified, no pneumothorax apparent. CARDIOVASCULAR: No radiographic findings to suggest acute or significant cardiovascular disease. OSSEOUS STRUCTURES: No significant abnormalities. VISUALIZED UPPER ABDOMEN: Normal. OTHER FINDINGS: None. IMPRESSION: No active disease. Resolution of previously identified small pleural effusions. Radiology Orders: 07/16/18 14:23 ABD PELVIS PO & IV CONTRAST [CT] Stat Food Science Professor: Radiologist - EKG Interpretation Interpreted by ED Physician: Yes Type: 12 lead EKG - Medication Orders Current Medication Orders: Sodium Chloride (Sodium Chloride 0.9%) 1,000 mls @ 100 mls/hr IV .Q10H VU Ondansetron HCl (Zofran Inj) 4 mg IVP STAT STA Stop: 07/16/18 14:24 - Scribe Statement The provider has reviewed the documentation as recorded by the Jesciaibleeanne Cedeno. All medical record entries made by the Jesicaibe were at my direction and personally dictated by me. I have reviewed the chart and agree that the record accurately reflects my personal performance of the history, physical exam, medical decision making, and the department course for this patient. I have also personally directed, reviewed, and agree with the discharge instructions and disposition. Disposition/Present on Arrival - Present on Arrival Any Indicators Present on Arrival: No History of DVT/PE: No History of Uncontrolled Diabetes: No Urinary Catheter: No History Surgical Site Infection Following: None - Disposition Have Diagnosis and Disposition been Completed?: Yes Diagnosis: Intra-abdominal infection Disposition Time: 20:46 Patient Problems: Current Active Problems Problem Status Onset Intra-abdominal infection Acute Condition: GOOD
[2018-07-16] MEDS ORDERED: Iohexol 240 (50 ml) ONE (14:36)
--- NOTE | 2018-07-16 16:16 | CP.PCM.CON ---
History of Present Illness - History of Present Illness History of Present Illness: General Surgery Consult Note for Dr. Valadez Patient is a 57 year old female with PMH of colostomy 2/2 rectal mass, chronic constipation, COPD, lung mass (has previously refused biopsy), HTN, RA, and chronic anemia presenting with pain and swelling of her stoma. She describes the pain as a sharp that is 9/10 in severity. She states that her symptoms started yesterday and that she has not had an output from her stoma since yesterday. Dr. Valadez performed a loop sigmoid colostomy on 06/10/18 for an obstructing rectal mass. Patient admits to nausea since yesterday but denies vomiting. She denies fevers, chills, night sweats, chest pain, shortness of breath, or urinary symptoms. PMD: Dr. Alba PMH: COPD, lung mass, HTN, chronic anemia, chronic constipation, colostomy 2/2 obstructing rectal mass. PSH: ORIF R hip, loop sigmoid colostomy Fam Hx: denies any relevant family history Soc Hx: current everyday smoker > 50 pack year history. Denies alcohol or drug use. Allergies: ibuprofen and other NSAIDs, risperidone Review of Systems - Review of Systems All systems: reviewed and no additional remarkable complaints except Past Patient History - Infectious Disease Hx of Infectious Diseases: None - Past Social History Smoking Status: Current Some Days Smoker - CARDIAC Hx Cardiac Disorders: Yes Hx Hypertension: Yes - PULMONARY Hx Chronic Obstructive Pulmonary Disease (COPD): Yes - NEUROLOGICAL Hx Neurological Disorder: Yes Hx Dizziness: Yes - HEENT Hx HEENT Problems: No - RENAL Hx Chronic Kidney Disease: No - ENDOCRINE/METABOLIC Hx Endocrine Disorders: No - HEMATOLOGICAL/ONCOLOGICAL Hx Blood Disorders: No - INTEGUMENTARY Hx Dermatological Problems: No - MUSCULOSKELETAL/RHEUMATOLOGICAL Hx Arthritis: Yes - GASTROINTESTINAL Hx Gastrointestinal Disorders: No - GENITOURINARY/GYNECOLOGICAL Hx Genitourinary Disorders: No - PSYCHIATRIC Hx Psychophysiologic Disorder: Yes Hx Anxiety: Yes Hx Bipolar Disorder: Yes Hx Depression: Yes Hx Substance Use: No - SURGICAL HISTORY Hx Orthopedic Surgery: Yes Other/Comment: R HIP THR - ANESTHESIA Hx Anesthesia: Yes Hx Anesthesia Reactions: No Meds Allergies/Adverse Reactions: Allergies Allergy/AdvReac Type Severity Reaction Status Date / Time ibuprofen [From Motrin] Allergy ANAPHYLAXIS Verified 07/16/18 14:14 NSAIDS (Non-Steroidal Allergy SWELLING Verified 07/16/18 14:14 Anti-Inflamma risperidone [From Risperdal] AdvReac DIZZINESS Verified 07/16/18 14:14 - Medications Medications: Current Medications Sodium Chloride (Sodium Chloride 0.9%) 1,000 mls @ 100 mls/hr IV .Q10H VU Physical Exam - Constitutional Appears: Well, Non-toxic, No Acute Distress - Head Exam Head Exam: ATRAUMATIC, NORMOCEPHALIC - Eye Exam Eye Exam: Normal appearance - ENT Exam ENT Exam: Mucous Membranes Moist - Respiratory Exam Respiratory Exam: NORMAL BREATHING PATTERN. absent: Respiratory Distress - Cardiovascular Exam Cardiovascular Exam: RRR. absent: Bradycardia, Tachycardia - GI/Abdominal Exam GI & Abdominal Exam: Soft. absent: Distended, Guarding, Rigid, Tenderness Additional comments: Prolapsed erythematous stoma with a single patent limb. - Extremities Exam Extremities exam: Positive for: normal inspection - Neurological Exam Neurological exam: Alert, Oriented x3 - Psychiatric Exam Psychiatric exam: Normal Affect, Normal Mood - Skin Skin Exam: Dry, Intact, Normal Color, Warm Results - Vital Signs Recent Vital Signs: Last Vital Signs Temp 98.8 F 07/16/18 14:01 Pulse 107 H 07/16/18 14:01 Resp 18 07/16/18 14:01 BP 125/74 07/16/18 14:01 Pulse Ox 100 07/16/18 14:01 Assessment & Plan - Assessment and Plan (Free Text) Assessment: Patient is a 57 year old female presenting with a prolapsed stoma. Patient had a loop sigmoid colostomy on 06/10/18 for an obstructing rectal mass. Plan: - Follow up CT abdomen - Antiemetics - Pain control - Continue with IVF Case discussed with Dr. Rory Drake PGY-1
[2018-07-16] MEDS: Sodium Chloride 0.9% 1,000 ML IV SCH (16:24)
[2018-07-16 16:49] LABS: BASO # 0.02 K/mm3 (0.0-2.0); BASO % 0.1 % (0.0-3.0); EOS % 0.2 % (1.5-5.0); GRAN # 15.65 (1.4-6.5); GRAN % 90.1 % (50.0-68.0); HEMOGLOBIN 9.5 g/dL (12.0-16.0); LYMPH # 1.3 (1.2-3.4); LYMPH % 7.4 % (22.0-35.0); MEAN CELL VOLUME 78.6 fl (80.0-105.0); MEAN CORPUSCULAR HEMOGLOBIN 24.7 pg (25.0-35.0); MEAN CORPUSCULAR HGB CONC 31.5 g/dl (31.0-37.0); MEAN PLATELET VOLUME 9.5 fl (7.0-11.0); MONO # 0.4 (0.1-0.6); MONO % 2.2 % (1.0-6.0); RBC 3.84 10^6/uL (3.5-6.1); RED CELL DISTRIBUTION WIDTH 16.8 % (11.5-14.5); VENOUS BLOOD GAS BASE EXCESS -1.8 mmol/L (0.0-2.0); VENOUS BLOOD GAS PO2 54 mm/Hg (30-55); VENOUS BLOOD PH 7.36 (7.32-7.43); WHITE BLOOD COUNT 17.4 10^3/ul (4.5-11.0)
[2018-07-16 16:53] LABS: PLATELET COUNT 749 10^3/uL (120.0-450.0)
[2018-07-16 17:02] LABS: ALB/GLOB RATIO 0.9 (1.1-1.8); ALBUMIN 3.6 g/dL (3.0-4.8); ALT/SGPT 24 U/L (7-56); AST/SGOT 33 U/L (14-36); BLOOD UREA NITROGEN 7 mg/dL (7-21); CALCIUM 10.6 mg/dL (8.4-10.5); GFR NON-AFRICAN AMERICAN > 60; LIPASE 45 U/L (23-300)
[2018-07-16 17:02] LABS: PH,URINE 6.5 (4.7-8.0); URINE BILIRUBIN NEGATIVE (NEGATIVE); URINE BLOOD NEGATIVE (NEGATIVE); URINE GLUCOSE (UA) NEGATIVE (NEGATIVE); URINE LEUKOCYTE ESTERASE SMALL Leu/uL (NEGATIVE); URINE PROTEIN NEGATIVE mg/dL (<30 mg/dL); URINE UROBILINOGEN 0.2 E.U./dL (<1 E.U./dL)
[2018-07-16 17:03] LABS: URINE APPEARANCE CLEAR (CLEAR); URINE COLOR YELLOW (YELLOW)
[2018-07-16 17:18] LABS: URINE RBC 0 - 2 /hpf (0-2)
--- NOTE | 2018-07-16 17:42 | RAD ---
Date of service: 07/16/2018 HISTORY: wbc 17k COMPARISON: 06/10/2018 FINDINGS: LUNGS: No active pulmonary disease. PLEURA: No significant pleural effusion identified, no pneumothorax apparent. CARDIOVASCULAR: No radiographic findings to suggest acute or significant cardiovascular disease. OSSEOUS STRUCTURES: No significant abnormalities. VISUALIZED UPPER ABDOMEN: Normal. OTHER FINDINGS: None. IMPRESSION: No active disease. Resolution of previously identified small pleural effusions.
[2018-07-16] MEDS ORDERED: Iohexol 350 MG/100 ML VIAL ONE (17:47)
[2018-07-16 18:35] LABS: LYMPHOCYTE 19 % (22.0-35.0); MONOCYTE 2 % (1.0-6.0); NEUTROPHIL 79 % (50.0-70.0)
[2018-07-16] MEDS ORDERED: Piperacillin/Tazobact 3.375 gm 100 ML IVPB STA (20:44)
[2018-07-16] MEDS ORDERED: metroNIDAZOLE IV 500 mg/100 ml 500 MG/100 ML BAG IVPB STA (20:44)
[2018-07-16] MEDS ORDERED: Sodium Chloride 0.9% 500 ML IV STA (21:05)
[2018-07-16] MEDS: Piperacillin/Tazobact 3.375 gm 100 ML IVPB SCH (22:56)
[2018-07-16] MEDS: Albuterol-Ipratrop 3 mg / 0.5 (3 ml) UD IH SCH ×2 (22:58→23:07)
--- NOTE | 2018-07-16 23:18 | CARD ---
APPROVED REPORT Date of service: 07/16/2018 EKG Measurement Heart [id number] <Conclusion> Normal sinus rhythm Normal ECG
[2018-07-16] MEDS: Morphine 2 mg/ml ISec IVP PRN (23:20)
[2018-07-17] MEDS: Piperacillin/Tazobact 3.375 gm 100 ML IVPB SCH ×4 (00:46→21:09)
[2018-07-17] MEDS: Albuterol-Ipratrop 3 mg / 0.5 (3 ml) UD IH SCH ×2 (05:00→10:53)
[2018-07-17 05:18] VITALS: BMI 15.9
[2018-07-17 06:28] LABS: MEAN CELL VOLUME 78.9 fl (80.0-105.0); MEAN CORPUSCULAR HEMOGLOBIN 24.1 pg (25.0-35.0); MEAN CORPUSCULAR HGB CONC 30.5 g/dl (31.0-37.0); MEAN PLATELET VOLUME 9.1 fl (7.0-11.0); RBC 3.32 10^6/uL (3.5-6.1); RED CELL DISTRIBUTION WIDTH 16.8 % (11.5-14.5); WHITE BLOOD COUNT 15.6 10^3/ul (4.5-11.0)
[2018-07-17 07:09] LABS: ALB/GLOB RATIO 0.9 (1.1-1.8); ALBUMIN 2.7 g/dL (3.0-4.8); ALT/SGPT 18 U/L (7-56); AST/SGOT 29 U/L (14-36); BLOOD UREA NITROGEN 6 mg/dL (7-21); CALCIUM 9.8 mg/dL (8.4-10.5); GFR NON-AFRICAN AMERICAN > 60
[2018-07-17] MEDS ORDERED: Potassium Chloride 20 mEq ER Tab PO ONE (08:14)
[2018-07-17] MEDS: Morphine 2 mg/ml ISec IVP PRN ×4 (08:34→20:20)
--- NOTE | 2018-07-17 08:38 | HP ---
HISTORY OF PRESENT ILLNESS: I have known Urszula for a while now, she has been in my office, I have seen her in nursing homes, subacute rehabs, in my office, and now she is back in the emergency room. She is a 57-year-old female who comes in after I spoke with her this afternoon because her stoma for the colostomy was protruding, it was very painful and was bloody and mucus excretions. She felt something was wrong, so I sent her to the emergency room. PAST MEDICAL HISTORY: She has a past medical history of anxiety, depression, COPD, rheumatoid arthritis, lung masses which is cancer, hypertension, chronic anemia, chronic constipation, history of colon cancer with obstruction. She ended up having a colostomy due to colon mass. She is just cleared out of [facility] subacute rehab for colostomy teaching, training, and walking. She did fairly well. She was having a hard time. We discussed hospice and she ended up refusing. She has a lot of anxiety and depression. She has had orthopedic surgery, right total hip replacement, colostomy and colon cancer. FAMILY HISTORY: Hypertension and diabetes in the family. SOCIAL HISTORY: She still smokes cigarettes, still drinks alcohol. No substance abuse. ALLERGIES: SHE IS TO ALLERGIC TO IBUPROFEN, NSAIDS, AND RISPERDAL. MEDICATIONS: She takes Tylenol, DuoNebs, Feosol, folic acid, lithium, Robaxin, Trexall, Toprol, MiraLax, potassium, Seroquel, Norvasc, Klonopin, and Doryx. REVIEW OF SYSTEMS: No acute vision or hearing changes. No sore throat, no neck problems. No shortness of breath or cough. No chest pain, no palpitations, no dyspnea on exertion. She is having abdominal pain, is having protrusion from her stoma and a colostomy, not moving anything for the past 3 days. No nausea or vomiting. No problems urinating. No back pain or neck pain. She has chronic abdominal pain, severe, on many meds for pain. No headache or dizziness. PHYSICAL EXAMINATION: VITAL SIGNS: She has a 98.8 temperature, 107 pulse, 125/74 blood pressure, 18 respiratory rate, 100% O2 sat. GENERAL: She is toxic, very uncomfortable, alert and oriented x3. HEENT: Head atraumatic, normocephalic. Extraocular muscles intact. Pupils equal, reactive to light. Throat is dry. NECK: Supple. HEART: Regular rate. Normal S1, S2. LUNGS: Decreased breath sounds bilaterally, very poor inspiration, but for the most part clear to auscultation. No wheezes, rhonchi, or rales. ABDOMEN: Diffusely tender. No guarding or rebound. There is protrusion of intestine from the stoma site of the colostomy. EXTREMITIES: Have no edema. NEUROLOGIC: She has GCS of 15. Cranial nerves II-XII grossly intact. Normal speech. Alert and oriented x3. SKIN: For the most part is warm and dry. No apparent rashes or ulcers. LYMPHS: Thyroid midline. No apparent lymphadenopathy appreciated. She is having abdominal pain, history of rectal cancer with colostomy. There is some blood from the colostomy site. She had multiple tests. She has a 17.4 white count very high, 9.5 hemoglobin, 30.2 hematocrit with 749 platelets. Lactate is 0.9. She has 138 sodium, potassium 3.6, BUN 7, creatinine 0.5, GFR is greater than 60, sugar is 91. Calcium is 10.6, magnesium 2.2, total bili is 0.5, AST is 33, ALT is 24, alk phos 90, total protein 7.6, albumin is 3.6, lipase is 45. Urine is small leukocytes. Chest x-ray showed improvement from last chest x-ray. CT scan of the abdomen and pelvis are pending. She will be on Zosyn, IV antibiotics. She will have consult with Surgery and Infectious Disease. She will be put on IV fluids, morphine for pain, Lovenox, her regular medications. We will check her labs tomorrow. She will have physical therapy consult, and she is here for protrusion from the stoma, leukocytosis, history of cancer, very debilitated. Patrice Alba DO
--- NOTE | 2018-07-17 09:04 | PN ---
DATE: 07/17/2018 SUBJECTIVE: I saw her resting comfortably in bed. She fairly slept well last night. She is currently on IV fluids. She is on morphine for pain, Lovenox, lithium, Klonopin, potassium. She is on fentanyl patch. She is currently off antibiotics. I will put her back on the Zosyn which fell off. PHYSICAL EXAMINATION: VITAL SIGNS: She has a 98.9 temp, 86 pulse, 142/79 blood pressure, 18 respiratory rate and 100% O2 sat. HEENT: Head is atraumatic, normocephalic. HEART: Regular rate. LUNGS: Decreased breath sounds. ABDOMEN: Soft. There is a colostomy bag with protrusion of the prolapse of the stoma. EXTREMITIES: Have no edema. LABORATORY DATA: She has a 15.6 white count, getting better; 8 hemoglobin; 26.2 hematocrit with 690 platelets, coming down. She has a 138 sodium; potassium 3.3, I am going to replace the potassium; BUN 6; creatinine 0.5; GFR is greater than 60; sugar is 89; calcium is 9.8; total bili is 0.6; AST is 29; ALT is 18; alk phos 71; total protein is 5.8. Urine was negative. A chest x-ray was negative. ASSESSMENT AND PLAN: She was seen by Surgery already. I am waiting for Infectious Disease to see her and make a plan. The Zosyn fell off, I will put her back on the Zosyn until Infectious Disease decides what to do. When they can, they will discharge her when she is feeling better. We will get physical therapy and out of bed to chair. She is here for a prolapsed stoma of a colostomy, leukocytosis. She has a history of cancer. Patrice Alba DO
[2018-07-17] MEDS: Enoxaparin 40 mg Syringe SC SCH (09:39)
--- NOTE | 2018-07-17 10:51 | CT ---
Date of service: 07/16/2018 PROCEDURE: CT Abdomen and Pelvis with contrast HISTORY: Stomal pain COMPARISON: 06/06/2018 preoperative study. TECHNIQUE: Intravenous contrast dose: 100 cc Omnipaque 50. Radiation dose: Total exam DLP = 196.57 mGy-cm. This CT exam was performed using one or more of the following dose reduction techniques: Automated exposure control, adjustment of the mA and/or kV according to patient size, and/or use of iterative reconstruction technique. FINDINGS: LOWER THORAX: Unremarkable. LIVER: Stable mass right hepatic lobe 2.3 x 2.5 cm. GALLBLADDER AND BILE DUCTS: Unremarkable. PANCREAS: Unremarkable. No gross lesion or ductal dilatation. SPLEEN: Unremarkable. ADRENALS: Unremarkable. No mass. KIDNEYS AND URETERS: Unremarkable. No hydronephrosis. No solid mass. VASCULATURE: Unremarkable. No aortic aneurysm. BOWEL: Diverting colostomy left lower quadrant. Edematous, postoperative changes identified. Constipation. No evidence of mechanical obstruction. Fluid-filled rectum includes the known rectal wall mass 2.4 x 3.4 cm. This is without interval change compared to the prior study. APPENDIX: Normal appendix. PERITONEUM: Low volume pelvic fluid. No free air. LYMPH NODES: Unremarkable. No enlarged lymph nodes. BLADDER: Unremarkable. REPRODUCTIVE: Stable cystic pelvic masses left larger than right. These are likely adnexal in origin, the left measures 4.5 x 4.8 cm. The right cystic mass 2.5 x 3.6 cm. BONES: No acute fracture. OTHER FINDINGS: None. IMPRESSION: Expected postoperative changes primarily lower abdomen and pelvis. Stable adnexal findings. Additional benign and/or incidental findings described above. Concordant results (preliminary interpretation) provided by [employer]. Procedure Completed: 19:31 Preliminary Report: Dictated and Authenticated: 20:25. Final Interpretation: 10:47. July 17, 2018
--- NOTE | 2018-07-17 11:08 | CP.PCM.PN ---
Addendum entered and electronically signed by Jose Molina DO 07/17/18 14:01: ostomy afferent limb prolapsed and hyperemic, appearing to cause efferent limb obstruction. Using gentle constant pressure, afferent limb of stoma easily reduced intra-abdominally. Patient tolerated well. Immediate return of air from proximal stoma and patient relief. hard stool felt within the proximal limb and proceeded with fecal dis-impaction. New ostomy device applied. Patient ok for clear liquid diet. OK to advance diet as tolerated. Recommend oncology evaluation for further care. Will start Miralax BID for constipation. may consider enema to proximal opening of stoma if patient remains constipated. no further surgical intervention at this time. AKWhite PGY4 Original Note: Subjective - Date & Time of Evaluation Date of Evaluation: 07/17/18 Time of Evaluation: 10:53 - Subjective Subjective: General Surgery progress note for Dr. Valadez Patient seen and examined at bedside. No acute events overnight. Still complains of pain around her stoma. Denies fevers, chills, shortness of breath, chest pain, or any other complaints at this time. Objective - Vital Signs/Intake and Output Vital Signs (last 24 hours): Temp Pulse Resp BP Pulse Ox 98.9 F 86 20 142/79 100 07/17/18 02:06 07/17/18 02:06 07/17/18 04:49 07/17/18 02:06 07/17/18 02:06 Intake and Output: 07/17/18 07/17/18 06:59 18:59 Intake Total 300 Balance 300 - Medications Medications: Current Medications Clonazepam (Klonopin) 1 mg PO TID VU; Protocol Last Admin: 07/17/18 09:39 Dose: 1 mg Enoxaparin Sodium (Lovenox) 40 mg SC DAILY VU; Protocol Last Admin: 07/17/18 09:39 Dose: 40 mg Fentanyl (Duragesic) 1 patch TD Q72H VU Last Admin: 07/17/18 01:08 Dose: 1 patch Sodium Chloride (Sodium Chloride 0.9%) 1,000 mls @ 100 mls/hr IV .Q10H VU Last Admin: 07/16/18 16:24 Dose: 100 mls/hr Piperacillin Sod/Tazobactam Sod (Zosyn 3.375 In Ns 100ml) 100 mls @ 25 mls/hr IVPB Q8 VU; Protocol Stop: 07/27/18 08:31 Last Admin: 07/17/18 09:40 Dose: 25 mls/hr [place] Carbonate ([place] Carbonate 300mg) 300 mg PO BID VU Last Admin: 07/17/18 09:39 Dose: 300 mg Morphine Sulfate (Morphine) 2 mg IVP Q3H PRN PRN Reason: Pain, moderate (4-7) Last Admin: 07/17/18 08:34 Dose: 2 mg - Labs Labs: 07/17/18 06:00 07/17/18 06:00 - Constitutional Appears: Well, Non-toxic, No Acute Distress - Head Exam Head Exam: ATRAUMATIC, NORMOCEPHALIC - Eye Exam Eye Exam: Normal appearance - ENT Exam ENT Exam: Mucous Membranes Moist - Respiratory Exam Respiratory Exam: NORMAL BREATHING PATTERN. absent: Respiratory Distress - Cardiovascular Exam Cardiovascular Exam: RRR. absent: Bradycardia, Tachycardia - GI/Abdominal Exam GI & Abdominal Exam: Soft, Tenderness. absent: Rigid Additional comments: Prolapsed erythematous stoma with a single patent limb. Tender to palpation around stoma. Abdomen is mildly more distended than yesterday. - Extremities Exam Extremities Exam: Normal Inspection - Neurological Exam Neurological Exam: Alert, Awake, Oriented x3 - Psychiatric Exam Psychiatric exam: Normal Affect, Normal Mood - Skin Skin Exam: Dry, Intact, Normal Color, Warm Assessment and Plan - Assessment and Plan (Free Text) Assessment: Patient is a 57 year old female presenting with a prolapsed stoma. Patient had a loop sigmoid colostomy on 06/10/18 for an obstructing rectal mass. Plan: - NPO - Continue IV antibiotics - Continue IVF - Follow up with infectious disease recs - Pain control Case discussed with Dr. Rory Drake
[2018-07-17] MEDS: Sodium Chloride 0.9% 1,000 ML IV SCH ×2 (14:50→20:19)
[2018-07-17] MEDS: POLYETHYLENE GLYCOL 3350 17 GM/Dose PACKET PO SCH (17:29)
--- NOTE | 2018-07-17 22:26 | CON ---
DATE: 07/17/2018 The patient is in room 373, bed 1. CHIEF COMPLAINT: Abdominal discomfort times several days. HISTORY OF PRESENT ILLNESS: This is a 57-year-old female with history of colon cancer, coronary artery disease, chronic obstructive lung disease, rheumatoid arthritis, hypertension, anxiety, and scoliosis, who also has depression, anemia, and colon cancer. The patient had surgery approximately a month ago and had colostomy, now returns with abdominal pain, found to have leukocytosis in Infectious Disease consultation. There has been low-grade fevers. There is nausea, but no vomiting. No diarrhea or constipation now, and she did have constipation at home, and she has no dysuria or frequency. REVIEW OF SYSTEMS: Reveals 12-point review of systems performed. PAST MEDICAL HISTORY: Significant for colon cancer, coronary artery disease, chronic obstructive lung disease, rheumatoid arthritis, hypertension, anxiety, scoliosis, and depression. PAST SURGICAL HISTORY: Significant for colostomy, breast cyst surgery and hip surgery. The patient also had a right hip surgery, and the patient is a long-time smoker. ALLERGIES: THE PATIENT IS ALLERGIC TO NONSTEROIDALS, IBUPROFEN, AND RISPERIDONE. MEDICATIONS AT HOME: Reviewed. PHYSICAL EXAMINATION: On exam, the patient is in bed, in no acute distress, nontoxic, however, chronically ill, debilitated, cachectic with a temperature of 98, heart rate of 107, respiratory rate of 20, blood pressure is 120/70. BMI is only 15. On examination of HEENT, there is temporal wasting. Neck is supple. Lungs have decreased breath sounds. Heart exam has normal S1, S2. Abdomen examination has mild tenderness, but no rebound or guarding. No masses and colostomy site is clean. LABORATORY EXAMINATION: Reveals the patient has white count of 17,400, hemoglobin of 9, platelets of 749, and 90% granulocytosis. The chemistries reveal BUN of 7, creatinine of 0.7. Urinalysis is as noted. Microbiology is reviewed. The patient had a CT scan of the abdomen and pelvis, questionable collection is noted. ASSESSMENT AND PLAN: This is a 57-year-old female with obstructing carcinoma, which had surgery done in June, now presents with sepsis with an intra-abdominal collection. We will start Zosyn. We will ask Dr. Luigi Vides to review the CT scan, and possible IR directed drainage of the abscess, and we will check on panculture results and surgical input, and we will make further recommendations. The patient had an HIV test in the past, which was negative. Anton Solo MD
[2018-07-17] MEDS ORDERED: Simethicone 80 mg Chewtab PO ONE (22:46)
[2018-07-18] MEDS: Morphine 2 mg/ml ISec IVP PRN ×7 (00:28→23:40)
[2018-07-18] MEDS: Piperacillin/Tazobact 3.375 gm 100 ML IVPB SCH ×3 (05:02→22:07)
[2018-07-18 06:57] LABS: HEMOGLOBIN 7.6 g/dL (12.0-16.0); MEAN CELL VOLUME 79.3 fl (80.0-105.0); MEAN CORPUSCULAR HEMOGLOBIN 24.2 pg (25.0-35.0); MEAN CORPUSCULAR HGB CONC 30.5 g/dl (31.0-37.0); MEAN PLATELET VOLUME 8.9 fl (7.0-11.0); RBC 3.14 10^6/uL (3.5-6.1); RED CELL DISTRIBUTION WIDTH 17.1 % (11.5-14.5); WHITE BLOOD COUNT 11.4 10^3/ul (4.5-11.0)
[2018-07-18 07:30] LABS: ALB/GLOB RATIO 0.8 (1.1-1.8); ALBUMIN 2.5 g/dL (3.0-4.8); ALT/SGPT 19 U/L (7-56); AST/SGOT 19 U/L (14-36); BLOOD UREA NITROGEN 4 mg/dL (7-21); CALCIUM 9.5 mg/dL (8.4-10.5); GFR NON-AFRICAN AMERICAN > 60
[2018-07-18] MEDS ORDERED: Magnesium Citrate Oral SOL (300 ml) PO ONE (08:44)
--- NOTE | 2018-07-18 08:51 | CP.PCM.PN ---
Subjective - Date & Time of Evaluation Date of Evaluation: 07/18/18 Time of Evaluation: 08:48 - Subjective Subjective: Surgery: Dr. Valadez Patient reports prolapsing of stoma again. She denies having stool output in bag. She is tolerating clears. Denies n/v/f/c. Objective - Vital Signs/Intake and Output Vital Signs (last 24 hours): Temp Pulse Resp BP Pulse Ox 99.0 F 86 20 129/79 96 07/17/18 17:04 07/17/18 17:04 07/17/18 17:04 07/17/18 17:04 07/17/18 17:04 Intake and Output: 07/18/18 07/18/18 06:59 18:59 Intake Total 1960 Output Total 1100 Balance 860 - Medications Medications: Current Medications Clonazepam (Klonopin) 1 mg PO TID [facility]; Protocol Last Admin: 07/17/18 17:28 Dose: 1 mg Docusate Sodium (Colace) 100 mg PO BID [facility] Last Admin: 07/17/18 17:28 Dose: 100 mg Enoxaparin Sodium (Lovenox) 40 mg SC DAILY [facility]; Protocol Last Admin: 07/17/18 09:39 Dose: 40 mg Fentanyl (Duragesic) 1 patch TD Q72H [facility] Last Admin: 07/17/18 01:08 Dose: 1 patch Piperacillin Sod/Tazobactam Sod (Zosyn 3.375 In Ns 100ml) 100 mls @ 25 mls/hr IVPB Q8 VU; Protocol Stop: 07/27/18 08:31 Last Admin: 07/18/18 05:02 Dose: 25 mls/hr [place] Carbonate ([place] Carbonate 300mg) 300 mg PO BID [facility] Last Admin: 07/17/18 17:29 Dose: 300 mg Magnesium Citrate (Citrate Of Mag) 300 ml PO ONCE ONE Stop: 07/18/18 08:45 Morphine Sulfate (Morphine) 2 mg IVP Q3H PRN PRN Reason: Pain, moderate (4-7) Last Admin: 07/18/18 08:08 Dose: 2 mg Polyethylene Glycol (Miralax) 17 gm PO BID [facility] Last Admin: 07/17/18 17:29 Dose: 17 gm - Labs Labs: 07/18/18 06:00 07/18/18 06:00 - Constitutional Appears: Non-toxic, No Acute Distress - Head Exam Head Exam: ATRAUMATIC, NORMOCEPHALIC - Eye Exam Eye Exam: EOMI, Normal appearance - ENT Exam ENT Exam: Mucous Membranes Moist - Respiratory Exam Respiratory Exam: NORMAL BREATHING PATTERN. absent: Respiratory Distress - Cardiovascular Exam Cardiovascular Exam: REGULAR RHYTHM. absent: Tachycardia - GI/Abdominal Exam GI & Abdominal Exam: Distended, Soft. absent: Guarding, Rebound Additional comments: prolapsed distal end of loop colostomy. patent distal and proximal stomas. Prolapse easily reduced with immediate relief. Hard stool disimpacted from proximal end of colostomy. Assessment and Plan - Assessment and Plan (Free Text) Assessment: 57 y/o F w/ prolapsing stoma, reducible, and constipation Plan: -add mag citrate -cont mirilax and colace scheduled -FLD -protein supplements -pelvic u/s today -d/w Dr. Rory Menjivar PGY4
[2018-07-18] MEDS ORDERED: Potassium Chloride 20 mEq ER Tab PO ONE (08:53)
[2018-07-18] MEDS: Enoxaparin 40 mg Syringe SC SCH (10:20)
[2018-07-18] MEDS: POLYETHYLENE GLYCOL 3350 17 GM/Dose PACKET PO SCH ×2 (12:27→17:47)
[2018-07-18] MEDS ORDERED: Morphine 2 mg/ml ISec IVP ONE (12:56)
--- NOTE | 2018-07-18 13:07 | US ---
Date of service: 07/17/2018 HISTORY: pelvic abscess COMPARISON: 07/16/2018 CT abdomen 06/06/2018 CT abdomen and pelvis. TECHNIQUE: Transabdominal only. Real-time technique with 2D, duplex and color Doppler FINDINGS: UTERUS: Measures and pelvis 2.3 x 3.2 x 5.4 cm. Normal in size and appearance. No fibroid or other mass lesion seen. ENDOMETRIUM: Measures 2.1 mm in diameter. Unremarkable. CERVIX: No cervical abnormality identified. RIGHT OVARY: Measures 4.6 x 6.5 x 3.3 cm. No solid mass. Normal flow. Cyst measuring 2.7 x 3.5 x 5 cm identified. LEFT OVARY: Measures 5 5.9 x 4.6 by 7.2 cm cm. No solid mass. Normal flow. Complex septated cyst with debris 3.3 x 6.1 cm. Similar findings identified on recent CT scan as well as the preop CT scan. FREE FLUID: No significant free fluid noted. OTHER FINDINGS: None. IMPRESSION: No drainable collection identified in the pelvis. Bilateral adnexal cysts without acute or significant interval change compared to prior studies.
--- NOTE | 2018-07-18 16:42 | PN ---
DATE: 07/18/2018 SUBJECTIVE: The patient is seen earlier this morning in room 373. She is weak and overall in poor condition and poor appetite, low-grade fevers. PHYSICAL EXAMINATION: VITAL SIGNS: On exam, temperature is 99, blood pressure is 120/70, respiratory rate of 20. HEENT: Examination of HEENT is unremarkable. NECK: Supple. LUNGS: Have decreased breath sounds. HEART: Normal S1, S2. ABDOMEN: Soft, nontender. LABORATORY DATA: Laboratory examination reveals the patient's white count is reported to be 11,400, which is much improved from 17,000; hemoglobin is 7.6; platelets of 664. The chemistries are noted and BUN of 4, creatinine of 0.5. Urinalysis is noted. Microbiology reveals the blood cultures are negative. Urine cultures are negative. The patient had a CAT scan of the abdomen and pelvis. CAT scan of the abdomen and pelvis is noted. Dr. Molina's progress note is reviewed. ASSESSMENT AND PLAN: A 57-year-old with past medical history significant for colon cancer, coronary artery disease, chronic obstructive lung disease, rheumatoid arthritis, hypertension, anxiety, scoliosis, depression, anemia, had surgery approximately a month ago, had a colostomy, now returns with sepsis with an intra-abdominal collection, on Zosyn. Pelvic ultrasound is noted. We will follow closely with you with afferent limb prolapse and hyperemic, efferent limb obstruction. No surgical intervention is noted at this time. Review of the CAT scan, expected postoperative changes. possible abscess. We will review the CAT scan with radiologist. Anton Solo MD
--- NOTE | 2018-07-18 19:20 | CP.PCM.PN ---
<Harry Beasley - Last Filed: 07/18/18 18:52> Subjective - Date & Time of Evaluation Date of Evaluation: 07/18/18 Time of Evaluation: 18:52 - Subjective Subjective: Harry Beasley DO PGY1 - Internal Medicine [employer] - Hospital Progress Note Patient was seen and examined at bedside thsi AM. patient was crying w/ c/o pain. She offered no other complaints at time of evaluaiton. Later in day patient was asked if she understood why she had ostomy. Patient reported that she knows she has a "mass" and reports that she had seen Dr. Cerda in the past. We notified her that she will need to follow up with an oncologist outpt. Remainder of 12 system ROS is negative at this time. Objective - Vital Signs/Intake and Output Vital Signs (last 24 hours): Temp Pulse Resp BP Pulse Ox 98 F 88 18 133/80 100 07/18/18 18:49 07/18/18 18:49 07/18/18 18:49 07/18/18 18:49 07/18/18 18:49 Intake and Output: 07/18/18 07/18/18 06:59 18:59 Intake Total 1960 4 Output Total 1100 Balance 860 4 - Medications Medications: Current Medications Alprazolam (Xanax) 0.5 mg PO Q12H PRN; Protocol PRN Reason: Anxiety Clonazepam (Klonopin) 1 mg PO TID [facility]U; Protocol Last Admin: 07/18/18 17:46 Dose: 1 mg Docusate Sodium (Colace) 100 mg PO BID VU Last Admin: 07/18/18 17:46 Dose: 100 mg Enoxaparin Sodium (Lovenox) 40 mg SC DAILY VU; Protocol Last Admin: 07/18/18 10:20 Dose: 40 mg Fentanyl (Duragesic) 1 patch TD Q72H VU Last Admin: 07/17/18 01:08 Dose: 1 patch Piperacillin Sod/Tazobactam Sod (Zosyn 3.375 In Ns 100ml) 100 mls @ 25 mls/hr IVPB Q8 VU; Protocol Stop: 07/27/18 08:31 Last Admin: 07/18/18 14:17 Dose: 25 mls/hr Iron Sucrose 200 mg/ Sodium (Chloride) 110 mls @ 110 mls/hr IVPB ONCE ONE Stop: 07/19/18 10:59 [place] Carbonate ([place] Carbonate 300mg) 300 mg PO BID [facility] Last Admin: 07/18/18 17:47 Dose: 300 mg Morphine Sulfate (Morphine) 2 mg IVP Q3H PRN PRN Reason: Pain, moderate (4-7) Last Admin: 07/18/18 16:38 Dose: 2 mg Nicotine (Nicoderm Cq) 1 patch TD DAILY [facility] Last Admin: 07/18/18 16:15 Dose: Not Given Polyethylene Glycol (Miralax) 17 gm PO BID [facility] Last Admin: 07/18/18 17:47 Dose: 17 gm - Labs Labs: 07/18/18 06:00 07/18/18 06:00 - Constitutional Appears: No Acute Distress, Cachectic - Head Exam Head Exam: ATRAUMATIC, NORMOCEPHALIC - Eye Exam Eye Exam: EOMI, Normal appearance, PERRL, Scleral icterus - ENT Exam ENT Exam: Mucous Membranes Moist Additional comments: One tooth; Poor dentition - Respiratory Exam Respiratory Exam: Clear to Ausculation Bilateral, NORMAL BREATHING PATTERN. absent: Rales, Rhonchi, Wheezes - Cardiovascular Exam Cardiovascular Exam: RRR, +S1, +S2. absent: Murmur - GI/Abdominal Exam GI & Abdominal Exam: Soft, Normal Bowel Sounds. absent: Tenderness Additional comments: Ostomy bag in place; no leak - Extremities Exam Extremities Exam: Normal Capillary Refill. absent: Pedal Edema, Tenderness - Neurological Exam Neurological Exam: Alert, Awake, CN II-XII Intact, Oriented x3 - Psychiatric Exam Psychiatric exam: Anxious Additional comments: Frightful - Skin Skin Exam: Dry, Intact, Warm Additional comments: Some bruising noted UE/LE BL Assessment and Plan - Assessment and Plan (Free Text) Assessment: 57F w/ a PMH of anxiety, depression, COPD, RA, lung mass/CA, HTN, chronic anemia, chronic constipation, and most significantly rectal cancer (moderately differentiated adenocarcinoma) w/ obstruction, s/p diverting colostmy performed in 06/2018. Patient returned on to [facility] on 07/16/18 w/ CC of stoma protrusion w/ bloody/mucous excretions and abd pain. CTAP in ED showed postop changes, stable adnexal finidngs. Surgery was able to reduce the afferent limb of the stoma which provided immediate relief. Plan: Prolapsed Ostomy: Surgery was consulted and found the afferent limb prolapse and hyperemic; causi ng efferent limb obstruction. Reduced manually Bowel regimen + stool softners Miralax 17gm BID [place] 100mg BID Can consider enema to proximal opening of stoma if patient remains constipated. No surgical intervention at this time as per surgical team Patient is on CLD; Will advance to Soft Leukocytosis: Reactive vs. Infectious - intraabdominal infection? vs PNA? C/w Zosyn ID Following, appreciate reccs Hx Anemia: Hb 9>>>7.6, Microcytic HIV/RPR negative Thrombocythemia Started Venofer Hx Rectal Cancer: No further surgical intervention at this time Will F/u w/ heme-onc outpt Pain management: Fentanyl patch q72H Morphine 2 Q3H PRN Tobacco Abuse: Patient caught smoking in bathroom Patient was counseled by nursing Nicotine patch ordered Hx Anxiety/Depression/ Mood disorder Xanax 0.5 Q12H PRN Clonazepam 1 TID [place] DVT PPX: Lovenox 40 SC GI PPX: Protonix Patient was seen, evaluated, and discussed w/ attending Dr. Ziggy Beasley DO PGY1 Internal Medicine [employer] -Pager [phone] <Ha Trinh - Last Filed: 07/20/18 13:10> Objective - Vital Signs/Intake and Output Vital Signs (last 24 hours): Temp Pulse Resp BP Pulse Ox 98.3 F 85 20 115/80 93 L 07/20/18 08:59 07/20/18 08:59 07/20/18 08:59 07/20/18 08:59 07/20/18 08:59 Intake and Output: 07/20/18 07/20/18 06:59 18:59 Intake Total 880 Output Total 600 Balance 280 - Medications Medications: Current Medications Alprazolam (Xanax) 0.5 mg PO Q12H PRN; Protocol PRN Reason: Anxiety Clonazepam (Klonopin) 1 mg PO TID [facility]; Protocol Last Admin: 07/20/18 09:42 Dose: 1 mg Docusate Sodium (Colace) 100 mg PO BID [facility] Last Admin: 07/20/18 09:42 Dose: 100 mg Enoxaparin Sodium (Lovenox) 40 mg SC DAILY [facility]; Protocol Last Admin: 07/20/18 12:36 Dose: Not Given Fentanyl (Duragesic) 1 patch TD Q72H [facility] Piperacillin Sod/Tazobactam Sod (Zosyn 3.375 In Ns 100ml) 100 mls @ 25 mls/hr IVPB Q8 [facility]; Protocol Stop: 07/27/18 08:31 Last Admin: 07/20/18 05:12 Dose: 25 mls/hr [place] Carbonate ([place] Carbonate 300mg) 300 mg PO BID [facility] Last Admin: 07/20/18 09:43 Dose: 300 mg Morphine Sulfate (Morphine) 2 mg IVP Q3H PRN PRN Reason: Pain, moderate (4-7) Last Admin: 07/20/18 12:46 Dose: 2 mg Nicotine (Nicoderm Cq) 1 patch TD DAILY [facility] Last Admin: 07/20/18 12:37 Dose: Not Given Polyethylene Glycol (Miralax) 17 gm PO BID [facility] Last Admin: 07/20/18 09:43 Dose: 17 gm - Labs Labs: 07/20/18 11:00 07/20/18 11:00 Attending/Attestation - Attestation I have personally seen and examined this patient.: Yes I have fully participated in the care of the patient.: Yes I have reviewed all pertinent clinical information, including history, physical exam and plan: Yes Notes (Text): 07/20/18 13:06 Attending note/covering Dr. Alba. Patient seen and examined with resident. Patient is alert and awake. Complaining of abdominal pain. Crying at times during interview. Emotionally labile. Wants to eat regular diet. Patient is a 57 year old female with PMH of anxiety, depression, COPD, RA, lung mass/CA, HTN, chronic anemia, chronic constipation, and most significantly rectal cancer (moderately differentiated adenocarcinoma) w/ obstruction, s/p diverting colostmy performed in 06/2018. Patient was admitted for colostomy prolapse. Reduce by surgery. Currently no significant stool. Constipation; started on MiraLAX and Colace. Surgery evaluation appreciated. Patient is currently on IV Zosyn. ID evaluation appreciated. Denies any fevers, chills. Blood culture, urine culture is negative. CT abdomen and pelvis showed postop changes, stable adnexal finidngs. Abdominal pain; continue morphine when necessary. Bipolar disorder; continue clonazepam and lithium. Anemia ; started on IV iron . Possible transfusion if hemoglobin drops. Patient needs close follow-up with oncologist as outpatient. Case discussed with case aide for discharge planning. Upon discharge the patient will follow-up with PMD .
[2018-07-19] MEDS: Morphine 2 mg/ml ISec IVP PRN ×7 (02:57→22:46)
[2018-07-19] MEDS: Piperacillin/Tazobact 3.375 gm 100 ML IVPB SCH ×3 (05:34→21:24)
[2018-07-19 08:43] LABS: HEMOGLOBIN 8.2 g/dL (12.0-16.0); MEAN CELL VOLUME 79.4 fl (80.0-105.0); MEAN CORPUSCULAR HEMOGLOBIN 24.5 pg (25.0-35.0); MEAN CORPUSCULAR HGB CONC 30.8 g/dl (31.0-37.0); MEAN PLATELET VOLUME 8.6 fl (7.0-11.0); RBC 3.35 10^6/uL (3.5-6.1)
[2018-07-19 08:55] LABS: BLOOD UREA NITROGEN 3 mg/dL (7-21); CALCIUM 9.8 mg/dL (8.4-10.5); GFR NON-AFRICAN AMERICAN > 60
--- NOTE | 2018-07-19 09:15 | CP.PCM.PN ---
Subjective - Date & Time of Evaluation Date of Evaluation: 07/19/18 Time of Evaluation: 09:10 - Subjective Subjective: General Surgery Progress Note for Dr. Valadez This 57F was seen and examined this Am at bedside, overnight her stoma prolapsed fro the 3rd time. This AM durring rounds it was reduced. She denies any SOB or chest pain. She is moving her bowels into her ostomy appliance. Objective - Vital Signs/Intake and Output Vital Signs (last 24 hours): Temp Pulse Resp BP Pulse Ox 98 F 88 18 133/80 100 07/18/18 18:49 07/18/18 18:49 07/18/18 18:49 07/18/18 18:49 07/18/18 18:49 Intake and Output: 07/19/18 07/19/18 06:59 18:59 Intake Total 920 Balance 920 - Medications Medications: Current Medications Alprazolam (Xanax) 0.5 mg PO Q12H PRN; Protocol PRN Reason: Anxiety Clonazepam (Klonopin) 1 mg PO TID VU; Protocol Last Admin: 07/18/18 17:46 Dose: 1 mg Docusate Sodium (Colace) 100 mg PO BID [facility] Last Admin: 07/18/18 17:46 Dose: 100 mg Enoxaparin Sodium (Lovenox) 40 mg SC DAILY [facility]; Protocol Last Admin: 07/18/18 10:20 Dose: 40 mg Fentanyl (Duragesic) 1 patch TD Q72H VU Last Admin: 07/17/18 01:08 Dose: 1 patch Piperacillin Sod/Tazobactam Sod (Zosyn 3.375 In Ns 100ml) 100 mls @ 25 mls/hr IVPB Q8 VU; Protocol Stop: 07/27/18 08:31 Last Admin: 07/19/18 05:34 Dose: 25 mls/hr Iron Sucrose 200 mg/ Sodium (Chloride) 110 mls @ 110 mls/hr IVPB ONCE ONE Stop: 07/19/18 10:59 [place] Carbonate ([place] Carbonate 300mg) 300 mg PO BID [facility] Last Admin: 07/18/18 17:47 Dose: 300 mg Morphine Sulfate (Morphine) 2 mg IVP Q3H PRN PRN Reason: Pain, moderate (4-7) Last Admin: 07/19/18 06:31 Dose: 2 mg Nicotine (Nicoderm Cq) 1 patch TD DAILY [facility] Last Admin: 07/18/18 16:15 Dose: Not Given Polyethylene Glycol (Miralax) 17 gm PO BID [facility] Last Admin: 07/18/18 17:47 Dose: 17 gm - Labs Labs: 07/19/18 08:30 07/19/18 08:30 - Constitutional Appears: Non-toxic, No Acute Distress - Head Exam Head Exam: ATRAUMATIC, NORMOCEPHALIC - Eye Exam Eye Exam: EOMI, Normal appearance - ENT Exam ENT Exam: Mucous Membranes Moist - Respiratory Exam Respiratory Exam: NORMAL BREATHING PATTERN - Cardiovascular Exam Cardiovascular Exam: +S1, +S2 - GI/Abdominal Exam GI & Abdominal Exam: Soft. absent: Firm, Guarding Additional comments: Ostomy appliance with copious non bloody stool - Neurological Exam Neurological Exam: Alert, Awake - Psychiatric Exam Psychiatric exam: Normal Affect, Normal Mood - Skin Skin Exam: Dry, Intact Assessment and Plan - Assessment and Plan (Free Text) Assessment: 57 y/o F w/ prolapsing stoma, reducible, and resolved constipation Plan: -cont mirilax and colace scheduled -Advance diet as tolerated -protein supplements -d/w Dr. Rory Leach PGY3
[2018-07-19] MEDS: POLYETHYLENE GLYCOL 3350 17 GM/Dose PACKET PO SCH ×2 (09:34→17:29)
[2018-07-19] MEDS: Enoxaparin 40 mg Syringe SC SCH ×2 (09:35→09:44)
--- NOTE | 2018-07-19 20:31 | CP.PCM.PN ---
<Harry Beasley - Last Filed: 07/19/18 20:27> Subjective - Date & Time of Evaluation Date of Evaluation: 07/19/18 Time of Evaluation: 20:27 - Subjective Subjective: Harry Beasley DO PGy1 - Internal Medicine [employer] Administrator - Hospital Progress Note No acute events overnight Patient having some complaints of pain this AM Her ostomy was reduced again this AM; subsequently reduced by surgical team for the third time No CP, SOB, Abd pain, n/v/d/c; emptying appropriately into ostomy. Objective - Vital Signs/Intake and Output Vital Signs (last 24 hours): Temp Pulse Resp BP Pulse Ox 98.1 F 88 20 109/70 94 L 07/19/18 19:47 07/19/18 19:47 07/19/18 19:47 07/19/18 19:47 07/19/18 19:47 Intake and Output: 07/19/18 07/20/18 18:59 06:59 Intake Total 200 Balance 200 - Medications Medications: Current Medications Alprazolam (Xanax) 0.5 mg PO Q12H PRN; Protocol PRN Reason: Anxiety Clonazepam (Klonopin) 1 mg PO TID VU; Protocol Last Admin: 07/19/18 17:17 Dose: 1 mg Docusate Sodium (Colace) 100 mg PO BID [facility] Last Admin: 07/19/18 17:29 Dose: Not Given Enoxaparin Sodium (Lovenox) 40 mg SC DAILY [facility]; Protocol Last Admin: 07/19/18 09:44 Dose: Not Given Fentanyl (Duragesic) 1 patch TD Q72H VU Piperacillin Sod/Tazobactam Sod (Zosyn 3.375 In Ns 100ml) 100 mls @ 25 mls/hr IVPB Q8 VU; Protocol Stop: 07/27/18 08:31 Last Admin: 07/19/18 13:11 Dose: 25 mls/hr [place] Carbonate ([place] Carbonate 300mg) 300 mg PO BID [facility] Last Admin: 07/19/18 17:17 Dose: 300 mg Morphine Sulfate (Morphine) 2 mg IVP Q3H PRN PRN Reason: Pain, moderate (4-7) Last Admin: 07/19/18 18:28 Dose: 2 mg Nicotine (Nicoderm Cq) 1 patch TD DAILY [facility] Last Admin: 10/19/18 09:43 Dose: Not Given Polyethylene Glycol (Miralax) 17 gm PO BID [facility] Last Admin: 07/19/18 17:29 Dose: Not Given - Labs Labs: 07/19/18 08:30 07/19/18 08:30 - Constitutional Appears: Non-toxic, No Acute Distress - Head Exam Head Exam: ATRAUMATIC, NORMOCEPHALIC - Eye Exam Eye Exam: EOMI, Normal appearance - ENT Exam ENT Exam: Mucous Membranes Moist - Respiratory Exam Respiratory Exam: NORMAL BREATHING PATTERN - Cardiovascular Exam Cardiovascular Exam: +S1, +S2 - GI/Abdominal Exam GI & Abdominal Exam: Soft. absent: Firm, Guarding Additional comments: Ostomy appliance prolapsed out. - Neurological Exam Neurological Exam: Alert, Awake - Psychiatric Exam Psychiatric exam: Normal Affect, Normal Mood - Skin Skin Exam: Dry, Intact Assessment and Plan - Assessment and Plan (Free Text) Assessment: 57F w/ a PMH of anxiety, depression, COPD, RA, lung mass/CA, HTN, chronic anemia, chronic constipation, and most significantly rectal cancer (moderately differentiated adenocarcinoma) w/ obstruction, s/p diverting colostmy performed in 06/2018. [place] [facility] [place]/ CC of stoma protrusion w/ bloody/mucous excretions and abd pain. CTAP in ED showed postop changes, stable adnexal finidngs. Surgery was able to reduce the afferent limb of the stoma which provided immediate relief on 07/19. Today 07/20, her ostomy was again prolapsed and reduced; during her discharge preparation she was again prolapsed. We will hold discharge at this [place] not due to prolapse but due to social issue instead. Plan: Prolapsed Ostomy: It was initially thought the prolapse of the ostomy was due to constipation; hence patient was placed on bowel regimne However she is now having multiple liquid bowels into the ostomy; As per surgery the prolapse does not pose a functional issue at this time; and patient may be able to come back electively in the future to convert from loop into a formal colostomy. Bowel regimen + stool softners Miralax 17gm BID [place] 100mg BID Can consider enema to proximal opening of stoma if patient remains constipated. No surgical intervention at this time as per surgical team Patient is on CLD; Will advance to Soft Leukocytosis: Reactive vs. Infectious - intraabdominal infection? vs PNA? 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 Ziggy Beasley DO PGY1 Internal Medicine Revenue Settlements Administrator -Pager [phone] <Ha Trinh - Last Filed: 07/20/18 13:13> Objective - Vital Signs/Intake and Output Vital Signs (last 24 hours): Temp Pulse Resp BP Pulse Ox 98.3 F 85 20 115/80 93 L 07/20/18 08:59 07/20/18 08:59 07/20/18 08:59 07/20/18 08:59 07/20/18 08:59 Intake and Output: 07/20/18 07/20/18 06:59 18:59 Intake Total 880 Output Total 600 Balance 280 - Medications Medications: Current Medications Alprazolam (Xanax) 0.5 mg PO Q12H PRN; Protocol PRN Reason: Anxiety Clonazepam (Klonopin) 1 mg PO TID [facility]; Protocol Last Admin: 07/20/18 09:42 Dose: 1 mg Docusate Sodium (Colace) 100 mg PO BID [facility] Last Admin: 07/20/18 09:42 Dose: 100 mg Enoxaparin Sodium (Lovenox) 40 mg SC DAILY [facility]; Protocol Last Admin: 07/20/18 12:36 Dose: Not Given Fentanyl (Duragesic) 1 patch TD Q72H VU Piperacillin Sod/Tazobactam Sod (Zosyn 3.375 In Ns 100ml) 100 mls @ 25 mls/hr IVPB Q8 [facility]U; Protocol Stop: 07/27/18 08:31 Last Admin: 07/20/18 05:12 Dose: 25 mls/hr [place] Carbonate ([place] Carbonate 300mg) 300 mg PO BID [facility] Last Admin: 07/20/18 09:43 Dose: 300 mg Morphine Sulfate (Morphine) 2 mg IVP Q3H PRN PRN Reason: Pain, moderate (4-7) Last Admin: 07/20/18 12:46 Dose: 2 mg Nicotine (Nicoderm Cq) 1 patch TD DAILY [facility] Last Admin: 07/20/18 12:37 Dose: Not Given Polyethylene Glycol (Miralax) 17 gm PO BID [facility] Last Admin: 07/20/18 09:43 Dose: 17 gm - Labs Labs: 07/20/18 11:00 07/20/18 11:00 Attending/Attestation - Attestation I have personally seen and examined this patient.: Yes I have fully participated in the care of the patient.: Yes I have reviewed all pertinent clinical information, including history, physical exam and plan: Yes Notes (Text): 07/20/18 13:11 Attending note/covering Dr. Alba. Patient seen and examined with resident. Patient is alert and awake. Complaining of abdominal pain. Had recurrent prolapse today. Patient is a 57 year old female with PMH of anxiety, depression, COPD, RA, lung mass/CA, HTN, chronic anemia, chronic constipation, and most significantly rectal cancer (moderately differentiated adenocarcinoma) w/ obstruction, s/p diverting colostmy performed in 06/2018. Patient was admitted for colostomy prolapse. Reduce by surgery. Had recurrent prolapse today. Seen by surgery. stool in the colostomy bag noted. Constipation; started on MiraLAX and Colace. Patient is currently on IV Zosyn. ID evaluation appreciated. Denies any fevers, chills. Blood culture, urine culture is negative. CT abdomen and pelvis showed postop changes, stable adnexal finidngs. CT scanned reviewed with Dr. Luigi Vides. No need for drainage. Pelvic ultrasound showed stable cysts. Abdominal pain; continue morphine when necessary. Bipolar disorder; continue clonazepam and lithium. Anemia ; hemoglobin is 8.2 .started on IV iron. Patient needs close follow-up with oncologist as outpatient. Case discussed with telephonic nurse case manager for discharge planning. Upon discharge the patient will follow-up with PMD . 07/20/18 13:13
--- NOTE | 2018-07-19 22:41 | PN ---
DATE: 07/19/2018 SUBJECTIVE: The patient is in bed, in no acute distress, nontoxic. PHYSICAL EXAMINATION: VITAL SIGNS: Temperature is 98, blood pressure 120/80, respiratory rate of 20. HEENT: Unremarkable. NECK: Supple. LUNGS: Have decreased breath sounds. HEART: Normal S1 and S2. ABDOMEN: Soft, nontender. LABORATORY DATA: Reveals a white count of 11,000, hemoglobin of 8, platelet of 618. BUN of 3, creatinine of 0.4. Urinalysis is noted. Microbiology reveals the blood cultures are negative, urine cultures are negative. Pelvic ultrasound shows no drainable collection in the pelvis. ASSESSMENT AND PLAN: This is a 57-year-old female with colon cancer, coronary artery disease, chronic obstructive lung disease, rheumatoid arthritis, hypertension, anxiety, scoliosis, depression, anemia, had colostomy approximately a month ago, returns with sepsis and intra-abdominal collection, on Zosyn. CAT scan of the abdomen and pelvis is reviewed, which shows that is expected postoperative changes, no mention of collection. Surgical note is reviewed. Stoma prolapse for the third time, which was reduced by surgery. Patient's white count is now under 11,000, may be able to switch to p.o. Augmentin on discharge and discontinue the Zosyn. Anton Solo MD
[2018-07-20] MEDS: Piperacillin/Tazobact 3.375 gm 100 ML IVPB SCH ×3 (05:12→21:34)
[2018-07-20] MEDS: Morphine 2 mg/ml ISec IVP PRN ×6 (06:22→21:34)
[2018-07-20] MEDS: Enoxaparin 40 mg Syringe SC SCH ×2 (09:43→12:36)
[2018-07-20] MEDS: POLYETHYLENE GLYCOL 3350 17 GM/Dose PACKET PO SCH ×2 (09:43→17:11)
[2018-07-20 11:23] LABS: BASO # 0.01 K/mm3 (0.0-2.0); BASO % 0.1 % (0.0-3.0); EOS # 0.3 (0.0-0.7); EOS % 3.5 % (1.5-5.0); GRAN # 6.28 (1.4-6.5); GRAN % 70.7 % (50.0-68.0); HEMOGLOBIN 7.7 g/dL (12.0-16.0); LYMPH # 1.7 (1.2-3.4); LYMPH % 19.3 % (22.0-35.0); MEAN CELL VOLUME 80.4 fl (80.0-105.0); MEAN CORPUSCULAR HEMOGLOBIN 24.7 pg (25.0-35.0); MEAN CORPUSCULAR HGB CONC 30.7 g/dl (31.0-37.0); MEAN PLATELET VOLUME 8.9 fl (7.0-11.0); MONO # 0.6 (0.1-0.6); MONO % 6.4 % (1.0-6.0); RBC 3.12 10^6/uL (3.5-6.1); RED CELL DISTRIBUTION WIDTH 17.7 % (11.5-14.5); WHITE BLOOD COUNT 8.9 10^3/ul (4.5-11.0)
[2018-07-20 11:37] LABS: ALB/GLOB RATIO 0.9 (1.1-1.8); ALBUMIN 2.7 g/dL (3.0-4.8); ALT/SGPT 17 U/L (7-56); AST/SGOT 13 U/L (14-36); BLOOD UREA NITROGEN 3 mg/dL (7-21); CALCIUM 9.8 mg/dL (8.4-10.5); GFR NON-AFRICAN AMERICAN > 60
--- NOTE | 2018-07-20 21:43 | PN ---
DATE: 07/20/2018 SUBJECTIVE: I see her resting comfortably in bed this morning. She is in lot of pain. The colostomy is working, but the stoma still has intestines protruding. I offered her surgery to fix it and do another colostomy. At this time, I am not going to do that. She is on Colace, Duragesic patch, Klonopin, lithium, Lovenox, MiraLax, morphine, Nicoderm, Xanax and Zosyn. OBJECTIVE: VITAL SIGNS: She has a 98.3 temperature, 85 pulse, 115/80 blood pressure, 20 respiratory rate, and 93% O2 sat on room air. HEENT: Head is atraumatic, normocephalic. HEART: Regular rate with decreased breath sounds but clear. ABDOMEN: Soft. She has a colostomy protruding stoma of intestines. EXTREMITIES: No edema. LABORATORY DATA: She has 11 white count at the best has been; 8.2 hemoglobin, good; 26.6 hematocrit with 618 platelets. If it drops below 8, I will transfuse her. other day IV. She has 140 sodium; potassium 3.5, we give her potassium. BUN 3, creatinine 0.4, GFR is greater than 60, sugar is 95, calcium is 9.8. ASSESSMENT AND PLAN: She is being seen by Infectious Disease surgery. She is on Zosyn. When I can discharge her and switch her to Augmentin, I will. Hopefully will work this out by tomorrow. I will discuss this with Infectious Disease. She is currently on just Zosyn IV. When I could change it to p.o. Augmentin, I will. My plan is hopefully to do that by tomorrow. She understands. I will try and discharge her tomorrow on Sunday if that is possible. Patrice Alba DO MTDD
[2018-07-21 00:01] VITALS: RESP 20
--- NOTE | 2018-07-21 00:16 | PN ---
DATE: 07/20/2018 SUBJECTIVE: The patient is in bed, in no acute distress, nontoxic. The patient is seen earlier this morning. PHYSICAL EXAMINATION: VITAL SIGNS: On exam, temperature is 98, blood pressure is 120/70, respiratory rate of 16. HEENT: Examination of HEENT is unremarkable. NECK: Supple. LUNGS: Have decreased breath sounds. HEART: Normal S1 and S2. ABDOMEN: Soft. LABORATORY DATA: Laboratory examination reveals a white count of 8.9, hemoglobin of 7. BUN of 3, creatinine of 0.5. Urinalysis is noted. Microbiology is noted. Blood cultures are negative. Urine cultures are negative. ASSESSMENT AND PLAN: A 57-year-old female with colon cancer, coronary artery disease, chronic obstructive lung disease, rheumatoid arthritis, hypertension, anxiety, scoliosis, depression, anemia, colostomy approximately a month ago, returns with sepsis with an intra-abdominal. CAT scan of the abdomen with postobstructive changes. May be able to switch to p.o. Augmentin and discontinue the Zosyn upon discharge to complete therapy. We next 24 hours. Anton Solo MD
[2018-07-21] MEDS: Piperacillin/Tazobact 3.375 gm 100 ML IVPB SCH (05:17)
[2018-07-21 07:53] LABS: BASO # 0.01 K/mm3 (0.0-2.0); BASO % 0.1 % (0.0-3.0); EOS # 0.4 (0.0-0.7); EOS % 3.6 % (1.5-5.0); GRAN # 8.09 (1.4-6.5); LYMPH # 1.7 (1.2-3.4); LYMPH % 15.3 % (22.0-35.0); MEAN CELL VOLUME 81.2 fl (80.0-105.0); MEAN CORPUSCULAR HEMOGLOBIN 25.8 pg (25.0-35.0); MEAN CORPUSCULAR HGB CONC 31.7 g/dl (31.0-37.0); MEAN PLATELET VOLUME 9.4 fl (7.0-11.0); MONO # 0.8 (0.1-0.6); RBC 3.88 10^6/uL (3.5-6.1); RED CELL DISTRIBUTION WIDTH 17.1 % (11.5-14.5); WHITE BLOOD COUNT 10.9 10^3/ul (4.5-11.0)
[2018-07-21 08:07] VITALS: BP 134/83; PULSE 82; TEMP 98.3; O2SAT 96
[2018-07-21 08:13] LABS: ALB/GLOB RATIO 0.8 (1.1-1.8); ALBUMIN 2.6 g/dL (3.0-4.8); ALT/SGPT 16 U/L (7-56); AST/SGOT 13 U/L (14-36); BLOOD UREA NITROGEN 4 mg/dL (7-21); CALCIUM 9.9 mg/dL (8.4-10.5); GFR NON-AFRICAN AMERICAN > 60
[2018-07-21] MEDS ORDERED: Amoxicillin-Clav 875-125 mg Tab PO SCH (10:00)
[2018-07-21] MEDS ORDERED: Potassium Chloride 20 mEq ER Tab PO ONE (10:10)
[2018-07-21] MEDS: Enoxaparin 40 mg Syringe SC SCH (10:23)
[2018-07-21] MEDS: POLYETHYLENE GLYCOL 3350 17 GM/Dose PACKET PO SCH (10:23)
--- NOTE | 2018-07-21 19:56 | PN ---
DATE: 07/21/2018 SUBJECTIVE: The patient is in bed, in no acute distress, nontoxic. PHYSICAL EXAMINATION: VITAL SIGNS: Temperature is 98, blood pressure is 130/80, respiratory rate of 20, heart rate of 82. HEENT: Unremarkable. NECK: Supple. LUNGS: Have decreased breath sounds. HEART: Normal S1, S2. ABDOMINAL: Soft. LABORATORY EXAMINATION: Reveals a white count of 10, hemoglobin of 10, platelets of 569. Chemistries reveals a BUN of 5, creatinine of 0.5. Urinalysis is noted. Microbiology reveals the blood cultures are negative. Urine cultures are negative. ASSESSMENT AND PLAN: A 57-year-old with colon cancer, coronary artery disease, chronic obstructive lung disease, rheumatoid arthritis, hypertension, anxiety, scoliosis, depression, anemia, colostomy. Returns with sepsis and intra-abdominal CAT scan of the abdomen, postobstructive changes. Maybe able to switch to Augmentin to complete therapy and the patient's status is overall very poor in this patient with BMI of only 15, chronically ill and cachectic. Anton Solo MD
--- NOTE | 2018-07-22 19:31 | DS ---
HISTORY OF PRESENT ILLNESS: She is at a point now that she can be discharged. She was changed to Augmentin by Infectious Disease. She is on Colace. The Duragesic patch were increased from 12 to 25. She will get one potassium as her potassium was 3.4. She will continue the Klonopin, lithium, MiraLAX, methotrexate and iron. We are going to hold off on the oxycodone since we are increasing her Duragesic patch to 25. We are also going to put Seroquel on hold and her Norvasc on hold for the time being. She is comfortable. She is feeling better. She wants to be discharged. She says she has things she has to do. PHYSICAL EXAM: VITAL SIGNS: She has a 98.3 temp, 82 pulse, 134/83 blood pressure, 20 respiratory rate and 96% O2 saturation on room air. HEENT: Head is atraumatic and normocephalic. HEART: Regular rate. LUNGS: Clear to auscultation. ABDOMEN: Positive colostomy with a little bit of stoma protrusion and surgery says she just has to push it back in. No surgery at this time. EXTREMITIES: No edema. LABORATORY DATA: She has a 144 sodium; potassium 3.4, I gave her potassium this morning; BUN is 4; creatinine 0.5; GFR is greater than 60; sugar is 95; calcium is 9.9; total bili is 0.4; AST is 13; ALT is 16; alk phos 61; total protein 5.8. White count is 10.9, hemoglobin 10, hematocrit 31.5, and platelets are 569. RECOMMENDATIONS: She will be discharge today. She should followup in the office. She was seen by GI and Infectious Disease. I will see her in the office next week. She is with stoma protrusion and history of rectal cancer. Patrice Alba DO
== END 2018-07-21 11:38 | disposition home or self-care (01) | DRG 552 ==
LOC: ED 14:00 → ERH 20:47 → 3RSO 07-17 02:05
PROVIDERS: ADMIT Family Medicine; ATTEND Family Medicine
PROC: 30233N1 Transfusion of Nonautologous Red Blood Cells into Peripheral Vein, Percutaneous Approach (ICD-10-PCS; principal; 2018-07-20)
DX: K94.09 Other complications of colostomy (principal); A41.9 Sepsis, unspecified organism; C18.9 Malignant neoplasm of colon, unspecified; R64 Cachexia; J44.9 Chronic obstructive pulmonary disease, unspecified; F17.210 Nicotine dependence, cigarettes, uncomplicated; M06.9 Rheumatoid arthritis, unspecified; I25.10 Atherosclerotic heart disease of native coronary artery without angina pectoris; I10 Essential (primary) hypertension; M41.9 Scoliosis, unspecified; F31.9 Bipolar disorder, unspecified; K59.09 Other constipation; D64.9 Anemia, unspecified; F41.9 Anxiety disorder, unspecified; Y83.3 Surgical operation with formation of external stoma as the cause of abnormal reaction of the patient, or of later complication, without mention of misadventure at the time of the procedure; Z88.6 Allergy status to analgesic agent; Z68.1 Body mass index [BMI] 19.9 or less, adult

== ENCOUNTER 2018-10-26 03:22 | Emergency (ER) | payer MEDICAID ==
[2018-10-26 03:22] VITALS: BMI 15.9
[2018-10-26 03:37] VITALS: RESP 18
--- NOTE | 2018-10-26 04:01 | ED PDOC ---
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 Patient reports a couple days ago she ordered new colostomy bag which is smaller than usual. She has been using it for the past 2 day, her stoma protruded significantly and is unable to reduce it herself. Patient reports it has happened before and was able to reduce it. Patient also noted bright red blood when she wiped. Patient saw Dr. Alba 5 days ago. Patient denies any fever, chills, chest pain, shortness of breath, nausea, vomiting, diarrhea, urinary symptoms, back pain, neck pain, headache, dizziness, or any other complaints. PMD: Dr. Alba Time/Duration: Other (2 days) Symptom Onset: Gradual Symptom Course: Unchanged Activities at Onset: Light Context: Home Past Medical History - Provider Review Nursing Documentation Reviewed: Yes - Infectious Disease Hx of Infectious Diseases: None - Cardiac Hx Hypertension: Yes - Pulmonary Hx Chronic Obstructive Pulmonary Disease (COPD): Yes - Neurological Hx Neurological Disorder: Yes Hx Dizziness: Yes - HEENT Hx HEENT Disorder: No - Renal Hx Renal Disorder: No - Endocrine/Metabolic Hx Endocrine Disorders: No - Hematological/Oncological Hx Cancer: Yes - Integumentary Hx Dermatological Disorder: No - Musculoskeletal/Rheumatological Hx Arthritis: Yes (RA) - Gastrointestinal Other/Comment: COLOSTOMY - Genitourinary/Gynecological Hx Genitourinary Disorders: No - Psychiatric Hx Anxiety: Yes Hx Bipolar Disorder: Yes Hx Depression: Yes Hx Substance Use: No - Surgical History Hx Joint Replacement: Yes (RT ORIF) - Anesthesia Hx Anesthesia: Yes Hx Anesthesia Reactions: No - Suicidal Assessment Feels Threatened In Home Enviroment: No Family/Social History - Physician Review Nursing Documentation Reviewed: Yes Family/Social History: No Known Family HX Smoking Status: Heavy Smoker > 10 Cigarettes Daily Hx Alcohol Use: No Hx Substance Use: No Hx Substance Use Treatment: No Allergies/Home Meds Allergies/Adverse Reactions: Allergies ibuprofen [From Motrin] Allergy (Verified 10/26/18 03:27) ANAPHYLAXIS NSAIDS (Non-Steroidal Anti-Inflamma Allergy (Verified 10/26/18 03:27) SWELLING risperidone [From Risperdal] Adverse Reaction (Verified 10/26/18 03:27) DIZZINESS Home Medications: Home Meds Medication Instructions Recorded Confirmed RX: Folic Acid 1 tab PO DAILY 05/17/18 06/07/18 RX: Methocarbamol [Robaxin] 1 tab PO QID 05/17/18 06/07/18 RX: Metoprolol Succinate XL 1 tab PO DAILY 05/17/18 06/07/18 [Toprol XL] RX: Polyethylene Glycol 3350 1 packet PO DAILY 05/17/18 06/07/18 [Miralax] RX: Potassium Chloride [K-Dur 20 1 tab PO DAILY 05/17/18 06/07/18 mEq ER Tab] Review of Systems - Physician Review All systems were reviewed & negative as marked: Yes - Review of Systems Constitutional: absent: Fevers, Other Respiratory: absent: SOB Cardiovascular: absent: Chest Pain Gastrointestinal: Hematochezia (when wipe), Other (protuding stoma and pain). absent: Diarrhea, Nausea, Vomiting Genitourinary Female: absent: Dysuria, Frequency, Hematuria Musculoskeletal: absent: Back Pain, Neck Pain Neurological: absent: Headache, Dizziness Physical Exam Vital Signs Reviewed: Yes Vital Signs Temp Pulse Resp BP Pulse Ox 10/26/18 03:36 99.7 F H 108 H 18 121/73 99 Temperature: Febrile Blood Pressure: Normal Pulse: Tachycardic Respiratory Rate: Normal Appearance: Positive for: Non-Toxic, Comfortable, Cachectic Pain Distress: None Mental Status: Positive for: Alert and Oriented X 3 - Systems Exam Head: Present: Atraumatic, Normocephalic Pupils: Present: PERRL Extroacular Muscles: Present: EOMI Conjunctiva: Present: Normal Mouth: Present: Moist Mucous Membranes Neck: Present: Normal Range of Motion Respiratory/Chest: Present: Clear to Auscultation, Good Air Exchange. No: Respiratory Distress, Accessory Muscle Use Cardiovascular: Present: Regular Rate and Rhythm, Normal S1, S2. No: Murmurs Abdomen: Present: Other (Stoma 15cm prolapse colon tenderness to area with food output and with brown stool.). No: Tenderness, Distention, Peritoneal Signs Back: Present: Normal Inspection Upper Extremity: Present: Normal Inspection. No: Cyanosis, Edema Lower Extremity: Present: Normal Inspection. No: Edema Neurological: Present: GCS=15, CN II-XII Intact, Speech Normal Skin: Present: Warm, Dry, Normal Color. No: Rashes Psychiatric: Present: Alert, Oriented x 3, Normal Insight, Normal Concentration Medical Decision Making ED Course and Treatment: 10/26/18 04:02 Impression: 58 year old male presents complaining of pain to stoma area after using a different size colostomy bag which is smaller than usual. She has been using it for the past 2 day, her stoma protruded significantly and is unable to reduce it herself. Plan: -- Labs -- Urinalysis -- Reassess and disposition Prior Visits: Notes and results from previous visits were reviewed. Progress Notes: 10/26/18 04:13 Case discussed with surgical lead who is aware and will come down and e valuate patient. 10/26/18 04:24 residential sales at bed side evaluating patient. 10/26/18 05:00 residential sales reduced prolapse. 10/26/18 05:[address] Alba, including UTI with leukocytosis. Would not like to admit at this time, recommends patient be discharged home with Cipro 500 BID and to follow up with him as outpatient. Rx also written for colace as patient ran out of stool softener, as she gets frequent prolapse of her colostomy. Patient amenable to discharge home. - Lab Interpretations I have reviewed the lab results: Yes - Scribe Statement The provider has reviewed the documentation as recorded by the Kelly Gomez Provider Scribe Attestation: All medical record entries made by the Kelly were at my direction and personally dictated by me. I have reviewed the chart and agree that the record accurately reflects my personal performance of the history, physical exam, medical decision making, and the department course for this patient. I have also personally directed, reviewed, and agree with the discharge instructions and disposition. Disposition/Present on Arrival - Present on Arrival Any Indicators Present on Arrival: No History of DVT/PE: No History of Uncontrolled Diabetes: No Urinary Catheter: No History of Decub. Ulcer: No History Surgical Site Infection Following: None - Disposition Have Diagnosis and Disposition been Completed?: Yes Diagnosis: UTI (urinary tract infection), Colostomy prolapse Disposition: HOME/ ROUTINE Disposition Time: 05:20 Condition: STABLE Discharge Instructions (ExitCare): Urinary Tract Infection, Adult (DC) Additional Instructions: TESSA AGUIRRE, thank you for letting us take care of you today. Your provider was Natalia Barnett MD and you were treated for ABDOMINAL PAIN. The emergency medical care you received today was directed at your acute symptoms. If you were prescribed any medication, please fill it and take as directed. It may take several days for your symptoms to resolve. Return to the Emergency Department if your symptoms worsen, do not improve, or if you have any other problems. Please contact your doctor or call one of the physicians/clinics you have been referred to that are listed on the Patient Visit Information form that is included in your discharge packet. Bring any paperwork you were given at discharge with you along with any medications you are taking to your follow up visit. Our treatment cannot replace ongoing medical care by a primary care provider outside of the emergency department. Thank you for allowing the [facility] team to be part of your care today. If you had an X-Ray or CT scan: A Radiologist will review the ED reading if any change in treatment is needed we will contact you. If you had a blood, urine, or wound culture: It will take several days for the results, if any change in treatment is needed we will contact you. If you had an STI test: It will take 48 hours for the results. Please call after 1 week if you have not heard back. Prescriptions: Ciprofloxacin HCl [Cipro] 500 mg PO BID #20 tablet Docusate Sodium [Colace] 100 mg PO BID #20 capsule Referrals: Patrice Alba DO [Primary Care Provider] - Follow up with primary Forms: [employer] (Nepali)
[2018-10-26 04:39] LABS: ALB/GLOB RATIO 1.1 (1.1-1.8); ALBUMIN 4.1 g/dL (3.0-4.8); ALT/SGPT 20 U/L (7-56); AST/SGOT 22 U/L (14-36); BLOOD UREA NITROGEN 11 mg/dL (7-21); CALCIUM 10.1 mg/dL (8.4-10.5); GFR NON-AFRICAN AMERICAN > 60
[2018-10-26 04:46] LABS: BASO # 0.02 K/mm3 (0.0-2.0); BASO % 0.1 % (0.0-3.0); EOS # 0.1 (0.0-0.7); EOS % 0.5 % (1.5-5.0); HEMOGLOBIN 13.1 g/dL (12.0-16.0); LYMPH # 2.2 (1.2-3.4); MEAN CELL VOLUME 89.8 fl (80.0-105.0); MEAN CORPUSCULAR HEMOGLOBIN 29.6 pg (25.0-35.0); MEAN CORPUSCULAR HGB CONC 32.9 g/dl (31.0-37.0); MEAN PLATELET VOLUME 10.1 fl (7.0-11.0); MONO # 1.6 (0.1-0.6); MONO % 7.2 % (1.0-6.0); RBC 4.43 10^6/uL (3.5-6.1); RED CELL DISTRIBUTION WIDTH 16.4 % (11.5-14.5)
[2018-10-26 04:46] LABS: URINE BILIRUBIN NEGATIVE (NEGATIVE); URINE BLOOD TRACE-INTACT (NEGATIVE); URINE GLUCOSE (UA) NEGATIVE (NEGATIVE); URINE LEUKOCYTE ESTERASE MODERATE Leu/uL (NEGATIVE); URINE PROTEIN NEGATIVE mg/dL (<30 mg/dL); URINE UROBILINOGEN 0.2 E.U./dL (<1 E.U./dL)
[2018-10-26 04:59] LABS: URINE APPEARANCE SL CLOUDY (CLEAR); URINE COLOR YELLOW (YELLOW)
[2018-10-26 05:14] LABS: URINE RBC 0 - 2 /hpf (0-2)
[2018-10-26 05:15] LABS: URINE BACTERIA MANY /hpf; URINE EPITHELIAL CELLS 0 - 2 /hpf (0-5)
--- NOTE | 2018-10-26 05:17 | CP.PCM.CON ---
History of Present Illness - History of Present Illness History of Present Illness: Surgery Consult note- Dr. Valadez Reason for consult: stoma prolapse 57F pmhx significant for colostomy creating (2018) 2/2 obstructing rectal mass, chronic constipation, COPD, lung mass (has previously refused biopsy), HTN, RA, and chronic anemia, [place] [facility] [place], and prolapse of stoma from the proximal and distal end. Stoma is pink, patent with good stool and air ouput. stool is hard. Surgery was subsequently consulted. Stoma was reduced at bedside and pain has subsided. Of note patient stated that she has been out of her stool softeners for 1 week. Denies: fevers, chills, night sweats, chest pain, shortness of breath, or urinary symptoms. 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 PSH: ORIF R hip, loop Transverse colostomy (06/2018) ALL: ibuprofen and other NSAIDs, risperidone Soc Hx: current everyday smoker > 50 pack year history. Denies alcohol or drug use. Fam Hx: denies any relevant family history PMD: Dr. Alba Review of Systems - Review of Systems All systems: reviewed and no additional remarkable complaints except - Constitutional Constitutional: As Per HPI Past Patient History - Infectious Disease Hx of Infectious Diseases: None - Past Social History Smoking Status: Heavy Smoker > 10 Cigarettes Daily - CARDIAC Hx Hypertension: Yes - PULMONARY Hx Chronic Obstructive Pulmonary Disease (COPD): Yes - NEUROLOGICAL Hx Neurological Disorder: Yes Hx Dizziness: Yes - HEENT Hx HEENT Problems: No - RENAL Hx Chronic Kidney Disease: No - ENDOCRINE/METABOLIC Hx Endocrine Disorders: No - HEMATOLOGICAL/ONCOLOGICAL Hx Cancer: Yes - INTEGUMENTARY Hx Dermatological Problems: No - MUSCULOSKELETAL/RHEUMATOLOGICAL Hx Arthritis: Yes (RA) - GASTROINTESTINAL Other/Comment: COLOSTOMY - GENITOURINARY/GYNECOLOGICAL Hx Genitourinary Disorders: No - PSYCHIATRIC Hx Anxiety: Yes Hx Bipolar Disorder: Yes Hx Depression: Yes Hx Substance Use: No - SURGICAL HISTORY Hx Joint Replacement: Yes (RT ORIF) - ANESTHESIA Hx Anesthesia: Yes Hx Anesthesia Reactions: No Meds Allergies/Adverse Reactions: Allergies Allergy/AdvReac Type Severity Reaction Status Date / Time ibuprofen [From Motrin] Allergy ANAPHYLAXIS Verified 10/26/18 03:27 NSAIDS (Non-Steroidal Allergy SWELLING Verified 10/26/18 03:27 Anti-Inflamma risperidone [From Risperdal] AdvReac DIZZINESS Verified 10/26/18 03:27 Physical Exam - Constitutional Appears: Non-toxic, No Acute Distress - Head Exam Head Exam: ATRAUMATIC Additional comments: poor dentition - Eye Exam Eye Exam: EOMI. absent: Scleral icterus - ENT Exam ENT Exam: Mucous Membranes Moist - Respiratory Exam Respiratory Exam: Wheezes, NORMAL BREATHING PATTERN. absent: Accessory Muscle Use, Respiratory Distress - Cardiovascular Exam Cardiovascular Exam: REGULAR RHYTHM. absent: Bradycardia, Tachycardia - GI/Abdominal Exam GI & Abdominal Exam: Hernia, Soft. absent: Distended, Firm, Guarding, Rigid, Tenderness Additional comments: proximal and distal loop prolapsed reduced at bedside. stoma, pink, patent, with good stool output reduced w/ sprinkiling 50% dextrose on stoma - Extremities Exam Extremities exam: Negative for: calf tenderness - Neurological Exam Neurological exam: Alert, Oriented x3 - Psychiatric Exam Psychiatric exam: Normal Affect - Skin Skin Exam: Intact, Warm Results - Vital Signs Recent Vital Signs: Last Vital Signs Temp 99.7 F H 10/26/18 03:36 Pulse 108 H 10/26/18 03:36 Resp 18 10/26/18 03:36 BP 121/73 10/26/18 03:36 Pulse Ox 99 10/26/18 03:36 - Labs Result Diagrams: 10/26/18 04:15 10/26/18 04:15 Labs: Laboratory Results - last 24 hr 10/26/18 10/26/18 10/26/18 04:05 04:15 04:15 WBC 22.0 H RBC 4.43 Hgb 13.1 D Hct 39.8 MCV 89.8 D MCH 29.6 MCHC 32.9 RDW 16.4 H Plt Count 398 MPV 10.1 Neut % (Auto) 82.2 H Lymph % (Auto) 10.0 L [place] % (Auto) 7.2 H Eos % (Auto) 0.5 L Baso % (Auto) 0.1 Lymph # (Auto) 2.2 [place] # (Auto) 1.6 H Eos # (Auto) 0.1 Baso # (Auto) 0.02 Absolute Neuts (auto) 18.09 H Sodium 136 Potassium 4.0 Chloride 105 Carbon Dioxide 23 Anion Gap 12 BUN 11 Creatinine 0.4 L Est GFR ( Amer) > 60 Est GFR (Non-Af Amer) > 60 Random Glucose 111 H Calcium 10.1 Total Bilirubin 0.9 AST 22 ALT 20 Alkaline Phosphatase 74 Total Protein 7.9 Albumin 4.1 Globulin 3.8 Albumin/Globulin Ratio 1.1 Urine Color Yellow Urine Appearance Sl cloudy Urine pH 7.0 Ur Specific [place] 1.010 Urine Protein Negative Urine Glucose (UA) Negative Urine Ketones Negative Urine Blood Trace-intact H Urine Nitrate Positive H Urine Bilirubin Negative Urine Urobilinogen 0.2 Ur Leukocyte Esterase Moderate H Assessment & Plan - Assessment and Plan (Free Text) Assessment: 58F w/ prolapsed transverse loop colostomy; reduced at bedside in the ED leukocytosis source likely UTI Plan: - prolapse reduced at bedside - recommend stool softners - abx for UTI - no further acute surgical intervention - stable for discharge from a surgical standpoint - will d/w Dr. Rory Ahn PGY2
[2018-10-26 05:39] VITALS: BP 118/68; PULSE 89; TEMP 98.9; O2SAT 98
== END 2018-10-26 05:38 | disposition home or self-care (01) ==
LOC: ED 03:22
DX: N39.0 Urinary tract infection, site not specified (principal); K94.09 Other complications of colostomy; I10 Essential (primary) hypertension; J44.9 Chronic obstructive pulmonary disease, unspecified; F17.210 Nicotine dependence, cigarettes, uncomplicated; Z85.038 Personal history of other malignant neoplasm of large intestine; M06.9 Rheumatoid arthritis, unspecified

== ENCOUNTER 2018-10-28 15:09 | Inpatient (IN) | payer MEDICAID ==
--- NOTE | 2018-10-28 16:14 | ED PDOC ---
Arrival/HPI - General Chief Complaint: GI Problem Historian: Patient - History of Present Illness Narrative History of Present Illness (Text): Patient is a 58 yr old female with PMH colostomy creating (2018) 2/2 obstructing rectal mass, chronic constipation, COPD, lung mass (has previously refused biopsy), HTN, RA, and chronic anemia who presents with pain and serosanguinous output from her ostomy site and rectum since changing her ostomy bag this morn ing. She additionally reports sharp pain in her left chest radiating to her neck that she states has been ongoing for the past 3 days. She otherwise denies CORREA, SOB, dizziness, n/v, f/c, body aches, dysuria, diarrhea, bloody stool and extremity pain/weakness. 10/28/18 16:23 Time/Duration: Prior to Arrival, 1-3 hours Symptom Onset: Sudden Symptom Course: Unchanged Quality: Stabbing, Cramping Severity Level: 5 Activities at Onset: Rest Past Medical History - Provider Review Nursing Documentation Reviewed: Yes - Infectious Disease Hx of Infectious Diseases: None - Cardiac Hx Hypertension: Yes - Pulmonary Hx Chronic Obstructive Pulmonary Disease (COPD): Yes - Neurological Hx Neurological Disorder: Yes Hx Dizziness: Yes - HEENT Hx HEENT Disorder: No - Renal Hx Renal Disorder: No - Endocrine/Metabolic Hx Endocrine Disorders: No - Hematological/Oncological Hx Cancer: Yes - Integumentary Hx Dermatological Disorder: No - Musculoskeletal/Rheumatological Hx Arthritis: Yes (RA) - Gastrointestinal Other/Comment: COLOSTOMY - Genitourinary/Gynecological Hx Genitourinary Disorders: No - Psychiatric Hx Anxiety: Yes Hx Bipolar Disorder: Yes Hx Depression: Yes Hx Substance Use: No - Surgical History Hx Joint Replacement: Yes (RT ORIF) - Anesthesia Hx Anesthesia: Yes Hx Anesthesia Reactions: No Hx Malignant Hyperthermia: No - Suicidal Assessment Feels Threatened In Home Enviroment: No Family/Social History - Physician Review Nursing Documentation Reviewed: Yes Family/Social History: Unknown Family HX Smoking Status: Heavy Smoker > 10 Cigarettes Daily Hx Alcohol Use: No Hx Substance Use: No Hx Substance Use Treatment: No Allergies/Home Meds Allergies/Adverse Reactions: Allergies ibuprofen [From Motrin] Allergy (Verified 10/26/18 03:27) ANAPHYLAXIS NSAIDS (Non-Steroidal Anti-Inflamma Allergy (Verified 10/26/18 03:27) SWELLING risperidone [From Risperdal] Adverse Reaction (Verified 10/26/18 03:27) DIZZINESS Home Medications: Home Meds Medication Instructions Recorded Confirmed Folic Acid 1 tab PO DAILY 05/17/18 10/28/18 Methocarbamol [Robaxin] 1 tab PO QID 05/17/18 10/28/18 Metoprolol Succinate XL [Toprol XL] 1 tab PO DAILY 05/17/18 10/28/18 Polyethylene Glycol 3350 [Miralax] 1 packet PO DAILY 05/17/18 10/28/18 Potassium Chloride [K-Dur 20 mEq 1 tab PO DAILY 05/17/18 10/28/18 ER Tab] Review of Systems - Physician Review All systems were reviewed & negative as marked: Yes - Review of Systems Constitutional: absent: Fatigue, Fevers Respiratory: absent: SOB, Cough Cardiovascular: Chest Pain. absent: Palpitations, Edema, Syncope Gastrointestinal: Abdominal Pain, Other (serosanguinous output from ostomy and rectum, ostomy chronically prolapsed, osotmy is pink and patent t, no stool in bag). absent: Stool Changes, Constipation, Diarrhea, Nausea, Vomiting Genitourinary Female: absent: Dysuria Musculoskeletal: absent: Arthralgias Skin: absent: Rash, Skin Lesions Neurological: absent: Headache, Dizziness Physical Exam Vital Signs Temp Pulse Resp BP Pulse Ox 10/28/18 15:21 99.6 F 95 H 18 130/76 99 Temperature: Afebrile Blood Pressure: Normal Pulse: Tachycardic Respiratory Rate: Normal Appearance: Positive for: Non-Toxic, Comfortable, Cachectic, Other (tearful, anxious) Pain Distress: Mild Mental Status: Positive for: Alert and Oriented X 3 - Systems Exam Head: Present: Atraumatic, Normocephalic Extroacular Muscles: Present: EOMI Mouth: Present: Moist Mucous Membranes Neck: Present: Normal Range of Motion Respiratory/Chest: Present: Clear to Auscultation, Good Air Exchange. No: Respiratory Distress, Accessory Muscle Use Cardiovascular: Present: Regular Rate and Rhythm, Normal S1, S2. No: Murmurs Abdomen: Present: Tenderness (diffuce mild), Normal Bowel Sounds, Other (colostomy prolapse, ostomy is pink and patent with serosanguinous drainage only in bag). No: Distention, Peritoneal Signs, Guarding Upper Extremity: Present: Normal Inspection, NORMAL PULSES. No: Cyanosis, Edema Lower Extremity: Present: Normal Inspection, NORMAL PULSES. No: Edema, CALF TENDERNESS Neurological: Present: GCS=15, CN II-XII Intact, Speech Normal Skin: Present: Warm, Dry, Normal Color. 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 Alba for admission, Dr. Alba accepts patient under his service. Spoke with surgery resident agreed to come to evaluate patient Dr. Solo and Dr. Valadez consulted per Dr. Alba One dose Vanc and zosyn ordered 10/28/18 18:11 Disposition/Present on Arrival - Present on Arrival Any Indicators Present on Arrival: No History of DVT/PE: No History of Uncontrolled Diabetes: No Urinary Catheter: No History of Decub. Ulcer: No History Surgical Site Infection Following: None - Disposition Have Diagnosis and Disposition been Completed?: Yes Diagnosis: UTI (urinary tract infection) Disposition: HOSPITALIZED Disposition Time: 19:14 Patient Plan: Admission Condition: FAIR
[2018-10-28 16:46] LABS: PH,URINE 7.5 (4.7-8.0); URINE BILIRUBIN NEGATIVE (NEGATIVE); URINE BLOOD SMALL (NEGATIVE); URINE GLUCOSE (UA) NEGATIVE (NEGATIVE); URINE LEUKOCYTE ESTERASE LARGE Leu/uL (NEGATIVE); URINE PROTEIN TRACE mg/dL (<30 mg/dL); URINE UROBILINOGEN 0.2 E.U./dL (<1 E.U./dL)
[2018-10-28 16:46] LABS: BASO # 0.02 K/mm3 (0.0-2.0); BASO % 0.1 % (0.0-3.0); EOS # 0.2 (0.0-0.7); EOS % 0.6 % (1.5-5.0); HEMOGLOBIN 12.4 g/dL (12.0-16.0); LYMPH # 2.2 (1.2-3.4); LYMPH % 8.1 % (22.0-35.0); MEAN CELL VOLUME 89.6 fl (80.0-105.0); MEAN CORPUSCULAR HEMOGLOBIN 29.9 pg (25.0-35.0); MEAN CORPUSCULAR HGB CONC 33.3 g/dl (31.0-37.0); MONO # 2.3 (0.1-0.6); MONO % 8.2 % (1.0-6.0); PLATELET COUNT 430 10^3/uL (120.0-450.0); RBC 4.15 10^6/uL (3.5-6.1); RED CELL DISTRIBUTION WIDTH 15.5 % (11.5-14.5)
[2018-10-28 16:50] LABS: WHITE BLOOD COUNT 27.7 10^3/uL (4.5-11.0)
[2018-10-28 16:50] LABS: URINE APPEARANCE SLIGHT-CLOUDY (CLEAR); URINE COLOR YELLOW (YELLOW)
[2018-10-28 16:58] LABS: INR 1.4; PARTIAL THROMBOPLASTIN TIME 29.5 Seconds (26.9-38.3); PROTHROMBIN TIME 15.5 SECONDS (9.4-12.5)
[2018-10-28 17:02] LABS: URINE WBC TNTC /hpf (0-6)
[2018-10-28 17:03] LABS: URINE BACTERIA MANY /hpf
[2018-10-28] MEDS ORDERED: Piperacill/Tazo 4.5gm in NS 4.5 GM/100 ML BAG IVPB STA (17:17)
[2018-10-28] MEDS ORDERED: Vancomycin 1gm in NS 250ml 1 GM/250 ML BAG IVPB STA (17:17)
[2018-10-28 17:23] LABS: ALBUMIN 3.8 g/dL (3.0-4.8); ALT/SGPT 24 U/L (7-56); AST/SGOT 15 U/L (14-36); BLOOD UREA NITROGEN 12 mg/dL (7-21); CALCIUM 9.9 mg/dL (8.4-10.5); GFR NON-AFRICAN AMERICAN > 60; LIPASE 28 U/L (23-300)
[2018-10-28 18:02] LABS: ATYPICAL LYMPHOCYTE 1 % (0.0-0.0); BAND 1 % (0-2); EOSINOPHIL 1 % (0.0-3.0); HYPOCHROMIA 2+; LYMPHOCYTE 9 % (22.0-35.0); MONOCYTE 7 % (1.0-6.0); NEUTROPHIL 81 % (50.0-70.0); PLATELET ESTIMATE HIGH (NORMAL)
[2018-10-28 18:03] LABS: ROULEAU 2+; TOXIC GRANULATION 2+
[2018-10-28] MEDS ORDERED: Iohexol 350 MG/100 ML VIAL ONE (18:24)
--- NOTE | 2018-10-28 20:15 | CP.PCM.CON ---
History of Present Illness - History of Present Illness History of Present Illness: Surgery Consult note- Dr. Valadez Reason for consult: stoma prolapse 57F pmhx significant for colostomy creating (2017) 2/2 obstructing rectal mass, metastatic adenocarcionoma, chronic constipation, COPD, lung mass (has previously refused biopsy), HTN, RA, and chronic anemia, [place] [facility] [place] and prolapse of the transverse loop colostomy again which she was here day morning for and reduced. During previous visit, colostomy was reduced without complications. Patient had leukocytosis, was discharged home on abx, and patient never took them, and returns w/ leukocytosis increased. Stoma is pink, patent with good stool and air ouput. some serosang drainage due to manipulation of stoma. stool is hard. Stoma was reduced at bedside and pain has subsided. Of note patient stated that she has been out of her stool softeners for 1 week. Denies: fevers, chills, night sweats, chest pain, shortness of breath, or urinary symptoms. PMH: COPD, lung mass, HTN, chronic anemia, chronic constipation, colostomy 2/2 obstructing rectal mass, metastatic adenocarcinoma likely rectum PSH: ORIF R hip, loop Transverse colostomy (06/2018) ALL: ibuprofen and other NSAIDs, risperidone Soc Hx: current everyday smoker > 50 pack year history. Denies alcohol or drug use. Fam Hx: denies any relevant family history PMD: Dr. Alba Review of Systems - Review of Systems All systems: reviewed and no additional remarkable complaints except - Constitutional Constitutional: As Per HPI Past Patient History - Infectious Disease Hx of Infectious Diseases: None - Past Social History Smoking Status: Heavy Smoker > 10 Cigarettes Daily - CARDIAC Hx Hypertension: Yes - PULMONARY Hx Chronic Obstructive Pulmonary Disease (COPD): Yes - NEUROLOGICAL Hx Neurological Disorder: Yes Hx Dizziness: Yes - HEENT Hx HEENT Problems: No - RENAL Hx Chronic Kidney Disease: No - ENDOCRINE/METABOLIC Hx Endocrine Disorders: No - HEMATOLOGICAL/ONCOLOGICAL Hx Cancer: Yes - INTEGUMENTARY Hx Dermatological Problems: No - MUSCULOSKELETAL/RHEUMATOLOGICAL Hx Arthritis: Yes (RA) - GASTROINTESTINAL Other/Comment: COLOSTOMY - GENITOURINARY/GYNECOLOGICAL Hx Genitourinary Disorders: No - PSYCHIATRIC Hx Anxiety: Yes Hx Bipolar Disorder: Yes Hx Depression: Yes Hx Substance Use: No - SURGICAL HISTORY Hx Joint Replacement: Yes (RT ORIF) - ANESTHESIA Hx Anesthesia: Yes Hx Anesthesia Reactions: No Hx Malignant Hyperthermia: No Meds Allergies/Adverse Reactions: Allergies Allergy/AdvReac Type Severity Reaction Status Date / Time ibuprofen [From Motrin] Allergy ANAPHYLAXIS Verified 10/26/18 03:27 NSAIDS (Non-Steroidal Allergy SWELLING Verified 10/26/18 03:27 Anti-Inflamma risperidone [From Risperdal] AdvReac DIZZINESS Verified 10/26/18 03:27 - Medications Medications: Current Medications Clonazepam (Klonopin) 1 mg PO TID [facility]; Protocol Docusate Sodium (Colace) 100 mg PO BID [facility] Fentanyl (Duragesic) 1 patch TD Q72H VU Piperacillin Sod/Tazobactam Sod (Zosyn 3.375 In Ns 100ml) 100 mls @ 25 mls/hr IVPB Q12 VU; Protocol Stop: 10/29/18 01:59 Sodium Chloride (Sodium Chloride 0.45%) 1,000 mls @ 60 mls/hr IV .[id number] [facility] [place] Carbonate ([place] Carbonate 300mg) 300 mg PO BID VU Methocarbamol (Robaxin) 500 mg PO QID VU Methotrexate (Methotrexate) 2.5 mg PO Q7D [facility] Metoprolol Succinate (Toprol Xl) 25 mg PO DAILY VU Polyethylene Glycol (Miralax) 17 gm PO DAILY [facility] Physical Exam - Constitutional Appears: Non-toxic, No Acute Distress - Head Exam Head Exam: ATRAUMATIC - Eye Exam Eye Exam: EOMI. absent: Scleral icterus - ENT Exam ENT Exam: Mucous Membranes Moist - Respiratory Exam Respiratory Exam: NORMAL BREATHING PATTERN. absent: Accessory Muscle Use, Respiratory Distress - Cardiovascular Exam Cardiovascular Exam: +S1, +S2. absent: Bradycardia, Tachycardia - GI/Abdominal Exam GI & Abdominal Exam: Hernia (transverse colostomy reduced at bedside), Soft. absent: Bruit, Distended, Firm, Guarding, Rigid, Tenderness - Extremities Exam Extremities exam: Positive for: normal inspection. Negative for: calf tenderness - Neurological Exam Neurological exam: Alert, Oriented x3 - Psychiatric Exam Psychiatric exam: Normal Affect - Skin Skin Exam: Intact, Warm Results - Vital Signs Recent Vital Signs: Last Vital Signs Temp 98.1 F 10/28/18 19:15 Pulse 92 H 10/28/18 19:15 Resp 19 10/28/18 19:15 BP 111/57 L 10/28/18 19:15 Pulse Ox 98 10/28/18 19:15 - Labs Result Diagrams: 10/28/18 16:41 10/28/18 16:41 Labs: Laboratory Results - last 24 hr 10/28/18 10/28/18 10/28/18 16:39 16:41 16:41 WBC 27.7 H* D RBC 4.15 Hgb 12.4 Hct 37.2 MCV 89.6 MCH 29.9 MCHC 33.3 RDW 15.5 H Plt Count 430 MPV 10.0 Neut % (Auto) 83.0 H Lymph % (Auto) 8.1 L [place] % (Auto) 8.2 H Eos % (Auto) 0.6 L Baso % (Auto) 0.1 Lymph # (Auto) 2.2 [place] # (Auto) 2.3 H Eos # (Auto) 0.2 Baso # (Auto) 0.02 Absolute Neuts (auto) 23.04 H Neutrophils % (Manual) 81 H Band Neutrophils % 1 Lymphocytes % (Manual) 9 L Atypical Lymphs % 1 H Monocytes % (Manual) 7 H Eosinophils % (Manual) 1 Toxic Granulation 2+ Platelet Evaluation High Hypochromasia 2+ Rouleaux 2+ PT 15.5 H INR 1.40 APTT 29.5 Sodium Potassium Chloride Carbon Dioxide Anion Gap BUN Creatinine Est GFR ( Amer) Est GFR (Non-Af Amer) Random Glucose Calcium Magnesium Total Bilirubin AST ALT Alkaline Phosphatase Total Protein Albumin Globulin Albumin/Globulin Ratio Lipase Urine Color Yellow Urine Appearance Slight-cloudy Urine pH 7.5 Ur Specific [place] 1.020 Urine Protein Trace H Urine Glucose (UA) Negative Urine Ketones Negative Urine Blood Small H Urine Nitrate Positive H Urine Bilirubin Negative Urine Urobilinogen 0.2 Ur Leukocyte Esterase Large H Urine RBC 10 - 15 H Urine WBC Tntc H Ur Epithelial Cells 3 - 4 Urine Bacteria Many 10/28/18 16:41 WBC RBC Hgb Hct MCV MCH MCHC RDW Plt Count MPV Neut % (Auto) Lymph % (Auto) [place] % (Auto) Eos % (Auto) Baso % (Auto) Lymph # (Auto) [place] # (Auto) Eos # (Auto) Baso # (Auto) Absolute Neuts (auto) Neutrophils % (Manual) Band Neutrophils % Lymphocytes % (Manual) Atypical Lymphs % Monocytes % (Manual) Eosinophils % (Manual) Toxic Granulation Platelet Evaluation Hypochromasia Rouleaux PT INR APTT Sodium 133 Potassium 3.7 Chloride 103 Carbon Dioxide 24 Anion Gap 11 BUN 12 Creatinine 0.5 L Est GFR ( Amer) > 60 Est GFR (Non-Af Amer) > 60 Random Glucose 102 Calcium 9.9 Magnesium 2.2 Total Bilirubin 0.7 AST 15 ALT 24 Alkaline Phosphatase 74 Total Protein 7.4 Albumin 3.8 Globulin 3.6 Albumin/Globulin Ratio 1.0 L Lipase 28 Urine Color Urine Appearance Urine pH Ur Specific [place] Urine Protein Urine Glucose (UA) Urine Ketones Urine Blood Urine Nitrate Urine Bilirubin Urine Urobilinogen Ur Leukocyte Esterase Urine RBC Urine WBC Ur Epithelial Cells Urine Bacteria Assessment & Plan - Assessment and Plan (Free Text) Assessment: 58F w/ metastatic adenocarcinoma, prolapsed transverse loop colostomy; reduced at bedside w/ serosang drainage due to manipulation leukocytosis 2/2 UTI Plan: - prolapse reduced at bedside - recommend stool softners - abx for UTI - no further acute surgical intervention - patient expresses she does not want surgery - further recs per Dr. Rory Ahn PGY2
[2018-10-28] MEDS: Sodium Chloride 0.45% 1,000 ML IV SCH (21:55)
[2018-10-28] MEDS ORDERED: Piperacillin/Tazobact 3.375 gm 100 ML IVPB SCH (22:00)
--- NOTE | 2018-10-28 22:44 | HP ---
DATE OF EXAM: 10/28/2018 HISTORY OF PRESENT ILLNESS: I was called to the emergency room to see Urszula. She is a 58-year-old white female, I know her very well. She comes in with a serosanguineous output from an ostomy site and to the ostomy bag with intestine. She was also not feeling well. She had a sharp pain in her left chest radiating to her neck on and off for 3 days. She is a 58-year-old white female with past medical history of colostomy in 2018 secondary to obstructing rectal mass, chronic constipation, COPD. She also has a lung mass, refused biopsy. She has hypertension, rheumatoid arthritis, chronic anemia and now is dealing with a prolapsed colostomy with intestine into the colostomy bag. Has a stabbing cramping, sudden change. PAST MEDICAL HISTORY: She has hypertension, COPD, dizziness, cancer history, rheumatoid arthritis, colostomy from a rectal cancer, anxiety, depression, bipolar. She had a right open reduction internal fixation at surgery. FAMILY HISTORY: She has unknown family history. SOCIAL HISTORY: Heavy smoker. She still smokes to this day, tried to get rid of smoking. She smokes a pack a day. No alcohol. No drugs. ALLERGIES: SHE HAS ALLERGIES TO IBUPROFEN, NSAIDS, AND RISPERDAL. MEDICATIONS: She is on folic acid, Robaxin, Toprol, MiraLax, and potassium. REVIEW OF SYSTEMS: No fatigue. No fevers. No shortness of breath or cough. There is chest pain. No palpitations. No edema. There is abdominal pain with serosanguineous output from the ostomy in the rectum. Ostomy chronically prolapsed, it is pink, no stool. Some problems urinating. Some arthralgias. No skin rashes or ulcers appreciated. No headache or dizziness. PHYSICAL EXAMINATION: VITAL SIGNS: 99.6 temperature, 95 pulse, 18 respiratory rate, 130/76 blood pressure, 99% O2 sat. GENERAL: She is alert, little bit uncomfortable, little toxic, tearful, anxious, alert and oriented x3. HEENT: Head is atraumatic, normocephalic. Extraocular muscles intact. Throat is dry. NECK: Supple. HEART: Regular rate. Normal S1 and S2. LUNGS: Decreased breath sounds bilaterally. No wheezes, rhonchi or rales. ABDOMEN: Diffuse tender everywhere with some bowel sounds. The colostomy, has a prolapsed ostomy, it is pink. There is serosanguineous drainage in the bag. EXTREMITIES: Have no edema. She is weak in the lower extremities. NEUROLOGIC: She is mostly in a wheelchair. GCS is 15. Cranial nerves II-XII grossly intact. Speech is normal. Alert and oriented x3. SKIN: Warm and dry. She was on hospice. She came in not feeling well. She has chronic stomal herniation prolapsed, substance abuse on methadone and metastatic cancer, presents with stomal prolapse, blood-tinged ostomy and rectal output. LABORATORY DATA: She had multiple tests done. She has a 27.7 white count, quite high; 12.4 hemoglobin; 37.2 hematocrit with 430 platelets. INR is 1.4. Sodium 133, potassium 3.7, BUN 12, creatinine 0.5, GFR greater than 60, sugar is 102, calcium is 9.9, magnesium 2.2, total bili is 0.7, AST is 15, ALT is 24, alk phos 74, total protein 7.4, albumin is 3.8, lipase is 28. Urine is positive for nitrites, large leukocytes, many bacteria. Besides ostomy, she is also having a urinary tract infection. The CT scan the abdomen and pelvis is pending. She is going to have a consult with Infectious Disease. She is on IV fluids. She will be on Zosyn IV. She had a dose of vancomycin. Also, she will have a consult with Surgery for the prolapsed ostomy, colostomy; maybe they could help her with that. She will be on IV antibiotics, and she was on hospice. Patrice Alba DO JESUS
[2018-10-29] MEDS: Methocarbamol 500 MG Tab PO SCH ×5 (00:43→22:36)
[2018-10-29 01:08] VITALS: BMI 17.4
[2018-10-29] MEDS ORDERED: Morphine 2 mg/ml ISec IVP ONE (04:38)
[2018-10-29] MEDS: Piperacillin/Tazobact 3.375 gm 100 ML IVPB SCH ×3 (06:15→22:35)
[2018-10-29 07:42] LABS: HEMOGLOBIN 11.6 g/dL (12.0-16.0); MEAN CELL VOLUME 89.9 fl (80.0-105.0); MEAN CORPUSCULAR HEMOGLOBIN 29.1 pg (25.0-35.0); MEAN CORPUSCULAR HGB CONC 32.4 g/dl (31.0-37.0); RBC 3.98 10^6/uL (3.5-6.1); RED CELL DISTRIBUTION WIDTH 15.5 % (11.5-14.5)
[2018-10-29 08:00] LABS: WHITE BLOOD COUNT 25.7 10^3/uL (4.5-11.0)
[2018-10-29 08:21] LABS: ALBUMIN 3.5 g/dL (3.0-4.8); ALT/SGPT 16 U/L (7-56); AST/SGOT 14 U/L (14-36); BLOOD UREA NITROGEN 8 mg/dL (7-21); CALCIUM 9.4 mg/dL (8.4-10.5); GFR NON-AFRICAN AMERICAN > 60
--- NOTE | 2018-10-29 08:31 | CT ---
Date of service: 10/28/2018 PROCEDURE: CT Abdomen and Pelvis with and without intravenous contrast HISTORY: abd pain COMPARISON: 07/16/2018 TECHNIQUE: Axial images of the abdomen were obtained in the pre contrast, portal venous and delayed phases of enhancement. Coronal and sagittal reformats were generated. Contrast dose: Radiation dose: Total exam DLP = 242.4 mGy-cm. This CT exam was performed using one or more of the following dose reduction techniques: Automated exposure control, adjustment of the mA and/or kV according to patient size, and/or use of iterative reconstruction technique. FINDINGS: LOWER THORAX: 1.1 centimeter pleural-based nodule in the right lower lobe, more conspicuous than on the prior examination.. LIVER: 1.8 x 2.6 centimeter hemangioma in the anterior medial superior right hepatic lobe. GALLBLADDER AND BILE DUCTS: Unremarkable. PANCREAS: Unremarkable. No gross lesion or ductal dilatation. SPLEEN: Unremarkable. ADRENALS: Unremarkable. No mass. KIDNEYS AND URETERS: Unremarkable. No hydronephrosis. No solid mass. VASCULATURE: Unremarkable. No aortic aneurysm. No aortic atherosclerotic calcification or mural plaque present. BOWEL: Left pelvic colostomy appears to have protrusion of a segment of descending colon externally through the ostomy. Recommend surgical evaluation. Mucosal wall thickening of the lower rectosigmoid colon and rectum suspicious for colitis/proctitis. Inflammatory or infectious etiologies considered. Fluid noted in the rectal lumen. APPENDIX: Normal appendix. PERITONEUM: Unremarkable. No free fluid. No free air. LYMPH NODES: Unremarkable. No enlarged lymph nodes. BLADDER: Unremarkable. REPRODUCTIVE: 3.4 x 4.0 centimeter possible right pelvic abscess. BONES: No acute fracture. OTHER FINDINGS: None. IMPRESSION: Left pelvic colostomy appears to have protrusion of a segment of descending colon externally through the ostomy. Recommend surgical evaluation. Mucosal wall thickening of the lower rectosigmoid colon and rectum suspicious for colitis/proctitis. Inflammatory or infectious etiologies considered. Fluid noted in the rectal lumen. 1.1 centimeter pleural-based nodule in the right lower lobe, more conspicuous than on the prior examination.. 3.4 x 4.0 centimeter possible right pelvic abscess. 1.8 x 2.6 centimeter hemangioma in the anterior medial superior right hepatic lobe.
--- NOTE | 2018-10-29 09:56 | CP.PCM.CON ---
<Rosalino Wang - Last Filed: 10/29/18 12:20> History of Present Illness - History of Present Illness History of Present Illness: Infectious disease consult note: 57-year-old female with past medical history of obstructing rectal mass with colostomy in 2018, adenocarcinoma, chronic constipation, possible history of lung mass, COPD, hypertension, rheumatoid arthritis, and chronic anemia presents with abdominal plain and prolapse of her loop colostomy. Patient was just here on Sunday morning for similar symptoms including prolapse of her transverse loop colostomy which was reduced. At the time patient was noted to have leukocytosis and was discharged home on antibiotics however she has not taking any. She denies any infection near the site of the stoma. Infectious disease was consulted for elevated leukocytosis and UTI. 12 point ROS performed and negative other than dated above. PMH: as above PSH: ORIF R hip, colostomy (06/2018) ALL: ibuprofen, risperidone Soc Hx: active smoker > 50 pack year history. Denies alcohol or drug use. Fam Hx: denies any relevant family history Review of Systems - Review of Systems All systems: reviewed and no additional remarkable complaints except Past Patient History - Infectious Disease Hx of Infectious Diseases: None - Past Social History Smoking Status: Heavy Smoker > 10 Cigarettes Daily - CARDIAC Hx Cardiac Disorders: No Hx Angina: No Hx Cardia Arrhythmia: No Hx Circulatory Problems: No Hx Congestive Heart Failure: No Hx Heart Murmur: No Hx Heart Transplant: No Hx Hypercholesterolemia: No Hx Hypertension: Yes Hx Internal Defibrillator: No Hx Mitral Valve Prolapse: No Hx Pacemaker: No Hx Peripheral Edema: No Hx Peripheral Vascular Disease: No - PULMONARY Hx Respiratory Disorders: No Hx Asthma: No Hx Bronchitis: No Hx Chronic Obstructive Pulmonary Disease (COPD): No Hx Emphysema: No Hx Pneumonia: No Hx Respiratory Aspiration: No Hx Respiratory Tract Infection: No Hx Sleep Apnea: No Hx Tuberculosis: No - NEUROLOGICAL Hx Neurological Disorder: No Hx Alzheimer's Disease: No HX Cerebrovascular Accident: No Hx Dementia: No Hx Dizziness: No Hx Meningitis: No Hx Migraine: No Hx Parkinson's Disease: No Hx Seizures: No Hx Transient Ischemic Attacks (TIA): No - HEENT Hx HEENT Problems: No Hx Blind: No Hx Cataracts: No Hx Deafness: No Hx Difficulty Chewing: No Hx Epistaxis: No Hx Glaucoma: No Hx Macular Degeneration: No - RENAL Hx Chronic Kidney Disease: No Hx Dialysis: No Hx Kidney Stones: No Hx Neurogenic Bladder: No Hx Pyelonephritis: No Hx Renal (Kidney) Cancer: No Hx Renal Failure: No - ENDOCRINE/METABOLIC Hx Endocrine Disorders: No Hx Adrenal Cancer: No Hx Diabetes Insipidus: No Hx Diabetes Mellitus Type 1: No Hx Diabetes Mellitus Type 2: No Hx Hyperthyroidism: No Hx Hypothyroidism: No Hx Systemic Lupus Erythematosus: No - HEMATOLOGICAL/ONCOLOGICAL Hx Blood Disorders: No Hx AIDS: No Hx Cancer: Yes (Colon) Hx Chemotherapy: No Hx Cirrhosis: No Hx Hemophilia: No Hx Hepatitis A: No Hx Hepatitis B: No Hx Hepatitis C: No Hx Human Immunodeficiency Virus (HIV): No Hx Metastesis: No Hx Shingles: No Hx Sickle Cell Disease: No Hx Unexplained Bleeding: No - INTEGUMENTARY Hx Dermatological Problems: No Hx Basil Cell: No Hx Eczema: No Hx Melanoma: No Hx Psoriasis: No Hx Squamous Cell: No - MUSCULOSKELETAL/RHEUMATOLOGICAL Hx Musculoskeletal Disorders: Yes Hx Arthritis: Yes Hx Back Pain: Yes Hx Degenerative Joint Disease: No Hx Falls: Yes Hx Fractures: Yes Hx Gout: No Hx Herniated Disk: No Hx Myasthenia Gravis: No Hx Osteoarthritis: No Hx Osteomyelitis: No Hx Osteoporosis: No Hx Rhabdomyolysis: No Hx Spinal Stenosis: No Hx Unsteady Gait: No - GASTROINTESTINAL Hx Gastrointestinal Disorders: Yes Hx Colostomy: Yes Hx Crohn's Disease: No Hx Diverticulitis: No Hx Gall Bladder Disease: No Hx Gastroesophageal Reflux: No Hx Ileostomy: No Hx Liver Failure: No Hx Pancreatitis: No HX Swallowing Problems: No Hx Ulcer: No - GENITOURINARY/GYNECOLOGICAL Hx Genitourinary Disorders: No Hx Hematuria: No Hx Incontinence: No Hx Sexually Transmitted Disorders: No Hx Urinary Tract Infection: Yes - PSYCHIATRIC Hx Psychophysiologic Disorder: Yes Hx Anxiety: Yes Hx Bipolar Disorder: Yes Hx Depression: Yes Hx Emotional Abuse: No Hx Hallucinations: No Hx Panic Symptoms: No Hx Paranoia: No Hx Post Traumatic Stress Disorder: No Hx Psychosis: No Hx Physical Abuse: No Hx Schizophrenia: No Hx Sexual Abuse: No Hx Substance Use: No (denies) - SURGICAL HISTORY Hx Surgeries: Yes Hx Amputation: No Hx Appendectomy: No Hx Cardiac Catheterization: No Hx Cholecystectomy: No Hx Coronary Stent: No Hx Gastric Bypass Surgery: No Hx Hysterectomy: No Hx Joint Replacement: Yes Hx Kidney Transplant: No Hx Liver Transplant: No Hx Mastectomy: No Hx Musculoskeletal Surgery: No Hx Open Heart Surgery: No Hx Orthopedic Surgery: No Hx Splenectomy: No Hx Valve Replacement: No - ANESTHESIA Hx Anesthesia: Yes Hx Anesthesia Reactions: No Hx Malignant Hyperthermia: No Meds Allergies/Adverse Reactions: Allergies Allergy/AdvReac Type Severity Reaction Status Date / Time ibuprofen [From Motrin] Allergy ANAPHYLAXIS Verified 10/26/18 03:27 NSAIDS (Non-Steroidal Allergy SWELLING Verified 10/26/18 03:27 Anti-Inflamma risperidone [From Risperdal] AdvReac DIZZINESS Verified 10/26/18 03:27 - Medications Medications: Current Medications Clonazepam (Klonopin) 1 mg PO TID [facility]; Protocol Docusate Sodium (Colace) 100 mg PO BID [facility] Fentanyl (Duragesic) 1 patch TD Q72H [facility] Last Admin: 10/29/18 00:41 Dose: 1 patch Sodium Chloride (Sodium Chloride 0.45%) 1,000 mls @ 60 mls/hr IV .[id number] [facility] Last Admin: 10/28/18 21:55 Dose: 60 mls/hr Piperacillin Sod/Tazobactam Sod (Zosyn 3.375 In Ns 100ml) 100 mls @ 25 mls/hr IVPB Q8 [facility]; Protocol Stop: 11/05/18 06:01 Last Admin: 10/29/18 06:15 Dose: 25 mls/hr Potassium Chloride (Potassium Chloride 10 Meq/100 Ml) 10 meq in 100 mls @ 50 mls/hr IVPB ONCE ONE Stop: 10/29/18 11:18 [place] Carbonate ([place] Carbonate 300mg) 300 mg PO BID [facility] Methocarbamol (Robaxin) 500 mg PO QID [facility] Last Admin: 10/29/18 00:43 Dose: 500 mg Methotrexate (Methotrexate) 2.5 mg PO Q7D [facility] Last Admin: 10/29/18 04:35 Dose: 2.5 mg Metoprolol Succinate (Toprol Xl) 25 mg PO DAILY [facility] Morphine Sulfate (Morphine) 2 mg IVP Q3 PRN PRN Reason: Pain, moderate (4-7) Nicotine (Nicoderm Cq) 1 patch TD DAILY [facility] Last Admin: 10/28/18 21:30 Dose: 1 patch Polyethylene Glycol (Miralax) 17 gm PO DAILY [facility] Physical Exam - Head Exam Head Exam: ATRAUMATIC, NORMOCEPHALIC - Eye Exam Eye Exam: EOMI - ENT Exam ENT Exam: Mucous Membranes Moist - Respiratory Exam Respiratory Exam: Clear to Auscultation Bilateral. absent: Rales, Wheezes - Cardiovascular Exam Cardiovascular Exam: RRR, +S1, +S2 - GI/Abdominal Exam GI & Abdominal Exam: Normal Bowel Sounds, Soft. absent: Distended Additional comments: Stoma looks clean with no sign of infection - Extremities Exam Extremities exam: Negative for: calf tenderness, pedal edema - Neurological Exam Neurological exam: Alert, Oriented x3 - Psychiatric Exam Psychiatric exam: Normal Mood - Skin Skin Exam: Dry, Warm Results - Vital Signs Recent Vital Signs: Last Vital Signs Temp 98.7 F 10/29/18 06:00 Pulse 90 10/29/18 06:00 Resp 18 10/29/18 06:00 BP 117/71 10/29/18 06:00 Pulse Ox 95 10/29/18 06:00 - Labs Result Diagrams: 10/29/18 07:30 10/29/18 07:30 Labs: Laboratory Results - last 24 hr 10/28/18 10/28/18 10/28/18 16:39 16:41 16:41 WBC 27.7 H* D RBC 4.15 Hgb 12.4 Hct 37.2 MCV 89.6 MCH 29.9 MCHC 33.3 RDW 15.5 H Plt Count 430 MPV 10.0 Neut % (Auto) 83.0 H Lymph % (Auto) 8.1 L [place] % (Auto) 8.2 H Eos % (Auto) 0.6 L Baso % (Auto) 0.1 Lymph # (Auto) 2.2 [place] # (Auto) 2.3 H Eos # (Auto) 0.2 Baso # (Auto) 0.02 Absolute Neuts (auto) 23.04 H Neutrophils % (Manual) 81 H Band Neutrophils % 1 Lymphocytes % (Manual) 9 L Atypical Lymphs % 1 H Monocytes % (Manual) 7 H Eosinophils % (Manual) 1 Toxic Granulation 2+ Platelet Evaluation High Hypochromasia 2+ Rouleaux 2+ PT 15.5 H INR 1.40 APTT 29.5 Sodium Potassium Chloride Carbon Dioxide Anion Gap BUN Creatinine Est GFR ( Amer) Est GFR (Non-Af Amer) Random Glucose Calcium Magnesium Total Bilirubin AST ALT Alkaline Phosphatase Total Protein Albumin Globulin Albumin/Globulin Ratio Lipase Urine Color Yellow Urine Appearance Slight-cloudy Urine pH 7.5 Ur Specific [place] 1.020 Urine Protein Trace H Urine Glucose (UA) Negative Urine Ketones Negative Urine Blood Small H Urine Nitrate Positive H Urine Bilirubin Negative Urine Urobilinogen 0.2 Ur Leukocyte Esterase Large H Urine RBC 10 - 15 H Urine WBC Tntc H Ur Epithelial Cells 3 - 4 Urine Bacteria Many 10/28/18 10/29/18 10/29/18 16:41 07:30 07:30 WBC 25.7 H* RBC 3.98 Hgb 11.6 L Hct 35.8 L MCV 89.9 MCH 29.1 MCHC 32.4 RDW 15.5 H Plt Count 462 H MPV 10.0 Neut % (Auto) Lymph % (Auto) [place] % (Auto) Eos % (Auto) Baso % (Auto) Lymph # (Auto) [place] # (Auto) Eos # (Auto) Baso # (Auto) Absolute Neuts (auto) Neutrophils % (Manual) Band Neutrophils % Lymphocytes % (Manual) Atypical Lymphs % Monocytes % (Manual) Eosinophils % (Manual) Toxic Granulation Platelet Evaluation Hypochromasia Rouleaux PT INR APTT Sodium 133 138 Potassium 3.7 3.4 L Chloride 103 106 Carbon Dioxide 24 23 Anion Gap 11 12 BUN 12 8 Creatinine 0.5 L 0.5 L Est GFR ( Amer) > 60 > 60 Est GFR (Non-Af Amer) > 60 > 60 Random Glucose 102 97 Calcium 9.9 9.4 Magnesium 2.2 Total Bilirubin 0.7 1.1 AST 15 14 ALT 24 16 Alkaline Phosphatase 74 74 Total Protein 7.4 7.1 Albumin 3.8 3.5 Globulin 3.6 3.6 Albumin/Globulin Ratio 1.0 L 1.0 L Lipase 28 Urine Color Urine Appearance Urine pH Ur Specific [place] Urine Protein Urine Glucose (UA) Urine Ketones Urine Blood Urine Nitrate Urine Bilirubin Urine Urobilinogen Ur Leukocyte Esterase Urine RBC Urine WBC Ur Epithelial Cells Urine Bacteria Assessment & Plan - Assessment and Plan (Free Text) Assessment: 57-year-old female with past medical history of obstructing rectal mass with colostomy in 2018, adenocarcinoma, chronic constipation, possible history of lung mass, COPD, hypertension, rheumatoid arthritis, and chronic anemia presents with abdominal plain and prolapse of her loop colostomy. Infectious disease was consulted for elevated leukocytosis and UTI. Follow-up CT abdomen and pelvis with IV contrast pending read Patient received Vancomycin x 1 and Zosyn x1; cont with Zosyn Patient's WBC came down slightly from 27--->25 Patient had a positive UA 3 days ago with cultures showing E. coli. Follow-up septic workup Continue to monitor for any changes Case and plan was reviewed and discussed with Dr. Van <Shahriar Van - Last Filed: 10/29/18 13:30> Meds - Medications Medications: Current Medications Clonazepam (Klonopin) 1 mg PO TID [facility]; Protocol Last Admin: 10/29/18 10:39 Dose: 1 mg Docusate Sodium (Colace) 100 mg PO BID [facility] Last Admin: 10/29/18 10:39 Dose: 100 mg Fentanyl (Duragesic) 1 patch TD Q72H [facility] Last Admin: 10/29/18 00:41 Dose: 1 patch Sodium Chloride (Sodium Chloride 0.45%) 1,000 mls @ 60 mls/hr IV .[id number] [facility] Last Admin: 10/28/18 21:55 Dose: 60 mls/hr Piperacillin Sod/Tazobactam Sod (Zosyn 3.375 In Ns 100ml) 100 mls @ 25 mls/hr IVPB Q8 [facility]; Protocol Stop: 11/05/18 06:01 Last Admin: 10/29/18 06:15 Dose: 25 mls/hr [place] Carbonate ([place] Carbonate 300mg) 300 mg PO BID [facility] Last Admin: 10/29/18 10:39 Dose: 300 mg Methocarbamol (Robaxin) 500 mg PO QID [facility] Last Admin: 10/29/18 10:42 Dose: 500 mg Methotrexate (Methotrexate) 2.5 mg PO Q7D [facility] Last Admin: 10/29/18 04:35 Dose: 2.5 mg Metoprolol Succinate (Toprol Xl) 25 mg PO DAILY [facility] Last Admin: 10/29/18 10:40 Dose: 25 mg Morphine Sulfate (Morphine) 2 mg IVP Q3 PRN PRN Reason: Pain, moderate (4-7) Last Admin: 10/29/18 10:38 Dose: 2 mg Nicotine (Nicoderm Cq) 1 patch TD DAILY [facility] Last Admin: 10/29/18 10:39 Dose: 1 patch Polyethylene Glycol (Miralax) 17 gm PO DAILY [facility] Last Admin: 10/29/18 10:39 Dose: 17 gm Results - Vital Signs Recent Vital Signs: Last Vital Signs Temp 98.7 F 10/29/18 06:00 Pulse 90 10/29/18 10:40 Resp 18 10/29/18 06:00 BP 117/71 10/29/18 10:40 Pulse Ox 95 10/29/18 06:00 - Labs Result Diagrams: 10/29/18 07:30 10/29/18 07:30 Labs: Laboratory Results - last 24 hr 10/28/18 10/28/18 10/28/18 16:39 16:41 16:41 WBC 27.7 H* D RBC 4.15 Hgb 12.4 Hct 37.2 MCV 89.6 MCH 29.9 MCHC 33.3 RDW 15.5 H Plt Count 430 MPV 10.0 Neut % (Auto) 83.0 H Lymph % (Auto) 8.1 L [place] % (Auto) 8.2 H Eos % (Auto) 0.6 L Baso % (Auto) 0.1 Lymph # (Auto) 2.2 [place] # (Auto) 2.3 H Eos # (Auto) 0.2 Baso # (Auto) 0.02 Absolute Neuts (auto) 23.04 H Neutrophils % (Manual) 81 H Band Neutrophils % 1 Lymphocytes % (Manual) 9 L Atypical Lymphs % 1 H Monocytes % (Manual) 7 H Eosinophils % (Manual) 1 Toxic Granulation 2+ Platelet Evaluation High Hypochromasia 2+ Rouleaux 2+ PT 15.5 H INR 1.40 APTT 29.5 Sodium Potassium Chloride Carbon Dioxide Anion Gap BUN Creatinine Est GFR ( Amer) Est GFR (Non-Af Amer) Random Glucose Calcium Magnesium Total Bilirubin AST ALT Alkaline Phosphatase Total Protein Albumin Globulin Albumin/Globulin Ratio Lipase Urine Color Yellow Urine Appearance Slight-cloudy Urine pH 7.5 Ur Specific [place] 1.020 Urine Protein Trace H Urine Glucose (UA) Negative Urine Ketones Negative Urine Blood Small H Urine Nitrate Positive H Urine Bilirubin Negative Urine Urobilinogen 0.2 Ur Leukocyte Esterase Large H Urine RBC 10 - 15 H Urine WBC Tntc H Ur Epithelial Cells 3 - 4 Urine Bacteria Many 10/28/18 10/29/18 10/29/18 16:41 07:30 07:30 WBC 25.7 H* RBC 3.98 Hgb 11.6 L Hct 35.8 L MCV 89.9 MCH 29.1 MCHC 32.4 RDW 15.5 H Plt Count 462 H MPV 10.0 Neut % (Auto) Lymph % (Auto) [place] % (Auto) Eos % (Auto) Baso % (Auto) Lymph # (Auto) [place] # (Auto) Eos # (Auto) Baso # (Auto) Absolute Neuts (auto) Neutrophils % (Manual) Band Neutrophils % Lymphocytes % (Manual) Atypical Lymphs % Monocytes % (Manual) Eosinophils % (Manual) Toxic Granulation Platelet Evaluation Hypochromasia Rouleaux PT INR APTT Sodium 133 138 Potassium 3.7 3.4 L Chloride 103 106 Carbon Dioxide 24 23 Anion Gap 11 12 BUN 12 8 Creatinine 0.5 L 0.5 L Est GFR ( Amer) > 60 > 60 Est GFR (Non-Af Amer) > 60 > 60 Random Glucose 102 97 Calcium 9.9 9.4 Magnesium 2.2 Total Bilirubin 0.7 1.1 AST 15 14 ALT 24 16 Alkaline Phosphatase 74 74 Total Protein 7.4 7.1 Albumin 3.8 3.5 Globulin 3.6 3.6 Albumin/Globulin Ratio 1.0 L 1.0 L Lipase 28 Urine Color Urine Appearance Urine pH Ur Specific [place] Urine Protein Urine Glucose (UA) Urine Ketones Urine Blood Urine Nitrate Urine Bilirubin Urine Urobilinogen Ur Leukocyte Esterase Urine RBC Urine WBC Ur Epithelial Cells Urine Bacteria Assessment & Plan - Assessment and Plan (Free Text) Assessment: Infectious diseases Attending Physician Attestation Patient seen and examined, discussed with medical educator. I have reviewed the patient's history of present illness, past medical, social, personal and family histories, pertinent physical exam findings, course so far in this hospital admission, pertinent laboratory and imaging results. I agree with the above findings, assessment and plan. In addition, started patient on Zosyn for patient with prolapse of colostomy R/O intra-abdominal infection. Follow up CT A/P and plans of surgery. Will follow up blood cx. Patient with possible UTI with E. coli and this is also covered by Zosyn.
[2018-10-29] MEDS: Morphine 2 mg/ml ISec IVP PRN ×4 (10:38→23:51)
[2018-10-29] MEDS: POLYETHYLENE GLYCOL 3350 17 GM/Dose PACKET PO SCH (10:39)
[2018-10-29] MEDS: Metoprolol Succinate 25 mg XL Tab PO SCH (10:40)
--- NOTE | 2018-10-29 10:54 | PN ---
DATE: 10/29/2018 SUBJECTIVE: She is in the hospital. This morning, she was crying with abdominal pain. She is on the Duragesic packs. I will make sure she gets morphine also to help her while she is here. I believe Surgery had reduced the colostomy protrusion and so there is nothing else I could do. She is on lots of medications for her infection. She is on IV fluids, Colace, Duragesic patch, Klonopin, lithium, methotrexate, MiraLax, morphine, Nicoderm, Robaxin, Toprol, vancomycin IV Zosyn IV. PHYSICAL EXAMINATION: VITAL SIGNS: She has a 98.5 temperature, 96 pulse, 125/80 blood pressure, 18 respiratory rate, 99% O2 sat on room air. HEAD: Atraumatic, normocephalic. HEART: Regular rate. LUNGS: Decreased breath sounds but clear. ABDOMEN: She has a colostomy. Decreased bowel sounds. Tender diffusely. EXTREMITIES: No edema. LABORATORY DATA: She has a 138 sodium, potassium 3.4, I am going to give her potassium, BUN 8, creatinine 0.5, GFR greater than 60, sugar is 97, calcium 9.4, total bili is 1.1, AST is 14, ALT is 16, alk phos 74, total protein 7.1. Her urine was large and many. INR is 1.4. The white count is 25.7, it came down a little bit, 11.6 hemoglobin, 35.8 hematocrit with 462 platelets. PLAN: As per Infectious Disease for the urinary tract infection, Surgery is not going to do much more than reduce the colostomy. I am going to replace potassium, order physical therapy, out of bed to chair. Hopefully, she will respond to the IV antibiotics and the infection will decrease. Continue with aggressive treatment and care. Patrice Alba DO
--- NOTE | 2018-10-29 11:22 | CP.PCM.PN ---
Subjective - Date & Time of Evaluation Date of Evaluation: 10/29/18 Time of Evaluation: 11:19 - Subjective Subjective: Surgery Pt seen and examined. Stoma reduced and prolapsed again. Has stool output. Has incontinent. CT reviewed. distended bladder. c/o stool spillage Objective - Vital Signs/Intake and Output Vital Signs (last 24 hours): Temp Pulse Resp BP Pulse Ox 98.7 F 90 18 117/71 95 10/29/18 06:00 10/29/18 10:40 10/29/18 06:00 10/29/18 10:40 10/29/18 06:00 Intake and Output: 10/29/18 10/29/18 06:59 18:59 Intake Total 180 Balance 180 - Medications Medications: Current Medications Clonazepam (Klonopin) 1 mg PO TID [facility]; Protocol Last Admin: 10/29/18 10:39 Dose: 1 mg Docusate Sodium (Colace) 100 mg PO BID [facility] Last Admin: 10/29/18 10:39 Dose: 100 mg Fentanyl (Duragesic) 1 patch TD Q72H [facility] Last Admin: 10/29/18 00:41 Dose: 1 patch Sodium Chloride (Sodium Chloride 0.45%) 1,000 mls @ 60 mls/hr IV .[id number] [facility] Last Admin: 10/28/18 21:55 Dose: 60 mls/hr Piperacillin Sod/Tazobactam Sod (Zosyn 3.375 In Ns 100ml) 100 mls @ 25 mls/hr IVPB Q8 [facility]; Protocol Stop: 11/05/18 06:01 Last Admin: 10/29/18 06:15 Dose: 25 mls/hr [place] Carbonate ([place] Carbonate 300mg) 300 mg PO BID [facility] Last Admin: 10/29/18 10:39 Dose: 300 mg Methocarbamol (Robaxin) 500 mg PO QID [facility] Last Admin: 10/29/18 10:42 Dose: 500 mg Methotrexate (Methotrexate) 2.5 mg PO Q7D [facility] Last Admin: 10/29/18 04:35 Dose: 2.5 mg Metoprolol Succinate (Toprol Xl) 25 mg PO DAILY [facility] Last Admin: 10/29/18 10:40 Dose: 25 mg Morphine Sulfate (Morphine) 2 mg IVP Q3 PRN PRN Reason: Pain, moderate (4-7) Last Admin: 10/29/18 10:38 Dose: 2 mg Nicotine (Nicoderm Cq) 1 patch TD DAILY [facility] Last Admin: 10/29/18 10:39 Dose: 1 patch Polyethylene Glycol (Miralax) 17 gm PO DAILY [facility] Last Admin: 10/29/18 10:39 Dose: 17 gm - Labs Labs: 10/29/18 07:30 10/29/18 07:30 PT 15.5 SECONDS (9.4-12.5) H 10/28/18 16:41 INR 1.40 10/28/18 16:41 APTT 29.5 Seconds (26.9-38.3) 10/28/18 16:41 - Constitutional Appears: No Acute Distress - Head Exam Head Exam: ATRAUMATIC, NORMAL INSPECTION, NORMOCEPHALIC - Eye Exam Eye Exam: EOMI, Normal appearance, PERRL Pupil Exam: NORMAL ACCOMODATION, PERRL - ENT Exam ENT Exam: Mucous Membranes Moist - Neck Exam Neck Exam: Full ROM - Respiratory Exam Respiratory Exam: NORMAL BREATHING PATTERN - Cardiovascular Exam Cardiovascular Exam: REGULAR RHYTHM - GI/Abdominal Exam GI & Abdominal Exam: Soft. absent: Distended, Tenderness Additional comments: loop colostomy distal loop is prolapsed 30cm. Brown stool output. - Exam Exam: NORMAL INSPECTION - Extremities Exam Extremities Exam: Full ROM - Back Exam Back Exam: NORMAL INSPECTION - Neurological Exam Neurological Exam: Alert, Awake - Psychiatric Exam Psychiatric exam: Normal Affect, Normal Mood - Skin Skin Exam: Dry, Intact Assessment and Plan - Assessment and Plan (Free Text) Assessment: 58F w/ metastatic rectal adenocarcinoma, prolapsed transverse loop colostomy; reducible leukocytosis 2/2 UTI Plan: - prolapse reduced at bedside - recommend stool softners - abx for UTI -Recommend Urology follow up for incontinent, urinary retention and distended bladder - no further acute surgical intervention - patient expresses she does not want surgery - further recs per Dr. Valadez
--- NOTE | 2018-10-29 16:39 | PN ---
DATE: 10/29/2018 SUBJECTIVE: Urszula Dietz is seen, has trouble with the ostomy, it is prolapsed. PHYSICAL EXAMINATION VITAL SIGNS: Otherwise unremarkable, between 100 and 111 pounds. LABORATORY DATA: White count is remarkably high at 27 down to 25, hemoglobin 11.2. CAT scans reviewed. There is a pelvic collection of fluid. There was also a mass in the enlarged urinary bladder. Nitrites are positive. Leukocyte esterase is positive. Red cells are positive. White cells are positive. IMPRESSION: This is probably obstructed . A straight catheter will be placed. Abdomen is soft otherwise, Theoretically, we could operate on the ostomy, however, I believe that this is a rectal carcinoma in the pelvis. No is planned. John Valadez MD
[2018-10-29] MEDS: Sodium Chloride 0.45% 1,000 ML IV SCH (20:41)
[2018-10-29] MEDS ORDERED: Simethicone 80 mg Chewtab PO ONE (21:39)
[2018-10-30] MEDS: Morphine 2 mg/ml ISec IVP PRN ×6 (03:32→20:44)
[2018-10-30] MEDS: Piperacillin/Tazobact 3.375 gm 100 ML IVPB SCH ×3 (06:01→22:15)
[2018-10-30 07:10] LABS: HEMOGLOBIN 10.4 g/dL (12.0-16.0); MEAN CELL VOLUME 89.8 fl (80.0-105.0); MEAN CORPUSCULAR HEMOGLOBIN 28.7 pg (25.0-35.0); MEAN PLATELET VOLUME 9.8 fl (7.0-11.0); RBC 3.62 10^6/uL (3.5-6.1); RED CELL DISTRIBUTION WIDTH 15.3 % (11.5-14.5); WHITE BLOOD COUNT 18.9 10^3/uL (4.5-11.0)
[2018-10-30 07:41] LABS: ALB/GLOB RATIO 0.9 (1.1-1.8); ALT/SGPT 21 U/L (7-56); AST/SGOT 17 U/L (14-36); BLOOD UREA NITROGEN 4 mg/dL (7-21); CALCIUM 8.8 mg/dL (8.4-10.5); GFR NON-AFRICAN AMERICAN > 60
[2018-10-30] MEDS: Metoprolol Succinate 25 mg XL Tab PO SCH (10:04)
[2018-10-30] MEDS: POLYETHYLENE GLYCOL 3350 17 GM/Dose PACKET PO SCH (10:13)
[2018-10-30] MEDS: Methocarbamol 500 MG Tab PO SCH ×4 (10:14→22:00)
--- NOTE | 2018-10-30 11:08 | CP.PCM.PN ---
<Rosalino Wang - Last Filed: 10/30/18 13:41> Subjective - Date & Time of Evaluation Date of Evaluation: 10/30/18 Time of Evaluation: 07:50 - Subjective Subjective: Infectious disease progress note: Pt seen and examined at bedside. No acute events overnight. c/o mild abd pain. Complains of urinary retention but states it has improved. 12 Point ROS performed and neg other than stated above. Objective - Vital Signs/Intake and Output Vital Signs (last 24 hours): Temp Pulse Resp BP Pulse Ox 99 F 74 26 H 100/67 94 L 10/30/18 07:00 10/30/18 10:04 10/30/18 07:00 10/30/18 10:04 10/30/18 07:00 Intake and Output: 10/30/18 10/30/18 06:59 18:59 Intake Total 960 Balance 960 - Medications Medications: Current Medications Clonazepam (Klonopin) 1 mg PO TID [facility]; Protocol Last Admin: 10/30/18 10:00 Dose: 1 mg Docusate Sodium (Colace) 100 mg PO BID [facility] Last Admin: 10/30/18 10:04 Dose: 100 mg Fentanyl (Duragesic) 1 patch TD Q72H [facility] Last Admin: 10/29/18 00:41 Dose: 1 patch Sodium Chloride (Sodium Chloride 0.45%) 1,000 mls @ 60 mls/hr IV .[id number] [facility] Last Admin: 10/29/18 20:41 Dose: 60 mls/hr Piperacillin Sod/Tazobactam Sod (Zosyn 3.375 In Ns 100ml) 100 mls @ 25 mls/hr IVPB Q8 [facility]; Protocol Stop: 11/05/18 06:01 Last Admin: 10/30/18 06:01 Dose: 25 mls/hr Potassium Chloride (Potassium Chloride 10 Meq/100 Ml) 10 meq in 100 mls @ 50 mls/hr IVPB Q2H [facility] Stop: 10/30/18 12:29 Last Admin: 10/30/18 10:02 Dose: 50 mls/hr [place] Carbonate ([place] Carbonate 300mg) 300 mg PO BID [facility] Last Admin: 10/30/18 10:02 Dose: 300 mg Methocarbamol (Robaxin) 500 mg PO QID [facility] Last Admin: 10/30/18 10:14 Dose: 500 mg Methotrexate (Methotrexate) 2.5 mg PO Q7D [facility] Last Admin: 10/29/18 04:35 Dose: 2.5 mg Metoprolol Succinate (Toprol Xl) 25 mg PO DAILY [facility] Last Admin: 10/30/18 10:04 Dose: 25 mg Morphine Sulfate (Morphine) 2 mg IVP Q3 PRN PRN Reason: Pain, moderate (4-7) Last Admin: 10/30/18 09:40 Dose: 2 mg Nicotine (Nicoderm Cq) 1 patch TD DAILY [facility] Last Admin: 10/30/18 10:16 Dose: 1 patch Polyethylene Glycol (Miralax) 17 gm PO DAILY [facility] Last Admin: 10/30/18 10:13 Dose: 17 gm Prednisone (Prednisone Tab) 5 mg PO DAILY [facility] Last Admin: 10/30/18 10:03 Dose: 5 mg Quetiapine Fumarate (Seroquel) 50 mg PO HS [facility]; Protocol - Labs Labs: 10/30/18 06:45 10/30/18 06:45 PT 15.5 SECONDS (9.4-12.5) H 10/28/18 16:41 INR 1.40 10/28/18 16:41 APTT 29.5 Seconds (26.9-38.3) 10/28/18 16:41 - Constitutional Appears: No Acute Distress - Head Exam Head Exam: ATRAUMATIC, NORMOCEPHALIC - Eye Exam Eye Exam: EOMI - ENT Exam ENT Exam: Mucous Membranes Moist - Respiratory Exam Respiratory Exam: Clear to Ausculation Bilateral. absent: Wheezes - Cardiovascular Exam Cardiovascular Exam: REGULAR RHYTHM, +S1, +S2 - GI/Abdominal Exam GI & Abdominal Exam: Soft. absent: Distended, Tenderness Additional comments: ostomy bag in place - Extremities Exam Extremities Exam: absent: Calf Tenderness, Pedal Edema - Neurological Exam Neurological Exam: Alert, Awake, Oriented x3 - Psychiatric Exam Psychiatric exam: Normal Mood - Skin Skin Exam: Dry, Warm Assessment and Plan - Assessment and Plan (Free Text) Assessment: 57-year-old female with past medical history of obstructing rectal mass with colostomy in 2018, adenocarcinoma, chronic constipation, possible history of l johnathan mass, COPD, hypertension, rheumatoid arthritis, and chronic anemia presents with abdominal plain and prolapse of her loop colostomy. Infectious disease was consulted for elevated leukocytosis and UTI. CT abdomen and pelvis - 3.4 x 4 possible R pelvic abscess, and colitis / proctitis Cont with Zosyn day 2 today Recommend IR evaluation regarding 3.4 x 4cm pelvic abscess F/u surgery recs Patient's WBC came down slightly from 27--->25 positive UA with culture shows e coli Follow-up septic workup Continue to monitor for any changes Case and plan was reviewed and discussed with Dr. Van <Shahriar Van - Last Filed: 10/30/18 14:37> Objective - Vital Signs/Intake and Output Vital Signs (last 24 hours): Temp Pulse Resp BP Pulse Ox 99 F 74 26 H 100/67 94 L 10/30/18 07:00 10/30/18 10:04 10/30/18 07:00 10/30/18 10:04 10/30/18 07:00 Intake and Output: 10/30/18 10/30/18 06:59 18:59 Intake Total 960 Balance 960 - Medications Medications: Current Medications Clonazepam (Klonopin) 1 mg PO TID [facility]; Protocol Last Admin: 10/30/18 14:20 Dose: 1 mg Docusate Sodium (Colace) 100 mg PO BID [facility] Last Admin: 10/30/18 10:04 Dose: 100 mg Fentanyl (Duragesic) 1 patch TD Q72H [facility] Last Admin: 10/29/18 00:41 Dose: 1 patch Sodium Chloride (Sodium Chloride 0.45%) 1,000 mls @ 60 mls/hr IV .[id number] [facility] Last Admin: 10/29/18 20:41 Dose: 60 mls/hr Piperacillin Sod/Tazobactam Sod (Zosyn 3.375 In Ns 100ml) 100 mls @ 25 mls/hr IVPB Q8 [facility]; Protocol Stop: 11/05/18 06:01 Last Admin: 10/30/18 06:01 Dose: 25 mls/hr [place] Carbonate ([place] Carbonate 300mg) 300 mg PO BID [facility] Last Admin: 10/30/18 10:02 Dose: 300 mg Methocarbamol (Robaxin) 500 mg PO QID [facility] Last Admin: 10/30/18 14:20 Dose: 500 mg Methotrexate (Methotrexate) 2.5 mg PO Q7D [facility] Last Admin: 10/29/18 04:35 Dose: 2.5 mg Metoprolol Succinate (Toprol Xl) 25 mg PO DAILY [facility] Last Admin: 10/30/18 10:04 Dose: 25 mg Morphine Sulfate (Morphine) 2 mg IVP Q3 PRN PRN Reason: Pain, moderate (4-7) Last Admin: 10/30/18 14:21 Dose: 2 mg Nicotine (Nicoderm Cq) 1 patch TD DAILY [facility] Last Admin: 10/30/18 10:16 Dose: 1 patch Polyethylene Glycol (Miralax) 17 gm PO DAILY [facility] Last Admin: 10/30/18 10:13 Dose: 17 gm Prednisone (Prednisone Tab) 5 mg PO DAILY [facility] Last Admin: 10/30/18 10:03 Dose: 5 mg Quetiapine Fumarate (Seroquel) 50 mg PO HS [facility]; Protocol - Labs Labs: 10/30/18 06:45 10/30/18 06:45 PT 15.5 SECONDS (9.4-12.5) H 10/28/18 16:41 INR 1.40 10/28/18 16:41 APTT 29.5 Seconds (26.9-38.3) 10/28/18 16:41 Assessment and Plan - Assessment and Plan (Free Text) Assessment: Infectious diseases Attending Physician Attestation Patient seen and examined, discussed with medical reviewer. I have reviewed the patient's history of present illness, past medical, social, personal and family histories, pertinent physical exam findings, course so far in this hospital admission, pertinent laboratory and imaging results. I agree with the above findings, assessment and plan. In addition, continue Zosyn for patient with probable intra-abdominal infection, consider pelvic abscess in this patient with rectal cancer. Would suggest IR evaluation if pelvic abscess is feasible to be drained. Will trend WBC count. Overall prognosis is poor.
--- NOTE | 2018-10-30 12:57 | PN ---
DATE: 10/30/2018 SUBJECTIVE: I saw her in bed. She is crying. She does not want to be in the hospital, but she knows she has to be in the hospital. She is very conflicted. She was in hospice beforehand. MEDICATIONS: She is on IV fluids, Benadryl, Colace, Duragesic, Klonopin, lithium, methotrexate, MiraLax, morphine, simethicone, Nicoderm patch, potassium replacement, prednisone, Robaxin, Seroquel, metoprolol, and Zosyn IV. PHYSICAL EXAMINATION: VITAL SIGNS: She has 99 temperature, 83 pulse, 106/67 blood pressure, 26 respiratory rate, 94% sat on room air. HEAD: Atraumatic, normocephalic. HEART: Regular rate. LUNGS: Decreased breath sounds, but clear. ABDOMEN: Soft, with colostomy. EXTREMITIES: No edema. LABORATORY DATA: She has 18.9 white count that came down from 25, which is better. Hemoglobin is 10.4, hematocrit 32.5, platelets of 440, so she is starting to improve with the antibiotics. Sodium is 135, potassium 3.3, I replaced the potassium. BUN 4, creatinine 0.4, GFR is greater than 60, sugar is 107, calcium is 8.8, total bili is 0.5. AST is 17, ALT is 21, alk phos 64, total protein 6.3. ASSESSMENT AND PLAN: She is being seen by Surgery, Infectious Disease. She has multiple issues going on. She has sepsis. She has colostomy malfunction, urinary tract infection. She has a history of cancer. Patrice Alba DO
[2018-10-31] MEDS: Morphine 2 mg/ml ISec IVP PRN ×7 (00:02→20:47)
[2018-10-31] MEDS: Piperacillin/Tazobact 3.375 gm 100 ML IVPB SCH ×3 (05:58→21:09)
[2018-10-31 07:18] LABS: HEMOGLOBIN 10.7 g/dL (12.0-16.0); MEAN CELL VOLUME 90.4 fl (80.0-105.0); MEAN CORPUSCULAR HEMOGLOBIN 29.2 pg (25.0-35.0); MEAN CORPUSCULAR HGB CONC 32.3 g/dl (31.0-37.0); MEAN PLATELET VOLUME 9.6 fl (7.0-11.0); RBC 3.66 10^6/uL (3.5-6.1); RED CELL DISTRIBUTION WIDTH 15.4 % (11.5-14.5); WHITE BLOOD COUNT 14.8 10^3/uL (4.5-11.0)
[2018-10-31 07:31] LABS: ALBUMIN 3.1 g/dL (3.0-4.8); ALT/SGPT 23 U/L (7-56); AST/SGOT 17 U/L (14-36); BLOOD UREA NITROGEN 4 mg/dL (7-21); CALCIUM 8.8 mg/dL (8.4-10.5); GFR NON-AFRICAN AMERICAN > 60
[2018-10-31] MEDS: Metoprolol Succinate 25 mg XL Tab PO SCH (09:08)
[2018-10-31] MEDS: Methocarbamol 500 MG Tab PO SCH ×4 (09:08→21:09)
[2018-10-31] MEDS: POLYETHYLENE GLYCOL 3350 17 GM/Dose PACKET PO SCH (09:15)
--- NOTE | 2018-10-31 13:39 | PN ---
DATE: 10/31/2018 SUBJECTIVE: The patient nor controlled she is resting comfortably in bed this morning, doing better than yesterday. MEDICATIONS: She is on IV fluids, Colace, Duragesic patch, Klonopin, lithium, methotrexate, MiraLax, morphine, prednisone, Robaxin, Seroquel, Toprol and Zosyn by Infectious Disease. PHYSICAL EXAMINATION: VITAL SIGNS: She has a 98.3 temperature, 67 pulse, 127/75 blood pressure, 20 respiratory rate, 100% O2 sat on room air. HEAD: Atraumatic, normocephalic. HEART: Regular rate. LUNGS: Decreased breath sounds, but clear. ABDOMEN: Soft. She does have a colostomy which was malfunctioning, but it was fixed by surgery. EXTREMITIES: Trace edema. NEUROLOGIC: She is weak. LABORATORY DATA: She has a 141 sodium, potassium 3.6, BUN is 4, creatinine 0.5, GFR is greater than 60, sugar is 102, calcium 8.8, total bili is 0.4, AST is 17, ALT is 23, alk phos 54, total protein 6.3. She has a 14.8 white count the best it has been, 10.7 hemoglobin, 33.1 hematocrit with 449 platelets. ASSESSMENT AND PLAN: She is being seen by Infectious Disease. She is on IV antibiotics. The white count is coming down. Want to get the okay from Infectious Disease to change the tablets. I will discharge her home, but she is in the right direction. We will treat her with IV antibiotics. Check her labs tomorrow. She had sepsis and. Patrice Alba DO [email or web address]
[2018-10-31] MEDS: Sodium Chloride 0.45% 1,000 ML IV SCH (13:40)
--- NOTE | 2018-10-31 14:45 | CP.PCM.PN ---
Subjective - Date & Time of Evaluation Date of Evaluation: 10/31/18 Time of Evaluation: 09:25 - Subjective Subjective: Still having pain in the abdomen, no fevers, still feels weak. Objective - Vital Signs/Intake and Output Vital Signs (last 24 hours): Temp Pulse Resp BP Pulse Ox 98.3 F 67 20 127/75 100 10/30/18 22:00 10/30/18 22:00 10/30/18 22:00 10/30/18 22:00 10/30/18 22:00 Intake and Output: 10/31/18 10/31/18 06:59 18:59 Intake Total 2400 Balance 2400 - Medications Medications: Current Medications Clonazepam (Klonopin) 1 mg PO TID [facility]; Protocol Last Admin: 10/30/18 22:28 Dose: 1 mg Docusate Sodium (Colace) 100 mg PO BID [facility] Last Admin: 10/30/18 10:04 Dose: 100 mg Fentanyl (Duragesic) 1 patch TD Q72H [facility] Last Admin: 10/29/18 00:41 Dose: 1 patch Sodium Chloride (Sodium Chloride 0.45%) 1,000 mls @ 60 mls/hr IV .[id number] [facility] Last Admin: 10/29/18 20:41 Dose: 60 mls/hr Piperacillin Sod/Tazobactam Sod (Zosyn 3.375 In Ns 100ml) 100 mls @ 25 mls/hr IVPB Q8 [facility]; Protocol Stop: 11/05/18 06:01 Last Admin: 10/31/18 05:58 Dose: 25 mls/hr [place] Carbonate ([place] Carbonate 300mg) 300 mg PO BID [facility] Last Admin: 10/30/18 18:00 Dose: 300 mg Methocarbamol (Robaxin) 500 mg PO QID [facility] Last Admin: 10/30/18 22:00 Dose: 500 mg Methotrexate (Methotrexate) 2.5 mg PO Q7D [facility] Last Admin: 10/29/18 04:35 Dose: 2.5 mg Metoprolol Succinate (Toprol Xl) 25 mg PO DAILY [facility] Last Admin: 10/30/18 10:04 Dose: 25 mg Morphine Sulfate (Morphine) 2 mg IVP Q3 PRN PRN Reason: Pain, moderate (4-7) Last Admin: 10/31/18 07:28 Dose: 2 mg Nicotine (Nicoderm Cq) 1 patch TD DAILY [facility] Last Admin: 10/30/18 10:16 Dose: 1 patch Polyethylene Glycol (Miralax) 17 gm PO DAILY [facility] Last Admin: 10/30/18 10:13 Dose: 17 gm Prednisone (Prednisone Tab) 5 mg PO DAILY [facility] Last Admin: 10/30/18 10:03 Dose: 5 mg Quetiapine Fumarate (Seroquel) 50 mg PO HS [facility]; Protocol Last Admin: 10/30/18 22:14 Dose: 50 mg - Labs Labs: 10/31/18 07:00 10/31/18 07:00 PT 15.5 SECONDS (9.4-12.5) H 10/28/18 16:41 INR 1.40 10/28/18 16:41 APTT 29.5 Seconds (26.9-38.3) 10/28/18 16:41 - Constitutional Appears: Cachectic, Chronically Ill - Head Exam Head Exam: NORMAL INSPECTION - Neck Exam Neck Exam: absent: Meningismus - Respiratory Exam Respiratory Exam: Decreased Breath Sounds - Cardiovascular Exam Cardiovascular Exam: +S1, +S2 - GI/Abdominal Exam GI & Abdominal Exam: Soft. absent: Tenderness Assessment and Plan - Assessment and Plan (Free Text) Plan: Assessment consider pelvic abscess in this patient with rectal cancer and prolapsed diverting colostomy rectal cancer S/P diverting colostomy COPD with significant smoking history rheumatoid arthritis anxiety HTN S/P right breast cyst surgery S/P right hip surgery Plan continue Zosyn; follow up further plans of surgery and recommendations for the pelvic abscess overall prognosis is poor
[2018-11-01] MEDS: Morphine 2 mg/ml ISec IVP PRN ×7 (01:06→22:08)
[2018-11-01] MEDS: Piperacillin/Tazobact 3.375 gm 100 ML IVPB SCH ×3 (05:23→22:09)
[2018-11-01 07:24] LABS: HEMOGLOBIN 10.9 g/dL (12.0-16.0); MEAN CELL VOLUME 90.5 fl (80.0-105.0); MEAN CORPUSCULAR HEMOGLOBIN 28.9 pg (25.0-35.0); MEAN PLATELET VOLUME 9.5 fl (7.0-11.0); RBC 3.77 10^6/uL (3.5-6.1); RED CELL DISTRIBUTION WIDTH 15.4 % (11.5-14.5)
[2018-11-01 08:21] LABS: ALBUMIN 3.1 g/dL (3.0-4.8); ALT/SGPT 21 U/L (7-56); AST/SGOT 16 U/L (14-36); BLOOD UREA NITROGEN 5 mg/dL (7-21); CALCIUM 9.1 mg/dL (8.4-10.5); GFR NON-AFRICAN AMERICAN > 60
[2018-11-01] MEDS: Methocarbamol 500 MG Tab PO SCH ×4 (10:00→22:08)
[2018-11-01] MEDS: POLYETHYLENE GLYCOL 3350 17 GM/Dose PACKET PO SCH (10:54)
[2018-11-01] MEDS: Metoprolol Succinate 25 mg XL Tab PO SCH (10:55)
--- NOTE | 2018-11-01 12:27 | PN ---
DATE: 11/01/2018 SUBJECTIVE: She is resting comfortably in bed. She is on IV fluids, Colace, Duragesic patch, Klonopin, lithium, methotrexate, MiraLax, morphine, Nicoderm, prednisone, Robaxin, Seroquel, Toprol and Zosyn. PHYSICAL EXAMINATION: VITAL SIGNS: She has a 98.8 temperature, 63 pulse, 111/61 blood pressure, 18 respiratory rate, 99% O2 sat. HEAD: Atraumatic, normocephalic. HEART: Regular rate. LUNGS: Decreased breath sounds. ABDOMEN: Soft. Decreased bowel sounds, has a colostomy. EXTREMITIES: No edema. She is quite weak. LABORATORY DATA: She has a 12 white count, finally coming down close to the 10, hemoglobin 10.9, hematocrit, 34.1, platelets of 438. Sodium 141, potassium is pending, BUN is 5, creatinine 0.5, GFR is greater than 60, sugar is 101, calcium 9.1, total bili is 0.3, AST is 16, ALT is 21. RECOMMENDATIONS: I discussed this morning with Dr. Van, the infectious disease doctor. He is not ready to stop the antibiotics and change it to p.o. yet. We will wait until he is ready and then, I will discharge her home. Here for sepsis, nonfunctioning colostomy, UTI, cancer and possible abscess. Patrice Alba DO
--- NOTE | 2018-11-01 14:21 | CP.PCM.PN ---
<Rosalino Wang - Last Filed: 11/01/18 14:21> Subjective - Date & Time of Evaluation Date of Evaluation: 11/01/18 Time of Evaluation: 08:00 - Subjective Subjective: Infectious disease progress note: Pt seen and examined at bedside. No acute events overnight. Denies any abd pain at this time. Complains of some pain in her hands 2/2 RA. 12 Point ROS performed and neg other than stated above. Objective - Vital Signs/Intake and Output Vital Signs (last 24 hours): Temp Pulse Resp BP Pulse Ox 98.2 F 71 18 111/67 98 11/01/18 06:00 11/01/18 06:00 11/01/18 06:00 11/01/18 06:00 11/01/18 06:00 Intake and Output: 11/01/18 11/01/18 06:59 18:59 Intake Total 240 Balance 240 - Medications Medications: Current Medications Clonazepam (Klonopin) 1 mg PO TID [facility]; Protocol Last Admin: 11/01/18 10:56 Dose: 1 mg Docusate Sodium (Colace) 100 mg PO BID [facility] Last Admin: 11/01/18 10:55 Dose: 100 mg Fentanyl (Duragesic) 1 patch TD Q72H [facility] Last Admin: 10/31/18 18:39 Dose: 1 patch Sodium Chloride (Sodium Chloride 0.45%) 1,000 mls @ 60 mls/hr IV .[id number] [facility] Last Admin: 10/31/18 13:40 Dose: 60 mls/hr Piperacillin Sod/Tazobactam Sod (Zosyn 3.375 In Ns 100ml) 100 mls @ 25 mls/hr IVPB Q8 [facility]; Protocol Stop: 11/05/18 06:01 Last Admin: 11/01/18 05:23 Dose: 25 mls/hr [place] Carbonate ([place] Carbonate 300mg) 300 mg PO BID [facility] Last Admin: 11/01/18 10:54 Dose: 300 mg Methocarbamol (Robaxin) 500 mg PO QID [facility] Last Admin: 10/31/18 21:09 Dose: 500 mg Methotrexate (Methotrexate) 2.5 mg PO Q7D [facility] Last Admin: 10/29/18 04:35 Dose: 2.5 mg Metoprolol Succinate (Toprol Xl) 25 mg PO DAILY [facility] Last Admin: 11/01/18 10:55 Dose: 25 mg Morphine Sulfate (Morphine) 2 mg IVP Q3 PRN PRN Reason: Pain, moderate (4-7) Last Admin: 11/01/18 10:53 Dose: 2 mg Nicotine (Nicoderm Cq) 1 patch TD DAILY [facility] Last Admin: 11/01/18 10:55 Dose: 1 patch Polyethylene Glycol (Miralax) 17 gm PO DAILY [facility] Last Admin: 11/01/18 10:54 Dose: 17 gm Prednisone (Prednisone Tab) 5 mg PO DAILY [facility] Last Admin: 11/01/18 10:55 Dose: 5 mg Quetiapine Fumarate (Seroquel) 50 mg PO HS [facility]; Protocol Last Admin: 10/31/18 21:09 Dose: 50 mg - Labs Labs: 11/01/18 07:10 11/01/18 07:10 PT 15.5 SECONDS (9.4-12.5) H 10/28/18 16:41 INR 1.40 10/28/18 16:41 APTT 29.5 Seconds (26.9-38.3) 10/28/18 16:41 - Constitutional Appears: No Acute Distress - Head Exam Head Exam: ATRAUMATIC, NORMOCEPHALIC - Eye Exam Eye Exam: EOMI - ENT Exam ENT Exam: Mucous Membranes Moist - Respiratory Exam Respiratory Exam: Clear to Ausculation Bilateral. absent: Wheezes - Cardiovascular Exam Cardiovascular Exam: REGULAR RHYTHM, +S1, +S2 - GI/Abdominal Exam GI & Abdominal Exam: Soft. absent: Tenderness - Extremities Exam Extremities Exam: absent: Calf Tenderness, Pedal Edema - Neurological Exam Neurological Exam: Alert, Awake, Oriented x3 - Psychiatric Exam Psychiatric exam: Normal Mood - Skin Skin Exam: Dry, Warm Assessment and Plan - Assessment and Plan (Free Text) Assessment: 57-year-old female with past medical history of obstructing rectal mass with colostomy in 2018, adenocarcinoma, chronic constipation, possible history of lung mass, COPD, hypertension, rheumatoid arthritis, and chronic anemia presents with abdominal plain and prolapse of her loop colostomy. Infectious disease was consulted for elevated leukocytosis and UTI. W BC trending down today is 12 Continue with Zosyn day [address] abdomen and pelvis - 3.4 x 4 possible R pelvic abscess, and colitis / proctitis Recommend IR evaluation regarding 3.4 x 4cm pelvic abscess F/u surgery recs positive UA with culture shows e coli Continue to monitor Case and plan was reviewed and discussed with Dr. Van <Shahriar Van - Last Filed: 11/01/18 16:31> Objective - Vital Signs/Intake and Output Vital Signs (last 24 hours): Temp Pulse Resp BP Pulse Ox 98 F 74 16 122/52 L 98 11/01/18 14:00 11/01/18 14:00 11/01/18 14:00 11/01/18 14:00 11/01/18 14:00 Intake and Output: 11/01/18 11/01/18 06:59 18:59 Intake Total 240 Balance 240 - Medications Medications: Current Medications Clonazepam (Klonopin) 1 mg PO TID [facility]; Protocol Last Admin: 11/01/18 10:56 Dose: 1 mg Docusate Sodium (Colace) 100 mg PO BID [facility] Last Admin: 11/01/18 10:55 Dose: 100 mg Fentanyl (Duragesic) 1 patch TD Q72H [facility] Last Admin: 10/31/18 18:39 Dose: 1 patch Sodium Chloride (Sodium Chloride 0.45%) 1,000 mls @ 60 mls/hr IV .[id number] [facility] Last Admin: 10/31/18 13:40 Dose: 60 mls/hr Piperacillin Sod/Tazobactam Sod (Zosyn 3.375 In Ns 100ml) 100 mls @ 25 mls/hr IVPB Q8 [facility]; Protocol Stop: 11/05/18 06:01 Last Admin: 11/01/18 15:55 Dose: 25 mls/hr [place] Carbonate ([place] Carbonate 300mg) 300 mg PO BID [facility] Last Admin: 11/01/18 10:54 Dose: 300 mg Methocarbamol (Robaxin) 500 mg PO QID [facility] Last Admin: 11/01/18 15:54 Dose: 500 mg Methotrexate (Methotrexate) 2.5 mg PO Q7D [facility] Last Admin: 10/29/18 04:35 Dose: 2.5 mg Metoprolol Succinate (Toprol Xl) 25 mg PO DAILY [facility] Last Admin: 11/01/18 10:55 Dose: 25 mg Morphine Sulfate (Morphine) 2 mg IVP Q3 PRN PRN Reason: Pain, moderate (4-7) Last Admin: 11/01/18 15:53 Dose: 2 mg Nicotine (Nicoderm Cq) 1 patch TD DAILY [facility] Last Admin: 11/01/18 10:55 Dose: 1 patch Polyethylene Glycol (Miralax) 17 gm PO DAILY [facility] Last Admin: 11/01/18 10:54 Dose: 17 gm Prednisone (Prednisone Tab) 5 mg PO DAILY [facility] Last Admin: 11/01/18 10:55 Dose: 5 mg Quetiapine Fumarate (Seroquel) 50 mg PO HS [facility]; Protocol Last Admin: 10/31/18 21:09 Dose: 50 mg - Labs Labs: 11/01/18 07:10 11/01/18 07:10 PT 15.5 SECONDS (9.4-12.5) H 10/28/18 16:41 INR 1.40 10/28/18 16:41 APTT 29.5 Seconds (26.9-38.3) 10/28/18 16:41 Assessment and Plan - Assessment and Plan (Free Text) Assessment: Infectious diseases Attending Physician Attestation Patient seen and examined, discussed with medical doctor. I have reviewed the patient's history of present illness, past medical, social, personal and family histories, pertinent physical exam findings, course so far in this hospital admission, pertinent laboratory and imaging results. I agree with the above findings, assessment and plan. In addition, continue Zosyn for patient with possible colitis, possible pelvic abscess. Follow up plans of Surgery for the fluid collection in the pelvis. Overall prognosis is poor.
[2018-11-02] MEDS: Morphine 2 mg/ml ISec IVP PRN ×4 (01:25→12:07)
[2018-11-02] MEDS: Sodium Chloride 0.45% 1,000 ML IV SCH (04:40)
[2018-11-02] MEDS: Piperacillin/Tazobact 3.375 gm 100 ML IVPB SCH (05:19)
[2018-11-02 07:46] LABS: HEMOGLOBIN 11.2 g/dL (12.0-16.0); MEAN CELL VOLUME 91.2 fl (80.0-105.0); MEAN CORPUSCULAR HGB CONC 31.8 g/dl (31.0-37.0); MEAN PLATELET VOLUME 10.2 fl (7.0-11.0); RBC 3.86 10^6/uL (3.5-6.1); RED CELL DISTRIBUTION WIDTH 15.5 % (11.5-14.5); WHITE BLOOD COUNT 10.7 10^3/uL (4.5-11.0)
[2018-11-02 08:04] LABS: ALBUMIN 3.1 g/dL (3.0-4.8); ALT/SGPT 21 U/L (7-56); AST/SGOT 22 U/L (14-36); BLOOD UREA NITROGEN 6 mg/dL (7-21); GFR NON-AFRICAN AMERICAN > 60
[2018-11-02 08:19] VITALS: RESP 18; TEMP 98.3; O2SAT 96
[2018-11-02] MEDS: Methocarbamol 500 MG Tab PO SCH (09:21)
[2018-11-02] MEDS: Metoprolol Succinate 25 mg XL Tab PO SCH (09:21)
[2018-11-02] MEDS: POLYETHYLENE GLYCOL 3350 17 GM/Dose PACKET PO SCH (09:22)
[2018-11-02 09:25] VITALS: BP 116/68; PULSE 72
--- NOTE | 2018-11-02 16:27 | CP.PCM.PN ---
Subjective - Date & Time of Evaluation Date of Evaluation: 11/02/18 Time of Evaluation: 09:30 - Subjective Subjective: Still complaining of generalized weakness, no fevers, not in distress but feels sad. Objective - Vital Signs/Intake and Output Vital Signs (last 24 hours): Temp Pulse Resp BP Pulse Ox 98.3 F 72 18 116/68 96 11/02/18 06:00 11/02/18 09:21 11/02/18 06:00 11/02/18 09:21 11/02/18 06:00 Intake and Output: 11/02/18 11/02/18 06:59 18:59 Intake Total 240 Balance 240 - Medications Medications: Current Medications Clonazepam (Klonopin) 1 mg PO TID [facility]; Protocol Last Admin: 11/02/18 09:22 Dose: 1 mg Docusate Sodium (Colace) 100 mg PO BID [facility] Last Admin: 11/02/18 09:21 Dose: 100 mg Fentanyl (Duragesic) 1 patch TD Q72H [facility] Last Admin: 10/31/18 18:39 Dose: 1 patch Sodium Chloride (Sodium Chloride 0.45%) 1,000 mls @ 60 mls/hr IV .[id number] [facility] Last Admin: 11/02/18 04:40 Dose: 60 mls/hr Piperacillin Sod/Tazobactam Sod (Zosyn 3.375 In Ns 100ml) 100 mls @ 25 mls/hr IVPB Q8 [facility]; Protocol Stop: 11/05/18 06:01 Last Admin: 11/02/18 05:19 Dose: 25 mls/hr Wardner Carbonate (Wardner Carbonate 300mg) 300 mg PO BID [facility] Last Admin: 11/02/18 09:22 Dose: 300 mg Methocarbamol (Robaxin) 500 mg PO QID [facility] Last Admin: 11/02/18 09:21 Dose: 500 mg Methotrexate (Methotrexate) 2.5 mg PO Q7D [facility] Last Admin: 10/29/18 04:35 Dose: 2.5 mg Metoprolol Succinate (Toprol Xl) 25 mg PO DAILY [facility] Last Admin: 11/02/18 09:21 Dose: 25 mg Morphine Sulfate (Morphine) 2 mg IVP Q3 PRN PRN Reason: Pain, moderate (4-7) Last Admin: 11/02/18 08:23 Dose: 2 mg Nicotine (Nicoderm Cq) 1 patch TD DAILY [facility] Last Admin: 11/01/18 10:55 Dose: 1 patch Polyethylene Glycol (Miralax) 17 gm PO DAILY [facility] Last Admin: 11/02/18 09:22 Dose: 17 gm Prednisone (Prednisone Tab) 5 mg PO DAILY [facility] Last Admin: 11/02/18 09:21 Dose: 5 mg Quetiapine Fumarate (Seroquel) 50 mg PO HS [facility]; Protocol Last Admin: 11/01/18 22:08 Dose: 50 mg - Labs Labs: 11/02/18 06:45 11/02/18 06:45 PT 15.5 SECONDS (9.4-12.5) H 10/28/18 16:41 INR 1.40 10/28/18 16:41 APTT 29.5 Seconds (26.9-38.3) 10/28/18 16:41 - Constitutional Appears: Cachectic, Chronically Ill - Head Exam Head Exam: NORMAL INSPECTION - Respiratory Exam Respiratory Exam: Decreased Breath Sounds - Cardiovascular Exam Cardiovascular Exam: +S1, +S2 - GI/Abdominal Exam GI & Abdominal Exam: Soft. absent: Tenderness Additional comments: colostomy in place Assessment and Plan - Assessment and Plan (Free Text) Plan: Assessment consider pelvic abscess versus serous fluid collection in this patient with rectal cancer and prolapsed diverting colostomy rectal cancer S/P diverting colostomy COPD with significant smoking history rheumatoid arthritis anxiety HTN S/P right breast cyst surgery S/P right hip surgery Plan continue Zosyn day 5; discussed with Dr. Valadez - care is futile and patient is refusing any further intervention - as discussed with Dr. Alba, can switch to PO augmentin for another 5-7 days with outpatient follow up with Dr. Alba overall prognosis is poor
--- NOTE | 2018-11-02 20:23 | DS ---
HISTORY OF PRESENT ILLNESS: She has been asking to go home for the past 3 days. She is to AMA right now. She is doing better. She does have this pelvic abscess, which she does not want anything to be done with it. She does not want a needle to put in there at this time. MEDICATIONS: She is on IV fluids, Colace, Duragesic patch, Klonopin, lithium, methotrexate, MiraLax, morphine, Nicoderm, prednisone, Robaxin, Seroquel, metoprolol, and Zosyn. She will be changed out to Augmentin 875 twice a day for 10 days. PHYSICAL EXAMINATION: VITAL SIGNS: She has a temperature, 68 pulse, 114/67 blood pressure, 18 respiratory rate, and 96% O2 sat on room air. HEENT: Head is atraumatic and normocephalic. HEART: Regular rate. LUNGS: Decreased breath sounds, but clear. ABDOMEN: Soft. She does have a colostomy. EXTREMITIES: No edema. LABORATORY DATA: She is going home on hospice, [facility]. Her white count did come down to 10.7 and it is finally normal, 11.2 hemoglobin, 35.2 hematocrit with 501 platelets. It is also the first day, her labs are much better. Sodium 142, potassium 4.1, BUN 6, creatinine 0.5, GFR is greater than 60, sugar is 95, calcium 10, and total bili is 0.1. AST is 22, ALT is 21, alk phos 57, total protein 6.4, and lipase is 28. IMPRESSION AND PLAN: She had urinary tract infection while she was here. She had a pelvic abscess, did not want drainage. She was seen by Infectious Disease, Surgery, and hospice. They came in to see her. She will be discharged today on home hospice. If she needs any medications, she will call, but I will put her on 875 Augmentin twice a day for 10 days. We will see her on a house call. Patrice Alba DO [facility]
== END 2018-11-02 14:41 | disposition hospice, home (50) | DRG 552 ==
LOC: ED 15:09 → ERH 19:14 → 5RNO 10-29 00:10
PROVIDERS: ADMIT Family Medicine; ATTEND Family Medicine
DX: K94.09 Other complications of colostomy (principal); A41.9 Sepsis, unspecified organism; N39.0 Urinary tract infection, site not specified; N73.9 Female pelvic inflammatory disease, unspecified; J44.9 Chronic obstructive pulmonary disease, unspecified; M06.9 Rheumatoid arthritis, unspecified; F41.9 Anxiety disorder, unspecified; I10 Essential (primary) hypertension; K59.09 Other constipation; D64.9 Anemia, unspecified; F31.9 Bipolar disorder, unspecified; F17.210 Nicotine dependence, cigarettes, uncomplicated; Z85.048 Personal history of other malignant neoplasm of rectum, rectosigmoid junction, and anus

== ENCOUNTER 2018-11-30 20:20 | Inpatient (IN) | payer MEDICAID ==
--- NOTE | 2018-11-30 20:54 | ED PDOC ---
Arrival/HPI - General Chief Complaint: GI Problem Time Seen by Provider: 11/30/18 20:29 Historian: Patient - History of Present Illness Narrative History of Present Illness (Text): 11/30/18 20:53 58 year old female, whose past medical history includes colostomy creating (2018) 2/2 obstructing rectal mass, chronic constipation, COPD, lung mass (has previously refused biopsy), HTN, RA, and chronic anemia, presents to the emergen cy department complaining of rectal bleeding and weakness for the past 1 month. Patient reports she is worried because when she becomes weak she usually ends up falling. Patient also reports urinary frequency and reports she has a history of reoccurring UTI. Patient reports chest discomfort yesterday and this morning and shortness of breath, but denies any fever, chills, nausea, vomiting, diarrhea, back pain, neck pain, headache, dizziness, or any other complaints. PMD: Dr. Alba Time/Duration: Other (1 month) Symptom Onset: Gradual Symptom Course: Unchanged Activities at Onset: Light Context: Home Past Medical History - Provider Review Nursing Documentation Reviewed: Yes - Infectious Disease Hx of Infectious Diseases: None - Cardiac Hx Cardiac Disorders: Yes Hx Hypertension: Yes - Pulmonary Hx Respiratory Disorders: Yes Hx Chronic Obstructive Pulmonary Disease (COPD): Yes - Neurological Hx Neurological Disorder: Yes Hx Dizziness: Yes - HEENT Hx HEENT Disorder: No - Renal Hx Renal Disorder: No - Endocrine/Metabolic Hx Endocrine Disorders: No - Hematological/Oncological Hx Blood Disorders: Yes Hx Cancer: Yes - Integumentary Hx Dermatological Disorder: No - Musculoskeletal/Rheumatological Hx Musculoskeletal Disorders: Yes Hx Rheumatoid Arthritis: Yes - Gastrointestinal Hx Gastrointestinal Disorders: Yes Other/Comment: COLOSTOMY - Genitourinary/Gynecological Hx Genitourinary Disorders: No - Psychiatric Hx Psychophysiologic Disorder: Yes Hx Anxiety: Yes Hx Bipolar Disorder: Yes Hx Depression: Yes Hx Substance Use: No - Surgical History Hx Joint Replacement: Yes (RT ORIF) - Anesthesia Hx Anesthesia: Yes Hx Anesthesia Reactions: No Hx Malignant Hyperthermia: No - Suicidal Assessment Feels Threatened In Home Enviroment: No Family/Social History - Physician Review Nursing Documentation Reviewed: Yes Family/Social History: No Known Family HX Smoking Status: Heavy Smoker > 10 Cigarettes Daily Hx Alcohol Use: No Hx Substance Use: No Hx Substance Use Treatment: No Allergies/Home Meds Allergies/Adverse Reactions: Allergies ibuprofen [From Motrin] Allergy (Verified 11/30/18 20:30) ANAPHYLAXIS NSAIDS (Non-Steroidal Anti-Inflamma Allergy (Verified 11/30/18 20:30) SWELLING risperidone [From Risperdal] Adverse Reaction (Verified 11/30/18 20:30) DIZZINESS Home Medications: Home Meds Medication Instructions Recorded Confirmed Methocarbamol [Robaxin] 1 tab PO QID 05/17/18 11/30/18 Metoprolol Succinate XL [Toprol XL] 25 mg PO BID 05/17/18 11/30/18 Aspirin [Ecotrin] 325 mg PO BID 11/30/18 11/30/18 Methotrexate 15 mg PO Q7D 11/30/18 11/30/18 Morphine Sulfate [Arymo ER] 15 mg PO Q3 11/30/18 11/30/18 Multivitamin/Iron/Folic Acid 1 tab PO DAILY 11/30/18 11/30/18 [Certavite-Antioxidant Tablet] QUEtiapine [SEROquel] 50 mg PO HS 11/30/18 11/30/18 fentaNYL 12 mcg/hr [Duragesic 50 mcg TOP Q72H 11/30/18 11/30/18 Patch 12 mcg/hr] predniSONE [predniSONE Tab] 5 mg PO DAILY 11/30/18 11/30/18 Review of Systems - Physician Review All systems were reviewed & negative as marked: Yes - Review of Systems Constitutional: absent: Fevers, Other (chills) Respiratory: SOB Cardiovascular: Chest Pain Gastrointestinal: Other (rectal bleeding). absent: Diarrhea, Nausea, Vomiting Genitourinary Female: Frequency. absent: Dysuria, Hematuria Musculoskeletal: absent: Back Pain, Neck Pain Neurological: Other (weakness). absent: Headache, Dizziness Physical Exam Vital Signs Reviewed: Yes Vital Signs Temp Pulse Resp BP Pulse Ox 11/30/18 20:27 98 F 98 H 20 125/77 98 Temperature: Afebrile Blood Pressure: Normal Pulse: Tachycardic Respiratory Rate: Normal Appearance: Positive for: Well-Appearing, Non-Toxic, Comfortable Pain Distress: None Mental Status: Positive for: Alert and Oriented X 3 - Systems Exam Head: Present: Atraumatic, Normocephalic Pupils: Present: PERRL Extroacular Muscles: Present: EOMI Conjunctiva: Present: Normal Mouth: Present: Dry, Other (poor dentition) Neck: Present: Normal Range of Motion Respiratory/Chest: Present: Clear to Auscultation, Good Air Exchange. No: Respiratory Distress Cardiovascular: Present: Regular Rate and Rhythm, Normal S1, S2 Abdomen: Present: Distention, Normal Bowel Sounds, Ostomy Tubes (stoma present in LLQ) Rectal: Present: Normal Rectal Tone, Other (hemeoccult negative). No: Occult Blood, Rectal Tenderness, Hemorrhoids Lower Extremity: Present: Normal Inspection, Capillary Refill < 2 s. No: Edema Neurological: Present: GCS=15, Speech Normal Skin: Present: Warm, Dry, Normal Color Psychiatric: Present: Alert, Oriented x 3, Normal Insight, Normal Concentration Medical Decision Making ED Course and Treatment: 11/30/18 20:53 Impression: 58 year old female presents complaining of rectal bleeding and weakness for the past 1 month associated with urinary frequency, chest discomfort, and shortness of breath. Differential Diagnosis included but are not limited to: Plan: --Labs --EKG --CXR --CT a/p --Blood culture --Merrem --IV Fluids -- Reassess and disposition Prior Visits: Notes and results from previous visits were reviewed. Progress Notes: 11/30/18 22:08 Labs reviewed with leukocytosis of 14 and urinanalysis positive for nitrites and esterases. Merrem ordered. Case discussed with (PCP), who is aware and agrees with plan. Dr. Alba requests Dr. Solo(infectious disease) as consult. - Lab Interpretations Lab Results: 11/30/18 21:28 11/30/18 21:28 Lab Results 11/30/18 21:28: Sodium 137, Potassium 3.8, Chloride 105, Carbon Dioxide 26, Anion Gap 9 L, BUN 11, Creatinine 0.4 L, Est GFR ( Amer) > 60, Est GFR (Non-Af Amer) > 60, Random Glucose 87, Calcium 10.8 H, Phosphorus 3.2, Magnesium 2.2, Total Bilirubin 0.3, AST 21, ALT 11, Alkaline Phosphatase 59, Total Protein 7.2, Albumin 3.9, Globulin 3.4, Albumin/Globulin Ratio 1.1 11/30/18 21:28: Urine Color Light yellow, Urine Appearance Slight-cloudy, Urine pH 6.5, Ur Specific [place] 1.010, Urine Protein Negative, Urine Glucose (UA) Negative, Urine Ketones Negative, Urine Blood Negative, Urine Nitrate Positive H , Urine Bilirubin Negative, Urine Urobilinogen 0.2, Ur Leukocyte Esterase Large H, Urine RBC None, Urine WBC 5 - 10 H, Ur Epithelial Cells 1 - 3, Urine Bacteria Few 11/30/18 21:28: PT 12.2, INR 1.10, APTT 29.0 11/30/18 21:28: WBC 14.6 H D, RBC 4.44, Hgb 13.2 D, Hct 40.7, MCV 91.7, MCH 29.7, MCHC 32.4, RDW 16.1 H, Plt Count 365, MPV 9.6, Neut % (Auto) 70.9 H, Lymph % (Auto) 20.5 L, [place] % (Auto) 7.3 H, Eos % (Auto) 1.1 L, Baso % (Auto) 0.2, Lymph # (Auto) 3.0, [place] # (Auto) 1.1 H, Eos # (Auto) 0.2, Baso # (Auto) 0.03, Absolute Neuts (auto) 10.33 H I have reviewed the lab results: Yes - EKG Interpretation EKG Interpretation (Text): NSR @ 73bpm No ST elevations No T wave inversions Interpreted by ED Physician: Yes - Medication Orders Current Medication Orders: 11/30/18 22:28 Sodium Chloride (Sodium Chloride 0.9%) 1,000 mls @ 100 mls/hr IV .Q10H [facility] Last Admin: 11/30/18 21:38 Dose: 100 mls/hr eMAR Start Stop Document 11/30/18 21:38 RD (Rec: 11/30/18 21:38 RD [id number]) Intravenous Solution Start Date 11/30/18 Start Time 21:38 Discontinued Medications Meropenem/Sodium Chloride (Merrem Iv 500 Mg/Ns 50 Ml) 500 mg in 50 mls @ 100 mls/hr IVPB ONCE ONE; Protocol Stop: 11/30/18 22:21 - Scribe Statement The provider has reviewed the documentation as recorded by the Kelly Gomez Provider Scribe Attestation: All medical record entries made by the Kelly were at my direction and personally dictated by me. I have reviewed the chart and agree that the record accurately reflects my personal performance of the history, physical exam, medical decision making, and the department course for this patient. I have also personally directed, reviewed, and agree with the discharge instructions and disposition. Disposition/Present on Arrival - Present on Arrival History of DVT/PE: No History of Uncontrolled Diabetes: No Urinary Catheter: No History of Decub. Ulcer: No History Surgical Site Infection Following: None - Disposition Referrals: Patrice Alba, [Primary Care Provider] - Follow up with primary Forms: [employer] ([place])
[2018-11-30] MEDS: Sodium Chloride 0.9% 1,000 ML IV SCH (21:38)
[2018-11-30 21:39] LABS: BASO # 0.03 K/mm3 (0.0-2.0); BASO % 0.2 % (0.0-3.0); EOS # 0.2 (0.0-0.7); EOS % 1.1 % (1.5-5.0); HEMOGLOBIN 13.2 g/dL (12.0-16.0); LYMPH % 20.5 % (22.0-35.0); MEAN CELL VOLUME 91.7 fl (80.0-105.0); MEAN CORPUSCULAR HEMOGLOBIN 29.7 pg (25.0-35.0); MEAN CORPUSCULAR HGB CONC 32.4 g/dl (31.0-37.0); MEAN PLATELET VOLUME 9.6 fl (7.0-11.0); MONO # 1.1 (0.1-0.6); MONO % 7.3 % (1.0-6.0); RBC 4.44 10^6/uL (3.5-6.1); RED CELL DISTRIBUTION WIDTH 16.1 % (11.5-14.5); WHITE BLOOD COUNT 14.6 10^3/uL (4.5-11.0)
[2018-11-30 21:43] LABS: PH,URINE 6.5 (4.7-8.0); URINE APPEARANCE SLIGHT-CLOUDY (CLEAR); URINE BILIRUBIN NEGATIVE (NEGATIVE); URINE BLOOD NEGATIVE (NEGATIVE); URINE COLOR LIGHT YELLOW (YELLOW); URINE GLUCOSE (UA) NEGATIVE (NEGATIVE); URINE LEUKOCYTE ESTERASE LARGE Leu/uL (NEGATIVE); URINE PROTEIN NEGATIVE mg/dL (<30 mg/dL); URINE UROBILINOGEN 0.2 E.U./dL (<1 E.U./dL)
[2018-11-30 21:48] LABS: URINE BACTERIA FEW /hpf
[2018-11-30 21:49] LABS: INR 1.1; PROTHROMBIN TIME 12.2 SECONDS (9.4-12.5)
[2018-11-30] MEDS ORDERED: MEROPENEM 500 MG in NS 500 MG/50 ML BAG IVPB ONE (21:52)
[2018-11-30 21:56] LABS: ALB/GLOB RATIO 1.1 (1.1-1.8); ALBUMIN 3.9 g/dL (3.0-4.8); ALT/SGPT 11 U/L (7-56); AST/SGOT 21 U/L (14-36); BLOOD UREA NITROGEN 11 mg/dL (7-21); CALCIUM 10.8 mg/dL (8.4-10.5); GFR NON-AFRICAN AMERICAN > 60
[2018-12-01 00:27] VITALS: RESP 18
[2018-12-01 02:22] VITALS: BMI 15.6
[2018-12-01] MEDS ORDERED: MEROPENEM 500 MG in NS 500 MG/50 ML BAG IVPB SCH ×2 (10:00→10:45)
[2018-12-01] MEDS: Morphine 2 mg/ml ISec IVP PRN ×4 (12:00→22:40)
[2018-12-01] MEDS: Cefepime 1gm in NS 100ml 1 GM/100 ML BAG IVPB SCH ×2 (13:32→21:28)
[2018-12-01] MEDS: Sodium Chloride 0.9% 1,000 ML IV SCH (13:37)
--- NOTE | 2018-12-01 13:53 | CON ---
DATE OF CONSULTATION: 12/01/2018 The patient is seen in room 573, bed 2. CHIEF COMPLAINT: Weakness and dysuria and frequency times several days. HISTORY OF PRESENT ILLNESS: This is a 58-year-old with past medical history significant for colostomy, which was in 2018. The patient had an obstructive rectal mass. The patient is also with chronic constipation, chronic obstructive lung disease, and a lung mass which she has not had a biopsy, has hypertension, rheumatoid arthritis, and anemia, who has had scoliosis and was admitted through the emergency room with weakness. The patient was in the hospital approximately a month ago complaining of urinary frequency, dysuria, and pelvic discomfort. REVIEW OF SYSTEMS: Twelve-point review systems is performed. No diarrhea or chest pain. There is no new cough, no new shortness of breath, and no headaches or blurred vision. PAST MEDICAL HISTORY: Significant for rheumatoid arthritis, obstructing rectal mass and questionable colon cancer, chronic constipation, lung mass, scoliosis, hypertension, rheumatoid arthritis, and anemia. PAST SURGICAL HISTORY: Significant for breast cyst surgery and colostomy. ALLERGIES: The patient is allergic to ibuprofen and unstable [place] and S risperidone and on. MEDICATIONS: Medications at home included prednisone, vitamins, Seroquel, aspirin, morphine, lithium, and oxycodone. PHYSICAL EXAMINATION: GENERAL: The patient appears chronically ill, cachectic, wasting syndrome, end-stage. VITAL SIGNS: Temperature of 99; blood pressure is 120/70; respiratory rate of 18 and up to 20; and heart rate is 71, it was up to 98 on admission. Examination of BMI shows a BMI of only 15. HEENT: Examination of HEENT reveals temporal wasting. NECK: Supple. LUNGS: Have decreased breath sounds. HEART: Reveals normal S1, S2. ABDOMEN: Soft, nontender. There is mild pelvic tenderness. No rebound, guarding, or masses. No CVA tenderness. LABORATORY DATA: Laboratory examination reveals a white count of 14,600, hemoglobin 13, platelets of 365, and coagulation is noted. Chemistries revealed a BUN of 11, creatinine of 0.4, calcium is 10.8. Urinalysis shows a large leukocyte esterase, 5 to 10 wbc's, positive nitrites, cloudy urine. The patient has a CT scan of the abdomen and pelvis, which is ordered, and no results available. Reviewed microbiology in the past. The patient had E. Coli in 10/2018, which is pansensitive and blood cultures have been negative in the past. ASSESSMENT AND PLAN: A 58-year-old female with obstructive rectal mass and chronic constipation, chronic obstructive lung disease, lung mass, elevated calcium, urinary symptoms with sepsis, most likely urine is the source. We will check on the blood cultures, urine cultures, and the patient is on prednisone. We will treat the patient with Maxipime, pending urine culture, blood cultures, and CT scan results, and we will make further recommendations. Anton Solo MD
--- NOTE | 2018-12-01 14:28 | CT ---
PROCEDURE: CT Abdomen and Pelvis without Oral or IV contrast. HISTORY: pain w/in stoma COMPARISON: CT abdomen pelvis with IV contrast performed 10/28/18 TECHNIQUE: Contiguous axial images of the abdomen and pelvis. No oral or IV contrast administered. Coronal and Sagittal reformats generated and reviewed. Radiation dose: Total exam DLP = 197.16 mGy-cm. This CT exam was performed using one or more of the following dose reduction techniques: Automated exposure control, adjustment of the mA and/or kV according to patient size, and/or use of iterative reconstruction technique. FINDINGS: There is limited evaluation of the solid organs without the administration of IV contrast. LOWER THORAX: 12 mm nodule, right lung base. No visible pleural effusion. Small hiatal hernia/distal esophageal wall thickening. LIVER: Unremarkable unenhanced appearance. GALLBLADDER AND BILE DUCTS: Unremarkable unenhanced appearance. PANCREAS: Not well-visualized. Grossly unremarkable unenhanced appearance. SPLEEN: Unremarkable unenhanced appearance. ADRENALS: Unremarkable unenhanced appearance. KIDNEYS AND URETERS: No hydronephrosis or obstructing renal calculus. Nonobstructing left renal calculi. BLADDER: The urinary bladder appears unremarkable. APPENDIX: The appendix appears within normal limits of caliber. No secondary signs of acute appendicitis. BOWEL: The stomach is nondistended. Midline ostomy. No evidence bowel obstruction. Moderate constipation. Wall thickening at the rectosigmoid colon. Correlate for colitis/proctitis. Lack of oral contrast limits evaluation for bowel pathology. PERITONEUM: No significant free fluid. No definite free air. LYMPH NODES: No bulky lymphadenopathy identified. VASCULATURE: Dense atherosclerotic calcification of the aorta branches. Dense atherosclerotic calcifications of the aorta and branches. BONES: Severe scoliosis. Multilevel degenerative changes. OTHER FINDINGS: 4.3 x 3.0 cm cystic focus at the right posterior pelvis measuring approximately 9 HU; correlate clinically for possibility of phlegmon/abscess, ovarian cyst, mesenteric cyst, etc. IMPRESSION: 1.3 cm nodular opacity at the right lung base. Malignant neoplasm is not excluded. Follow-up as indicated. 4.3 x 3.0 cm cystic focus at the right posterior pelvis measuring approximately 9 HU; correlate clinically for possibility of phlegmon/abscess, ovarian cyst, mesenteric cyst, etc. Midline ostomy. No evidence of bowel obstruction. Moderate constipation. Wall thickening at the rectosigmoid colon; correlate clinically for colitis/proctitis. Additional findings as above. Preliminary impression was provided by [employer].
--- NOTE | 2018-12-01 15:59 | CP.PCM.CON ---
History of Present Illness - History of Present Illness History of Present Illness: Surgery Consult note for Dr. Valadez Reason for consult: stoma prolapse 57F, PMH significant for transverse loop colostomy (2018) 2/2 obstructing rectal mass, metastatic adenocarcionoma, chronic constipation, COPD, lung mass (has previously refused biopsy), HTN, RA, and chronic anemia, presents to [facility] w/ weakness and difficulty with urination. Upon admission, noted to have stoma prolapse. During previous visit, colostomy was reduced without complications. Stoma is pink, patent with good stool and air ouput. Stool is soft. Stoma was reduced at bedside and pain has subsided. Denies fevers, chills, n/v/d, night sweats, chest pain, shortness of breath. 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 Denies alcohol or drug use. FH: denies any relevant family history ALL: ibuprofen and other NSAIDs, risperidone Meds: See NOV PMD: Dr. Alba Review of Systems - Constitutional Constitutional: Weakness. absent: Chills, Fever - EENT Eyes: absent: Blind Spots, Blurred Vision Nose/Mouth/Throat: absent: Nasal Congestion, Nasal Discharge - Cardiovascular Cardiovascular: absent: Chest Pain, Dyspnea - Respiratory Respiratory: absent: Cough, Dyspnea - Gastrointestinal Gastrointestinal: Abdominal Pain. absent: Change in Stool Character, Diarrhea, Nausea, Vomiting - Genitourinary Genitourinary: Difficulty Urinating, Dysuria. absent: Hematuria - Musculoskeletal Musculoskeletal: absent: Back Pain, Neck Pain - Integumentary Integumentary: absent: Bleeding Lesions, Changing Lesions - Neurological Neurological: absent: Confusion, Dizziness - Psychiatric Psychiatric: absent: Anxiety, Depression Past Patient History - Infectious Disease Hx of Infectious Diseases: None - Past Social History Smoking Status: Heavy Smoker > 10 Cigarettes Daily - CARDIAC Hx Cardiac Disorders: Yes Hx Hypertension: Yes - PULMONARY Hx Respiratory Disorders: Yes Hx Chronic Obstructive Pulmonary Disease (COPD): Yes - NEUROLOGICAL Hx Neurological Disorder: No - HEENT Hx HEENT Problems: No - RENAL Hx Chronic Kidney Disease: No - ENDOCRINE/METABOLIC Hx Endocrine Disorders: No - HEMATOLOGICAL/ONCOLOGICAL Hx Blood Disorders: Yes Hx Anemia: Yes Hx Cancer: Yes - INTEGUMENTARY Hx Dermatological Problems: No - MUSCULOSKELETAL/RHEUMATOLOGICAL Hx Musculoskeletal Disorders: Yes Hx Arthritis: Yes Hx Back Pain: Yes (occasionally) Hx Falls: Yes Hx Fractures: Yes (right hip) Hx Unsteady Gait: Yes (uses walker) - GASTROINTESTINAL Hx Gastrointestinal Disorders: Yes Hx Colostomy: Yes - GENITOURINARY/GYNECOLOGICAL Hx Genitourinary Disorders: Yes Hx Urinary Tract Infection: Yes - PSYCHIATRIC Hx Psychophysiologic Disorder: Yes Hx Anxiety: Yes Hx Bipolar Disorder: Yes Hx Depression: Yes Hx Substance Use: No - SURGICAL HISTORY Hx Surgeries: No - ANESTHESIA Hx Anesthesia: Yes Hx Anesthesia Reactions: No Hx Malignant Hyperthermia: No Meds Allergies/Adverse Reactions: Allergies Allergy/AdvReac Type Severity Reaction Status Date / Time ibuprofen [From Motrin] Allergy ANAPHYLAXIS Verified 11/30/18 20:30 NSAIDS (Non-Steroidal Allergy SWELLING Verified 11/30/18 20:30 Anti-Inflamma risperidone [From Risperdal] AdvReac DIZZINESS Verified 11/30/18 20:30 - Medications Medications: Current Medications Aspirin (Ecotrin) 325 mg PO BID VU Clonazepam (Klonopin) 1 mg PO TID [facility]; Protocol Last Admin: 12/01/18 13:33 Dose: 1 mg Fentanyl (Duragesic) 1 patch TD Q72H [facility] Last Admin: 12/01/18 11:59 Dose: 1 patch Sodium Chloride (Sodium Chloride 0.9%) 1,000 mls @ 100 mls/hr IV .Q10H [facility] Last Admin: 12/01/18 13:37 Dose: 100 mls/hr Cefepime HCl (Maxipime 1gm) 1 gm in 100 mls @ 100 mls/hr IVPB Q8 [facility]; Protocol Stop: 12/06/18 14:01 Last Admin: 12/01/18 13:32 Dose: 100 mls/hr [place] Carbonate ([place] Carbonate 300mg) 300 mg PO BID [facility] Metoprolol Succinate (Toprol Xl) 25 mg PO BID [facility] Morphine Sulfate (Morphine) 1 mg IVP Q3H PRN PRN Reason: Rectal pain Last Admin: 12/01/18 12:00 Dose: 1 mg Prednisone (Prednisone Tab) 5 mg PO DAILY VU Quetiapine Fumarate (Seroquel) 50 mg PO HS VU Physical Exam - Constitutional Appears: Well, Non-toxic, No Acute Distress - Head Exam Head Exam: ATRAUMATIC, NORMAL INSPECTION, NORMOCEPHALIC - Eye Exam Eye Exam: EOMI - ENT Exam ENT Exam: Mucous Membranes Dry - Respiratory Exam Respiratory Exam: NORMAL BREATHING PATTERN. absent: Respiratory Distress - Cardiovascular Exam Cardiovascular Exam: REGULAR RHYTHM. absent: Tachycardia - GI/Abdominal Exam GI & Abdominal Exam: Normal Bowel Sounds, Soft. absent: Tenderness Additional comments: Stoma pink, patent, productive with soft brown stool Prolapse reduced without difficulty - Neurological Exam Neurological exam: Alert, Oriented x3 - Psychiatric Exam Psychiatric exam: Normal Affect, Normal Mood - Skin Skin Exam: Dry, Intact, Normal Color, Warm Results - Vital Signs Recent Vital Signs: Last Vital Signs Temp 99.9 F H 12/01/18 14:00 Pulse 87 12/01/18 14:00 Resp 18 12/01/18 14:00 BP 100/63 12/01/18 14:00 Pulse Ox 97 12/01/18 14:00 - Labs Result Diagrams: 11/30/18 21:28 11/30/18 21:28 Labs: Laboratory Results - last 24 hr 11/30/18 11/30/18 11/30/18 21:28 21:28 21:28 WBC 14.6 H D RBC 4.44 Hgb 13.2 D Hct 40.7 MCV 91.7 MCH 29.7 MCHC 32.4 RDW 16.1 H Plt Count 365 MPV 9.6 Neut % (Auto) 70.9 H Lymph % (Auto) 20.5 L [place] % (Auto) 7.3 H Eos % (Auto) 1.1 L Baso % (Auto) 0.2 Lymph # (Auto) 3.0 [place] # (Auto) 1.1 H Eos # (Auto) 0.2 Baso # (Auto) 0.03 Absolute Neuts (auto) 10.33 H PT 12.2 INR 1.10 APTT 29.0 Sodium Potassium Chloride Carbon Dioxide Anion Gap BUN Creatinine Est GFR ( Amer) Est GFR (Non-Af Amer) Random Glucose Calcium Phosphorus Magnesium Total Bilirubin AST ALT Alkaline Phosphatase Total Protein Albumin Globulin Albumin/Globulin Ratio Urine Color Light yellow Urine Appearance Slight-cloudy Urine pH 6.5 Ur Specific [place] 1.010 Urine Protein Negative Urine Glucose (UA) Negative Urine Ketones Negative Urine Blood Negative Urine Nitrate Positive H Urine Bilirubin Negative Urine Urobilinogen 0.2 Ur Leukocyte Esterase Large H Urine RBC None Urine WBC 5 - 10 H Ur Epithelial Cells 1 - 3 Urine Bacteria Few Blood Type Antibody Screen BBK History Checked 11/30/18 11/30/18 21:28 21:28 WBC RBC Hgb Hct MCV MCH MCHC RDW Plt Count MPV Neut % (Auto) Lymph % (Auto) [place] % (Auto) Eos % (Auto) Baso % (Auto) Lymph # (Auto) [place] # (Auto) Eos # (Auto) Baso # (Auto) Absolute Neuts (auto) PT INR APTT Sodium 137 Potassium 3.8 Chloride 105 Carbon Dioxide 26 Anion Gap 9 L BUN 11 Creatinine 0.4 L Est GFR ( Amer) > 60 Est GFR (Non-Af Amer) > 60 Random Glucose 87 Calcium 10.8 H Phosphorus 3.2 Magnesium 2.2 Total Bilirubin 0.3 AST 21 ALT 11 Alkaline Phosphatase 59 Total Protein 7.2 Albumin 3.9 Globulin 3.4 Albumin/Globulin Ratio 1.1 Urine Color Urine Appearance Urine pH Ur Specific [place] Urine Protein Urine Glucose (UA) Urine Ketones Urine Blood Urine Nitrate Urine Bilirubin Urine Urobilinogen Ur Leukocyte Esterase Urine RBC Urine WBC Ur Epithelial Cells Urine Bacteria Blood Type A POSITIVE Antibody Screen Negative BBK History Checked Patient has bt Assessment & Plan - Assessment and Plan (Free Text) Assessment: 58F w/ prolapsed transverse loop colostomy reduced at bedside leukocytosis 2/2 UTI Plan: Prolapse reduced at bedside Recommend stool softners Abx for UTI No further acute surgical intervention at this present time D/w Dr. Rory Goodman PGY1
--- NOTE | 2018-12-01 16:36 | CARD ---
APPROVED REPORT Date of service: 11/30/2018 EKG Measurement Heart [id number] <Conclusion> Normal sinus rhythm Normal ECG
[2018-12-01] MEDS: Metoprolol Succinate 25 mg XL Tab PO SCH (17:25)
[2018-12-01] MEDS ORDERED: Aspirin 325 mg EC Tablets PO SCH (18:00)
--- NOTE | 2018-12-01 19:18 | HP ---
DATE OF EXAM: 12/01/2018 HISTORY OF PRESENT ILLNESS: Urszula was not feeling well and she had some rectal bleeding. No weakness. She did not fall this time. She has increase in urination. She does have multiple urinary tract infections in the past and she coming to the emergency room. She is a 58-year-old white female who has had a past medical history of colostomy secondary to obstructing rectal mass, cancer, chronic constipation, COPD, lung mass, refused a biopsy, hypertension, rheumatoid arthritis, chronic anemia, and not feeling well at all. She had some GI bleeding, dizziness, cancer history, arthritis, colostomy, anxiety, bipolar, depression, right ORIF, and colostomy from the rectal mass. SOCIAL HISTORY: Still smokes cigarettes. No alcohol. No drugs. ALLERGIES: TO IBUPROFEN, NSAIDS, AND RISPERIDONE. MEDICATIONS: She is on Robaxin, Toprol, Ecotrin, methotrexate, morphine for chronic pain, antioxidant Seroquel, Duragesic patch, and prednisone. REVIEW OF SYSTEMS: Not feeling well. No fevers, possible chills, shortness of breath, chest pain, rectal bleeding. No diarrhea, nausea, or vomiting. She has a colostomy, increase in frequency of urine. No back pain or neck pain. She is very weak. PHYSICAL EXAMINATION: VITAL SIGNS: 98 temperature, 98 pulse, 20 respiratory rate, 125/77 blood pressure, 98% O2 sat, and very tachycardic in the ER. GENERAL: Very lethargic, fairly comfortable with the pain meds. Alert and oriented x3. HEENT: Head is atraumatic and normocephalic. Extraocular muscles are intact. Pupils are equal and reactive to light. Throat is dry. NECK: Supple. LUNGS: Decreased breath sounds, but clear to auscultation. No wheezing. No rhonchi. No rales. HEART: Regular rate. Normal S1 and S2. ABDOMEN: Positive colostomy. Decreased bowel sounds are present. Mildly distended. There was Hemoccult negative in the emergency room. NEUROLOGIC: GCS is 15. Cranial nerves II through XII grossly intact. Speech is normal. Alert and oriented x3, just tired, lethargic. EXTREMITIES: Have no edema. SKIN: Warm and dry that I could tell. LABORATORY DATA: She had multiple tests done. The CAT scan of the abdomen and pelvis is pending. Urine is positive for nitrites, large leukocytes. Sodium 137, potassium 3.8, BUN 11, creatinine 0.4, GFR is greater than 60, sugar is 87, calcium is 10.8, phosphorous 3.2, magnesium 2.2, and total bili is 0.3. AST 21, ALT is 11, alk phos 69, total protein 7.2, and albumin is 3.9. INR is 1.1. She has a 14.6 white count, 13.2 hemoglobin, 40.7 hematocrit, and 365 platelets. ASSESSMENT AND PLAN: She will have consults with Infectious Disease and Surgery. She is on the fentanyl patch, Ecotrin, Klonopin, lithium, morphine, prednisone, Seroquel, IV fluids and Toprol and IV antibiotics as per Infectious Disease. She was on Merrem. I will continue the Merrem until Infectious Disease sees the patient. She is here for urinary tract infection, weakness, and history of cancer. Patrice Alba DO [email or web address]
[2018-12-02] MEDS: Morphine 2 mg/ml ISec IVP PRN ×2 (03:49→06:39)
[2018-12-02] MEDS: Cefepime 1gm in NS 100ml 1 GM/100 ML BAG IVPB SCH (05:56)
[2018-12-02] MEDS: Sodium Chloride 0.9% 1,000 ML IV SCH ×3 (06:47→10:12)
[2018-12-02 08:17] LABS: MEAN CELL VOLUME 91.7 fl (80.0-105.0); MEAN CORPUSCULAR HEMOGLOBIN 29.3 pg (25.0-35.0); MEAN PLATELET VOLUME 9.9 fl (7.0-11.0); RBC 3.75 10^6/uL (3.5-6.1); WHITE BLOOD COUNT 18.2 10^3/uL (4.5-11.0)
[2018-12-02 08:22] LABS: ALBUMIN 2.9 g/dL (3.0-4.8); ALT/SGPT 6 U/L (7-56); AST/SGOT 15 U/L (14-36); BLOOD UREA NITROGEN 7 mg/dL (7-21); CALCIUM 8.9 mg/dL (8.4-10.5); GFR NON-AFRICAN AMERICAN > 60
[2018-12-02 08:45] VITALS: BP 96/64; PULSE 87; TEMP 98.9; O2SAT 95
[2018-12-02] MEDS: Metoprolol Succinate 25 mg XL Tab PO SCH (10:12)
--- NOTE | 2018-12-02 10:41 | PN ---
DATE: 12/02/2018 SUBJECTIVE: She is resting comfortably in bed, did not sleep that great, overall just not comfortable. I am adjusting her medications, increasing the fentanyl patch to 50, one baby aspirin a day, put her on Colace. She is on cefepime, back on the prednisone, morphine for pain, IV fluids. PHYSICAL EXAMINATION: VITAL SIGNS: Temperature 98.9, 87 pulse, 96/64 blood pressure, 18 respiratory rate, 95% O2 sat on room air. HEAD: Atraumatic, normocephalic. HEART: Regular rate with decreased breath sounds. Abdomen: With colostomy, soft. Decreased bowel sounds. EXTREMITIES: No edema but she is weak. LABORATORY DATA: She has a 18.2 white count, 11 hemoglobin, 34.4 hematocrit with 330 platelets. Sodium 138, potassium 3.7, BUN 7, creatinine 0.4, GFR is greater than 60, sugar is 100, calcium 8.9, total bili is 0.3, AST is 15, ALT is 6, alk phos 49, total protein is 5.8. Urine was large leukocytes, few bacteria. PLAN: She is being seen by Infectious Disease and Surgery. She did have a prolapsed transverse loop of colostomy reduced at bedside by Surgery, urinary tract symptoms with sepsis as per Infectious Disease, some Maxipime. We are checking her labs. We will continue aggressive treatment and care. There is a 1.3 cm nodule opacity at the right lung base, malignant neoplasm not excluded 4.3 x 3 cm cystic focus in the right pelvis measuring approximately 9 HU, could be ovarian cyst, midline ostomy. I will see what Surgery wants to do about the abdominal issues. We will continue aggressive treatment and care. Patrice Alba DO
--- NOTE | 2018-12-02 13:51 | PN ---
DATE: 12/02/2018 SUBJECTIVE: The patient is in bed in no acute distress, nontoxic. PHYSICAL EXAMINATION: GENERAL: The patient appears chronically ill, cachectic and wasting. VITAL SIGNS: Temperature of 98, blood pressure is 120/70, respiratory rate of 16. HEENT: Unremarkable. NECK: Supple. LUNGS: Have decreased breath sounds. HEART: Normal S1, S2. ABDOMEN: Soft. LABORATORY EXAMINATION: Reveals the patient has a white count of 18,200, hemoglobin of 11. Chemistries; BUN of 7, creatinine of 0.4. Urinalysis is noted. Microbiology reveals a Gram-negative saroj in the urine. The blood cultures are no growth. Review of orders reveals the patient to be on cefepime. ASSESSMENT AND PLAN: This is 58-year-old female seen early this morning in room 573, bed 2, who appears chronically ill, cachectic, wasting syndrome and end-stage with a rectal mass, chronic constipation, chronic obstructive lung disease, lung mass, elevated calcium, urinary symptoms sepsis with Gram-negative saroj in the urine as the source on Maxipime awaiting identification sensitivity Gram-negative saroj. Anton Solo MD
== END 2018-12-02 12:32 | disposition left against medical advice (07) | DRG 320 ==
LOC: ED 20:20 → ERH 22:12 → 5RSO 12-01 00:34
PROVIDERS: ADMIT Family Medicine; ATTEND Family Medicine
DX: N39.0 Urinary tract infection, site not specified (principal); R64 Cachexia; J44.9 Chronic obstructive pulmonary disease, unspecified; B96.20 Unspecified Escherichia coli [E. coli] as the cause of diseases classified elsewhere; I10 Essential (primary) hypertension; K59.09 Other constipation; F17.210 Nicotine dependence, cigarettes, uncomplicated; F32.9 Major depressive disorder, single episode, unspecified; R91.8 Other nonspecific abnormal finding of lung field; R53.1 Weakness; D64.9 Anemia, unspecified; M06.9 Rheumatoid arthritis, unspecified; Z79.82 Long term (current) use of aspirin; Z88.6 Allergy status to analgesic agent; Z68.1 Body mass index [BMI] 19.9 or less, adult; Z85.038 Personal history of other malignant neoplasm of large intestine; Z93.3 Colostomy status

== ENCOUNTER 2018-12-15 21:59 | Emergency (ER) | payer MEDICAID ==
[2018-12-15 21:59] VITALS: BMI 15.6
[2018-12-15 22:18] VITALS: PULSE 80; RESP 18
[2018-12-15 23:55] LABS: BASO # 0.03 K/mm3 (0.0-2.0); BASO % 0.2 % (0.0-3.0); EOS # 0.2 (0.0-0.7); EOS % 1.1 % (1.5-5.0); HEMOGLOBIN 12.5 g/dL (12.0-16.0); LYMPH # 2.8 (1.2-3.4); LYMPH % 17.7 % (22.0-35.0); MEAN CORPUSCULAR HEMOGLOBIN 29.3 pg (25.0-35.0); MEAN CORPUSCULAR HGB CONC 33.1 g/dl (31.0-37.0); MEAN PLATELET VOLUME 9.7 fl (7.0-11.0); MONO # 0.8 (0.1-0.6); MONO % 4.8 % (1.0-6.0); RBC 4.26 10^6/uL (3.5-6.1); RED CELL DISTRIBUTION WIDTH 15.2 % (11.5-14.5); WHITE BLOOD COUNT 15.9 10^3/uL (4.5-11.0)
[2018-12-15 23:56] LABS: MEAN CELL VOLUME 88.7 fl (80.0-105.0)
[2018-12-15 23:59] LABS: INR 1.19; PARTIAL THROMBOPLASTIN TIME 31.5 Seconds (26.9-38.3); PROTHROMBIN TIME 13.2 SECONDS (9.4-12.5)
[2018-12-16 00:10] LABS: TROPONIN I < 0.01 ng/mL
[2018-12-16 00:15] LABS: ALB/GLOB RATIO 0.9 (1.1-1.8); ALBUMIN 3.2 g/dL (3.0-4.8); ALT/SGPT 7 U/L (7-56); AMYLASE 52 U/L (35-125); AST/SGOT 19 U/L (14-36); BLOOD UREA NITROGEN 10 mg/dL (7-21); CALCIUM 10.8 mg/dL (8.4-10.5); GFR NON-AFRICAN AMERICAN > 60; LIPASE 55 U/L (23-300)
--- NOTE | 2018-12-16 00:46 | ED PDOC ---
Arrival/HPI - General Chief Complaint: Abdominal Pain Time Seen by Provider: 12/15/18 22:11 Historian: Patient - History of Present Illness Narrative History of Present Illness (Text): 12/16/18 22:11 Urszula Dietz is a 58 year old female, with a past medical history of colostomy creating (2017) 2/2 obstructing rectal mass, chronic constipation, COPD, lung mass (has previously refused biopsy), HTN, RA, and chronic anemia, who presents to the emergency department complaining of intermittent abdominal pain and nausea secondary to prolapsed colostomy bag since June. Pt informs appointment with Dr. Hooks but was unable to make it. Patient denies any fevers, chills, headache, dizziness, chest pain, shortness of breath, dyspnea on exertion, cough, vomiting, diarrhea, dysuria, hematuria, back pain, neck pain, or any other complaint. Time/Duration: > month (since June) Symptom Onset: Gradual Symptom Course: Unchanged Activities at Onset: Light Context: Home Past Medical History - Provider Review Nursing Documentation Reviewed: Yes - Infectious Disease Hx of Infectious Diseases: None - Cardiac Hx Cardiac Disorders: No - Pulmonary Hx Respiratory Disorders: No - Neurological Hx Neurological Disorder: Yes Hx Dizziness: Yes - HEENT Hx HEENT Disorder: No - Renal Hx Renal Disorder: No - Endocrine/Metabolic Hx Endocrine Disorders: No - Hematological/Oncological Hx Blood Disorders: No - Integumentary Hx Dermatological Disorder: No - Musculoskeletal/Rheumatological Hx Musculoskeletal Disorders: Yes Hx Rheumatoid Arthritis: Yes - Gastrointestinal Hx Gastrointestinal Disorders: Yes Other/Comment: COLOSTOMY - Genitourinary/Gynecological Hx Genitourinary Disorders: No - Psychiatric Hx Psychophysiologic Disorder: Yes Hx Anxiety: Yes Hx Bipolar Disorder: Yes Hx Depression: Yes Hx Substance Use: No - Surgical History Hx Joint Replacement: Yes (RT ORIF) - Anesthesia Hx Anesthesia: Yes Hx Anesthesia Reactions: No Hx Malignant Hyperthermia: No - Suicidal Assessment Feels Threatened In Home Enviroment: No Family/Social History - Physician Review Nursing Documentation Reviewed: Yes Family/Social History: No Known Family HX Smoking Status: Heavy Smoker > 10 Cigarettes Daily Hx Alcohol Use: No Hx Substance Use: No Hx Substance Use Treatment: No Allergies/Home Meds Allergies/Adverse Reactions: Allergies ibuprofen [From Motrin] Allergy (Verified 12/15/18 22:01) ANAPHYLAXIS NSAIDS (Non-Steroidal Anti-Inflamma Allergy (Verified 12/15/18 22:01) SWELLING risperidone [From Risperdal] Adverse Reaction (Verified 12/15/18 22:01) DIZZINESS Home Medications: Home Meds Medication Instructions Recorded Confirmed Methocarbamol [Robaxin] 1 tab PO QID 05/17/18 12/15/18 Metoprolol Succinate XL [Toprol XL] 25 mg PO BID 05/17/18 12/15/18 Aspirin [Ecotrin] 325 mg PO BID 11/30/18 12/15/18 Methotrexate 15 mg PO Q7D 11/30/18 12/15/18 Morphine Sulfate [Arymo ER] 15 mg PO Q3 11/30/18 12/15/18 Multivitamin/Iron/Folic Acid 1 tab PO DAILY 11/30/18 12/15/18 [Certavite-Antioxidant Tablet] QUEtiapine [SEROquel] 50 mg PO HS 11/30/18 12/15/18 fentaNYL 12 mcg/hr [Duragesic 50 mcg TOP Q72H 11/30/18 12/15/18 Patch 12 mcg/hr] predniSONE [predniSONE Tab] 5 mg PO DAILY 11/30/18 12/15/18 Review of Systems - Physician Review All systems were reviewed & negative as marked: Yes - Review of Systems Constitutional: absent: Fevers, Other (chills) Respiratory: absent: SOB, Cough Cardiovascular: absent: Chest Pain, LUCERO Gastrointestinal: Abdominal Pain, Nausea, Other (prolapsed colostomy bag). absent: Diarrhea Genitourinary Female: absent: Dysuria, Hematuria Musculoskeletal: absent: Back Pain, Neck Pain Neurological: absent: Headache, Dizziness Physical Exam Vital Signs Reviewed: Yes Vital Signs Temp Pulse Resp BP Pulse Ox 12/15/18 22:11 97.6 F 80 18 124/76 97 Temperature: Afebrile Blood Pressure: Normal Pulse: Regular Respiratory Rate: Normal Appearance: Positive for: Well-Appearing, Non-Toxic, Comfortable Pain Distress: None Mental Status: Positive for: Alert and Oriented X 3 - Systems Exam Head: Present: Atraumatic, Normocephalic Pupils: Present: PERRL Extroacular Muscles: Present: EOMI Conjunctiva: Present: Normal Mouth: Present: Moist Mucous Membranes Respiratory/Chest: Present: Clear to Auscultation, Good Air Exchange. No: Respiratory Distress, Accessory Muscle Use Cardiovascular: Present: Regular Rate and Rhythm, Normal S1, S2. No: Murmurs Abdomen: Present: Ostomy Tubes, Other (large intestine prolasping into colostomy bag). No: Tenderness, Distention, Peritoneal Signs Upper Extremity: Present: Normal Inspection. No: Cyanosis, Edema Lower Extremity: Present: Normal Inspection. No: Edema Skin: Present: Warm, Dry, Normal Color. No: Rashes Psychiatric: Present: Alert, Oriented x 3, Normal Insight, Normal Concentration Medical Decision Making ED Course and Treatment: 12/16/18 22:11 Impression: Patient is a 58 year old female who presents to the emergency department complaining of abdominal pain and nausea secondary to prolapsing colostomy bag since June. Differential Diagnosis included but are not limited to: Plan: -- EKG -- Chest X-Ray 1V -- Abd X-Ray 2V -- Urinalysis -- Labs -- Reassess and disposition Prior Visits: Notes and results from previous visits were reviewed. Progress Notes: 12/16/18 00:01 Spoke to surgical brace maker, who will see pt. seen by same prolapse reduced spontaneously will dc to follow up with dr hooks 12/16/18 21:05 - Lab Interpretations Lab Results: PT 13.2 SECONDS (9.4-12.5) H 12/15/18 23:30 INR 1.19 12/15/18 23:30 APTT 31.5 Seconds (26.9-38.3) 12/15/18 23:30 Troponin I < 0.01 ng/mL 12/15/18 23:30 Total Bilirubin 0.2 mg/dL (0.2-1.3) 12/15/18 23:30 AST 19 U/L (14-36) 12/15/18 23:30 ALT 7 U/L (7-56) 12/15/18 23:30 Alkaline Phosphatase 69 U/L (38-126) 12/15/18 23:30 Total Protein 6.9 g/dL (5.8-8.3) 12/15/18 23:30 Albumin 3.2 g/dL (3.0-4.8) 12/15/18 23:30 Globulin 3.7 gm/dL 12/15/18 23:30 Albumin/Globulin Ratio 0.9 (1.1-1.8) L 12/15/18 23:30 Amylase 52 U/L (35-125) 12/15/18 23:30 Lipase 55 U/L (23-300) 12/15/18 23:30 - RAD Interpretation Radiology Orders: 12/15/18 22:20 ABD 2 VIEWS (FLAT/UP OR DECUB) [RAD] Stat 12/15/18 22:21 CHEST ONE VIEW [RAD] Stat - Scribe Statement The provider has reviewed the documentation as recorded by the Scribe Travis Perry All medical record entries made by the Scribe were at my direction and personally dictated by me. I have reviewed the chart and agree that the record accurately reflects my personal performance of the history, physical exam, medical decision making, and the department course for this patient. I have also personally directed, reviewed, and agree with the discharge instructions and disposition. Disposition/Present on Arrival - Present on Arrival Any Indicators Present on Arrival: No History of DVT/PE: No History of Uncontrolled Diabetes: No Urinary Catheter: No History of Decub. Ulcer: No History Surgical Site Infection Following: None - Disposition Have Diagnosis and Disposition been Completed?: Yes Diagnosis: Colostomy prolapse Disposition: HOME/ ROUTINE Disposition Time: 06:51 Condition: STABLE Discharge Instructions (ExitCare): Ileostomy Care Additional Instructions: follow up with dr hooks as scheduled Forms: [employer] ([place])
--- NOTE | 2018-12-16 01:29 | CP.PCM.CON ---
History of Present Illness - History of Present Illness History of Present Illness: Surgery Consult note for Dr. Valadze Reason for consult: stoma prolapse 58F, PMH significant for transverse loop colostomy (2018) 2/2 obstructing rectal mass, metastatic adenocarcionoma, chronic constipation, COPD, lung mass (has previously refused biopsy), HTN, RA, and chronic anemia, presents to [facility] w/ abdominal pain. In ED, noted to have stoma prolapse. During previous visit, colostomy was reduced without complications. Stoma is pink, patent with good stool and air ouput. Stool is soft. Has scheduled appointment with Dr. Valadez regarding possible stoma evaluation and future revision. Denies fevers, chills, n/v/d, night sweats, chest pain, shortness of breath. 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 Denies alcohol or drug use. FH: denies any relevant family history ALL: ibuprofen and other NSAIDs, risperidone Meds: See NOV PMD: Dr. Alba Review of Systems - Constitutional Constitutional: Weakness. absent: Chills, Fever - EENT Eyes: absent: Blurred Vision, Change in Vision Nose/Mouth/Throat: absent: Nasal Congestion, Nasal Discharge - Cardiovascular Cardiovascular: absent: Chest Pain, Dyspnea - Respiratory Respiratory: absent: Cough, Dyspnea - Gastrointestinal Gastrointestinal: Abdominal Pain. absent: Bloating, Constipation, Diarrhea, Nausea, Vomiting - Genitourinary Genitourinary: absent: Difficulty Urinating, Dysuria - Musculoskeletal Musculoskeletal: absent: Back Pain, Neck Pain - Integumentary Integumentary: absent: Bleeding Lesions, Changing Lesions - Neurological Neurological: absent: Confusion, Dizziness - Psychiatric Psychiatric: absent: Anxiety, Depression Past Patient History - Infectious Disease Hx of Infectious Diseases: None - Past Social History Smoking Status: Heavy Smoker > 10 Cigarettes Daily - CARDIAC Hx Cardiac Disorders: No - PULMONARY Hx Respiratory Disorders: No - NEUROLOGICAL Hx Neurological Disorder: Yes Hx Dizziness: Yes - HEENT Hx HEENT Problems: No - RENAL Hx Chronic Kidney Disease: No - ENDOCRINE/METABOLIC Hx Endocrine Disorders: No - HEMATOLOGICAL/ONCOLOGICAL Hx Blood Disorders: No - INTEGUMENTARY Hx Dermatological Problems: No - MUSCULOSKELETAL/RHEUMATOLOGICAL Hx Musculoskeletal Disorders: Yes Hx Rheumatoid Arthritis: Yes - GASTROINTESTINAL Hx Gastrointestinal Disorders: Yes Other/Comment: COLOSTOMY - GENITOURINARY/GYNECOLOGICAL Hx Genitourinary Disorders: No - PSYCHIATRIC Hx Psychophysiologic Disorder: Yes Hx Anxiety: Yes Hx Bipolar Disorder: Yes Hx Depression: Yes Hx Substance Use: No - SURGICAL HISTORY Hx Joint Replacement: Yes (RT ORIF) - ANESTHESIA Hx Anesthesia: Yes Hx Anesthesia Reactions: No Hx Malignant Hyperthermia: No Meds Allergies/Adverse Reactions: Allergies Allergy/AdvReac Type Severity Reaction Status Date / Time ibuprofen [From Motrin] Allergy ANAPHYLAXIS Verified 12/15/18 22:01 NSAIDS (Non-Steroidal Allergy SWELLING Verified 12/15/18 22:01 Anti-Inflamma risperidone [From Risperdal] AdvReac DIZZINESS Verified 12/15/18 22:01 Physical Exam - Constitutional Appears: Well, Non-toxic, No Acute Distress - Head Exam Head Exam: ATRAUMATIC, NORMAL INSPECTION, NORMOCEPHALIC - Eye Exam Eye Exam: EOMI - ENT Exam ENT Exam: Mucous Membranes Dry Additional comments: Extensive dental caries - Respiratory Exam Respiratory Exam: NORMAL BREATHING PATTERN. absent: Wheezes, Respiratory Distress - Cardiovascular Exam Cardiovascular Exam: REGULAR RHYTHM. absent: Tachycardia - GI/Abdominal Exam GI & Abdominal Exam: Normal Bowel Sounds, Soft. absent: Distended, Guarding, Rebound, Tenderness Additional comments: Transverse loop colostomy pink, patent, productive - no prolapse noted on exam - Extremities Exam Extremities exam: Negative for: pedal edema - Neurological Exam Neurological exam: Alert, Oriented x3 - Psychiatric Exam Psychiatric exam: Normal Affect, Normal Mood - Skin Skin Exam: Dry, Intact, Normal Color, Warm Results - Vital Signs Recent Vital Signs: Last Vital Signs Temp 97.6 F 12/15/18 22:11 Pulse 80 12/15/18 22:11 Resp 18 12/15/18 22:11 BP 124/76 12/15/18 22:11 Pulse Ox 97 12/15/18 22:11 - Labs Result Diagrams: 12/15/18 23:30 12/15/18 23:30 Labs: Laboratory Results - last 24 hr 12/15/18 12/15/18 12/15/18 23:30 23:30 23:30 WBC 15.9 H RBC 4.26 Hgb 12.5 Hct 37.8 MCV 88.7 D MCH 29.3 MCHC 33.1 RDW 15.2 H Plt Count 513 H MPV 9.7 Neut % (Auto) 76.2 H Lymph % (Auto) 17.7 L [place] % (Auto) 4.8 Eos % (Auto) 1.1 L Baso % (Auto) 0.2 Lymph # (Auto) 2.8 [place] # (Auto) 0.8 H Eos # (Auto) 0.2 Baso # (Auto) 0.03 Absolute Neuts (auto) 12.10 H PT 13.2 H INR 1.19 APTT 31.5 Sodium 139 Potassium 3.6 Chloride 107 Carbon Dioxide 23 Anion Gap 12 BUN 10 Creatinine 0.5 L Est GFR ( Amer) > 60 Est GFR (Non-Af Amer) > 60 Random Glucose 84 Calcium 10.8 H Total Bilirubin 0.2 AST 19 ALT 7 Alkaline Phosphatase 69 Lactate Dehydrogenase 304 L Total Creatine Kinase < 20 L Troponin I < 0.01 Total Protein 6.9 Albumin 3.2 Globulin 3.7 Albumin/Globulin Ratio 0.9 L Amylase 52 Lipase 55 Assessment & Plan - Assessment and Plan (Free Text) Assessment: 58F w/ prolapsed transverse loop colostomy Plan: Prolapse already reduced upon examination Patient no longer complaining of abdominal discomfort Stoma pink, patent, productive Patient has f/u with Dr. Valadez this Sunday regarding stoma evaluation/revision Recommend stool softners Pain control No further acute surgical intervention at this present time D/w Dr. Rory Goodman PGY1
[2018-12-16 02:28] LABS: PH,URINE 6.5 (4.7-8.0); URINE BILIRUBIN NEGATIVE (NEGATIVE); URINE BLOOD NEGATIVE (NEGATIVE); URINE GLUCOSE (UA) NEGATIVE (NEGATIVE); URINE LEUKOCYTE ESTERASE NEGATIVE Leu/uL (NEGATIVE); URINE PROTEIN NEGATIVE mg/dL (<30 mg/dL); URINE UROBILINOGEN 0.2 E.U./dL (<1 E.U./dL)
[2018-12-16 02:30] LABS: URINE APPEARANCE CLEAR (CLEAR); URINE COLOR YELLOW (YELLOW)
[2018-12-16 09:32] VITALS: BP 130/79; TEMP 98; O2SAT 98
--- NOTE | 2018-12-16 09:55 | CARD ---
APPROVED REPORT Date of service: 12/15/2018 EKG Measurement Heart [id number] <Conclusion> Normal sinus rhythm Normal ECG
--- NOTE | 2018-12-16 10:13 | RAD ---
Date of service: 12/15/2018 PROCEDURE: CHEST RADIOGRAPH, 1 VIEW HISTORY: abd pain COMPARISON: 07/16/2018 FINDINGS: LUNGS: Clear. PLEURA: No pneumothorax or pleural fluid seen. CARDIOVASCULAR: No aortic atherosclerotic calcification present. Normal. OSSEOUS STRUCTURES: Scoliosis VISUALIZED UPPER ABDOMEN: Normal. OTHER FINDINGS: None. IMPRESSION: No active disease.
--- NOTE | 2018-12-16 10:31 | RAD ---
Date of service: 12/15/2018 HISTORY: abd pain COMPARISON: 05/22/2018 FINDINGS: BOWEL: Normal. No obstruction. No free air. BONES: Screws in the right hip. Scoliosis convex to the left OTHER FINDINGS: None. IMPRESSION: No active disease.
== END 2018-12-16 09:33 | disposition home or self-care (01) ==
LOC: ED 21:59
DX: K94.09 Other complications of colostomy (principal); Y83.8 Other surgical procedures as the cause of abnormal reaction of the patient, or of later complication, without mention of misadventure at the time of the procedure; Y92.89 Other specified places as the place of occurrence of the external cause; I10 Essential (primary) hypertension; J44.9 Chronic obstructive pulmonary disease, unspecified; D64.9 Anemia, unspecified; R91.8 Other nonspecific abnormal finding of lung field; F17.210 Nicotine dependence, cigarettes, uncomplicated

== ENCOUNTER 2018-12-24 07:18 | Inpatient (IN) | payer MEDICAID ==
[2018-12-20 16:29] VITALS: BMI 16.2
[2018-12-24] MEDS ORDERED: Midazolam 2 MG/2 ML VIAL ONE (09:37)
[2018-12-24] MEDS ORDERED: Rocuronium 10 mg/ml (5 ml) ONE (09:37)
[2018-12-24] MEDS ORDERED: Propofol 10 mg/ml Inj (20 ML) ONE ×2 (09:37→11:08)
[2018-12-24] MEDS: Bupivacaine 0.5% 50 ML IJ ONE ×2 (10:47→11:06)
[2018-12-24] MEDS ORDERED: Neostigmine Methylsulfate 3mg/3ml Syringe IV ONE (10:51)
[2018-12-24] MEDS ORDERED: Glycopyrrolate 0.2 mg/ml (2ml vial) ONE (10:52)
[2018-12-24] MEDS ORDERED: Liquid Adhesive TOP ONE (10:53)
[2018-12-24] MEDS ORDERED: Lactated Ringer's 1,000 ML IV SCH (11:00)
[2018-12-24] MEDS: HYDROmorphone 0.5 mg/0.5 ml ISec IVP PRN ×4 (11:15→12:14)
[2018-12-24] MEDS ORDERED: oxyCODONE 5 mg Immediate Release Tab PO PRN (11:27)
[2018-12-24] MEDS ORDERED: HYDROmorphone 0.5 mg/0.5 ml ISec ONE ×5 (11:28→12:54)
--- NOTE | 2018-12-24 11:32 | PCM.SURG1 ---
Surgeon's Initial Post Op Note - Surgeon's Notes Surgeon: Dr. Valadez Editor In Chief: [place] PGY4; [place] PGY2; Renay MS3 Type of Anesthesia: General Endo, Local Anesthesia Administered By: Dr. Cheko Del Rio Pre-Operative Diagnosis: Malfunctioning Loop Colostomy Operative Findings: See operative report Post-Operative Diagnosis: Same Operation Performed: Revision of Colostomy, creation of end colostomy with mucous fistula Specimen/Specimens Removed: Revised Colostomy segment Estimated Blood Loss: EBL {In ML}: 15 Blood Products Given: N/A Drains Used: Ostomy Device Post-Op Condition: Good Date of Surgery/Procedure: 12/24/18 Time of Surgery/Procedure: 11:32
[2018-12-24] MEDS ORDERED: HYDROmorphone 1 mg/ml ISec IVP ONE ×2 (12:50)
[2018-12-24] MEDS ORDERED: HYDROmorphone 0.5 mg/0.5 ml ISec IM STA (12:50)
[2018-12-24] MEDS: oxyCODONE 10 mg Immediate Release Tab PO PRN (15:30)
[2018-12-24] MEDS: Morphine 2 mg/ml ISec IVP PRN (20:28)
[2018-12-24] MEDS ORDERED: Influenza Vaccine 60 mcg/0.5 mL SYR (4YR UP) IM ONE (21:48)
[2018-12-24] MEDS ORDERED: Pneumococcal 23-Valent Vaccine IM ONE (21:48)
--- NOTE | 2018-12-25 01:45 | CON ---
DATE: 12/24/2018 HISTORY OF PRESENT ILLNESS: I am doing house calls on her for a while. She is status post a rectal mass, which caused chronic constipation, eventually leading to a diverting colostomy. She has had radiation and chemotherapy. She is currently I believe on hospice, but the stoma was protruding a tremendous amount and so she came in for a procedure with Dr. Valadez for fixing of her prolapsed stoma, had a reversion of the colostomy. She is a 58-year-old female who has a protruding colostomy and mostly intestine is coming out and is a revision. She was brought in for an elective procedure. She is being kept overnight. PAST MEDICAL HISTORY: COPD, hypertension, arthritis, anemia, rectal cancer, rheumatoid arthritis, depression, anxiety. PAST SURGICAL HISTORY: She had bilateral bunion surgery, transverse loop colostomy, ORIF for the right hip. SOCIAL HISTORY: She still smokes cigarettes, although I ask her to quit every time. She had no alcohol for 31 years. Denies any substance abuse. FAMILY HISTORY: She has heart disease in the family. MEDICATIONS: She is presently postop revision of her colostomy, in pain, we have ordered morphine for her. She is on pain medications for her chronic pain from the cancer. We gave her morphine for status post reversion. ALLERGIES: NSAIDS, IBUPROFEN, RISPERIDONE. REVIEW OF SYSTEMS: No acute vision or hearing changes. No chest pain. Occasional shortness of breath. She is a heavy smoker. There is protrusion of her ostomy and the colostomy. Extremities have no edema. Skin for the most part is poor turgor. Little anxious. PHYSICAL EXAMINATION VITAL SIGNS: Temperature 98.6, pulse 92, blood pressure 130/70, 18 respiratory rate, and 98% O2 saturation on room air. HEENT: Head is atraumatic, normocephalic. Extraocular muscles intact. Throat is dry. NECK: Supple. HEART: Regular rate. LUNGS: Decreased breath sounds bilaterally. Poor inspiration. ABDOMEN: Has a bandage with a new colostomy. Decreased bowel sounds. EXTREMITIES: No edema. She is weak, thin, frail from her cancer. MEDICATIONS: She is currently on Colace, Duragesic patch, heparin, Klonopin, lithium, Miralax, we had her on morphine, oxycodone, Seroquel, Toprol, Zofran. LABORATORY DATA: There are no blood tests. ASSESSMENT: She is status post colostomy, ostomy, protrusion, and revision. History of rectal cancer, mass, and a colostomy. PLAN: There is a CBC and comprehensive metabolic panel for tomorrow. Hopefully she will improve with the pain and she will heal up and hopefully we could discharge her tomorrow. Patrice Alba DO
[2018-12-25] MEDS: Morphine 2 mg/ml ISec IVP PRN ×3 (02:22→09:16)
[2018-12-25] MEDS: Lactated Ringer's 1,000 ML IV SCH ×2 (04:24→07:02)
--- NOTE | 2018-12-25 05:11 | OP ---
PROCEDURE DATE: 12/24/2018 PRIMARY SURGEON: John Valadez MD ASSISTANTS: Hernando Varner DO; Chino Hi DO, PGY-2; and Ynes Niño MS3, MS-3 TYPE OF ANESTHESIA: General endotracheal and local with 0.5% Marcaine approximately 20 mL. ANESTHESIA WAS ADMINISTERED BY: Eneida Del Rio MD PREOPERATIVE DIAGNOSIS: Malfunctioning loop sigmoid colostomy. POSTOPERATIVE DIAGNOSIS: Malfunctioning loop sigmoid colostomy. OPERATION PERFORMED: Revision of colostomy and creation of end sigmoid colostomy with mucous fistula. SPECIMEN SENT: Revised colostomy segment. ESTIMATED BLOOD LOSS: 15 mL. BLOOD PRODUCTS: There were no intraoperative blood products given. DRAIN: Ostomy device. POSTOPERATIVE CONDITION: Good. DATE OF SURGERY: 12/24/2018 TIME OF SURGERY: 11:32 AM INDICATIONS: Mrs. Urszula Dietz is a 58-year-old female with past medical history of obstructive rectal adenocarcinoma with a prior loop sigmoid colostomy done for diversion. The patient comes in with repeated ostomy prolapses. The patient was brought into same day surgery for a planned ostomy revision. The risks and benefits of the procedure were discussed with the patient at length who agreed to undergo surgical resection and revision of the colostomy. The patient was examined preoperatively in the same day surgery unit. The operative plan, procedure, risks, and benefits were again discussed with the patient. A written consent was obtained and witnessed by the nursing staff. DESCRIPTION OF PROCEDURE: The patient was placed in the supine position, and general endotracheal anesthesia was induced. A time-out procedure was completed verifying the correct patient, the procedure, the site, positioning and the special equipments needed prior to beginning the procedure. Preoperative antibiotics were given with 2 g of Ancef IV by the anesthesia team. A nasogastric tube was placed. No Saavedra catheter was used. The abdomen was prepped and draped in the usual sterile fashion using Betadine. A #15 blade was used to make the skin incision around the prior loop colostomy. Attention was made to ensure there is no incision or damage into the colon. The dissection was continued using blunt Marisol clamp, and the tissues were divided using electrocautery to ensure adequate hemostasis. This dissection was deepened through the subcutaneous tissue, and hemostasis was achieved using electrocautery. The linea alba was identified and incised, and the peritoneal cavity was entered. There was no injury to the surrounding bowel where a single segment of small intestine, which was adhesed to the colon segment and was sharply lysed free of adhesions. Both segments of the intestines were inspected to ensure there was no injury, and no injury has been noted. The abdomen was then explored, and the distal portion of the colon noted to be immobile upon inspection. A pelvic mass was noted which was hard and mobile. No other gross abnormalities were noted. Once the loop colostomy was placed above the incision, it was lifted up and out of the abdomen. A site proximal and distal to the loop colostomy was elected. Mosquito clamps were used to make a window in the colon mesentery. An Endo BENIGNO 65 stapler was used to divide the proximal and subsequently the distal portions of the sigmoid colon. Both the segments were grasped with Patricia clamps to ensure the proper orientation. The resected sigmoid loop colostomy segment was passed off to the surgical physician assistant to be sent off to the pathologist for analysis. The entire fascial defect and the peritoneal incision were inspected and ensured that hemostasis was achieved. The fascia was reapproximated around the proximal end colostomy and around the distal mucous fistula with Prolene sutures. Once good closure and approximation was achieved, 3-0 Vicryl sutures were used to reapproximate the subcutaneous tissue around the middle of the mucous fistula and the end colostomy. The mucous fistula was then opened just below the Endo BENIGNO stapler line until the lumen was appropriately opened. A 4-0 Monocryl suture was used. A full-thickness bite into the lumen and matured to the skin in an interrupted fashion. Multiple sutures were used to ensure no risks for the mucous fistula to fall back into the peritoneal cavity. Two simple interrupted Prolene sutures were used to tack the abdominal fascia to the serosa of the mucous fistula to ensure the mucous fistula does not retract into the peritoneal cavity. The 3-0 Vicryl sutures were used in a simple interrupted fashion to mature the end colostomy. Once the ostomy was incised and full-thickness bites through the mucous were taken, this was completed with 4-0 Monocryl sutures full thickness bites through the ostomy and through the skin in an interrupted fashion. The proximal colon adhesed easily to the colostomy site without any tension, and the lumen was digitized using the index finger to ensure proper patency, multiple times throughout to make sure laceration. There were no drains used in the pelvis or peritoneal cavity. The ostomy device was then secured to the skin over the mucous fistula and the end colostomy. Once the skin was prepped with Mastisol, the mucous fistula and the end colostomy were noted to be nice and pink. Then, hemostasis was achieved. The patient tolerated the procedure well. The needle and sponge counts were declared correct by the operating room staff. The anesthesia team was able to successfully extubate the patient. The patient was transferred over to the stretcher and taken to the postanesthesia care unit in stable condition. There were no immediate postoperative complications noted prior to the patient being moved to the postanesthesia care unit. Chino Hi DO John Valadez MD MTDEliel
[2018-12-25] MEDS: oxyCODONE 10 mg Immediate Release Tab PO PRN (06:35)
[2018-12-25 07:13] LABS: HEMOGLOBIN 11.9 g/dL (12.0-16.0); MEAN CELL VOLUME 88.3 fl (80.0-105.0); MEAN CORPUSCULAR HEMOGLOBIN 27.9 pg (25.0-35.0); MEAN CORPUSCULAR HGB CONC 31.6 g/dl (31.0-37.0); MEAN PLATELET VOLUME 9.9 fl (7.0-11.0); RBC 4.26 10^6/uL (3.5-6.1); RED CELL DISTRIBUTION WIDTH 15.3 % (11.5-14.5); WHITE BLOOD COUNT 16.6 10^3/uL (4.5-11.0)
[2018-12-25 07:51] LABS: ALB/GLOB RATIO 0.8 (1.1-1.8); ALBUMIN 2.7 g/dL (3.0-4.8); ALT/SGPT 9 U/L (7-56); AST/SGOT 22 U/L (14-36); BLOOD UREA NITROGEN 7 mg/dL (7-21); CALCIUM 10.1 mg/dL (8.4-10.5); GFR NON-AFRICAN AMERICAN > 60
[2018-12-25] MEDS ORDERED: Potassium Chloride 10 mEq ER Tab PO ONE (09:08)
[2018-12-25] MEDS: POLYETHYLENE GLYCOL 3350 17 GM/Dose PACKET PO SCH (09:16)
[2018-12-25] MEDS: Metoprolol Succinate 25 mg XL Tab PO SCH (09:19)
--- NOTE | 2018-12-25 10:46 | CP.PCM.PN ---
Subjective - Date & Time of Evaluation Date of Evaluation: 12/25/18 Time of Evaluation: 10:43 - Subjective Subjective: PGY1 Surgical Progress Note for Dr. Valadez Patient seen and examined at bedside this morning. No acute events overnight. No complaints. No nausea, no vomiting. Patient tolerating diet. Ostomy with minimal output. Objective - Vital Signs/Intake and Output Vital Signs (last 24 hours): Temp Pulse Resp BP Pulse Ox 98.6 F 93 H 18 141/82 95 12/25/18 06:00 12/25/18 09:19 12/25/18 06:00 12/25/18 09:19 12/25/18 06:00 Intake and Output: 12/25/18 12/25/18 06:59 18:59 Intake Total 360 Balance 360 - Medications Medications: Current Medications Acetaminophen (Tylenol 325mg Tab) 650 mg PO Q6H PRN PRN Reason: Fever >100.4 F Last Admin: 12/24/18 21:55 Dose: 650 mg Clonazepam (Klonopin) 1 mg PO TID PRN; Protocol PRN Reason: Anxiety Docusate Sodium (Colace) 100 mg PO BID [facility] Last Admin: 12/25/18 09:16 Dose: 100 mg Fentanyl (Duragesic) 1 patch TD Q72H [facility] Last Admin: 12/24/18 18:18 Dose: 1 patch Heparin Sodium (Porcine) (Heparin) 5,000 units SC Q8 [facility]; Protocol Last Admin: 12/25/18 05:48 Dose: 5,000 units Hydromorphone HCl (Dilaudid) 0.5 mg IVP Q3H PRN PRN Reason: Pain, severe (8-10) Lactated Ringer's (Lactated Ringer's) 1,000 mls @ 999 mls/hr IV .Q1H1M [facility] Last Admin: 12/25/18 07:02 Dose: 999 mls/hr [place] Carbonate ([place] Carbonate 300mg) 300 mg PO DAILY [facility] Last Admin: 12/25/18 09:16 Dose: 300 mg Methocarbamol (Robaxin) 1 mg PO QID [facility] Metoprolol Succinate (Toprol Xl) 25 mg PO DAILY [facility] Last Admin: 12/25/18 09:19 Dose: 25 mg Ondansetron HCl (Zofran Inj) 4 mg IVP ONCE PRN PRN Reason: Nausea/Vomiting Oxycodone HCl (Oxycodone Immediate Release Tab) 10 mg PO Q6 PRN PRN Reason: Pain, Mild (1-3) Last Admin: 12/25/18 06:35 Dose: 10 mg Polyethylene Glycol (Miralax) 17 gm PO DAILY [facility] Last Admin: 12/25/18 09:16 Dose: 17 gm Quetiapine Fumarate (Seroquel) 50 mg PO HS [facility] Last Admin: 12/24/18 21:56 Dose: 50 mg - Labs Labs: 12/25/18 06:45 12/25/18 06:45 - Constitutional Appears: Non-toxic, No Acute Distress - Head Exam Head Exam: ATRAUMATIC, NORMAL INSPECTION, NORMOCEPHALIC - ENT Exam ENT Exam: Mucous Membranes Moist - Neck Exam Neck Exam: Full ROM, Normal Inspection - Respiratory Exam Respiratory Exam: NORMAL BREATHING PATTERN - Cardiovascular Exam Cardiovascular Exam: absent: Tachycardia - GI/Abdominal Exam GI & Abdominal Exam: Soft, Tenderness (appropriate for Patient's clinical state ), Normal Bowel Sounds. absent: Distended, Guarding, Rigid, Rebound Additional comments: ostomy with minimal output mucosa pink no ischemia noted - Extremities Exam Extremities Exam: Normal Inspection - Neurological Exam Neurological Exam: Alert, Awake, Oriented x3 - Psychiatric Exam Psychiatric exam: Normal Affect, Normal Mood - Skin Skin Exam: Dry, Intact, Normal Color, Warm Assessment and Plan - Assessment and Plan (Free Text) Assessment: Ms. Urszula Dietz is a 58-year-old F with PMH of obstructive rectal adenocarcinoma with prior loop sigmoid colostomy done for diversion. Patient comes into [facility] with repeated ostomy prolapses. Today she is S/P Colostomy Revision (sigmoid) with Dr. Valadez, POD-1. Plan: - Pain management - Regular Diet - Continue to monitor ostomy output - Resume Robaxin Discussed with Dr. Rory Prince PGY1
[2018-12-25] MEDS ORDERED: Simethicone 80 mg Chewtab PO PRN (11:03)
[2018-12-25] MEDS: HYDROmorphone 0.5 mg/0.5 ml ISec IVP PRN ×3 (13:13→21:59)
[2018-12-25] MEDS: Methocarbamol 500 MG Tab PO SCH ×3 (13:36→21:55)
--- NOTE | 2018-12-25 14:00 | PN ---
DATE: 12/25/2018 SUBJECTIVE: She had her revision or colostomy protrusion fixed with surgery. She is not feeling well this morning, in a lot of pain, was not hungry, no appetite, feels very weak. She is not hungry at all. MEDICATIONS: She is on Colace, calcium, Dilaudid, Duragesic patch which she usually takes for pain, heparin, Klonopin, potassium replacement, lactated Ringer's, lithium, MiraLax, morphine, oxycodone, Seroquel, Toprol, Tylenol, and Zofran. PHYSICAL EXAMINATION: VITAL SIGNS: She had 102.4 temperature last night, 93 pulse, 159/84 blood pressure, 18 respiratory rate, 95% O2 sat. HEAD: Atraumatic, normocephalic. HEART: Regular rate. LUNGS: Decreased breath sounds. ABDOMEN: Decreased bowel sounds, a little discomfort. No guarding or rebound, but the discomfort. LABORATORY DATA: She has sodium 138, potassium 3.5, I replaced that, BUN 7, creatinine 0.5, GFR is greater than 60, sugar is 111, calcium is 10.1. Total bili is 0.4, AST is 22, ALT is 9, alk phos 59, total protein 6. White count up to 16.6, hemoglobin 11.9, hematocrit 37.6, platelets of 371. ASSESSMENT AND PLAN: Now, she is having temperatures of 102.4. Now, her white count is up to 16.6. I called in Infectious Disease she needs to start on intravenous antibiotics and most probably change to an inpatient. I will discuss that with Dr. Valadez and she is having a little infection, I believe. We will see what Dr. Solo says. Continue aggressive treatment and care. Urszula Dietz is status post colostomy protrusion revision. Patrice Alba DO MTDD
[2018-12-26] MEDS: HYDROmorphone 0.5 mg/0.5 ml ISec IVP PRN ×2 (02:52→06:08)
[2018-12-26 07:17] LABS: HEMOGLOBIN 11.7 g/dL (12.0-16.0); MEAN CORPUSCULAR HEMOGLOBIN 28.5 pg (25.0-35.0); MEAN CORPUSCULAR HGB CONC 34.6 g/dl (31.0-37.0); MEAN PLATELET VOLUME 9.5 fl (7.0-11.0); RBC 4.11 10^6/uL (3.5-6.1); RED CELL DISTRIBUTION WIDTH 15.3 % (11.5-14.5); WHITE BLOOD COUNT 17.5 10^3/uL (4.5-11.0)
[2018-12-26 07:33] LABS: ALB/GLOB RATIO 0.8 (1.1-1.8); ALBUMIN 2.8 g/dL (3.0-4.8); ALT/SGPT 13 U/L (7-56); AST/SGOT 18 U/L (14-36); BLOOD UREA NITROGEN 7 mg/dL (7-21); GFR NON-AFRICAN AMERICAN > 60
--- NOTE | 2018-12-26 07:58 | RAD ---
Date of service: 12/25/2018 HISTORY: rule out pneumonia COMPARISON: 12/15/2018 TECHNIQUE: 1 view obtained. FINDINGS: LUNGS: No active pulmonary disease. PLEURA: No significant pleural effusion identified, no pneumothorax apparent. CARDIOVASCULAR: No aortic atherosclerotic calcification present. Normal cardiac size. No pulmonary vascular congestion. OSSEOUS STRUCTURES: No significant abnormalities. VISUALIZED UPPER ABDOMEN: Normal. OTHER FINDINGS: None. IMPRESSION: No active disease.
--- NOTE | 2018-12-26 08:04 | CP.PCM.PN ---
Subjective - Date & Time of Evaluation Date of Evaluation: 12/26/18 Time of Evaluation: 06:55 - Subjective Subjective: General Surgery progress note for Dr. Valadez Patient seen and examined this am at bedside. pain well controlled. ostomy with gas output but no stool as of yet. patient otherwise denies CORREA, CP SOB, f/c, n/v. Patient was febrile overnight. improved with tylenol. Objective - Vital Signs/Intake and Output Vital Signs (last 24 hours): Temp Pulse Resp BP Pulse Ox 100.4 F H 90 18 129/79 93 L 12/25/18 22:00 12/25/18 22:00 12/25/18 22:00 12/25/18 22:00 12/25/18 22:00 - Medications Medications: Current Medications Acetaminophen (Tylenol 325mg Tab) 650 mg PO Q6H PRN PRN Reason: Fever >100.4 F Last Admin: 12/24/18 21:55 Dose: 650 mg Clonazepam (Klonopin) 1 mg PO TID PRN; Protocol PRN Reason: Anxiety Last Admin: 12/25/18 11:17 Dose: 1 mg Docusate Sodium (Colace) 100 mg PO BID [facility] Last Admin: 12/25/18 17:24 Dose: 100 mg Fentanyl (Duragesic) 1 patch TD Q72H [facility] Last Admin: 12/24/18 18:18 Dose: 1 patch Heparin Sodium (Porcine) (Heparin) 5,000 units SC Q8 [facility]; Protocol Last Admin: 12/26/18 06:05 Dose: 5,000 units Hydromorphone HCl (Dilaudid) 0.5 mg IVP Q3H PRN PRN Reason: Pain, severe (8-10) Last Admin: 12/26/18 06:08 Dose: 0.5 mg Piperacillin Sod/Tazobactam Sod (Zosyn 3.375 In Ns 100ml) 100 mls @ 200 mls/hr IVPB Q6 [facility]; Protocol Stop: 01/02/19 00:01 [place] Carbonate ([place] Carbonate 300mg) 300 mg PO DAILY [facility] Last Admin: 12/25/18 09:16 Dose: 300 mg Methocarbamol (Robaxin) 500 mg PO QID [facility] Last Admin: 12/25/18 21:55 Dose: 500 mg Metoprolol Succinate (Toprol Xl) 25 mg PO DAILY [facility] Last Admin: 12/25/18 09:19 Dose: 25 mg Ondansetron HCl (Zofran Inj) 4 mg IVP ONCE PRN PRN Reason: Nausea/Vomiting Oxycodone HCl (Oxycodone Immediate Release Tab) 10 mg PO Q6 PRN PRN Reason: Pain, Mild (1-3) Last Admin: 12/25/18 06:35 Dose: 10 mg Polyethylene Glycol (Miralax) 17 gm PO DAILY [facility] Last Admin: 12/25/18 09:16 Dose: 17 gm Quetiapine Fumarate (Seroquel) 50 mg PO HS [facility] Last Admin: 12/25/18 21:55 Dose: 50 mg Simethicone (Mylicon Chew Tab) 80 mg PO Q6H PRN PRN Reason: GI distress - Labs Labs: 12/26/18 06:20 12/26/18 06:20 - Constitutional Appears: Well, Non-toxic, No Acute Distress - Head Exam Head Exam: ATRAUMATIC - Eye Exam Eye Exam: EOMI - ENT Exam ENT Exam: Mucous Membranes Moist - Respiratory Exam Respiratory Exam: NORMAL BREATHING PATTERN - GI/Abdominal Exam GI & Abdominal Exam: Soft. absent: Guarding, Tenderness, Rebound Additional comments: ostomy pink and patent but with no output gas only - Extremities Exam Extremities Exam: absent: Calf Tenderness, Pedal Edema - Neurological Exam Neurological Exam: Alert, Awake, Oriented x3 - Psychiatric Exam Psychiatric exam: Anxious - Skin Skin Exam: Dry, Intact, Normal Color, Warm Assessment and Plan - Assessment and Plan (Free Text) Assessment: Ms. Urszula Dietz is a 58-year-old F with PMH of obstructive rectal adenocarcinoma with prior loop sigmoid colostomy done for diversion. [place] [facility] [place]omy prolapses. Today she is S/P Colostomy Revision (sigmoid) with Dr. Valadez, POD-2. Plan: - Pain management - Regular Diet - Continue to monitor ostomy output - Fever overnight 100.4 tylenol on for fever reduction Discussed with Dr. Rory Arce, PGY1
[2018-12-26] MEDS: Piperacillin/Tazobact 3.375 gm 100 ML IVPB SCH ×3 (08:47→18:21)
[2018-12-26] MEDS: oxyCODONE 10 mg Immediate Release Tab PO PRN (08:48)
[2018-12-26 08:59] LABS: MEAN CELL VOLUME 88.6 fl (80.0-105.0)
[2018-12-26] MEDS ORDERED: Potassium Chloride 20 mEq ER Tab PO ONE (09:44)
[2018-12-26] MEDS: Metoprolol Succinate 25 mg XL Tab PO SCH (11:15)
[2018-12-26] MEDS: Methocarbamol 500 MG Tab PO SCH ×4 (11:15→22:39)
[2018-12-26] MEDS: POLYETHYLENE GLYCOL 3350 17 GM/Dose PACKET PO SCH (11:15)
--- NOTE | 2018-12-26 11:24 | PN ---
DATE: 12/26/2018 SUBJECTIVE: She is resting comfortably in bed, doing little bit better than yesterday. She had a colostomy protrusion reversal and fixed. MEDICATIONS: She is currently on multiple medications; methotrexate, Robaxin, Colace, Duragesic patch, Klonopin, Mylicon, Seroquel, multivitamin, prednisone, oxycodone, Toprol, lithium, MiraLax, and aspirin. PHYSICAL EXAMINATION: GENERAL: She is weak, frail, no appetite. VITAL SIGNS: She has a 100.4 fever, 90 pulse, 129/79 blood pressure, 18 respiratory rate, and 96% O2 saturation on room air. HEENT: Head is atraumatic and normocephalic. HEART: Regular rate. LUNGS: Decreased breath sounds. ABDOMEN: Tender and mild discomfort. No guarding. No rebound. Colostomy in place. EXTREMITIES: No edema. LABORATORY DATA: She has a 17.5 white count, getting worse, I believe she has an infection; hemoglobin 11.7; hematocrit 33.8 and platelets are 346. 138 sodium, potassium is 3.4, I gave her K-Dur 20 mEq this morning to replace the potassium, BUN 7, creatinine 0.4, GFR is greater than 60, sugar is 95, calcium is 10, total bili is 0.6, AST is 18, ALT is 13, alk phos 52, and total protein 6.1. ASSESSMENT AND PLAN: She is being seen by Surgery, has a consult for Infections Disease. She is currently on Zosyn per Dr. Van, the Infectious Disease doctor the certified ophthalmic surgical assistant told me that they are going to discharge her today. I do not do that with an elevated white count and temperature now of 100.4, on antibiotics that might need to be changed. Chest x-ray done yesterday showed no active disease. We will continue the aggressive treatment and care. She has been on IV antibiotics. Patrice Alba DO [email or web address]
--- NOTE | 2018-12-26 11:36 | CP.PCM.CON ---
<Warren Hernandez - Last Filed: 12/26/18 13:07> History of Present Illness - History of Present Illness History of Present Illness: Warren Hernandez D.O. PGY-3, Internal Medicine Resident, Infectious Disease Consultation Note 58-year-old female with a past medical history of rectal adenocarcinoma status post transverse loop colostomy, COPD, hypertension, chronic anemia, rheumatoid arthritis, possible lung mass who presented for revision of colostomy and became febrile overnight. Infectious disease consultation was requested for these fevers. Patient was seen and examined at bedside. Patient states that she feels very weak at this time. Having some discomfort around the surgical site but otherwise okay. Mild back pain. States taking deep breaths hurts because of the abdominal discomfort but that she has been trying to use her incentive spirometer. Denies any other complaints at this time. Review of Systems - Review of Systems All systems: reviewed and no additional remarkable complaints except (as per HPI) Past Patient History - Infectious Disease Hx of Infectious Diseases: None - Past Social History Smoking Status: Current Some Days Smoker - CARDIAC Hx Cardiac Disorders: Yes Hx Hypertension: Yes Hx Pacemaker: No - PULMONARY Hx Respiratory Disorders: Yes (SMOKES CIGARETTES 1/2 PPD) Hx Chronic Obstructive Pulmonary Disease (COPD): Yes Hx Pneumonia: Yes - NEUROLOGICAL Hx Neurological Disorder: Yes Hx Dizziness: Yes - HEENT Hx HEENT Problems: No - RENAL Hx Chronic Kidney Disease: No - ENDOCRINE/METABOLIC Hx Endocrine Disorders: No - HEMATOLOGICAL/ONCOLOGICAL Hx Blood Disorders: Yes Hx Cancer: Yes (COLON CA) Hx Chemotherapy: Yes - INTEGUMENTARY Hx Dermatological Problems: Yes Other/Comment: COLOSTOMY - MUSCULOSKELETAL/RHEUMATOLOGICAL Hx Musculoskeletal Disorders: Yes (BILATERAL BUNIONECTOMY,HIP FX-ORIF RIGHT) Hx Falls: Yes Hx Unsteady Gait: Yes (WHEELCHAIR) - GASTROINTESTINAL Hx Gastrointestinal Disorders: Yes (CONSTIPATION) Other/Comment: COLOSTOMY - GENITOURINARY/GYNECOLOGICAL Hx Genitourinary Disorders: No - PSYCHIATRIC Hx Psychophysiologic Disorder: Yes (PANIC ATTACKS,PSYCHOSIS) Hx Anxiety: Yes Hx Bipolar Disorder: Yes Hx Emotional Abuse: No Hx Physical Abuse: No Hx Substance Use: No (DENIES) - SURGICAL HISTORY Hx Surgeries: Yes (BILATERAL BUNIONECTOMY,COLOSTOMY,ORIF RIGHT HIP) - ANESTHESIA Hx Anesthesia Reactions: No Hx Malignant Hyperthermia: No Meds Allergies/Adverse Reactions: Allergies Allergy/AdvReac Type Severity Reaction Status Date / Time ibuprofen [From Motrin] Allergy ANAPHYLAXIS Verified 12/24/18 18:52 NSAIDS (Non-Steroidal Allergy SWELLING Verified 12/24/18 18:52 Anti-Inflamma risperidone [From Risperdal] AdvReac DIZZINESS Verified 12/24/18 18:52 - Medications Medications: Current Medications Acetaminophen (Tylenol 325mg Tab) 650 mg PO Q6H PRN PRN Reason: Fever >100.4 F Last Admin: 12/24/18 21:55 Dose: 650 mg Clonazepam (Klonopin) 1 mg PO TID PRN; Protocol PRN Reason: Anxiety Last Admin: 12/25/18 11:17 Dose: 1 mg Docusate Sodium (Colace) 100 mg PO BID [facility] Last Admin: 12/26/18 11:14 Dose: 100 mg Fentanyl (Duragesic) 1 patch TD Q72H [facility] Last Admin: 12/24/18 18:18 Dose: 1 patch Heparin Sodium (Porcine) (Heparin) 5,000 units SC Q8 [facility]; Protocol Last Admin: 12/26/18 06:05 Dose: 5,000 units Piperacillin Sod/Tazobactam Sod (Zosyn 3.375 In Ns 100ml) 100 mls @ 200 mls/hr IVPB Q6 [facility]; Protocol Stop: 01/02/19 00:01 Last Admin: 12/26/18 08:47 Dose: Not Given [place] Carbonate ([place] Carbonate 300mg) 300 mg PO DAILY [facility] Last Admin: 12/26/18 11:15 Dose: 300 mg Methocarbamol (Robaxin) 500 mg PO QID [facility] Last Admin: 12/26/18 11:15 Dose: 500 mg Metoprolol Succinate (Toprol Xl) 25 mg PO DAILY [facility] Last Admin: 12/26/18 11:15 Dose: 25 mg Ondansetron HCl (Zofran Inj) 4 mg IVP ONCE PRN PRN Reason: Nausea/Vomiting Oxycodone HCl (Oxycodone Immediate Release Tab) 10 mg PO Q6 PRN PRN Reason: Pain, Mild (1-3) Last Admin: 12/26/18 08:48 Dose: 10 mg Polyethylene Glycol (Miralax) 17 gm PO DAILY [facility] Last Admin: 12/26/18 11:15 Dose: 17 gm Quetiapine Fumarate (Seroquel) 50 mg PO HS [facility] Last Admin: 12/25/18 21:55 Dose: 50 mg Simethicone (Mylicon Chew Tab) 80 mg PO Q6H PRN PRN Reason: GI distress Physical Exam - Constitutional Appears: Cachectic, Chronically Ill - Head Exam Head Exam: ATRAUMATIC, NORMOCEPHALIC - Eye Exam Eye Exam: absent: Scleral icterus - ENT Exam ENT Exam: Mucous Membranes Moist, Normal Oropharynx - Neck Exam Neck exam: Positive for: Normal Inspection - Respiratory Exam Respiratory Exam: absent: Rhonchi, Wheezes - Cardiovascular Exam Cardiovascular Exam: +S1, +S2. absent: Rubs - GI/Abdominal Exam GI & Abdominal Exam: Soft, Tenderness (mild throughout). absent: Distended - Extremities Exam Extremities exam: Negative for: calf tenderness, pedal edema - Neurological Exam Neurological exam: Alert, Oriented x3 - Skin Skin Exam: Dry, Warm Results - Vital Signs Recent Vital Signs: Last Vital Signs Temp 99.7 F H 12/26/18 10:02 Pulse 95 H 12/26/18 11:15 Resp 18 12/26/18 10:02 BP 135/79 12/26/18 11:15 Pulse Ox 95 12/26/18 10:02 - Labs Result Diagrams: 12/26/18 06:20 12/26/18 06:20 Labs: Laboratory Results - last 24 hr 12/26/18 12/26/18 06:20 06:20 WBC 17.5 H RBC 4.11 Hgb 11.7 L Hct 33.8 L MCV 88.6 MCH 28.5 MCHC 34.6 RDW 15.3 H Plt Count 346 MPV 9.5 Sodium 138 Potassium 3.4 L Chloride 107 Carbon Dioxide 25 Anion Gap 10 BUN 7 Creatinine 0.5 L Est GFR ( Amer) > 60 Est GFR (Non-Af Amer) > 60 Random Glucose 95 Calcium 10.0 Total Bilirubin 0.6 AST 18 ALT 13 Alkaline Phosphatase 62 Total Protein 6.1 Albumin 2.8 L Globulin 3.4 Albumin/Globulin Ratio 0.8 L Assessment & Plan - Assessment and Plan (Free Text) Assessment: 58-year-old female with a past medical history of rectal adenocarcinoma status post transverse loop colostomy, COPD, hypertension, chronic anemia, rheumatoid arthritis, possible lung mass who presented for revision of colostomy and became febrile overnight. Infectious disease consultation was requested for these fevers. Plan: SIRS 4/4 with fevers, tachycardia, tachypnea and leukocytosis with unclear sour ce, possibly intraabdominal vs urinary Rectal adenocarcinoma status post transverse loop colostomy COPD Hypertension Rheumatoid arthritis Chronic anemia Chronologically, given that the fevers were only about 10 hours postop, the likelihood is that whatever the source is was present before the patient is surgery Review of the chart shows that the patient had E. coli in the urine on 11/30/18 We will order a urinalysis with urine culture now Blood cultures were drawn CXR normal Empirically on Zosyn Encouraged to use of incentive spirometer Recommend physical therapy evaluation We will follow with you Patient was seen and examined and case to be discussed with attending physician Thank you for the pleasure participating in the care of this interesting patient - Date & Time Date: 12/26/18 Time: 09:35 <Shahriar Van - Last Filed: 12/26/18 22:55> Meds - Medications Medications: Current Medications Acetaminophen (Tylenol 325mg Tab) 650 mg PO Q6H PRN PRN Reason: Fever >100.4 F Last Admin: 12/26/18 20:24 Dose: 650 mg Clonazepam (Klonopin) 1 mg PO TID PRN; Protocol PRN Reason: Anxiety Last Admin: 12/25/18 11:17 Dose: 1 mg Docusate Sodium (Colace) 100 mg PO BID [facility] Last Admin: 12/26/18 18:20 Dose: 100 mg Fentanyl (Duragesic) 1 patch TD Q72H [facility] Last Admin: 12/24/18 18:18 Dose: 1 patch Heparin Sodium (Porcine) (Heparin) 5,000 units SC Q8 [facility]; Protocol Last Admin: 12/26/18 22:35 Dose: 5,000 units Meropenem (Merrem Iv 1 Gm Premix) 50 mls @ 100 mls/hr IVPB Q8 [facility]; Protocol Stop: 01/02/19 23:01 Vancomycin HCl (Vancomycin 1gm) 1 gm in 250 mls @ 167 mls/hr IVPB Q12H [facility]; Protocol [place] Carbonate ([place] Carbonate 300mg) 300 mg PO DAILY [facility] Last Admin: 12/26/18 11:15 Dose: 300 mg Methocarbamol (Robaxin) 500 mg PO QID [facility] Last Admin: 12/26/18 22:39 Dose: 500 mg Metoprolol Succinate (Toprol Xl) 25 mg PO DAILY [facility] Last Admin: 12/26/18 11:15 Dose: 25 mg Morphine Sulfate (Morphine) 2 mg IVP Q3H PRN PRN Reason: Pain, severe (8-10) Last Admin: 12/26/18 22:35 Dose: 2 mg Ondansetron HCl (Zofran Inj) 4 mg IVP ONCE PRN PRN Reason: Nausea/Vomiting Oxycodone HCl (Oxycodone Immediate Release Tab) 10 mg PO Q6 PRN PRN Reason: Pain, Mild (1-3) Last Admin: 12/26/18 08:48 Dose: 10 mg Polyethylene Glycol (Miralax) 17 gm PO DAILY [facility] Last Admin: 12/26/18 11:15 Dose: 17 gm Quetiapine Fumarate (Seroquel) 50 mg PO HS [facility] Last Admin: 12/26/18 22:36 Dose: 50 mg Simethicone (Mylicon Chew Tab) 80 mg PO Q6H PRN PRN Reason: GI distress Results - Vital Signs Recent Vital Signs: Last Vital Signs Temp 101.1 F H 12/26/18 22:28 Pulse 98 H 12/26/18 22:28 Resp 20 12/26/18 22:28 BP 123/76 12/26/18 22:28 Pulse Ox 91 L 12/26/18 22:28 - Labs Result Diagrams: 12/26/18 06:20 12/26/18 06:20 Labs: Laboratory Results - last 24 hr 12/25/18 12/26/18 12/26/18 23:00 06:20 06:20 WBC 17.5 H RBC 4.11 Hgb 11.7 L Hct 33.8 L MCV 88.6 MCH 28.5 MCHC 34.6 RDW 15.3 H Plt Count 346 MPV 9.5 Sodium 138 Potassium 3.4 L Chloride 107 Carbon Dioxide 25 Anion Gap 10 BUN 7 Creatinine 0.5 L Est GFR ( Amer) > 60 Est GFR (Non-Af Amer) > 60 Random Glucose 95 Calcium 10.0 Total Bilirubin 0.6 AST 18 ALT 13 Alkaline Phosphatase 62 Total Protein 6.1 Albumin 2.8 L Globulin 3.4 Albumin/Globulin Ratio 0.8 L Procalcitonin 0.11 L Assessment & Plan - Assessment and Plan (Free Text) Plan: Infectious Diseases Attending Physician Attestation Patient seen and examined at bedside, discussed with chief medical physicist. I have reviewed the HPI, ROS, personal, family, social histories, physical examination findings. I have also reviewed the pertinent labs and diagnostic imaging. I have fully participiated in the care of this patient. I agree with the above findings , assessment, plan. In addition, patient with SIRS and post-op fevers after revision of colostomy, R/O sepsis from intra-abdominal infection. Initially she was started on Zosyn but due to persistent fevers, will switch to Vancomycin and Merrem and will follow up blood, urine cx and monitor fever curve.
[2018-12-26] MEDS: Morphine 2 mg/ml ISec IVP PRN ×3 (14:19→22:35)
[2018-12-26] MEDS: Meropenem IV 1 gm in NS 1 GM/50 ML BAG IVPB SCH (23:52)
[2018-12-27] MEDS: Vancomycin 1gm in NS 250ml 1 GM/250 ML BAG IVPB SCH ×3 (00:32→23:07)
[2018-12-27] MEDS: Morphine 2 mg/ml ISec IVP PRN ×6 (01:31→23:08)
[2018-12-27] MEDS: Meropenem IV 1 gm in NS 1 GM/50 ML BAG IVPB SCH ×3 (05:45→22:03)
[2018-12-27 07:21] LABS: HEMOGLOBIN 11.3 g/dL (12.0-16.0); MEAN CELL VOLUME 89.3 fl (80.0-105.0); MEAN CORPUSCULAR HEMOGLOBIN 28.2 pg (25.0-35.0); MEAN CORPUSCULAR HGB CONC 31.6 g/dl (31.0-37.0); RBC 4.01 10^6/uL (3.5-6.1); RED CELL DISTRIBUTION WIDTH 15.3 % (11.5-14.5); WHITE BLOOD COUNT 14.4 10^3/uL (4.5-11.0)
[2018-12-27 07:43] LABS: ALB/GLOB RATIO 0.9 (1.1-1.8); ALT/SGPT 12 U/L (7-56); AST/SGOT 15 U/L (14-36); BLOOD UREA NITROGEN 8 mg/dL (7-21); CALCIUM 10.4 mg/dL (8.4-10.5); GFR NON-AFRICAN AMERICAN > 60
--- NOTE | 2018-12-27 09:35 | CP.PCM.PN ---
Subjective - Date & Time of Evaluation Date of Evaluation: 12/27/18 Time of Evaluation: 06:30 - Subjective Subjective: Surgery Progress note. Dr. Valadez Pt seen and examined at bedside. No acute events overnight. Patient still reports pain which is babar-incisional. Denies N/V/D. Does have stool output in ostomy. Has been febrile overnight, Tmax 101.1F. On Antibiotics. Objective - Vital Signs/Intake and Output Vital Signs (last 24 hours): Temp Pulse Resp BP Pulse Ox 98.2 F 92 H 20 119/70 94 L 12/27/18 06:00 12/27/18 06:00 12/27/18 06:00 12/27/18 06:00 12/27/18 06:00 Intake and Output: 12/27/18 12/27/18 06:59 18:59 Intake Total 840 Balance 840 - Medications Medications: Current Medications Acetaminophen (Tylenol 325mg Tab) 650 mg PO Q6H PRN PRN Reason: Fever >100.4 F Last Admin: 12/26/18 20:24 Dose: 650 mg Clonazepam (Klonopin) 1 mg PO TID PRN; Protocol PRN Reason: Anxiety Last Admin: 12/25/18 11:17 Dose: 1 mg Docusate Sodium (Colace) 100 mg PO BID [facility] Last Admin: 12/26/18 18:20 Dose: 100 mg Fentanyl (Duragesic) 1 patch TD Q72H [facility] Last Admin: 12/24/18 18:18 Dose: 1 patch Heparin Sodium (Porcine) (Heparin) 5,000 units SC Q8 [facility]; Protocol Last Admin: 12/27/18 05:45 Dose: 5,000 units Meropenem (Merrem Iv 1 Gm Premix) 1 gm in 50 mls @ 100 mls/hr IVPB Q8 [facility]; Protocol Stop: 01/02/19 23:01 Last Admin: 12/27/18 05:45 Dose: 100 mls/hr Vancomycin HCl (Vancomycin 1gm) 1 gm in 250 mls @ 167 mls/hr IVPB Q12H [facility]; Protocol Last Admin: 12/27/18 00:32 Dose: 167 mls/hr [place] Carbonate ([place] Carbonate 300mg) 300 mg PO DAILY [facility] Last Admin: 12/26/18 11:15 Dose: 300 mg Methocarbamol (Robaxin) 500 mg PO QID [facility] Last Admin: 12/26/18 22:39 Dose: 500 mg Metoprolol Succinate (Toprol Xl) 25 mg PO DAILY [facility] Last Admin: 12/26/18 11:15 Dose: 25 mg Morphine Sulfate (Morphine) 2 mg IVP Q3H PRN PRN Reason: Pain, severe (8-10) Last Admin: 12/27/18 08:07 Dose: 2 mg Ondansetron HCl (Zofran Inj) 4 mg IVP ONCE PRN PRN Reason: Nausea/Vomiting Oxycodone HCl (Oxycodone Immediate Release Tab) 10 mg PO Q6 PRN PRN Reason: Pain, Mild (1-3) Last Admin: 12/26/18 08:48 Dose: 10 mg Polyethylene Glycol (Miralax) 17 gm PO DAILY [facility] Last Admin: 12/26/18 11:15 Dose: 17 gm Quetiapine Fumarate (Seroquel) 50 mg PO HS [facility] Last Admin: 12/26/18 22:36 Dose: 50 mg Simethicone (Mylicon Chew Tab) 80 mg PO Q6H PRN PRN Reason: GI distress - Labs Labs: 12/27/18 06:45 12/27/18 06:45 - Constitutional Appears: Well, Non-toxic, No Acute Distress - Head Exam Head Exam: ATRAUMATIC, NORMAL INSPECTION, NORMOCEPHALIC - Eye Exam Eye Exam: EOMI, Normal appearance. absent: Scleral icterus - ENT Exam ENT Exam: Mucous Membranes Moist - Respiratory Exam Respiratory Exam: NORMAL BREATHING PATTERN. absent: Accessory Muscle Use, Respiratory Distress - Cardiovascular Exam Cardiovascular Exam: RRR. absent: JVD - GI/Abdominal Exam GI & Abdominal Exam: Soft. absent: Distended, Firm, Rebound Additional comments: Ostomy in place with stool output noted. Abd soft. Periincisional tenderness to palpation - Rectal Exam Rectal Exam: NORMAL INSPECTION - Extremities Exam Extremities Exam: Normal Inspection. absent: Calf Tenderness - Back Exam Back Exam: NORMAL INSPECTION - Neurological Exam Neurological Exam: Alert, Awake, Oriented x3 - Psychiatric Exam Psychiatric exam: Normal Affect, Normal Mood - Skin Skin Exam: Dry, Intact, Normal Color, Warm Assessment and Plan - Assessment and Plan (Free Text) Assessment: 58yo F s/p revision of loop sigmoid colostomy for prolapse, s/p End sigmoid colostomy with mucous fistula. POD 3. Complicated with post-op fevers. Plan: - f/u ID recs and treatment, Appreciate recommendations - Procal negative, f/u cultures - Ostomy functioning - Continue diet - Pain management Further recs as per Dr. Rory Hi PGY2 surgery
[2018-12-27] MEDS: POLYETHYLENE GLYCOL 3350 17 GM/Dose PACKET PO SCH (11:02)
[2018-12-27] MEDS: Methocarbamol 500 MG Tab PO SCH ×4 (11:03→22:06)
[2018-12-27] MEDS: Metoprolol Succinate 25 mg XL Tab PO SCH (11:03)
--- NOTE | 2018-12-27 11:45 | CP.PCM.PN ---
<Warren Hernandez - Last Filed: 12/27/18 11:38> Subjective - Date & Time of Evaluation Date of Evaluation: 12/27/18 Time of Evaluation: 07:55 - Subjective Subjective: Warren Hernandez D.O. PGY-3, Internal Medicine Resident, Infectious Disease Progress Note 58-year-old female with a past medical history of rectal adenocarcinoma status post transverse loop colostomy, COPD, hypertension, chronic anemia, rheumatoid arthritis, possible lung mass who presented for revision of colostomy and became febrile overnight. Infectious disease consultation was requested for these fevers. Patient was seen and examined at bedside. States that she is still having some abdominal discomfort. No urinary issues, states that she did give a sample to the nurse yesterday. Objective - Vital Signs/Intake and Output Vital Signs (last 24 hours): Temp Pulse Resp BP Pulse Ox 98.2 F 86 20 119/70 94 L 12/27/18 06:00 12/27/18 11:03 12/27/18 06:00 12/27/18 11:03 12/27/18 06:00 Intake and Output: 12/27/18 12/27/18 06:59 18:59 Intake Total 840 Balance 840 - Medications Medications: Current Medications Acetaminophen (Tylenol 325mg Tab) 650 mg PO Q6H PRN PRN Reason: Fever >100.4 F Last Admin: 12/26/18 20:24 Dose: 650 mg Clonazepam (Klonopin) 1 mg PO TID PRN; Protocol PRN Reason: Anxiety Last Admin: 12/25/18 11:17 Dose: 1 mg Docusate Sodium (Colace) 100 mg PO BID VU Last Admin: 12/27/18 11:03 Dose: 100 mg Fentanyl (Duragesic) 1 patch TD Q72H VU Last Admin: 12/24/18 18:18 Dose: 1 patch Heparin Sodium (Porcine) (Heparin) 5,000 units SC Q8 VU; Protocol Last Admin: 12/27/18 05:45 Dose: 5,000 units Meropenem (Merrem Iv 1 Gm Premix) 1 gm in 50 mls @ 100 mls/hr IVPB Q8 VU; Protocol Stop: 01/02/19 23:01 Last Admin: 12/27/18 05:45 Dose: 100 mls/hr Vancomycin HCl (Vancomycin 1gm) 1 gm in 250 mls @ 167 mls/hr IVPB Q12H [facility]; Pr otocol Last Admin: 12/27/18 11:03 Dose: 167 mls/hr [place] Carbonate ([place] Carbonate 300mg) 300 mg PO DAILY [facility] Last Admin: 12/27/18 11:03 Dose: 300 mg Methocarbamol (Robaxin) 500 mg PO QID [facility] Last Admin: 12/27/18 11:03 Dose: 500 mg Metoprolol Succinate (Toprol Xl) 25 mg PO DAILY [facility] Last Admin: 12/27/18 11:03 Dose: 25 mg Morphine Sulfate (Morphine) 2 mg IVP Q3H PRN PRN Reason: Pain, severe (8-10) Last Admin: 12/27/18 08:07 Dose: 2 mg Ondansetron HCl (Zofran Inj) 4 mg IVP ONCE PRN PRN Reason: Nausea/Vomiting Oxycodone HCl (Oxycodone Immediate Release Tab) 10 mg PO Q6 PRN PRN Reason: Pain, Mild (1-3) Last Admin: 12/26/18 08:48 Dose: 10 mg Polyethylene Glycol (Miralax) 17 gm PO DAILY [facility] Last Admin: 12/27/18 11:02 Dose: 17 gm Quetiapine Fumarate (Seroquel) 50 mg PO HS [facility] Last Admin: 12/26/18 22:36 Dose: 50 mg Simethicone (Mylicon Chew Tab) 80 mg PO Q6H PRN PRN Reason: GI distress - Labs Labs: 12/27/18 06:45 12/27/18 06:45 - Constitutional Appears: Cachectic, Chronically Ill female - Head Exam Head Exam: ATRAUMATIC, NORMOCEPHALIC - Eye Exam Eye Exam: absent: Scleral icterus - ENT Exam ENT Exam: Mucous Membranes Moist, poor dentition - Neck Exam Neck exam: Positive for: Normal Inspection - Respiratory Exam Respiratory Exam: absent: Rhonchi, Wheezes - Cardiovascular Exam Cardiovascular Exam: +S1, +S2. absent: Rubs - GI/Abdominal Exam GI & Abdominal Exam: Soft, Tenderness (mild throughout). absent: Distended - Extremities Exam Extremities exam: Negative for: calf tenderness, pedal edema - Neurological Exam Neurological exam: Alert, Oriented x4 - Skin Skin Exam: Dry, Warm Assessment and Plan - Assessment and Plan (Free Text) Assessment: 58-year-old female with a past medical history of rectal adenocarcinoma status post transverse loop colostomy, COPD, hypertension, chronic anemia, rheumatoid arthritis, possible lung mass who presented for revision of colostomy and became febrile overnight. Infectious disease consultation was requested for these fevers. Plan: SIRS 4/4 with fevers, tachycardia, tachypnea and leukocytosis with unclear source, possibly intraabdominal vs urinary Rectal adenocarcinoma status post transverse loop colostomy COPD Hypertension Rheumatoid arthritis Chronic anemia Febrile again overnight Discussed with nurse to get UA and UC and S Blood cultures negative 2/2 day 1 Discontinue Zosyn started merrem and vanco Continue to encouraged to use incentive spirometer Pt eval placed We will follow with you Patient was seen and examined and case to be discussed with attending physician Thank you for the pleasure participating in the care of this interesting patient <Anton Solo - Last Filed: 12/27/18 12:14> Objective - Vital Signs/Intake and Output Vital Signs (last 24 hours): Temp Pulse Resp BP Pulse Ox 98.2 F 86 20 119/70 94 L 12/27/18 06:00 12/27/18 11:03 12/27/18 06:00 12/27/18 11:03 12/27/18 06:00 Intake and Output: 12/27/18 12/27/18 06:59 18:59 Intake Total 840 Balance 840 - Medications Medications: Current Medications Acetaminophen (Tylenol 325mg Tab) 650 mg PO Q6H PRN PRN Reason: Fever >100.4 F Last Admin: 12/26/18 20:24 Dose: 650 mg Clonazepam (Klonopin) 1 mg PO TID PRN; Protocol PRN Reason: Anxiety Last Admin: 12/25/18 11:17 Dose: 1 mg Docusate Sodium (Colace) 100 mg PO BID VU Last Admin: 12/27/18 11:03 Dose: 100 mg Fentanyl (Duragesic) 1 patch TD Q72H VU Last Admin: 12/24/18 18:18 Dose: 1 patch Heparin Sodium (Porcine) (Heparin) 5,000 units SC Q8 VU; Protocol Last Admin: 12/27/18 05:45 Dose: 5,000 units Meropenem (Merrem Iv 1 Gm Premix) 1 gm in 50 mls @ 100 mls/hr IVPB Q8 VU; Protocol Stop: 01/02/19 23:01 Last Admin: 12/27/18 05:45 Dose: 100 mls/hr Vancomycin HCl (Vancomycin 1gm) 1 gm in 250 mls @ 167 mls/hr IVPB Q12H [facility]; Protocol Last Admin: 12/27/18 11:03 Dose: 167 mls/hr [place] Carbonate ([place] Carbonate 300mg) 300 mg PO DAILY [facility] Last Admin: 12/27/18 11:03 Dose: 300 mg Methocarbamol (Robaxin) 500 mg PO QID [facility] Last Admin: 12/27/18 11:03 Dose: 500 mg Metoprolol Succinate (Toprol Xl) 25 mg PO DAILY [facility] Last Admin: 12/27/18 11:03 Dose: 25 mg Morphine Sulfate (Morphine) 2 mg IVP Q3H PRN PRN Reason: Pain, severe (8-10) Last Admin: 12/27/18 08:07 Dose: 2 mg Ondansetron HCl (Zofran Inj) 4 mg IVP ONCE PRN PRN Reason: Nausea/Vomiting Oxycodone HCl (Oxycodone Immediate Release Tab) 10 mg PO Q6 PRN PRN Reason: Pain, Mild (1-3) Last Admin: 12/26/18 08:48 Dose: 10 mg Polyethylene Glycol (Miralax) 17 gm PO DAILY [facility] Last Admin: 12/27/18 11:02 Dose: 17 gm Quetiapine Fumarate (Seroquel) 50 mg PO HS [facility] Last Admin: 12/26/18 22:36 Dose: 50 mg Simethicone (Mylicon Chew Tab) 80 mg PO Q6H PRN PRN Reason: GI distress - Labs Labs: 12/27/18 06:45 12/27/18 06:45 Attending/Attestation - Attestation I have personally seen and examined this patient.: Yes I have fully participated in the care of the patient.: Yes I have reviewed all pertinent clinical information, including history, physical exam and plan: Yes
--- NOTE | 2018-12-27 14:52 | PN ---
DATE: 12/27/2018 SUBJECTIVE: This is the first day, she might start to feel a little bit better overall. She is feeling miserable, in lot of pain from the procedure done by surgery for the colostomy protrusion fix. She is on Colace, Dilaudid which was a stat dose, Duragesic patch, heparin, potassium and lithium, Merrem IV, MiraLax, morphine, simethicone, oxycodone, Robaxin, Seroquel, Tylenol, Toprol, vancomycin, and Zofran. PHYSICAL EXAMINATION: VITAL SIGNS: She has a 101.1 temperature, 92 pulse, 119/70 blood pressure, 20 respiratory rate, 94% O2 sat on nasal cannula. HEENT: Head is atraumatic, normocephalic. HEART: Regular rate. LUNGS: Decreased breath sounds, but clear. ABDOMEN: She has got a working colostomy. Soft, decreased bowel sounds. EXTREMITIES: No edema. She is in pain. LABORATORY DATA: She has a 139 sodium, potassium 3.6, BUN is 8, creatinine 0.5, GFR is greater than 60, sugar is 107, calcium is 10.4, total bili is 0.3, AST is 50, ALT is 12, alk phos is 53, total protein 6.2. Procalcitonin is 0.11. White count is coming down to 14.4 with antibiotics, 11.3 hemoglobin, 35.8 hematocrit with 350 platelets. No growth in the blood so far. Waiting for urine to come back. Chest x-ray was okay. ASSESSMENT AND PLAN: I will talk with Infectious Disease about this and we will continue with her treatment and intravenous antibiotics, watching the white count come down, and her temperature bothers me at 101.4 last night, still going up. Patrice Alba DO
[2018-12-27] MEDS: oxyCODONE 10 mg Immediate Release Tab PO PRN (15:00)
[2018-12-27 16:17] LABS: URINE APPEARANCE SLIGHT-CLOUDY (CLEAR); URINE BILIRUBIN NEGATIVE (NEGATIVE); URINE BLOOD SMALL (NEGATIVE); URINE COLOR LIGHT YELLOW (YELLOW); URINE GLUCOSE (UA) NEGATIVE (NEGATIVE); URINE LEUKOCYTE ESTERASE LARGE Leu/uL (NEGATIVE); URINE PROTEIN NEGATIVE mg/dL (<30 mg/dL)
[2018-12-27 16:22] LABS: URINE BACTERIA TRACE /hpf; URINE EPITHELIAL CELLS 0 - 2 /hpf (0-5)
[2018-12-28] MEDS: Meropenem IV 1 gm in NS 1 GM/50 ML BAG IVPB SCH ×3 (05:39→22:24)
[2018-12-28] MEDS: Morphine 2 mg/ml ISec IVP PRN ×5 (05:53→23:33)
[2018-12-28 08:06] LABS: ALB/GLOB RATIO 0.9 (1.1-1.8); ALBUMIN 2.9 g/dL (3.0-4.8); ALT/SGPT 8 U/L (7-56); AST/SGOT 16 U/L (14-36); BLOOD UREA NITROGEN 6 mg/dL (7-21); CALCIUM 10.5 mg/dL (8.4-10.5); GFR NON-AFRICAN AMERICAN > 60
[2018-12-28 08:42] LABS: HEMOGLOBIN 10.6 g/dL (12.0-16.0); MEAN CELL VOLUME 89.4 fl (80.0-105.0); MEAN CORPUSCULAR HEMOGLOBIN 28.7 pg (25.0-35.0); MEAN CORPUSCULAR HGB CONC 32.1 g/dl (31.0-37.0); MEAN PLATELET VOLUME 10.3 fl (7.0-11.0); RBC 3.69 10^6/uL (3.5-6.1); RED CELL DISTRIBUTION WIDTH 15.3 % (11.5-14.5); WHITE BLOOD COUNT 14.7 10^3/uL (4.5-11.0)
[2018-12-28] MEDS ORDERED: Potassium Chloride 20 mEq ER Tab PO ONE (10:09)
--- NOTE | 2018-12-28 10:15 | CP.PCM.PN ---
Subjective - Date & Time of Evaluation Date of Evaluation: 12/28/18 Time of Evaluation: 06:45 - Subjective Subjective: Surgery Progress note. Dr. Valadez Pt seen and examined at bedside. No acute events overnight. Tmax 100.1F overnight. Still with stool output noted in colostomy. Still reports some abdominal pain. No N/V. States that she feels weak and would like some therapy. No new complaints. Objective - Vital Signs/Intake and Output Vital Signs (last 24 hours): Temp Pulse Resp BP Pulse Ox 97.9 F 85 20 133/77 95 12/28/18 06:00 12/28/18 06:00 12/28/18 06:00 12/28/18 06:00 12/28/18 06:00 Intake and Output: 12/28/18 12/28/18 06:59 18:59 Intake Total 900 Balance 900 - Medications Medications: Current Medications Acetaminophen (Tylenol 325mg Tab) 650 mg PO Q6H PRN PRN Reason: Fever >100.4 F Last Admin: 12/26/18 20:24 Dose: 650 mg Clonazepam (Klonopin) 1 mg PO TID PRN; Protocol PRN Reason: Anxiety Last Admin: 12/25/18 11:17 Dose: 1 mg Docusate Sodium (Colace) 100 mg PO BID VU Last Admin: 12/27/18 19:07 Dose: 100 mg Fentanyl (Duragesic) 1 patch TD Q72H VU Last Admin: 12/27/18 19:07 Dose: 1 patch Heparin Sodium (Porcine) (Heparin) 5,000 units SC Q8 VU; Protocol Last Admin: 12/28/18 05:44 Dose: 5,000 units Meropenem (Merrem Iv 1 Gm Premix) 1 gm in 50 mls @ 100 mls/hr IVPB Q8 VU; Protocol Stop: 01/02/19 23:01 Last Admin: 12/28/18 05:39 Dose: 100 mls/hr Vancomycin HCl (Vancomycin 1gm) 1 gm in 250 mls @ 167 mls/hr IVPB Q12H VU; Protocol Last Admin: 12/27/18 23:07 Dose: 167 mls/hr [place] Carbonate ([place] Carbonate 300mg) 300 mg PO DAILY [facility]U Last Admin: 12/27/18 11:03 Dose: 300 mg Methocarbamol (Robaxin) 500 mg PO QID VU Last Admin: 12/27/18 22:06 Dose: 500 mg Metoprolol Succinate (Toprol Xl) 25 mg PO DAILY [facility] Last Admin: 12/27/18 11:03 Dose: 25 mg Morphine Sulfate (Morphine) 2 mg IVP Q3H PRN PRN Reason: Pain, severe (8-10) Last Admin: 12/28/18 05:53 Dose: 2 mg Ondansetron HCl (Zofran Inj) 4 mg IVP ONCE PRN PRN Reason: Nausea/Vomiting Oxycodone HCl (Oxycodone Immediate Release Tab) 10 mg PO Q6 PRN PRN Reason: Pain, Mild (1-3) Last Admin: 12/27/18 15:00 Dose: 10 mg Polyethylene Glycol (Miralax) 17 gm PO DAILY [facility] Last Admin: 12/27/18 11:02 Dose: 17 gm Potassium Chloride (K-Dur 20 Meq Er Tab) 20 meq PO ONCE ONE Stop: 12/28/18 10:10 Quetiapine Fumarate (Seroquel) 50 mg PO HS [facility] Last Admin: 12/27/18 22:01 Dose: 50 mg Simethicone (Mylicon Chew Tab) 80 mg PO Q6H PRN PRN Reason: GI distress - Labs Labs: 12/28/18 07:20 12/28/18 07:20 - Constitutional Appears: Well, No Acute Distress - Head Exam Head Exam: ATRAUMATIC, NORMAL INSPECTION, NORMOCEPHALIC - Eye Exam Eye Exam: EOMI, Normal appearance. absent: Scleral icterus - ENT Exam ENT Exam: Mucous Membranes Moist - Respiratory Exam Respiratory Exam: NORMAL BREATHING PATTERN. absent: Accessory Muscle Use, Respiratory Distress - Cardiovascular Exam Cardiovascular Exam: absent: JVD - GI/Abdominal Exam GI & Abdominal Exam: Soft. absent: Distended, Guarding Additional comments: Ostomy functioning, stool output noted. - Extremities Exam Extremities Exam: Normal Inspection. absent: Calf Tenderness - Neurological Exam Neurological Exam: Alert, Awake, Oriented x3 - Psychiatric Exam Psychiatric exam: Normal Affect, Normal Mood - Skin Skin Exam: Dry, Intact, Normal Color, Warm Assessment and Plan - Assessment and Plan (Free Text) Assessment: 58yo F s/p revision of loop sigmoid colostomy for prolapse, s/p end sigmoid colostomy with mucous fistula. POD 4. Complicated with post-op fevers. Plan: - PT eval and treat - f/u ID recs - f/u medicine recs - Ostomy patent - continue diet - pain control Further recs as per Dr. Rory Hi PGY2 surgery
[2018-12-28] MEDS: Methocarbamol 500 MG Tab PO SCH ×4 (10:50→22:25)
[2018-12-28] MEDS: Metoprolol Succinate 25 mg XL Tab PO SCH (10:50)
[2018-12-28] MEDS: POLYETHYLENE GLYCOL 3350 17 GM/Dose PACKET PO SCH (10:50)
[2018-12-28] MEDS: Vancomycin 1gm in NS 250ml 1 GM/250 ML BAG IVPB SCH ×2 (11:12→23:33)
--- NOTE | 2018-12-28 13:20 | PN ---
DATE: 12/28/2018 SUBJECTIVE: She is resting in bed. Pain is still there. She is moving a little bit better in bed, still quite weak. MEDICATIONS: She is on Colace, Duragesic patch, heparin, Klonopin, lithium, Merrem IV, MiraLax, morphine, Mylicon, oxycodone, Robaxin, Seroquel, Toprol, Tylenol, vancomycin, and Zofran. OBJECTIVE: VITAL SIGNS: She has a 97.9 temperature, 85 pulse. Last night she had a 100.1 temperature, 97.9 best she has been, 133/77 blood pressure, 20 respiratory rate, 95% O2 sat on room air. This is the first day I think she is actually turning the corner. HEENT: Head is atraumatic, normocephalic. HEART: Regular rate. LUNGS: Decreased breath sounds, but clear. ABDOMEN: Colostomy working and soft. EXTREMITIES: No edema. LABORATORY DATA: The blood is less tender white count is 14.7, still high, but better, 10.6 hemoglobin, 33 hematocrit with 386 platelets. Sodium 139, potassium 3.2, I will replace the potassium. BUN 6, creatinine 0.5, GFR is greater than 60, sugar is 102, calcium 10.5, total bili is 0.4, AST is 16, ALT is 8, alk phos 61, total protein 6.1. Urine was large leukocytes. ASSESSMENT AND PLAN: She is being seen by Infectious Disease, Surgery. He did colostomy protrusion revision as per surgery. As per Infectious Disease, continue IV antibiotics a few more days. Checking her labs tomorrow. I need Physical Therapy to see her out of bed to chair. We will continue with aggressive treatment and care. Patrice Alba DO MTDD
--- NOTE | 2018-12-29 00:15 | PN ---
DATE: 12/28/2018 SUBJECTIVE: The patient is in bed, in no acute distress, nontoxic. PHYSICAL EXAMINATION: VITAL SIGNS: Temperature is 99, T-max yesterday was 100.1, blood pressure is 103/60, respiratory rate of 20, and heart rate of 85. HEENT: Unremarkable. NECK: Supple. LUNGS: Have decreased breath sounds. HEART: Normal S1 and S2. ABDOMEN: Soft. LABORATORY DATA: Reveals a white count of 14,700. Chemistries are noted. Procalcitonin is 0.11. Urinalysis is noted. Microbiology reveals the blood cultures are negative. Urine cultures are negative. MEDICATIONS: Review of orders reveals the patient to be on meropenem and vancomycin. ASSESSMENT AND PLAN: This is a 58-year-old female with rectal adenocarcinoma status post transverse loop colostomy, chronic obstructive pulmonary disease, hypertension, chronic anemia, rheumatoid arthritis, lung mass with systemic inflammatory response syndrome, postop fevers and leukocytosis, must rule out underlying collection consider a CAT scan of the abdomen and pelvis. We will follow WBC. Currently on vancomycin and meropenem. Anton Solo MD
[2018-12-29] MEDS: Meropenem IV 1 gm in NS 1 GM/50 ML BAG IVPB SCH ×3 (05:46→21:30)
[2018-12-29] MEDS: Morphine 2 mg/ml ISec IVP PRN ×5 (05:47→21:37)
[2018-12-29 07:37] LABS: HEMOGLOBIN 10.3 g/dL (12.0-16.0); MEAN CELL VOLUME 89.3 fl (80.0-105.0); MEAN CORPUSCULAR HEMOGLOBIN 28.3 pg (25.0-35.0); MEAN CORPUSCULAR HGB CONC 31.7 g/dl (31.0-37.0); MEAN PLATELET VOLUME 10.2 fl (7.0-11.0); RBC 3.64 10^6/uL (3.5-6.1); RED CELL DISTRIBUTION WIDTH 15.3 % (11.5-14.5); WHITE BLOOD COUNT 13.5 10^3/uL (4.5-11.0)
[2018-12-29 07:59] LABS: ALB/GLOB RATIO 0.9 (1.1-1.8); ALT/SGPT 14 U/L (7-56); AST/SGOT 14 U/L (14-36); BLOOD UREA NITROGEN 5 mg/dL (7-21); CALCIUM 10.6 mg/dL (8.4-10.5); GFR NON-AFRICAN AMERICAN > 60
[2018-12-29] MEDS: Metoprolol Succinate 25 mg XL Tab PO SCH (09:07)
[2018-12-29] MEDS: Methocarbamol 500 MG Tab PO SCH ×4 (09:07→21:30)
[2018-12-29] MEDS ORDERED: Potassium Chloride 20 mEq ER Tab PO ONE (10:22)
[2018-12-29] MEDS: Vancomycin 1gm in NS 250ml 1 GM/250 ML BAG IVPB SCH ×2 (11:31→22:54)
--- NOTE | 2018-12-29 13:07 | PN ---
DATE: 12/29/2018 SUBJECTIVE: She is resting comfortably in bed. Actually clinically she is starting to improve, first day actually will be see starting to feel little bit better with pain, status post colostomy, protrusion repair. The colostomy working well. She is getting little bit stronger in bed 2. She is on Colace, she is on heparin, she is on potassium replacement, Klonopin, [place], Merrem IV, MiraLax, morphine for pain, Mylicon, Nicoderm patch, Robaxin, Seroquel, metoprolol, vancomycin and Zofran as needed. PHYSICAL EXAMINATION: VITAL SIGNS: She has a 98.5 temperature, it was 100.5 last night, we are still trying to brake this temperature; 82 pulse; 109/70 blood pressure, 20 respiratory rate, up to 98% O2 sat on room air. HEENT: Head is atraumatic, normocephalic. HEART: Regular rate. LUNGS: Decreased breath sounds, but clear. ABDOMEN: Soft. There is a colostomy working. Positive bowel sounds. Nontender. EXTREMITIES: No edema. started to feels little bit better. LABORATORY DATA: She has a 138 sodium, potassium 3.3, I will give her 40 mEq of potassium today and replace it, BUN 5, creatinine 0.4, GFR is greater than 60, sugar is 98, calcium is 10.6, total bilirubin 0.4, AST is 14, ALT is 14, alk phos is 66, total protein 6.1. She has a white count which came down to 13.5, actually that was the best she has had , hemoglobin is 10.3, hematocrit 32.5, platelets of 387. ASSESSMENT AND PLAN: Physical therapy has not given me a recommendation yet. She has a temperature of 100.5 last night, but white count is down to 13.5. She is starting clinically, but feels better. She is on two antibiotics and hopefully in the next 24 to 48 hours I was about to discharge her home versus [facility] depending what physical therapy had to say, which she is starting today improved. We will replace potassium. Patrice Alba DO [facility] # [id number] MTDD
[2018-12-29] MEDS: oxyCODONE 10 mg Immediate Release Tab PO PRN (13:53)
[2018-12-29] MEDS: POLYETHYLENE GLYCOL 3350 17 GM/Dose PACKET PO SCH (13:54)
--- NOTE | 2018-12-29 15:32 | PN ---
DATE: 12/29/2018 SUBJECTIVE: The patient is in bed, in no acute distress. PHYSICAL EXAMINATION: VITAL SIGNS: She did have a fever last night, it was up to 100.5 and respiratory rate of 20, heart rate of 91. The patient is saturating at 90%. HEENT: Unremarkable. NECK: Supple. LUNGS: Decreased breath sounds. HEART: Normal S1 and S2. ABDOMEN: Soft and nontender. LABORATORY DATA: Reveals a white count is down to 13,500. Chemistry reveals the BUN of 5, creatinine is 0.4, procalcitonin is 0.11. LFT's are normal. Urinalysis is noted, WBC's. Microbiology reveals the urine cultures negative and blood cultures are negative. ASSESSMENT AND PLAN: This is a 58-year-old female with rectal adenocarcinoma, status post transverse loop colostomy, chronic obstructive lung disease, hypertension, chronic anemia, rheumatoid arthritis, lung mass now with systemic inflammatory response syndrome with postop fevers and leukocytosis, must rule out underlying collection consider CT of the abdomen and pelvis. The surgical note from yesterday is reviewed and postop day #4 yesterday. The patient had a revision of loop sigmoid colostomy for prolapse, status post end sigmoid colostomy and mucous fistula, complicated by postop fevers and leukocytosis with systemic inflammatory response syndrome on pathology of the colon. From the reveals the granuloma and adhesions, one reactive lymph node. The patient is on meropenem and vancomycin and normal renal function. Anton Solo MD
[2018-12-30] MEDS ORDERED: Iohexol 240 (50 ml) ONE (04:19)
[2018-12-30] MEDS: Morphine 2 mg/ml ISec IVP PRN ×5 (04:32→22:01)
[2018-12-30] MEDS: Meropenem IV 1 gm in NS 1 GM/50 ML BAG IVPB SCH (05:32)
[2018-12-30 07:29] LABS: HEMOGLOBIN 10.2 g/dL (12.0-16.0); MEAN CELL VOLUME 90.2 fl (80.0-105.0); MEAN CORPUSCULAR HEMOGLOBIN 27.9 pg (25.0-35.0); MEAN CORPUSCULAR HGB CONC 30.9 g/dl (31.0-37.0); MEAN PLATELET VOLUME 10.7 fl (7.0-11.0); RBC 3.66 10^6/uL (3.5-6.1); RED CELL DISTRIBUTION WIDTH 15.3 % (11.5-14.5); WHITE BLOOD COUNT 11.3 10^3/uL (4.5-11.0)
[2018-12-30 07:52] LABS: ALB/GLOB RATIO 0.8 (1.1-1.8); ALBUMIN 2.7 g/dL (3.0-4.8); ALT/SGPT 14 U/L (7-56); AST/SGOT 23 U/L (14-36); BLOOD UREA NITROGEN 6 mg/dL (7-21); CALCIUM 10.9 mg/dL (8.4-10.5); GFR NON-AFRICAN AMERICAN > 60
[2018-12-30] MEDS: Piperacillin/Tazobact 3.375 gm 100 ML IVPB SCH ×3 (09:05→22:01)
[2018-12-30] MEDS ORDERED: Iohexol 300 100 ML IJ ONE (10:03)
[2018-12-30] MEDS: POLYETHYLENE GLYCOL 3350 17 GM/Dose PACKET PO SCH (11:59)
[2018-12-30] MEDS: Methocarbamol 500 MG Tab PO SCH ×4 (12:01→22:01)
[2018-12-30] MEDS: Metoprolol Succinate 25 mg XL Tab PO SCH (12:16)
--- NOTE | 2018-12-30 12:20 | CT ---
Date of service: 12/30/2018 PROCEDURE: CT Abdomen and Pelvis with contrast HISTORY: febrile, s/p stoma revision COMPARISON: 11/30/2018 TECHNIQUE: Contrast dose: 100 mL Omnipaque 300 Radiation dose: Total exam DLP = 201.33 mGy-cm. This CT exam was performed using one or more of the following dose reduction techniques: Automated exposure control, adjustment of the mA and/or kV according to patient size, and/or use of iterative reconstruction technique. FINDINGS: LOWER THORAX: Bilateral lower lobe subsegmental atelectasis, left greater than right. No pleural effusion. LIVER: Normal size, contour and attenuation. In the medial segment left hepatic lobe, there is a ovoid low-attenuation 2.7 cm mass unchanged from prior contrast CT of 10/28/2018. This is not identified on noncontrast CT of 11/30/2018. No other hepatic mass. GALLBLADDER AND BILE DUCTS: Contracted. No calcified gallstones. PANCREAS: Unremarkable. No gross lesion or ductal dilatation. SPLEEN: Unremarkable. ADRENALS: Unremarkable. No mass. KIDNEYS AND URETERS: Unremarkable. No hydronephrosis. No solid mass. VASCULATURE: Unremarkable. No aortic aneurysm. There is atherosclerotic calcification of the abdominal aorta. BOWEL: Lower midline abdominal colostomy noted. This appears to be a double-barrel colostomy. The efferent limb, the sigmoid colon and rectum show circumferential mural thickening consistent with nonspecific colitis/proctitis. This continues to the level of the inferior rectum. There is marked enhancement of the wall of the inferior rectum. There is a posterior para rectal collection in the inferior pelvis measuring roughly 2.0 x 3.3 x 3.9 cm. This is decreased in size when compared to the examination of 10/28/2018, at which time this measured 5.0 cm in greatest dimension. There is thin peripheral enhancement about this collection. Concerning for abscess. It is irregularly shaped with a small secondary collection to the right of this main collection. There is questionable fistulous communication with the rectal lumen seen on series 3, image 139. It is also demonstrated on series 602, image 62. however, this is not demonstrated with certainty. There is no evidence of bowel obstruction. No other abnormal bowel loops are identified. APPENDIX: Not identified. PERITONEUM: Unremarkable. No free fluid. No free air. LYMPH NODES: Unremarkable. No enlarged lymph nodes. BLADDER: Unremarkable. REPRODUCTIVE: Unremarkable uterus. Right adnexal cystic structure, 3.7 cm. Likely ovarian. Similar to 10/20. BONES: Lumbar levoscoliosis. No evidence of fracture. OTHER FINDINGS: None. IMPRESSION: Posterior perirectal collection likely abscess with questionable fistulous communication demonstrated with the rectum. Nonspecific colitis involving the rectosigmoid colon. The perirectal collection is decreased in size from 10/28/2018. Probable right ovarian cyst, 3.7 cm. Correlate with ultrasound examination. Additional nonacute findings as above.
--- NOTE | 2018-12-30 13:09 | PN ---
DATE: 12/30/2018 SUBJECTIVE: I am hoping to discharge her soon. There is a CAT scan of the abdomen and pelvis, I believe, that is ordered. We have to wait and see what that shows. MEDICATIONS: She is still on IV antibiotics, Zosyn, Zofran, vancomycin, metoprolol, Seroquel, Robaxin, oxycodone, Nicoderm patch, morphine, MiraLax, lithium, potassium, heparin, fentanyl patch, and Colace. PHYSICAL EXAMINATION: VITAL SIGNS: She has a 98.6 temperature, 92 pulse, 119/74 blood pressure, 18 respiratory rate, 97% O2 sat on room air. HEAD: Atraumatic, normocephalic. HEART: Regular rate with decreased breath sounds, but clear. ABDOMEN: Soft. Positive colostomy which is working better. EXTREMITIES: No edema. NEUROLOGIC: She is a little bit stronger, but she is still weak, from when she came in. LABORATORY DATA: She has a 11.3 white count, the best it has been; 10.2 hemoglobin; 33 hematocrit with 421 platelets. The antibiotics are definitely helping her. Sodium 142, potassium 3.6, BUN 6 and creatinine 0.4. GFR is greater than 60, sugar is 105, calcium 10.9, total bili is 0.1, AST is 23, ALT is 14, alk phos 65, total protein is 6. ASSESSMENT AND PLAN: As per Infectious Disease, we will see what the CAT scan of the abdomen and pelvis states. I definitely think she is improving when Dr. Solo changed her to tablets. We will discharge her. Await CAT scan of the abdomen and pelvis. Physical therapy. Patrice Alba DO
--- NOTE | 2018-12-30 13:17 | CP.PCM.PN ---
Subjective - Date & Time of Evaluation Date of Evaluation: 12/30/18 Time of Evaluation: 13:16 - Subjective Subjective: Surgery Progress Note for Dr. Valadez 58F seen and evaluated at beside this morning. No acute events overnight. Patient's ostomy pink, patent, and productive. Patient currently drinking contrast for pending CT scan today. Afebrile overnight. Denies f/c, n/v/d, SOB, CP, or urinary symptoms. Objective - Vital Signs/Intake and Output Vital Signs (last 24 hours): Temp Pulse Resp BP Pulse Ox 98.6 F 89 18 114/74 97 12/30/18 06:00 12/30/18 12:16 12/30/18 06:00 12/30/18 12:16 12/30/18 06:00 Intake and Output: 12/30/18 12/30/18 06:59 18:59 Intake Total 200 Balance 200 - Medications Medications: Current Medications Acetaminophen (Tylenol 325mg Tab) 650 mg PO Q6H PRN PRN Reason: Fever >100.4 F Last Admin: 12/29/18 13:55 Dose: 650 mg Clonazepam (Klonopin) 1 mg PO TID PRN; Protocol PRN Reason: Anxiety Last Admin: 12/25/18 11:17 Dose: 1 mg Docusate Sodium (Colace) 100 mg PO BID VU Last Admin: 12/30/18 12:00 Dose: 100 mg Fentanyl (Duragesic) 1 patch TD Q72H VU Last Admin: 12/30/18 11:57 Dose: 1 patch Heparin Sodium (Porcine) (Heparin) 5,000 units SC Q8 VU; Protocol Last Admin: 12/30/18 05:31 Dose: 5,000 units Vancomycin HCl (Vancomycin 1gm) 1 gm in 250 mls @ 167 mls/hr IVPB Q12H VU; Protocol Last Admin: 12/29/18 22:54 Dose: 167 mls/hr Piperacillin Sod/Tazobactam Sod (Zosyn 3.375 In Ns 100ml) 100 mls @ 25 mls/hr IVPB Q8 VU; Protocol Stop: 01/06/19 07:16 Last Admin: 12/30/18 09:05 Dose: 25 mls/hr [place] Carbonate ([place] Carbonate 300mg) 300 mg PO DAILY VU Last Admin: 04/01/19 12:09 Dose: 300 mg Methocarbamol (Robaxin) 500 mg PO QID [facility] Last Admin: 12/30/18 12:01 Dose: 500 mg Metoprolol Succinate (Toprol Xl) 25 mg PO DAILY [facility] Last Admin: 12/30/18 12:16 Dose: Not Given Morphine Sulfate (Morphine) 2 mg IVP Q3H PRN PRN Reason: Pain, severe (8-10) Last Admin: 12/30/18 12:25 Dose: 2 mg Nicotine (Nicoderm Cq) 1 patch TD DAILY [facility] Last Admin: 12/30/18 11:57 Dose: 1 patch Ondansetron HCl (Zofran Inj) 4 mg IVP ONCE PRN PRN Reason: Nausea/Vomiting Oxycodone HCl (Oxycodone Immediate Release Tab) 10 mg PO Q6H PRN PRN Reason: Pain, moderate (4-7) Last Admin: 12/29/18 13:53 Dose: 10 mg Polyethylene Glycol (Miralax) 17 gm PO DAILY [facility] Last Admin: 12/30/18 11:59 Dose: 17 gm Quetiapine Fumarate (Seroquel) 50 mg PO [facility] Last Admin: 12/29/18 21:30 Dose: 50 mg Simethicone (Mylicon Chew Tab) 80 mg PO Q6H PRN PRN Reason: GI distress - Labs Labs: 12/30/18 07:00 12/30/18 07:00 - Constitutional Appears: Well, Non-toxic, No Acute Distress - Head Exam Head Exam: ATRAUMATIC, NORMAL INSPECTION, NORMOCEPHALIC - Eye Exam Eye Exam: EOMI - ENT Exam ENT Exam: Mucous Membranes Moist - Respiratory Exam Respiratory Exam: NORMAL BREATHING PATTERN. absent: Wheezes, Respiratory Distress - Cardiovascular Exam Cardiovascular Exam: REGULAR RHYTHM, +S1, +S2. absent: Murmur - GI/Abdominal Exam GI & Abdominal Exam: Soft, Normal Bowel Sounds. absent: Tenderness Additional comments: ostomy pink, patent and productive - Neurological Exam Neurological Exam: Alert, Awake, Oriented x3 - Psychiatric Exam Psychiatric exam: Normal Affect, Normal Mood - Skin Skin Exam: Dry, Intact, Normal Color, Warm Assessment and Plan - Assessment and Plan (Free Text) Assessment: 58F s/p colostomy revision w/ mucous fistula POD6 Plan: Afebrile overnight, leukocytosis downtrending CTAP shows perirectal abscess decreasing in size Continue IV Abx per ID, switch to PO for discharge planning Continue to monitor bowel function Antiemetics and analgesics PRN Aggressive PT F/u medicine recommendations D/w Dr. Rory Goodman PGY1
[2018-12-30] MEDS: Vancomycin 1gm in NS 250ml 1 GM/250 ML BAG IVPB SCH (14:15)
--- NOTE | 2018-12-30 14:50 | CP.PCM.PN ---
<Warren Hernandez - Last Filed: 12/30/18 14:44> Subjective - Date & Time of Evaluation Date of Evaluation: 12/30/18 Time of Evaluation: 09:35 - Subjective Subjective: Warren Hernandez D.O. PGY-3, Internal Medicine Resident, Infectious Disease Progress Note 58-year-old female with a past medical history of rectal adenocarcinoma status post transverse loop colostomy, COPD, hypertension, chronic anemia, rheumatoid arthritis, possible lung mass who presented for revision of colostomy and became febrile overnight. Infectious disease consultation was requested for these fevers. Patient was seen and examined at bedside. States still having some discomfort. Somewhat unhappy at nursing staff but otherwise no complaints. Objective - Vital Signs/Intake and Output Vital Signs (last 24 hours): Temp Pulse Resp BP Pulse Ox 98.6 F 89 18 114/74 97 12/30/18 06:00 12/30/18 12:16 12/30/18 06:00 12/30/18 12:16 12/30/18 06:00 Intake and Output: 12/30/18 12/30/18 06:59 18:59 Intake Total 200 Balance 200 - Medications Medications: Current Medications Acetaminophen (Tylenol 325mg Tab) 650 mg PO Q6H PRN PRN Reason: Fever >100.4 F Last Admin: 12/29/18 13:55 Dose: 650 mg Clonazepam (Klonopin) 1 mg PO TID PRN; Protocol PRN Reason: Anxiety Last Admin: 12/25/18 11:17 Dose: 1 mg Docusate Sodium (Colace) 100 mg PO BID VU Last Admin: 12/30/18 12:00 Dose: 100 mg Fentanyl (Duragesic) 1 patch TD Q72H VU Last Admin: 12/30/18 11:57 Dose: 1 patch Heparin Sodium (Porcine) (Heparin) 5,000 units SC Q8 VU; Protocol Last Admin: 12/30/18 05:31 Dose: 5,000 units Vancomycin HCl (Vancomycin 1gm) 1 gm in 250 mls @ 167 mls/hr IVPB Q12H VU; Protocol Last Admin: 12/30/18 14:15 Dose: 167 mls/hr Piperacillin Sod/Tazobactam Sod (Zosyn 3.375 In Ns 100ml) 100 mls @ 25 mls/hr IVPB Q8 VU; Protocol Stop: 01/06/19 07:16 Last Admin: 12/30/18 09:05 Dose: 25 mls/hr [place] Carbonate ([place] Carbonate 300mg) 300 mg PO DAILY [facility] Last Admin: 12/30/18 12:09 Dose: 300 mg Methocarbamol (Robaxin) 500 mg PO QID [facility] Last Admin: 12/30/18 12:01 Dose: 500 mg Metoprolol Succinate (Toprol Xl) 25 mg PO DAILY [facility] Last Admin: 12/30/18 12:16 Dose: Not Given Morphine Sulfate (Morphine) 2 mg IVP Q3H PRN PRN Reason: Pain, severe (8-10) Last Admin: 12/30/18 12:25 Dose: 2 mg Nicotine (Nicoderm Cq) 1 patch TD DAILY [facility] Last Admin: 12/30/18 11:57 Dose: 1 patch Ondansetron HCl (Zofran Inj) 4 mg IVP ONCE PRN PRN Reason: Nausea/Vomiting Oxycodone HCl (Oxycodone Immediate Release Tab) 10 mg PO Q6H PRN PRN Reason: Pain, moderate (4-7) Last Admin: 12/29/18 13:53 Dose: 10 mg Polyethylene Glycol (Miralax) 17 gm PO DAILY [facility] Last Admin: 12/30/18 11:59 Dose: 17 gm Quetiapine Fumarate (Seroquel) 50 mg PO HS [facility] Last Admin: 12/29/18 21:30 Dose: 50 mg Simethicone (Mylicon Chew Tab) 80 mg PO Q6H PRN PRN Reason: GI distress - Labs Labs: 12/30/18 07:00 12/30/18 07:00 - Constitutional Appears: Cachectic, Chronically Ill female - Head Exam Head Exam: ATRAUMATIC, NORMOCEPHALIC - Eye Exam Eye Exam: absent: Scleral icterus - ENT Exam ENT Exam: Mucous Membranes Moist, poor dentition - Neck Exam Neck exam: Positive for: Normal Inspection - Respiratory Exam Respiratory Exam: absent: Rhonchi, Wheezes - Cardiovascular Exam Cardiovascular Exam: +S1, +S2. absent: Rubs - GI/Abdominal Exam GI & Abdominal Exam: Soft, Tenderness (mild throughout). absent: Distended - Extremities Exam Extremities exam: Negative for: calf tenderness, pedal edema - Neurological Exam Neurological exam: Alert, Oriented x4 - Skin Skin Exam: Dry, Warm Assessment and Plan - Assessment and Plan (Free Text) Assessment: 58-year-old female with a past medical history of rectal adenocarcinoma status post transverse loop colostomy, COPD, hypertension, chronic anemia, rheumatoid arthritis, possible lung mass who presented for revision of colostomy and became febrile overnight. Infectious disease consultation was requested for these fevers. Plan: SIRS 4/4 intraabdominal vs urinary Rectal adenocarcinoma status post transverse loop colostomy COPD Hypertension Rheumatoid arthritis Chronic anemia Last fevers yesterday afternoon Leukocytosis downtrending CT abd/pelvis showed collection likely abscess which was present on 10/28 and per radiology appears smaller Blood cultures negative 2 day 4 On zosyn/vanco Discussed with surgical team who is monitor the above and states no further surg ical intervention at this time We will follow with you Patient was seen and examined and case to be discussed with attending physician Thank you for the pleasure participating in the care of this interesting patient <Anton Solo - Last Filed: 12/30/18 15:42> Objective - Vital Signs/Intake and Output Vital Signs (last 24 hours): Temp Pulse Resp BP Pulse Ox 99.1 F 85 18 119/74 93 L 12/30/18 14:00 12/30/18 14:00 12/30/18 14:00 12/30/18 14:00 12/30/18 14:00 Intake and Output: 12/30/18 12/30/18 06:59 18:59 Intake Total 200 600 Balance 200 600 - Medications Medications: Current Medications Acetaminophen (Tylenol 325mg Tab) 650 mg PO Q6H PRN PRN Reason: Fever >100.4 F Last Admin: 12/29/18 13:55 Dose: 650 mg Clonazepam (Klonopin) 1 mg PO TID PRN; Protocol PRN Reason: Anxiety Last Admin: 12/25/18 11:17 Dose: 1 mg Docusate Sodium (Colace) 100 mg PO BID [facility] Last Admin: 12/30/18 12:00 Dose: 100 mg Fentanyl (Duragesic) 1 patch TD Q72H VU Last Admin: 12/30/18 11:57 Dose: 1 patch Heparin Sodium (Porcine) (Heparin) 5,000 units SC Q8 [facility]; Protocol Last Admin: 12/30/18 15:21 Dose: 5,000 units Piperacillin Sod/Tazobactam Sod (Zosyn 3.375 In Ns 100ml) 100 mls @ 25 mls/hr IVPB Q8 [facility]; Protocol Stop: 01/06/19 07:16 Last Admin: 12/30/18 09:05 Dose: 25 mls/hr [place] Carbonate ([place] Carbonate 300mg) 300 mg PO DAILY [facility] Last Admin: 12/30/18 12:09 Dose: 300 mg Methocarbamol (Robaxin) 500 mg PO QID [facility] Last Admin: 12/30/18 15:23 Dose: 500 mg Metoprolol Succinate (Toprol Xl) 25 mg PO DAILY [facility] Last Admin: 12/30/18 12:16 Dose: Not Given Morphine Sulfate (Morphine) 2 mg IVP Q3H PRN PRN Reason: Pain, severe (8-10) Last Admin: 12/30/18 12:25 Dose: 2 mg Nicotine (Nicoderm Cq) 1 patch TD DAILY [facility] Last Admin: 12/30/18 11:57 Dose: 1 patch Ondansetron HCl (Zofran Inj) 4 mg IVP ONCE PRN PRN Reason: Nausea/Vomiting Oxycodone HCl (Oxycodone Immediate Release Tab) 10 mg PO Q6H PRN PRN Reason: Pain, moderate (4-7) Last Admin: 12/29/18 13:53 Dose: 10 mg Polyethylene Glycol (Miralax) 17 gm PO DAILY [facility] Last Admin: 12/30/18 11:59 Dose: 17 gm Quetiapine Fumarate (Seroquel) 50 mg PO HS [facility] Last Admin: 12/29/18 21:30 Dose: 50 mg Simethicone (Mylicon Chew Tab) 80 mg PO Q6H PRN PRN Reason: GI distress - Labs Labs: 12/30/18 07:00 12/30/18 07:00 Attending/Attestation - Attestation I have personally seen and examined this patient.: Yes I have fully participated in the care of the patient.: Yes I have reviewed all pertinent clinical information, including history, physical exam and plan: Yes
--- NOTE | 2018-12-30 15:06 | CP.PCM.PN ---
Subjective - Date & Time of Evaluation Date of Evaluation: 12/29/18 Time of Evaluation: 06:35 - Subjective Subjective: Patient seen and examined. No acute events over night. Denies nausea/vomiting. Tolerating regular diet. Having normal stoma output. Objective - Vital Signs/Intake and Output Vital Signs (last 24 hours): Temp Pulse Resp BP Pulse Ox 99.1 F 85 18 119/74 93 L 12/30/18 14:00 12/30/18 14:00 12/30/18 14:00 12/30/18 14:00 12/30/18 14:00 Intake and Output: 12/30/18 12/30/18 06:59 18:59 Intake Total 200 600 Balance 200 600 - Medications Medications: Current Medications Acetaminophen (Tylenol 325mg Tab) 650 mg PO Q6H PRN PRN Reason: Fever >100.4 F Last Admin: 12/29/18 13:55 Dose: 650 mg Clonazepam (Klonopin) 1 mg PO TID PRN; Protocol PRN Reason: Anxiety Last Admin: 12/25/18 11:17 Dose: 1 mg Docusate Sodium (Colace) 100 mg PO BID [facility] Last Admin: 12/30/18 12:00 Dose: 100 mg Fentanyl (Duragesic) 1 patch TD Q72H VU Last Admin: 12/30/18 11:57 Dose: 1 patch Heparin Sodium (Porcine) (Heparin) 5,000 units SC Q8 VU; Protocol Last Admin: 12/30/18 05:31 Dose: 5,000 units Vancomycin HCl (Vancomycin 1gm) 1 gm in 250 mls @ 167 mls/hr IVPB Q12H VU; P rotocol Last Admin: 12/30/18 14:15 Dose: 167 mls/hr Piperacillin Sod/Tazobactam Sod (Zosyn 3.375 In Ns 100ml) 100 mls @ 25 mls/hr IVPB Q8 VU; Protocol Stop: 01/06/19 07:16 Last Admin: 12/30/18 09:05 Dose: 25 mls/hr [place] Carbonate ([place] Carbonate 300mg) 300 mg PO DAILY [facility] Last Admin: 12/30/18 12:09 Dose: 300 mg Methocarbamol (Robaxin) 500 mg PO QID VU Last Admin: 12/30/18 12:01 Dose: 500 mg Metoprolol Succinate (Toprol Xl) 25 mg PO DAILY [facility] Last Admin: 12/30/18 12:16 Dose: Not Given Morphine Sulfate (Morphine) 2 mg IVP Q3H PRN PRN Reason: Pain, severe (8-10) Last Admin: 12/30/18 12:25 Dose: 2 mg Nicotine (Nicoderm Cq) 1 patch TD DAILY [facility] Last Admin: 12/30/18 11:57 Dose: 1 patch Ondansetron HCl (Zofran Inj) 4 mg IVP ONCE PRN PRN Reason: Nausea/Vomiting Oxycodone HCl (Oxycodone Immediate Release Tab) 10 mg PO Q6H PRN PRN Reason: Pain, moderate (4-7) Last Admin: 12/29/18 13:53 Dose: 10 mg Polyethylene Glycol (Miralax) 17 gm PO DAILY [facility] Last Admin: 12/30/18 11:59 Dose: 17 gm Quetiapine Fumarate (Seroquel) 50 mg PO [facility] Last Admin: 12/29/18 21:30 Dose: 50 mg Simethicone (Mylicon Chew Tab) 80 mg PO Q6H PRN PRN Reason: GI distress - Labs Labs: 12/30/18 07:00 12/30/18 07:00 - Constitutional Appears: No Acute Distress - Head Exam Head Exam: NORMOCEPHALIC - Eye Exam Eye Exam: EOMI, Normal appearance - ENT Exam ENT Exam: Mucous Membranes Moist - Respiratory Exam Respiratory Exam: NORMAL BREATHING PATTERN - Cardiovascular Exam Cardiovascular Exam: +S1, +S2 - GI/Abdominal Exam GI & Abdominal Exam: Soft. absent: Tenderness - Neurological Exam Neurological Exam: Alert, Awake, Oriented x3 - Psychiatric Exam Psychiatric exam: Normal Mood - Skin Skin Exam: Dry, Intact, Warm Assessment and Plan - Assessment and Plan (Free Text) Assessment: 58yo F s/p revision of loop sigmoid colostomy for prolapse, s/p end sigmoid colostomy with mucous fistula. POD 5. Complicated with post-op fevers. Plan: -CT Abd & Pel w/ IV&PO contrast -ABx per ID -C/w Reg diet -Physical therapy -DVT ppx -Further recs per Dr. Rory Garner PGY3
[2018-12-30] MEDS ORDERED: oxyCODONE 10 mg Immediate Release Tab PO STA (18:08)
[2018-12-30] MEDS: oxyCODONE 10 mg Immediate Release Tab PO PRN (18:13)
[2018-12-31] MEDS: Piperacillin/Tazobact 3.375 gm 100 ML IVPB SCH ×3 (06:04→22:08)
[2018-12-31 06:56] LABS: HEMOGLOBIN 10.7 g/dL (12.0-16.0); MEAN CELL VOLUME 91.1 fl (80.0-105.0); MEAN CORPUSCULAR HEMOGLOBIN 28.8 pg (25.0-35.0); MEAN CORPUSCULAR HGB CONC 31.6 g/dl (31.0-37.0); MEAN PLATELET VOLUME 10.3 fl (7.0-11.0); RBC 3.72 10^6/uL (3.5-6.1); RED CELL DISTRIBUTION WIDTH 15.2 % (11.5-14.5); WHITE BLOOD COUNT 10.2 10^3/uL (4.5-11.0)
[2018-12-31 07:25] LABS: ALB/GLOB RATIO 0.9 (1.1-1.8); ALBUMIN 2.9 g/dL (3.0-4.8); ALT/SGPT 24 U/L (7-56); AST/SGOT 22 U/L (14-36); BLOOD UREA NITROGEN 8 mg/dL (7-21); CALCIUM 11.4 mg/dL (8.4-10.5); GFR NON-AFRICAN AMERICAN > 60
--- NOTE | 2018-12-31 09:09 | CP.PCM.PN ---
Subjective - Date & Time of Evaluation Date of Evaluation: 12/31/18 Time of Evaluation: 09:04 - Subjective Subjective: Surgery Progress Note for Dr. Valadez 58F seen and evaluated at bedside this morning. No acute events overnight. Patient afebrile overnight. Leukocytosis normalized. Patient minimally ambulates due to chronic pain. Denies f/c, n/v/d, SOB, CP, or urinary symptoms. Objective - Vital Signs/Intake and Output Vital Signs (last 24 hours): Temp Pulse Resp BP Pulse Ox 97.7 F 61 16 112/62 97 12/31/18 06:00 12/31/18 06:00 12/31/18 06:00 12/31/18 06:00 12/31/18 06:00 Intake and Output: 12/31/18 12/31/18 06:59 18:59 Intake Total 600 Balance 600 - Medications Medications: Current Medications Acetaminophen (Tylenol 325mg Tab) 650 mg PO Q6H PRN PRN Reason: Fever >100.4 F Last Admin: 12/29/18 13:55 Dose: 650 mg Clonazepam (Klonopin) 1 mg PO TID PRN; Protocol PRN Reason: Anxiety Last Admin: 12/30/18 17:41 Dose: 1 mg Docusate Sodium (Colace) 100 mg PO BID [facility] Last Admin: 12/30/18 20:28 Dose: 100 mg Fentanyl (Duragesic) 1 patch TD Q72H VU Last Admin: 12/30/18 11:57 Dose: 1 patch Heparin Sodium (Porcine) (Heparin) 5,000 units SC Q8 VU; Protocol Last Admin: 12/31/18 06:04 Dose: 5,000 units Piperacillin Sod/Tazobactam Sod (Zosyn 3.375 In Ns 100ml) 100 mls @ 25 mls/hr IVPB Q8 [facility]; Protocol Stop: 01/06/19 07:16 Last Admin: 12/31/18 06:04 Dose: 25 mls/hr [place] Carbonate ([place] Carbonate 300mg) 300 mg PO DAILY [facility] Last Admin: 12/30/18 12:09 Dose: 300 mg Methocarbamol (Robaxin) 500 mg PO QID [facility] Last Admin: 12/30/18 22:01 Dose: 500 mg Metoprolol Succinate (Toprol Xl) 25 mg PO DAILY [facility] Last Admin: 12/30/18 12:16 Dose: Not Given Morphine Sulfate (Morphine) 2 mg IVP Q3H PRN PRN Reason: Pain, severe (8-10) Last Admin: 12/30/18 22:01 Dose: 2 mg Nicotine (Nicoderm Cq) 1 patch TD DAILY [facility] Last Admin: 12/30/18 11:57 Dose: 1 patch Ondansetron HCl (Zofran Inj) 4 mg IVP ONCE PRN PRN Reason: Nausea/Vomiting Oxycodone HCl (Oxycodone Immediate Release Tab) 10 mg PO Q6H PRN PRN Reason: Pain, moderate (4-7) Last Admin: 12/30/18 18:13 Dose: 10 mg Polyethylene Glycol (Miralax) 17 gm PO DAILY [facility] Last Admin: 12/30/18 11:59 Dose: 17 gm Quetiapine Fumarate (Seroquel) 50 mg PO HS [facility] Last Admin: 12/30/18 22:00 Dose: 50 mg Simethicone (Mylicon Chew Tab) 80 mg PO Q6H PRN PRN Reason: GI distress - Labs Labs: 12/31/18 06:30 12/31/18 06:30 - Constitutional Appears: Well, Non-toxic, No Acute Distress - Head Exam Head Exam: ATRAUMATIC, NORMAL INSPECTION, NORMOCEPHALIC - Eye Exam Eye Exam: EOMI - ENT Exam ENT Exam: Mucous Membranes Moist - Respiratory Exam Respiratory Exam: Clear to Ausculation Bilateral, NORMAL BREATHING PATTERN. absent: Wheezes, Respiratory Distress - Cardiovascular Exam Cardiovascular Exam: REGULAR RHYTHM, +S1, +S2. absent: Murmur - GI/Abdominal Exam GI & Abdominal Exam: Soft, Normal Bowel Sounds. 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 Rory Goodman PGY1
[2018-12-31] MEDS: Methocarbamol 500 MG Tab PO SCH ×4 (09:31→22:08)
[2018-12-31] MEDS: POLYETHYLENE GLYCOL 3350 17 GM/Dose PACKET PO SCH (09:31)
[2018-12-31] MEDS: Morphine 2 mg/ml ISec IVP PRN ×4 (11:38→20:35)
--- NOTE | 2018-12-31 12:35 | PN ---
DATE: 12/31/2018 SUBJECTIVE: She is doing better. The CAT scan showed a smaller size cystic fluid in her belly. She is on Colace, Dilaudid, Duragesic patch, heparin, Klonopin, lithium, MiraLax, morphine, Mylicon, Nicoderm, oxycodone, Robaxin, Seroquel, Toprol, Tylenol, Zofran. PHYSICAL EXAMINATION: VITAL SIGNS: Temperature 97.7, 61 pulse, 112/60 blood pressure, 16 respiratory rate, 97% O2 sat on room air. HEAD: Atraumatic, normocephalic. HEART: Regular rate. LUNGS: Clear to auscultation. ABDOMEN: Soft. Positive colostomy is working, less tender. EXTREMITIES: No edema. LABORATORY DATA: She has a white count of 10.2, best it has been, hemoglobin 10.7, hematocrit 32.9, platelets of 456. Sodium 141, potassium 3.9, BUN 8, creatinine 0.4, GFR greater than 60, sugar is 98, calcium 7.4, going up, AST is 22, ALT is 24, alk phos 70, total protein 6.2. Being seen by Infectious Disease, Surgery. Whenever Infectious Disease tells us to change into tablets, we can discharge her to outpatient followup. She is still on Zosyn and I do think she is improving. Patrice Alba DO
[2018-12-31] MEDS: oxyCODONE 10 mg Immediate Release Tab PO PRN (16:59)
[2018-12-31] MEDS: Metoprolol Succinate 25 mg XL Tab PO SCH (17:10)
--- NOTE | 2018-12-31 19:42 | PN ---
DATE: 12/31/2018 TIME: 4:45 p.m. SUBJECTIVE: I have reviewed the patient's abdominal CT scans dating back to 2018. She has an obvious rectal carcinoma with a small perirectal fluid collection in the pelvis. This collection is somewhat smaller than previously noted. There is also a second fluid collection smaller in the right pelvis that may be related to the adnexa. At some point, the fluid collection can be aspirated, but this is a rather stable finding over several months. Of note, her bladder has been distended on all imaging since her original surgery. Saavedra catheter may be indicated. Luigi Vides MD MTDD
[2018-12-31 21:13] VITALS: O2SAT 97
--- NOTE | 2018-12-31 23:39 | PN ---
DATE: 12/31/2018 SUBJECTIVE: The patient is seen in bed, in no acute distress, and nontoxic. OBJECTIVE: VITAL SIGNS: Temperature is 98, blood pressure is 114/70, and respiratory rate of 18. HEENT: Unremarkable. NECK: Supple. LUNGS: Decreased breath sounds. HEART: Normal S1 and S2. ABDOMEN: Soft. LABORATORY DATA: Reveals a white count of 10,000 and hemoglobin of 10. Chemistries are noted. Urinalysis is noted. Microbiology and blood cultures are negative and urine cultures are negative. Review of orders reveals the patient to be on Zosyn. ASSESSMENT AND PLAN: This is a 58-year-old female with systemic inflammatory response syndrome, intra-abdominal versus urinary source, rectal adenocarcinoma, status post transverse loop colostomy and leukocytosis resolved. The patient with a collection on CAT scan appears to be improving. Dr. Luigi Vides's progress note is reviewed. reviewed the CAT scan and he feels the collection is smaller than previously, there is a second fluid collection smaller in right pelvis, his input is greatly appreciated. Anton Solo MD
[2019-01-01] MEDS: Morphine 2 mg/ml ISec IVP PRN ×2 (03:42→06:21)
[2019-01-01] MEDS: Piperacillin/Tazobact 3.375 gm 100 ML IVPB SCH ×2 (05:59→15:40)
[2019-01-01 07:01] LABS: ALB/GLOB RATIO 0.9 (1.1-1.8); ALBUMIN 3.1 g/dL (3.0-4.8); ALT/SGPT 21 U/L (7-56); AST/SGOT 26 U/L (14-36); BLOOD UREA NITROGEN 9 mg/dL (7-21); CALCIUM 11.3 mg/dL (8.4-10.5); GFR NON-AFRICAN AMERICAN > 60
[2019-01-01 07:06] LABS: HEMOGLOBIN 10.6 g/dL (12.0-16.0); MEAN CELL VOLUME 90.3 fl (80.0-105.0); MEAN CORPUSCULAR HEMOGLOBIN 27.8 pg (25.0-35.0); MEAN CORPUSCULAR HGB CONC 30.8 g/dl (31.0-37.0); MEAN PLATELET VOLUME 10.6 fl (7.0-11.0); RBC 3.81 10^6/uL (3.5-6.1); RED CELL DISTRIBUTION WIDTH 15.3 % (11.5-14.5); WHITE BLOOD COUNT 8.3 10^3/uL (4.5-11.0)
[2019-01-01] MEDS: Metoprolol Succinate 25 mg XL Tab PO SCH (10:13)
[2019-01-01] MEDS: oxyCODONE 10 mg Immediate Release Tab PO PRN (10:14)
[2019-01-01] MEDS: Methocarbamol 500 MG Tab PO SCH ×2 (10:15→15:40)
[2019-01-01] MEDS: POLYETHYLENE GLYCOL 3350 17 GM/Dose PACKET PO SCH (10:15)
[2019-01-01] MEDS ORDERED: Simethicone 80 mg Chewtab PO PRN (11:54)
--- NOTE | 2019-01-01 12:12 | CP.PCM.DIS ---
Provider - Provider Date of Admission: 12/26/18 16:38 Attending physician: John Valadez MD Primary care physician: Patrice Alba DO Consults: 12/24/18 18:51 Physician Consult Routine Comment: medical Consulting Provider: Patrice Alba Consulting Physician: Patrice Alba Reason for Consult: medical Additional Comments: do not call consult. Dr. Alba already notified of consult by RN. 12/24/18 21:48 Case Management Referral Routine Comment: NEEDS ASSISTANCE AT HOME Physician Instructions: Reason For Exam: EVALUATION Reason for Referral: Car Dropper Eval Nursing Referral for Wound Care Routine Comment: COLOSTOOMY CARE Physician Instructions: Reason For Exam: EVALUATION 12/24/18 21:54 Nursing Referral for Palliative Care Routine Comment: Physician Instructions: Reason For Exam: EVALUATION Social Work Referral Routine Comment: NEEDS ASSISTANCE AT HOME.NEEDS P.T. Physician Instructions: Reason For Exam: EVALUATION 12/25/18 09:08 Physician Consult Routine Comment: iv abs??? Consulting Provider: Anton Solo Consulting Physician: Anton Solo Reason for Consult: iv abs??? 12/30/18 15:42 Physician Consult Routine Comment: Consulting Provider: Luigi Vides Consulting Physician: Luigi Vides Reason for Consult: Eval intraabdominal collection 12/31/18 09:13 Nursing Referral for Wound Care Routine Comment: Physician Instructions: Reason For Exam: 1 Time Spent in preparation of Discharge (in minutes): 60 Hospital Course - Lab Results Lab Results: Micro Results 12/25/18 23:00 Blood-Venous Blood Culture - Final NO GROWTH AFTER 5 DAYS 12/25/18 23:00 Blood-Venous Gram Stain - Final TEST NOT PERFORMED 12/25/18 23:00 Blood-Venous Blood Culture - Final NO GROWTH AFTER 5 DAYS 12/25/18 23:00 Blood-Venous Gram Stain - Final TEST NOT PERFORMED 12/26/18 17:00 Urine,Clean Catch Urine Culture - Final No Growth (<1,000 CFU/ML) Most Recent Lab Values WBC 8.3 10^3/uL (4.5-11.0) 01/01/19 06:00 RBC 3.81 10^6/uL (3.5-6.1) 01/01/19 06:00 Hgb 10.6 g/dL (12.0-16.0) L 01/01/19 06:00 Hct 34.4 % (36.0-48.0) L 01/01/19 06:00 MCV 90.3 fl (80.0-105.0) 01/01/19 06:00 MCH 27.8 pg (25.0-35.0) 01/01/19 06:00 MCHC 30.8 g/dl (31.0-37.0) L 01/01/19 06:00 RDW 15.3 % (11.5-14.5) H 01/01/19 06:00 Plt Count 482 10^3/uL (120.0-450.0) H 01/01/19 06:00 MPV 10.6 fl (7.0-11.0) 01/01/19 06:00 Sodium 141 mmol/L (132-148) 01/01/19 06:00 Potassium 4.0 mmol/L (3.6-5.0) 01/01/19 06:00 Chloride 105 mmol/L (98-107) 01/01/19 06:00 Carbon Dioxide 29 mmol/L (21-33) 01/01/19 06:00 Anion Gap 11 (10-20) 01/01/19 06:00 BUN 9 mg/dL (7-21) 01/01/19 06:00 Creatinine 0.4 mg/dl (0.7-1.2) L 01/01/19 06:00 Est GFR ( Amer) > 60 01/01/19 06:00 Est GFR (Non-Af Amer) > 60 01/01/19 06:00 Random Glucose 88 mg/dL (70-110) 01/01/19 06:00 Calcium 11.3 mg/dL (8.4-10.5) H 01/01/19 06:00 Total Bilirubin 0.2 mg/dL (0.2-1.3) 01/01/19 06:00 AST 26 U/L (14-36) 01/01/19 06:00 ALT 21 U/L (7-56) 01/01/19 06:00 Alkaline Phosphatase 73 U/L (38-126) 01/01/19 06:00 Total Protein 6.5 g/dL (5.8-8.3) 01/01/19 06:00 Albumin 3.1 g/dL (3.0-4.8) 01/01/19 06:00 Globulin 3.4 gm/dL 01/01/19 06:00 Albumin/Globulin Ratio 0.9 (1.1-1.8) L 01/01/19 06:00 Procalcitonin 0.11 NG/ML (0.19-0.49) L 12/25/18 23:00 Urine Color Light yellow (YELLOW) 12/27/18 16:00 Urine Appearance Slight-cloudy (CLEAR) 12/27/18 16:00 Urine pH 7.0 (4.7-8.0) 12/27/18 16:00 Ur Specific [place] 1.010 (1.005-1.035) 12/27/18 16:00 Urine Protein Negative mg/dL (<30 mg/dL) 12/27/18 16:00 Urine Glucose (UA) Negative mg/dL (NEGATIVE) 12/27/18 16:00 Urine Ketones Negative mg/dL (NEGATIVE) 12/27/18 16:00 Urine Blood Small (NEGATIVE) H 12/27/18 16:00 Urine Nitrate Negative (NEGATIVE) 12/27/18 16:00 Urine Bilirubin Negative (NEGATIVE) 12/27/18 16:00 Urine Urobilinogen 1.0 E.U./dL (<1 E.U./dL) H 12/27/18 16:00 Ur Leukocyte Esterase Large Dilcia/uL (NEGATIVE) H 12/27/18 16:00 Urine RBC 1 - 3 /hpf (0-2) H 12/27/18 16:00 Urine WBC 5 - 10 /hpf (0-6) H 12/27/18 16:00 Ur Epithelial Cells 0 - 2 /hpf (0-5) 12/27/18 16:00 Urine Bacteria Trace /hpf (NONE) 12/27/18 16:00 - Hospital Course Hospital Course: Patient is a 58 year old female who presented to [facility] same day surgery unit for a planned revision of colostomy secondary to prolapsed loop colostomy. Patient was taken to the operating room and had a colostomy revision with end colostomy and mucous fistula formation. Patient tolerated the procedure well, was extubated in the OR, and taken to the PACU. Patient returned to the [facility] floor and was monitored closely post-operatively. On POD2, patient noted to have consistent fevers over 24 hours for which infectious disease was consulted and placed her on appropriate antibiotic coverage. A CT scan of the abdomen and pelvis was done on 12/29/18 which showed a perirectal fluid collection that had decreased in size since 10/28/18. Interventional radiology was consulted and stated patient can have perirectal collection drained at some point in the future however it is currently decreased in size and stable. Patient was medically managed by the hospitalist consulted with no acute events or complications. Patient's white count and fevers improved over the next few days. Her new colostomy has been pink, patent, and productive. Patient has been tolerated her diet. She refused to work with physical therapy during her admission and was consistently encouraged. Overall, patient's clinical condition improved throughout hospital stay and pain was well controlled. Patient instructed to follow up with PMD and Dr. Valadez within 7 days of discharge. Patient to resume home medications and activity as tolerated. Patient acknowledged and verbalized understanding of treatment plan. All questions and concerns were addressed. Patient instructed to return to the nearest emergency department if symptoms worsen. Discharge Exam - Head Exam Head Exam: ATRAUMATIC, NORMAL INSPECTION, NORMOCEPHALIC - Eye Exam Eye Exam: EOMI - ENT Exam ENT Exam: Mucous Membranes Moist - Respiratory Exam Respiratory Exam: NORMAL BREATHING PATTERN. absent: Wheezes, Respiratory Distress - Cardiovascular Exam Cardiovascular Exam: REGULAR RHYTHM, +S1, +S2. absent: Systolic Murmur - GI/Abdominal Exam GI & Abdominal Exam: Normal Bowel Sounds, Soft. absent: Tenderness Additional comments: ostomy pink, patent, and productive - Neurological Exam Neurological exam: Alert, Oriented x3 - Psychiatric Exam Psychiatric exam: Normal Affect, Normal Mood - Skin Skin Exam: Dry, Intact, Normal Color, Warm Discharge Plan - Follow Up Plan Condition: GOOD Disposition: HOME/ ROUTINE Instructions: How to Care for Your Ostomy, Adult Additional Instructions: Please follow up with your surgeon Dr. Valadez, within 7 days of discharge. Please follow up with your primary medical doctor, within 7 days of discharge. Please resume regular diet and all home medications. Ok to shower. No heavy lifting for the next 4 weeks. Continue activity as tolerated. If symptoms worsen, please promptly return to the nearest emergency department. Referrals: Patrice Alba DO [Primary Care Provider] - John Valadez MD [Staff Provider] -
[2019-01-01 15:13] VITALS: BP 112/72; PULSE 77; RESP 19; TEMP 98.3
[2019-01-01] MEDS ORDERED: Aspirin 325 mg EC Tablets PO SCH (18:00)
--- NOTE | 2019-01-01 22:20 | PN ---
DATE: 01/01/2019 SUBJECTIVE: The patient is in bed, in no acute distress, nontoxic. PHYSICAL EXAMINATION: VITAL SIGNS: Temperature 98, blood pressure is 112/70, and respiratory rate 18. HEENT: Unremarkable. NECK: Supple. LUNGS: Have decreased breath sounds. HEART: Normal S1 and S2. ABDOMEN: Soft. LABORATORY DATA: Reveals a white count of 8.3 and hemoglobin of 10. Chemistries reveals a BUN of 9 and creatinine 0.4. Urinalysis is noted. Microbiology reveals the blood cultures are negative. Urine cultures are negative. ASSESSMENT AND PLAN: This is a 58-year-old female with systemic inflammatory response syndrome, intra-abdominal source with collection, rectal adenocarcinoma status post term transverse loop colostomy and leukocytosis which has resolved. Switch to p.o. antibiotics. Follow the patient with outpatient white count and CAT scan. Repeat CAT scan. Continue with p.o. antibiotics. We will follow along with you. Anton Solo MD
--- NOTE | 2019-01-02 00:50 | DS ---
HISTORY OF PRESENT ILLNESS: She did very well here. When she came in she was sick. She had a colostomy protrusion. She had a procedure for that when we fixed the colostomy, ended up with a sepsis, low potassium and UTI. She was seen by multiple doctors. She was on IV antibiotics. MEDICATIONS: She is on Colace, fentanyl patch, Klonopin, lithium, MiraLax, Nicoderm patch, oxycodone, Robaxin, Seroquel, metoprolol, Tylenol, Zofran and Zosyn. She will be off the IV antibiotics of Augmentin 875 mg twice a day for 10 days. PHYSICAL EXAMINATION: VITAL SIGNS: She has a 97.1 temperature, 61 pulse, 114/64 blood pressure, 16 respiratory rate, and 97% O2 sat on room air. HEENT: Head is atraumatic, normocephalic. HEART: Regular rate. LUNGS: Decreased breath sounds but clear. ABDOMEN: Soft. Positive colostomy, functioning. No protrusion. EXTREMITIES: No edema. LABORATORY DATA: She has a 8.3 white count, 10.6 hemoglobin, 34.4 hematocrit with 42 platelets. A 141 sodium, potassium 4, BUN is 9, creatinine 0.4, GFR is greater than 60, sugar is 88, calcium is 11.3, AST is 26, ALT is 21, alk phos 73. ASSESSMENT AND PLAN: She does have end-stage cancer. She is going to go home on hospice. She has the colostomy fixed. She had infection and hopefully she will do well at home. I will see her on a house call. I will get the medicines called into her pharmacy. Patrice Alba DO
[2019-01-02] MEDS ORDERED: Multivitamin With Minerals Tab PO SCH (10:00)
== END 2019-01-01 15:34 | disposition home or self-care (01) | DRG 148 ==
LOC: SDS 07:18 → 5RNO 18:03 → SDS 12-26 16:38 → 5RNO 12-27 16:38
PROVIDERS: ADMIT Surgery; ATTEND Surgery
PROC: 0D1N0Z4 Bypass Sigmoid Colon to Cutaneous, Open Approach (ICD-10-PCS; principal; 2018-12-26)
DX: K94.03 Colostomy malfunction (principal); C20 Malignant neoplasm of rectum; J44.9 Chronic obstructive pulmonary disease, unspecified; N39.0 Urinary tract infection, site not specified; R50.82 Postprocedural fever; M06.9 Rheumatoid arthritis, unspecified; I10 Essential (primary) hypertension; F32.9 Major depressive disorder, single episode, unspecified; F41.9 Anxiety disorder, unspecified; D64.9 Anemia, unspecified; F17.210 Nicotine dependence, cigarettes, uncomplicated; R91.8 Other nonspecific abnormal finding of lung field; Y83.3 Surgical operation with formation of external stoma as the cause of abnormal reaction of the patient, or of later complication, without mention of misadventure at the time of the procedure; Z88.8 Allergy status to other drugs, medicaments and biological substances; Z88.6 Allergy status to analgesic agent; Z92.21 Personal history of antineoplastic chemotherapy; Z92.3 Personal history of irradiation